=== PATIENT | male | born 1940 | race Caucasian/White ===

== ENCOUNTER 2016-09-08 11:40 | Inpatient (IN) ==
[2016-09-08] MEDS ORDERED: *HR* HYDROmorphone (PF) 1 MG/ML SYRINGE IVP ONE (12:04)
[2016-09-08] MEDS ORDERED: Ondansetron 4 MG/2 ML VIAL IVP ONE (12:04)
--- NOTE | 2016-09-08 12:09 | Emergency Department Note ---
Disposition Clinical Impression: Atrial thrombus Abdominal pain Qualifiers: Abdominal location: unspecified location Qualified Code(s): R10.9 - Unspecified abdominal pain Disposition: Home, Self-Care Condition: Good Abdominal Pain HPI - General Chief Complaint: ED Abdominal Pain Stated Complaint: Abd pain, constipation Time Seen by Provider: 09/08/16 12:00 Source: patient, family Limitations: no limitations Nursing Notes Reviewed: Yes Vital Signs Reviewed: Yes - History of Present Illness HPI Narrative: Patient here for evaluation abdominal pain. Abdominal pain started approximately 1 week ago has been getting worse in nature. Patient seen on Tuesday at [facility] emergency department with no abnormalities found during workup and sent home. At that time the patient had been having black stools which was found to be negative for blood in the department. Symptoms progressively worse now associated with "potato soup" diarrhea 4 last night. Patient's had nausea but no vomiting. Past medical history includes significant peripheral artery disease with current ischemia the right big toe being treated by vascular and podiatry. Patient has a history of atrial fibrillation on warfarin Pain Scale: 10 - Related Data Home Medications Medication Instructions Recorded Confirmed Calcium Carbonate [Calcium] 600 mg PO BID 02/20/16 09/08/16 Folic Acid 3 mg PO DAILY 02/20/16 09/08/16 Leflunomide [Arava] 20 mg PO DAILY 02/20/16 09/08/16 Methotrexate [Otrexup] 10 mg PO MO 02/20/16 09/08/16 Metoprolol [Lopressor] 50 mg PO BID 02/20/16 09/08/16 Polyethylene Glycol 3350 [MiraLAX] 17 gm PO DAILY PRN 02/20/16 09/08/16 Pravastatin Sodium [Pravachol] 80 mg PO HS 02/20/16 09/08/16 PredniSONE 5 mg PO DAILY 02/20/16 09/08/16 Primidone [Mysoline] 200 mg PO TID 02/20/16 09/08/16 Warfarin [Coumadin] 4 mg PO SUMOWEFR 02/20/16 09/08/16 Vit A/C/E AC/Znox/Cupric Oxide 1 each PO DAILY 08/18/16 09/08/16 [Eye Vitamin-Minerals Tablet] Warfarin Sodium [Coumadin] 6 mg PO TUTHSA 08/18/16 09/08/16 Benazepril HCl [Lotensin] 20 mg PO BID 09/08/16 09/08/16 HYDROmorphone [Dilaudid] 4 mg PO Q4-6H PRN 09/08/16 09/08/16 Metformin [Glucophage] 500 mg PO BIDWM 09/08/16 09/08/16 [place]-3/Dha/Epa/Fish Oil [[place]-3 2,000 mg PO DAILY 09/08/16 09/08/16 Fish Oil 1,000 mg Sfgl] Previous Rx's Medication Instructions Recorded Clopidogrel [Plavix] 75 mg PO DAILY #30 tablet 08/18/16 Allergies Allergy/AdvReac Type Severity Reaction Status Date / Time No Known Allergies Allergy Verified 09/08/16 11:42 Constitutional: Denies: fever, chills Cardiovascular: Denies: chest pain, palpitations Respiratory: Denies: cough Gastrointestinal: Reports: abdominal pain, nausea. Denies: vomiting, diarrhea Genitourinary: Denies: urgency, dysuria Abdominal Pain PMH - Past Medical History Medical history: Reports: atrial fibrillation, CHF, hyperlipidemia, hypertension , peripheral artery disease, other Male Surgical History: Reports: other Psychiatric history: Reports: no psych history - Social History Smoking status: Former smoker Alcohol use: Reports: none Drug use: Reports: none Physical Exam - General Limitations: no limitations General appearance: alert, in no apparent distress - Head Head exam: atraumatic, normocephalic - Eye Eye exam: Present: normal appearance - ENT ENT exam: normal exam - Neck Neck exam: Present: normal inspection, full ROM - Chest Chest inspection: Present: normal inspection, symmetric chest wall rise. Absent : tenderness - Respiratory Respiratory exam: Present: normal lung sounds bilaterally. Absent: respiratory distress - Cardiovascular Cardiovascular exam: Present: tachycardia, irregular rhythm - Abdominal Exam Abdominal exam: Present: tenderness, rebound Abdominal tenderness: Present: LUQ, moderate - Extremities Exam Extremities exam: Present: other (Right great big toe with ischemia that has not been worsening followed by specialist) - Neurological Exam Neurological exam: Present: alert, oriented X3, CN II-XII intact - Psychiatric Psychiatric exam: Present: normal affect, normal mood - Skin Skin exam: Present: warm, dry Course - Reevaluation(s) Reevaluation #1: Radiology: CT scan results showing concern for atrial thrombus. Patient not significantly anticoagulated at this time with INR 1.4. Patient continues to have abdominal pain without radiographic or laboratory significance. Will discuss with hospitalist regarding admission. - Consultations Consultation #1: Discussed with Dr. Thurston. Will anticoagulate with heparin. Accepted for admission. Vital Signs Temperature 0 F L 09/08/16 11:42 Pulse Rate 123 09/08/16 11:42 Respiratory Rate 18 09/08/16 11:42 Blood Pressure 154/103 09/08/16 11:42 O2 Sat by Pulse Oximetry 94 L 09/08/16 11:42 Temperature 98 F 09/08/16 17:03 Pulse Rate 100 09/08/16 16:38 Respiratory Rate 16 09/08/16 16:38 Blood Pressure 142/84 09/08/16 16:38 O2 Sat by Pulse Oximetry 97 09/08/16 16:38 Oxygen Delivery Oxygen Delivery Room Air Abdominal Pain - Lab Data Result diagrams: 09/08/16 12:24 09/08/16 12:24 Lab Results 09/08/16 09/08/16 09/08/16 Range/Units 12:24 12:24 12:24 WBC 8.7 (4.3-11.1) K/mcL RBC 3.99 L (4.19-5.50) M/mcL Hgb 13.2 (12.9-16.9) g/dL Hct 40.2 (37.5-50.1) % MCV 100.8 H (83.0-100.0) fL MCH 33.1 (28.0-33.3) pg MCHC 32.8 (31.6-35.5) g/dL RDW 17.1 H (11.5-14.5) % Plt Count 216 (140-400) K/mcL MPV 10.1 (9.4-12.4) fL Immature Gran % 1.0 (0-4) % Seg Neutrophils % 73.3 % Lymphocytes % 16.6 % Monocytes % 8.4 % Eosinophils % 0.2 % Basophils % 0.5 % Neutrophils # 6.4 (1.6-8.9) K/mcL Lymphocytes # 1.4 (0.6-4.6) K/mcL Monocytes # 0.7 (0.0-1.3) K/mcL Eosinophils # 0.0 (0.0-0.6) K/mcL Basophils # 0.0 (0.0-0.2) K/mcL PT 15.5 H (9.4-12.1) Seconds INR 1.4 APTT (26.0-36.0) Seconds Sodium 138 (136-145) mEq/L Potassium 4.5 (3.5-4.5) mEq/L Chloride 103 (98-109) mEq/L Carbon Dioxide 22 (19-29) mEq/L BUN 19 (8-26) mg/dL Creatinine 1.05 (0.72-1.25) mg/dL Est GFR ( Amer) > 60 (> 60) Est GFR (Non-Af Amer) > 60 (> 60) BUN/Creatinine Ratio 18 (6-26) Glucose 117 H (70-99) mg/dL Calculated Osmolality 289 (280-300) Lactic Acid (0.5-2.2) mmol/L Calcium 8.7 (8.6-10.8) mg/dL Total Bilirubin 0.8 (0.2-1.2) mg/dL Direct Bilirubin 0.4 (0.0-0.5) mg/dL Indirect Bilirubin 0.4 (0.0-1.2) mg/dL AST 19 (5-34) Units/L ALT 16 (0-55) Units/L Alkaline Phosphatase 64 (38-126) Units/L Serum Total Protein 7.3 (6.0-8.3) g/dL Albumin 3.1 L (3.5-5.0) g/dL Globulin 4.2 H (2.4-3.5) g/dL Albumin/Globulin Ratio 0.7 L (1.1-2.2) Lipase 16 (8-78) Units/L 09/08/16 09/08/16 Range/Units 12:24 12:31 WBC (4.3-11.1) K/mcL RBC (4.19-5.50) M/mcL Hgb (12.9-16.9) g/dL Hct (37.5-50.1) % MCV (83.0-100.0) fL MCH (28.0-33.3) pg MCHC (31.6-35.5) g/dL RDW (11.5-14.5) % Plt Count (140-400) K/mcL MPV (9.4-12.4) fL Immature Gran % (0-4) % Seg Neutrophils % % Lymphocytes % % Monocytes % % Eosinophils % % Basophils % % Neutrophils # (1.6-8.9) K/mcL Lymphocytes # (0.6-4.6) K/mcL Monocytes # (0.0-1.3) K/mcL Eosinophils # (0.0-0.6) K/mcL Basophils # (0.0-0.2) K/mcL PT (9.4-12.1) Seconds INR APTT 27.9 (26.0-36.0) Seconds Sodium (136-145) mEq/L Potassium (3.5-4.5) mEq/L Chloride (98-109) mEq/L Carbon Dioxide (19-29) mEq/L BUN (8-26) mg/dL Creatinine (0.72-1.25) mg/dL Est GFR ( Amer) (> 60) Est GFR (Non-Af Amer) (> 60) BUN/Creatinine Ratio (6-26) Glucose (70-99) mg/dL Calculated Osmolality (280-300) Lactic Acid 2.4 H (0.5-2.2) mmol/L Calcium (8.6-10.8) mg/dL Total Bilirubin (0.2-1.2) mg/dL Direct Bilirubin (0.0-0.5) mg/dL Indirect Bilirubin (0.0-1.2) mg/dL AST (5-34) Units/L ALT (0-55) Units/L Alkaline Phosphatase (38-126) Units/L Serum Total Protein (6.0-8.3) g/dL Albumin (3.5-5.0) g/dL Globulin (2.4-3.5) g/dL Albumin/Globulin Ratio (1.1-2.2) Lipase (8-78) Units/L Attestation Statement - Attestation Attestation: I examined this patient and my medical decision-making was reviewed with the Resident Physician. I agree with the documented findings, disposition and treatment plan as described except to the extent set forth below. Incidental finding of atrial thrombus seen on abdominal CT. INR subtherapeutic. Anticoaguleated in ED, admitted.
[2016-09-08 12:31] LABS: Basophils % 0.5 %; Eosinophils % 0.2 %; Hematocrit 40.2 % (37.5-50.1); Hemoglobin 13.2 g/dL (12.9-16.9); Lymphocytes # 1.4 K/mcL (0.6-4.6); Lymphocytes % 16.6 %; Mean Corpuscular HGB Conc 32.8 g/dL (31.6-35.5); Mean Corpuscular Hemoglobin 33.1 pg (28.0-33.3); Mean Corpuscular Volume 100.8 fL (83.0-100.0); Mean Platelet Volume 10.1 fL (9.4-12.4); Monocytes # 0.7 K/mcL (0.0-1.3); Monocytes % 8.4 %; Neutrophils # 6.4 K/mcL (1.6-8.9); Platelet Count 216 K/mcL (140-400); Red Blood Count 3.99 M/mcL (4.19-5.50); Red Cell Distribution Width 17.1 % (11.5-14.5); Segmented Neutrophils % 73.3 %
[2016-09-08 12:37] LABS: INR 1.4; Prothrombin Time 15.5 Seconds (9.4-12.1)
[2016-09-08 12:45] LABS: Alanine Aminotransferase 16 Units/L (0-55); Albumin 3.1 g/dL (3.5-5.0); Albumin/Globulin Ratio 0.7 (1.1-2.2); Alkaline Phosphatase 64 Units/L (38-126); Aspartate Amino Transferase 19 Units/L (5-34); BUN/Creatinine Ratio 18 (6-26); Bilirubin,Direct 0.4 mg/dL (0.0-0.5); Bilirubin,Indirect 0.4 mg/dL (0.0-1.2); Bilirubin,Total 0.8 mg/dL (0.2-1.2); Blood Urea Nitrogen 19 mg/dL (8-26); Calcium 8.7 mg/dL (8.6-10.8); Carbon Dioxide 22 mEq/L (19-29); Chloride 103 mEq/L (98-109); Globulin 4.2 g/dL (2.4-3.5); Glucose 117 mg/dL (70-99); Lipase 16 Units/L (8-78); Osmolality,Calculated 289 (280-300); Potassium 4.5 mEq/L (3.5-4.5); Sodium 138 mEq/L (136-145); Total Protein 7.3 g/dL (6.0-8.3); eGFR For African Americans > 60 (> 60); eGFR For Non-African Americans > 60 (> 60)
[2016-09-08] MEDS ORDERED: *HR* HYDROmorphone (PF) 1 MG/ML SYRINGE IV ONE (14:16)
[2016-09-08] MEDS ORDERED: *HR* Heparin 5,000 UNIT/ML VIAL IVP PRN ×2 (15:21)
[2016-09-08] MEDS ORDERED: *HR* Heparin 5,000 UNIT/ML VIAL IVP ONE (15:21)
[2016-09-08] MEDS: Heparin 25,000 UNIT/500 ML D5W 25,000 UNIT/500 ML MLS IVC SCH (15:54)
[2016-09-08] MEDS ORDERED: Naloxone 0.4 MG/ML INJ IVP PRN (17:22)
[2016-09-08] MEDS ORDERED: *HR* Morphine 2 MG/ML SYRINGE IVP PRN (17:22)
--- NOTE | 2016-09-08 17:47 | Internal Med History&Physical ---
Date of Encounter: 09/08/16 Time of Encounter: 17:34 Assessment and Plan (1) Atrial thrombus Status: Acute Atrial thrombus: This is an incidental finding on a CT scan of the abdomen. Noted that patient has a subtherapeutic INR. Patient was on Coumadin for underlying atrial fibrillation. Plan: -Intravenous heparin as per protocol. -We will monitor PTT and other lab parameters. -Keep the PTT in the therapeutic value. -If patient has no bleeding in next 48 hours then with the help of cardiology please consider restarting Coumadin -I have explained at length the risk of possible bleeding with heparin drip. This bleeding can be life-threatening. -Patient and family verbalized understanding. (2) Hypertension Status: Chronic Will restart home medication. Qualifiers: Hypertension type: essential hypertension Qualified Code(s): I10 - Essential (primary) hypertension (3) Rheumatoid arthritis Status: Chronic Upon reviewing the medication, it looks like patient has underlying rheumatoid arthritis but this was not mentioned in his problem list. Qualifiers: Rheumatoid arthritis location: unspecified site Rheumatoid factor presence : unspecified presence Qualified Code(s): M06.9 - Rheumatoid arthritis, unspecified (4) Hyperlipidemia Status: Chronic Patient is on statins and will continue the same Qualifiers: Hyperlipidemia type: mixed hyperlipidemia Qualified Code(s): E78.2 - Mixed hyperlipidemia (5) DVT prophylaxis Status: Acute Heparin drip: Medical decision making: Patient has a [id number] risk of worsening in spite of being on appropriate medication Internal Medicine - H&P: HPI Chief complaint: abdomnal pain Admitted From: Emergency Dept Plans for Post Hospital Care: Home History of present illness: PCP : Dr Brooks Vascular Surgeon : Dr De La Garza Cardiology : from [facility]. Brief PMH: HTN, Hyperlipidemia, Afib on Coumadin, PAD with recent procedure by Dr De La Garza, CHF by ECHO ( EF 45% in January 2016) History of present illness: Patient had recent vascular procedure done by . For this procedure Coumadin was on hold. Coumadin was restarted and INR was within the therapeutic goal. Last Tuesday patient had a melenic stool. Patient consulted his bowl attendant. Educational Therapist recommended stop Coumadin. Patient was told by cardiology that stool does not have blood and recommended to restart Coumadin. All This information was provided by the patient. Today patient came to the emergency room for persistent abdominal pain. Patient 's CT scan of the abdomen was done. The CT scan of the abdomen showed presence of a right atrial thrombus. This is a incidental finding. Noted that patient' s INR is subtherapeutic. Course in the emergency room: Patient was evaluated in the emergency room. The incidental finding of right atrial thrombus was noted. Cardiology was contacted. Cardiology recommended intravenous heparin. Risk versus benefit of possible underlying GI bleed was discussed with the patient as well as family. Reason for admission: Left atrial thrombus which is a incidental finding on the CT of the abdomen. Intravenous heparin for anticoagulation. Reason for intravenous heparin is as patient has a recent history of possible melenic stool , only heparin has short half-life and which can be reverted back in case of there is a new episode of bleeding. Cardiology agreed and recommended intravenous heparin. Family history: Noncontributory Past Med Surg Social Fam HX - Past Medical History Medical history: atrial fibrillation, CHF, hyperlipidemia, hypertension, peripheral artery disease, other Psychiatric history: no psych history - Past Surgical History Surgical History: herniorrhaphy, other - Social History Smoking Status: Former smoker Smokeless Tobacco Status: No Alcohol use: none Drug use: none Internal Medicine - H&P: Meds Calcium Carbonate [Calcium] 600 mg PO BID 02/20/16 [History] Folic Acid 3 mg PO DAILY 02/20/16 [History] Leflunomide [Arava] 20 mg PO DAILY 02/20/16 [History] Methotrexate [Otrexup] 10 mg PO MO 02/20/16 [History] Metoprolol [Lopressor] 50 mg PO BID 02/20/16 [History] Polyethylene Glycol 3350 [MiraLAX] 17 gm PO DAILY PRN 02/20/16 [History] Pravastatin Sodium [Pravachol] 80 mg PO HS 02/20/16 [History] PredniSONE 5 mg PO DAILY 02/20/16 [History] Primidone [Mysoline] 200 mg PO TID 02/20/16 [History] Warfarin [Coumadin] 4 mg PO SUMOWEFR 02/20/16 [History] Clopidogrel [Plavix] 75 mg PO DAILY #30 tablet 08/18/16 [Rx] Vit A/C/E AC/Znox/Cupric Oxide [Eye Vitamin-Minerals Tablet] 1 each PO DAILY 02/24 [History] Warfarin Sodium [Coumadin] 6 mg PO TUTHSA 08/18/16 [History] Benazepril HCl [Lotensin] 20 mg PO BID 09/08/16 [History] HYDROmorphone [Dilaudid] 4 mg PO Q4-6H PRN 09/08/16 [History] Metformin [Glucophage] 500 mg PO BIDWM 09/08/16 [History] [place]-3/Dha/Epa/Fish Oil [[place]-3 Fish Oil 1,000 mg Sfgl] 2,000 mg PO DAILY 07/27 [History] Docusate [Colace] 100 mg PO BID #30 capsule 09/13/16 [Rx] Allergies No Known Allergies Allergy (Verified 09/08/16 11:42) All Systems PM: A 10-system review of systems was performed and is negative for pertinent findings except as documented above in the HPI. - Constitutional Constitutional: no chills, no fever(s), no night sweats - EENT Eyes: no change in vision, no discharge, no pain, no photophobia Ears: no ear discharge, no ear pain, no tinnitus Nose, mouth and throat: no dysphagia, no nasal discharge, no neck pain, no sore throat - Cardiovascular Cardiovascular ROS IM: no chest pain, no diaphoresis, no dyspnea, no lightheadedness, no palpitations, no syncope - Respiratory Respiratory: no cough, no dyspnea, no wheezing, no excessive phlegm production - Gastrointestinal Gastrointestinal: no abdominal pain, no diarrhea, no hematemesis, no hematochezia, no melena, no nausea, no vomiting - Musculoskeletal Musculoskeletal ROS IM: no numbness, no tingling - Integumentary Integumentary IM: no rash, no unusual bruising - Neurological Neurological ROS: no confusion, no convulsions, no focal weakness, no numbness, no tingling, no tremor(s) - Hematologic/Lymphatic Hematologic/Lymphatic: no easy bruising - Constitutional Vitals: Temp Pulse Resp BP Pulse Ox 98 F 100 16 142/84 97 09/08/16 17:03 09/08/16 16:38 09/08/16 16:38 09/08/16 16:38 09/08/16 16:38 General appearance: Present: A&O X 3, pleasant, no acute distress, answers questions appropriately - Head Head exam: Present: atraumatic, normocephalic - Eye Eye exam: Present: PERRL, conjuntiva pink, sclera anicteric Pupils: Present: PERRL - Neck Neck exam general surgery: Present: supple, trachea midline. Absent: lymphadenopathy - Respiratory Respiratory exam: Present: CTAB. Absent: accessory muscle use, rales, rhonchi, wheezes - Cardiovascular Cardiovascular exam: Present: RRR, +S1, +S2. Absent: diastolic murmur, gallop, rubs, systolic murmur - GI/Abdominal GI/Abdominal exam: Present: normal bowel sounds, soft, no peritoneal signs. Absent: distended, tenderness - Extremities Exam Extremities exam: Present: warm, radial pulses palpable and symetrical. Absent : calf tenderness, cyanotic, pedal edema - Neurological Exam Neurological exam: Present: CN II-XII intact, oriented X3, no focal deficits. Absent: pronater drift, facial droop, speech deficit - Skin Skin exam: Present: dry, intact Internal Med - H&P Results - Labs CBC & Chem 7: 09/10/16 06:28 09/10/16 06:28 Labs: Case discussed with the bowl attendant and the ER physician.
[2016-09-08] MEDS: Primidone 50 MG TABLET PO SCH (20:13)
[2016-09-08] MEDS: *HR* HYDROmorphone 2 MG/ML SYRINGE IVP PRN (20:13)
[2016-09-08 22:27] LABS: Bilirubin,Urine Negative (Negative); Blood,Urine Negative (Negative); Clarity,Urine Clear (Clear); Color,Urine Yellow (Yellow); Glucose,Urine (UA) Normal (Normal); Ketones,Urine Trace mg/dL (Negative); Leukocyte Esterase,Urine Negative (Negative); Nitrite,Urine Negative (Negative); PH,Urine 5.5 pH Units (5.0-8.0); Protein,Urine Negative (Neg-Trace); Specific Gravity,Urine > 1.030 (1.010-1.025); Urobilinogen,Urine Normal (Normal)
[2016-09-09 05:29] LABS: Basophils # 0.1 K/mcL (0.0-0.2); Basophils % 0.7 %; Eosinophils # 0.2 K/mcL (0.0-0.6); Hematocrit 35.8 % (37.5-50.1); Hemoglobin 11.9 g/dL (12.9-16.9); Immature Granulocytes % 0.7 % (0-4); Lymphocytes # 1.9 K/mcL (0.6-4.6); Lymphocytes % 23.7 %; Mean Corpuscular HGB Conc 33.2 g/dL (31.6-35.5); Mean Corpuscular Hemoglobin 34.1 pg (28.0-33.3); Mean Corpuscular Volume 102.6 fL (83.0-100.0); Mean Platelet Volume 10.4 fL (9.4-12.4); Monocytes # 0.9 K/mcL (0.0-1.3); Platelet Count 194 K/mcL (140-400); Red Blood Count 3.49 M/mcL (4.19-5.50); Red Cell Distribution Width 17.1 % (11.5-14.5); Segmented Neutrophils % 61.9 %
[2016-09-09] MEDS: *HR* HYDROmorphone 2 MG/ML SYRINGE IVP PRN ×4 (05:46→22:27)
[2016-09-09 05:49] LABS: Alanine Aminotransferase 17 Units/L (0-55); Albumin 2.8 g/dL (3.5-5.0); Albumin/Globulin Ratio 0.8 (1.1-2.2); Alkaline Phosphatase 60 Units/L (38-126); Aspartate Amino Transferase 17 Units/L (5-34); BUN/Creatinine Ratio 18 (6-26); Bilirubin,Total 0.6 mg/dL (0.2-1.2); Blood Urea Nitrogen 17 mg/dL (8-26); Calcium 8.5 mg/dL (8.6-10.8); Carbon Dioxide 24 mEq/L (19-29); Chloride 103 mEq/L (98-109); Chol/HDL Ratio 3.7 (0-4.9); Cholesterol 161 mg/dL (< 200); Globulin 3.7 g/dL (2.4-3.5); Glucose 103 mg/dL (70-99); HDL Cholesterol 43 mg/dL (40-59); LDL Cholesterol,Calculated 97 mg/dL (0-99); Magnesium 1.9 mg/dL (1.6-2.6); Osmolality,Calculated 288 (280-300); Phosphorous 2.8 mg/dL (2.3-4.7); Potassium 4.2 mEq/L (3.5-4.5); Sodium 138 mEq/L (136-145); Total Protein 6.5 g/dL (6.0-8.3); Triglycerides 105 mg/dL (< 150); eGFR For African Americans > 60 (> 60); eGFR For Non-African Americans > 60 (> 60)
[2016-09-09] MEDS: Multivit/Ca/Min/Fe/FA 1 TAB TABLET PO SCH (08:56)
[2016-09-09] MEDS: Primidone 50 MG TABLET PO SCH ×3 (08:56→21:39)
[2016-09-09] MEDS: Lisinopril 20 MG TABLET PO SCH (08:57)
[2016-09-09] MEDS: Folic Acid 1 MG TABLET PO SCH (08:57)
[2016-09-09] MEDS: predniSONE 5 MG TABLET PO SCH (08:57)
[2016-09-09] MEDS: FISH OIL PO SCH (09:03)
[2016-09-09] MEDS: OMEGA PO SCH (09:03)
[2016-09-09] MEDS: EPA PO SCH (09:03)
[2016-09-09] MEDS: DHA PO SCH (09:03)
[2016-09-09] MEDS: (Leflunomide [Arava] 20 MG) PO SCH (09:03)
--- NOTE | 2016-09-09 09:09 | Vascular/Endovasc Consult Note ---
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 He underwent angioplasty and his TCPO2 is now consistent with healing. He may follow up with podiatry and in vascular clinic. He may require a right great toe amputation. Qualifiers: Peripheral atherosclerosis artery type: pauma artery Qualified Code(s): I70.261 - Atherosclerosis of pauma arteries of extremities with gangrene, right leg (2) Hyperlipidemia Status: Chronic He was counseled regarding atherosclerotic risk factor reduction. Qualifiers: Hyperlipidemia type: mixed hyperlipidemia Qualified Code(s): E78.2 - Mixed hyperlipidemia (3) Hypertension Status: Chronic Qualifiers: Hypertension type: essential hypertension Qualified Code(s): I10 - Essential (primary) hypertension (4) Abdominal pain Status: Acute The patient reports midepigastric postprandial abdominal pain. He has some mild midepigastric tenderness without any rebound or guarding. He currently denies food aversion or intestinal angina. His symptoms have been present for one week. He denies significant weight loss. He does have gallstones, a poor appetite and constipation. He reports that his symptoms have decreased since admission. Qualifiers: Abdominal location: epigastric Qualified Code(s): R10.13 - Epigastric pain - History of Present Illness Consult date: 09/16/16 Requesting physician: Magaly Bobo Consult reason: Abdominal Pain, PVD Chief complaint: Abdominal pain History of present illness: Mr. Eid is a 75 year old male with multiplie medial comorbidities including hypertension, hyperlipidemia and peripheral vascular disease. He has a history of atrial fibrillation and is chronically anticoagulated with coumadin. He was recently noted to have an atrial thrombus. The patient also has a gangrenous right great toe. He has previously undergone angioplasty and will likely undergo toe amputation in the future. He was admitted with abdominal pain. HE reports that the pain is midepigastric and occurs after eating meals. He denies significant weight loss, intestinal angina symptoms or food aversion. He reports associated nausea. He reports that his symptoms are intermittent, but have been severe at times. At the time of exam, he states that he is comfortable. He denies chest pain or shortness of breath. Past Med Surg Social Fam HX - Past Medical History Medical history: atrial fibrillation, CHF, hyperlipidemia, hypertension, peripheral artery disease, other Psychiatric history: no psych history - Past Surgical History Surgical History: herniorrhaphy, other - Social History Smoking Status: Former smoker Smokeless Tobacco Status: No Alcohol use: none Drug use: none Medications and Allergies Calcium Carbonate [Calcium] 600 mg PO BID 02/20/16 [History] Folic Acid 3 mg PO DAILY 02/20/16 [History] Leflunomide [Arava] 20 mg PO DAILY 02/20/16 [History] Methotrexate [Otrexup] 10 mg PO MO 02/20/16 [History] Metoprolol [Lopressor] 50 mg PO BID 02/20/16 [History] Polyethylene Glycol 3350 [MiraLAX] 17 gm PO DAILY PRN 02/20/16 [History] Pravastatin Sodium [Pravachol] 80 mg PO HS 02/20/16 [History] PredniSONE 5 mg PO DAILY 02/20/16 [History] Primidone [Mysoline] 200 mg PO TID 02/20/16 [History] Warfarin [Coumadin] 4 mg PO SUMOWEFR 02/20/16 [History] Clopidogrel [Plavix] 75 mg PO DAILY #30 tablet 08/18/16 [Rx] Vit A/C/E AC/Znox/Cupric Oxide [Eye Vitamin-Minerals Tablet] 1 each PO DAILY 02/24 [History] Warfarin Sodium [Coumadin] 6 mg PO TUTHSA 08/18/16 [History] Benazepril HCl [Lotensin] 20 mg PO BID 09/08/16 [History] HYDROmorphone [Dilaudid] 4 mg PO Q4-6H PRN 09/08/16 [History] Metformin [Glucophage] 500 mg PO BIDWM 09/08/16 [History] [place]-3/Dha/Epa/Fish Oil [[place]-3 Fish Oil 1,000 mg Sfgl] 2,000 mg PO DAILY 07/27 [History] Docusate [Colace] 100 mg PO BID #30 capsule 09/13/16 [Rx] Allergies No Known Allergies Allergy (Verified 09/08/16 11:42) All Systems Review: A 10-system review of systems was performed and is negative for pertinent findings except as documented above in the HPI. - Constitutional Constitutional: no anorexia, no chills, no fatigue, no fever(s), no headache(s) - Cardiovascular Cardiovascular: no chest pain at rest, no chest pain with exertion, no dyspnea at rest, no dyspnea on exertion - Gastrointestinal Gastrointestinal: abdominal pain, constipation, nausea, no diarrhea, no hematemesis, no hematochezia, no melena Exam Vital Signs, Last 4 Hours Temp Pulse Resp BP Pulse Ox 09/09/16 08:29 98.4 F 87 16 147/85 99 09/09/16 05:29 96.6 F L 84 16 132/92 94 L General: Present: Conversant, No Apparent Distress HEENT: Present: Atraumatic, Trachea midline, Pupils equal Neck: Absent: JVD, Lymphadenopathy, Left Carotid bruit, Right Carotid bruit, Tracheal deviation Cardiac: Present: Normal S1 and S2, Irregular Rhythm Lungs: Present: Normal Breath Sounds, No Wheeze, Rales, Rhonchi Neuro: Present: Alert and responsive, No focal deficits noted, Cranial nerves grossly intact, Motor nerves grossly intact, Sensory nerves grossly intact Abdomen: Present: Soft, Other (mild midepigastric abdominal pain, no rebound, no guarding). Absent: Hepatosplenomegaly, [place] Vascular: Present: Normal capillary refill, Other (gangrene at right great toe, pedal signals present). Absent: Cyanosis, Edema Skin: Absent: No rashes noted on visualized skin Consult Discharge Plan - Plan Additional Instructions: F/up with Podiatry clinic in 1-2 weeks- or Referrals: Tessa Brooks CNP [Primary Care Provider] - (this appoinment has been requested) Boo Umana CNP [Advanced Practice Nurse] - 10/01/16 8:30 am Prescriptions: Docusate [Colace] 100 mg PO BID #30 capsule
--- NOTE | 2016-09-09 09:11 | Internal Med Progress Note ---
Date of Encounter: 09/09/16 Time of Encounter: 09:10 - Assessment and plan (1) Abdominal pain Current Visit: Yes Status: Acute Assessment and plan: Could be due to constipation or mesenteric ischemia, however patient's reports that his pain only started after he started taking Dilaudid with associated constipation. Start scheduled laxatives and stool softeners and consider enema to relieve constipation. Continue IV hydration, pain control and supportive care. Will discuss with vascular surgery regarding the possibility of mesenteric ischemia. Qualifiers: Abdominal location: epigastric Qualified Code(s): R10.13 - Epigastric pain (2) Atrial thrombus Current Visit: Yes Status: Acute Assessment and plan: Patient has been started on IV heparin drip. Cardiology consult appreciated, agree with anticoagulation. Start Coumadin and monitor PT/INR. Check 2-D echocardiogram. (3) Atrial fibrillation Current Visit: Yes Status: Chronic Assessment and plan: Currently rate controlled. Continue beta annelise and long-term anti-coag ablation with Coumadin. Qualifiers: Atrial fibrillation type: unspecified Qualified Code(s): I48.91 - Unspecified atrial fibrillation (4) Peripheral arterial disease Current Visit: Yes Status: Chronic Assessment and plan: Patient recently underwent right lower extremity angioplasty and is noted to have right great toe gangrene, for which he follows as an outpatient with podiatry. Vascular surgery consulted, will follow recommendations. Pain control with when necessary IV Dilaudid. (5) Congestive heart failure Current Visit: Yes Status: Chronic Qualifiers: Congestive heart failure type: combined Congestive heart failure chronicity : chronic Qualified Code(s): I50.42 - Chronic combined systolic (congestive) and diastolic (congestive) heart failure (6) Hyperlipidemia Current Visit: Yes Status: Chronic Qualifiers: Hyperlipidemia type: mixed hyperlipidemia Qualified Code(s): E78.2 - Mixed hyperlipidemia (7) Hypertension Current Visit: Yes Status: Chronic Qualifiers: Hypertension type: essential hypertension Qualified Code(s): I10 - Essential (primary) hypertension (8) Rheumatoid arthritis Current Visit: Yes Status: Chronic Qualifiers: Rheumatoid arthritis location: unspecified site Rheumatoid factor presence : unspecified presence Qualified Code(s): M06.9 - Rheumatoid arthritis, unspecified - Subjective Interval history: Reports improved pain in right leg and foot, on IV Dilaudid. No chest pain, dyspnea, dizziness or palpitations. Still has central abdominal pain, worse after eating, no nausea/vomiting/diarrhea, has been having problems with constipation recently due to narcotic pain meds at home. - Constitutional Vitals: Temp Pulse Resp BP Pulse Ox 98.4 F 87 16 147/85 99 09/09/16 08:29 09/09/16 08:29 09/09/16 08:29 09/09/16 08:29 09/09/16 08:29 General appearance: Present: A&O X 3, answers questions appropriately - Head Head exam: Present: atraumatic, normocephalic - Neck Neck exam general surgery: Present: supple, trachea midline. Absent: lymphadenopathy - Respiratory Respiratory exam: Present: CTAB. Absent: accessory muscle use, rales, rhonchi, wheezes - Cardiovascular Cardiovascular exam: Present: irregular rhythm, +S1, +S2. Absent: diastolic murmur, gallop, rubs, systolic murmur - GI/Abdominal GI/Abdominal exam: Present: normal bowel sounds, soft (mildly tender in central and RLQ of abdomen), no peritoneal signs. Absent: distended, tenderness - Extremities Exam Extremities exam: Present: pedal edema, warm, radial pulses palpable and symetrical. Absent: calf tenderness, cyanotic Additional comments: right foot- cyanotic and gangrenous great toe, mostly dry with non-healing plantar ulcer; severe tenderness over right foot and lower leg - Neurological Exam Neurological exam: Present: CN II-XII intact, oriented X3, no focal deficits. Absent: pronater drift, facial droop, speech deficit - Skin Skin exam: Present: dry, intact Internal Medicine: Result - Labs CBC & Chem 7: 09/10/16 06:28 09/10/16 06:28 Labs: Short CBC 09/09/16 Range/Units 05:07 WBC 8.1 (4.3-11.1) K/mcL Hgb 11.9 L (12.9-16.9) g/dL Hct 35.8 L (37.5-50.1) % Plt Count 194 (140-400) K/mcL Neutrophils # 5.0 (1.6-8.9) K/mcL BMP 09/09/16 05:07 Sodium 138 Potassium 4.2 Chloride 103 Carbon Dioxide 24 BUN 17 Creatinine 0.94 Glucose 103 H Calcium 8.5 L Cardiac Enzymes 09/08/16 09/08/1609/09/17 Range/Units 17:59 23:35 05:07 Troponin I 0.04 H* 0.05 H* 0.04 H* (0-0.03) ng/mL Liver Function 09/09/16 Range/Units 05:07 Total Bilirubin 0.6 (0.2-1.2) mg/dL AST 17 (5-34) Units/L ALT 17 (0-55) Units/L Alkaline Phosphatase 60 (38-126) Units/L Albumin 2.8 L (3.5-5.0) g/dL Urine 09/08/16 Range/Units 22:10 Urine Color Yellow (Yellow) Urine Clarity Clear (Clear) Urine pH 5.5 (5.0-8.0) pH Units Ur Specific [place] > 1.030 H (1.010-1.025) Urine Protein Negative (Neg-Trace) mg/dL Urine Glucose (UA) Normal (Normal) mg/dL - ABG Interpretation ABG results: PT/INR, D-dimer PT 15.5 Seconds (9.4-12.1) H 09/08/16 12:24 Consult Discharge Plan - Plan Referrals: Tessa Brooks, FILM INSPECTOR [Primary Care Provider] -
[2016-09-09] MEDS: Sennosides/Docusate Sodium TABLET PO SCH ×2 (10:18→21:39)
[2016-09-09] MEDS: Heparin 25,000 UNIT/500 ML D5W 25,000 UNIT/500 ML MLS IVC SCH (10:18)
--- NOTE | 2016-09-09 11:26 | Cardiology Consult Note ---
Date of Encounter: 09/09/16 Time of Encounter: 10:00 Assessment and Plan (1) Abdominal pain Current Visit: Yes Status: Acute Per cardiology: -Patient with abdominal pain and constipation. -Management per primary service. (VICTOR MANUEL) Qualifiers: Abdominal location: unspecified location Qualified Code(s): R10.9 - Unspecified abdominal pain (2) Atrial thrombus Current Visit: Yes Status: Acute Per cardiology: -Patient with incidental right atrial thrombus noted on CT on 09/08/16. Thrombus measures 1.2 x 1.3 cm. -Patient with known history of atrial fibrillation. Patient on coumadin. Pateint with subtherapeutic INR on admission at 1.4. Patient states INR and coumadin dosing is managed by his primary document review attorney at [facility]. Reviewed INRs that have been done here at [facility] over the past year and it appears INR is labile. INRs noted to be between 1.1-5.3. indicates held within the past few weeks due to vascular procedure with Dr. De La Garza and held recently due to concerns with black stools -Patient currently on heparin drip. H&H stable and denies any active bleeding or blood loss. -Recommend restarting coumadin per pharmacy. -Recommend bridging with IV heparin, until INR therapeutic-- 2.0 - 3.0. Continue to monitor for any bleeding. -Cardiology will manage INR until seen by [facility] in [place] (once PA approved). Will refer to coumadin clinic in [place]. -Patient and family agreeable to to follow with [facility] coumadin clinic. (VICTOR MANUEL) (3) Atrial fibrillation Current Visit: Yes Status: Chronic Per cardiology: -Patient with known history of atrial fibrillation. Suspected chronic. -Patient previously on coumadin at home. Currently on heparin drip. -INR noted to be subtherapeutic on admission. - Noted to have A. fib with RVR 100s to 120s upon arrival, better controlled on the 90s. SBP as well in the 140s to 150s. Previous echo from January 2016 showed EF 45%. Current echo pending. Will convert from Lopressor to Toprol-XL with increase to 150 mg by mouth daily. Continue to monitor telemetry and blood pressures. -Suspect contributing factor to atrial thrombus. (VICTOR MANUEL) Qualifiers: Atrial fibrillation type: unspecified Qualified Code(s): I48.91 - Unspecified atrial fibrillation (4) Elevated troponin I measurement Current Visit: Yes Status: Acute Per Cardiology: Troponins slightly elevated, flat, adynamic. Suspect demand ischemia in relation to A. fib with RVR and hypertension upon arrival. Denies any chest pain. Previous records reviewed from vascular surgery with mention of no obstructive CAD on catheterization in 2008. Again, echo pending. Consider adding asa-- will hold for now since on IV heparin drip, Plavix, and Coumadin. (5) LBBB (left bundle branch block) Current Visit: Yes Status: Chronic Per Cardiology: History of left bundle branch block. Discussion w patient/family: The assessment and plan as outlined above was discussed with the patient and/or family members who expressed understanding and agreement. All questions were answered. Thank you for involving us in the care of your patient. Please call with any questions. Patient was seen and examined with MARCELO Garcia Discussed and reviewed with . History of Present Illness Consult date: 09/08/16 Requesting physician: Mio Thurston Consult reason: atrial thrombus Chief complaint: abdominal pain History of present illness: Mr. Eid is a 75 year old male with hx of afib-- failed DCCV in past, on Coumadin, HTN, HLD, PAD, LUCRECIA with CPAP, CHF, no known CAD who for the past week has been having diffculties at home with constipation. Patient states he frequently gets constipated due to his use of pain medications. Patient states he usually treats this at home with OTC laxatives. Patient states he had been using laxatives for the past week, without relief of constipation. Patient states he presented to the ER at [facility] in [place] on Tuesday due to unrelieved constipation and abdominal pain. Patient states he underwent a CT scan of the abdomen there and according to patient it was benign. Patient states he went home from ER and then was finally able to have a bowel movement. Patient states stool was soft and black in color. Patient states on Tuesday, the symptoms of constipation had returned and his pain was a 10/10, so he presented to [facility] ER. CT at [facility] showed incidental finding of right atrial thrombus, cardiology was consulted for thrombus. Pateint has a long history of atrial fibrillation and has been on coumadin. Patient states his INR and coumadin dosing have been followed by his Gifted Teacher at [facility]. Recent start on Plavix by Dr. De La Garza. Past Med Surg Social Fam HX - Past Medical History Attestation: Yes The following information was validated with the patient. Source: patient, obtained from family Medical history: atrial fibrillation, CHF, hyperlipidemia, hypertension, peripheral artery disease, other Psychiatric history: no psych history - Past Surgical History Surgical History: herniorrhaphy, other - Social History Smoking Status: Former smoker Smokeless Tobacco Status: No Alcohol use: none Drug use: none Medications and Allergies Calcium Carbonate [Calcium] 600 mg PO BID 02/20/16 [History] Folic Acid 3 mg PO DAILY 02/20/16 [History] Leflunomide [Arava] 20 mg PO DAILY 02/20/16 [History] Methotrexate [Otrexup] 10 mg PO MO 02/20/16 [History] Metoprolol [Lopressor] 50 mg PO BID 02/20/16 [History] Polyethylene Glycol 3350 [MiraLAX] 17 gm PO DAILY PRN 02/20/16 [History] Pravastatin Sodium [Pravachol] 80 mg PO HS 02/20/16 [History] PredniSONE 5 mg PO DAILY 02/20/16 [History] Primidone [Mysoline] 200 mg PO TID 02/20/16 [History] Warfarin [Coumadin] 4 mg PO SUMOWEFR 02/20/16 [History] Clopidogrel [Plavix] 75 mg PO DAILY #30 tablet 08/18/16 [Rx] Vit A/C/E AC/Znox/Cupric Oxide [Eye Vitamin-Minerals Tablet] 1 each PO DAILY 02/24 [History] Warfarin Sodium [Coumadin] 6 mg PO TUTHSA 08/18/16 [History] Benazepril HCl [Lotensin] 20 mg PO BID 09/08/16 [History] HYDROmorphone [Dilaudid] 4 mg PO Q4-6H PRN 09/08/16 [History] Metformin [Glucophage] 500 mg PO BIDWM 09/08/16 [History] [place]-3/Dha/Epa/Fish Oil [[place]-3 Fish Oil 1,000 mg Sfgl] 2,000 mg PO DAILY 07/27 [History] Allergies No Known Allergies Allergy (Verified 09/08/16 11:42) All Systems Review: A 10-system review of systems was performed and is negative for pertinent findings except as documented above in the HPI. - Cardiovascular Cardiovascular: as per HPI - Gastrointestinal Gastrointestinal: abdominal pain, constipation Physical Examination Vital Signs, Last 4 Hours Temp Pulse Resp BP Pulse Ox 09/09/16 08:29 98.4 F 87 16 147/85 99 Selected Entries 09/08/16 11:42 09/08/16 13:05 09/08/16 14:33 Pulse Rate 123 98 Blood Pressure 154/103 141/98 149/129 09/08/16 16:38 09/09/16 08:29 Pulse Rate 100 87 Blood Pressure 147/85 General: Conversant, No Apparent Distress HEENT: Atraumatic, Normocephaly, Mucus Membranes Moist Neck: No JVD, Normal carotid pulses Cardiac: Normal S1 and S2, No Murmur, Other (Irregularly, irregular) Lungs: Normal Breath Sounds, No Wheeze, Rales, Rhonchi Neuro: Alert and responsive, No focal deficits noted Abdomen: Other (Distended, tender) Skin: No rashes noted on visualized skin Musculoskeletal: No Chest Wall Tenderness Extremities: No Clubbing, No Cyanosis, Other (Bilateral 1+pitting edema. RIght great toe with ulcer, being managed by vascular. Bilateral pedal pulses 1+. ) Results 09/09/16 05:07 09/09/16 05:07 Lab Results Laboratory Tests 12/16/14 02/19/16 02/26/16 10:26 16:15 13:26 INR 1.2 1.1 2.0 D AST ALT Troponin I 08/13/16 08/18/16 08/26/16 10:59 09:30 10:59 INR 5.3 H* 1.3 D 3.2 AST ALT Troponin I 09/08/16 09/08/16 09/08/16 12:24 17:59 23:35 INR 1.4 AST ALT Troponin I 0.04 H* 0.05 H* 09/09/16 09/09/16 05:07 05:07 INR AST 17 ALT 17 Troponin I 0.04 H* ITS Impressions Abdomen/Pelvis CT 09/08/16 12:05 IMPRESSION: 1. No acute process in the abdomen or pelvis. 2. Cholelithiasis without evidence of cholecystitis. 3. Small outpouching along the posterior-inferior aspect of the right atrium contains a 1.2 x 1.3 cm low-attenuation lesion, which may reflect atrial thrombus. 4. Correlation with echocardiogram should be considered. Findings were discussed with Clinton Arshad at 1:48 pm on 09/08/2016. D/ / 09/08/2016 13:52:58 Connie Gil MD / libby Interpreting Provider: Connie Gil MD Active Medications Calcium Carbonate (Tums) 500 mg PO BID [facility] Stop: 03/10/17 21:01 Last Admin: 09/09/16 08:57 Dose: 500 mg Clopidogrel Bisulfate (Plavix) 75 mg PO DAILY [facility] Stop: 03/11/17 09:01 Last Admin: 09/09/16 08:57 Dose: 75 mg Folic Acid (Folic Acid) 3 mg PO DAILY W[facility]FREDO Stop: 03/11/17 09:01 Last Admin: 09/09/16 08:57 Dose: 3 mg Heparin Sodium (Porcine) (Heparin) 5,700 unit 70 unit/kg (5700 unit) IVP Q6HR PRN PRN Reason: SEE COMMENTS Stop: 03/10/17 15:22 Heparin Sodium (Porcine) (Heparin) 2,800 unit 35 unit/kg (2800 unit) IVP Q6H PRN PRN Reason: SEE COMMENTS Stop: 03/10/17 15:22 Last Admin: 09/08/16 22:18 Dose: 2,800 unit Hydromorphone HCl (Dilaudid) 2 mg IVP Q4HR PRN PRN Reason: Pain Stop: 03/10/17 19:53 Last Admin: 09/09/16 10:19 Dose: 2 mg Heparin Sodium/Dextrose (Heparin 25,000 Unit/500 Ml D5w) 25,000 unit in 500 mls @ 22.607 mls/hr IVC .Q22H8M WILFREDO; 14 UNIT/KG/HR PRN Reason: Protocol Stop: 03/10/17 15:31 Last Admin: 09/09/16 10:18 Dose: 15.85 unit/kg/hr, 25.594 mls/hr Lisinopril (Zestril) 40 mg PO DAILY [facility]FR[facility]O Stop: 03/11/17 09:01 Last Admin: 09/09/16 08:57 Dose: 40 mg Methotrexate (Otrexup) 10 mg PO MO [facility] Stop: 03/15/17 17:29 Metoprolol Tartrate (Lopressor) 50 mg PO BID [facility] Stop: 03/10/17 21:01 Last Admin: 09/09/16 08:57 Dose: 50 mg Multivitamins/Calcium (Thera M Plus) 1 tab PO DAILY [facility]FR[facility]O Stop: 03/11/17 09:01 Last Admin: 09/09/16 08:56 Dose: 1 tab Naloxone HCl (Narcan) 0.4 mg IVP Q2MIN PRN PRN Reason: Opioid Reversal Stop: 03/10/17 17:23 Omeprazole (Prilosec) 20 mg PO DAILY@0630 [facility] PRN Reason: Protocol Stop: 03/11/17 06:31 Last Admin: 09/09/16 05:46 Dose: 20 mg Pharmacy Profile Note (Patient Taking Own Medication) 0 each PO DAILY [facility] Stop: 03/11/17 09:01 Last Admin: 09/09/16 09:03 Dose: Not Given Pharmacy Profile Note (Patient Taking Own Medication) 0 each PO DAILY [facility]FR[facility]O Stop: 03/11/17 09:01 Last Admin: 09/09/16 09:03 Dose: Not Given Polyethylene Glycol (Miralax) 17 gm PO DAILY [facility] Stop: 03/11/17 09:16 Last Admin: 09/09/16 10:19 Dose: 17 gm Prednisone (Prednisone) 5 mg PO DAILY [facility] Stop: 03/11/17 09:01 Last Admin: 09/09/16 08:57 Dose: 5 mg Primidone (Mysoline) 200 mg PO TID [facility] Stop: 03/10/17 21:01 Last Admin: 09/09/16 08:56 Dose: 200 mg Senna/Docusate Sodium (Senna Plus) 2 each PO BID [facility] PRN Reason: Protocol Stop: 03/11/17 09:16 Last Admin: 09/09/16 10:18 Dose: 2 each Simvastatin (Zocor) 40 mg PO HS [facility] Stop: 03/10/17 21:01 Last Admin: 09/08/16 20:13 Dose: 40 mg - Imaging and Cardiology Echo: pending Other Results: CT report reviewed. - EKG Interpretation EKG results cardiology: personally reviewed (ECG with atrial fibrilaltion with HR 102, left bundle branch block.), other (24 hour telemetry reviewed with average heart rate 99, PVCs ntoed with occasional couplets.) Consult Discharge Plan - Plan Referrals: Tessa Brooks, WELL CONTROL INSTRUCTOR [Primary Care Provider] -
[2016-09-09] MEDS: Metoprolol XL (24 HR) Succ 50 MG TAB.ER.24H PO SCH (14:52)
[2016-09-09] MEDS: *HR* HYDROmorphone 2 MG TABLET PO PRN (14:52)
[2016-09-09] MEDS ORDERED: Warfarin perPT PO PRN (18:00)
[2016-09-09] MEDS ORDERED: *HR* Warfarin 3 MG TABLET PO ONE (18:00)
[2016-09-10] MEDS: Heparin 25,000 UNIT/500 ML D5W 25,000 UNIT/500 ML MLS IVC SCH (05:56)
[2016-09-10 06:55] LABS: Basophils # 0.1 K/mcL (0.0-0.2); Basophils % 1.1 %; Eosinophils # 0.2 K/mcL (0.0-0.6); Eosinophils % 2.3 %; Hematocrit 37.1 % (37.5-50.1); Hemoglobin 12.1 g/dL (12.9-16.9); Immature Granulocytes % 1.2 % (0-4); Lymphocytes # 2.1 K/mcL (0.6-4.6); Lymphocytes % 22.7 %; Mean Corpuscular HGB Conc 32.6 g/dL (31.6-35.5); Mean Corpuscular Hemoglobin 33.6 pg (28.0-33.3); Mean Corpuscular Volume 103.1 fL (83.0-100.0); Mean Platelet Volume 10.3 fL (9.4-12.4); Monocytes # 1.1 K/mcL (0.0-1.3); Monocytes % 11.5 %; Neutrophils # 5.7 K/mcL (1.6-8.9); Platelet Count 202 K/mcL (140-400); Red Cell Distribution Width 17.2 % (11.5-14.5); Segmented Neutrophils % 61.2 %
[2016-09-10 07:09] LABS: BUN/Creatinine Ratio 20 (6-26); Blood Urea Nitrogen 22 mg/dL (8-26); Calcium 8.3 mg/dL (8.6-10.8); Carbon Dioxide 21 mEq/L (19-29); Chloride 103 mEq/L (98-109); Glucose 79 mg/dL (70-99); Osmolality,Calculated 286 (280-300); Potassium 4.3 mEq/L (3.5-4.5); Sodium 137 mEq/L (136-145); eGFR For African Americans > 60 (> 60); eGFR For Non-African Americans > 60 (> 60)
--- NOTE | 2016-09-10 08:48 | Internal Med Progress Note ---
Date of Encounter: 09/10/16 Time of Encounter: 08:42 - Assessment and plan (1) Abdominal pain Current Visit: Yes Status: Acute Assessment and plan: Discussed with vascular surgery, this is flexed likely mesenteric ischemia. Lactic acid is noted to be slightly high which is likely the result of his toe gangrene. Case discussed with GI and plan to reconsult for possible EGD if needed over the weekend. Continue supportive care, IV hydration and PPI. Patient received Fleet enema with minimal stool output. Check repeat CT abdomen /pelvis. Qualifiers: Abdominal location: epigastric Qualified Code(s): R10.13 - Epigastric pain (2) Atrial thrombus Current Visit: Yes Status: Acute Assessment and plan: Continue anti-coagulation with IV heparin drip and oral Coumadin. Follow-up echocardiogram. (3) Atrial fibrillation Current Visit: Yes Status: Chronic Assessment and plan: Currently rate controlled. Continue beta annelise and long-term anti- coagulation with Coumadin. Qualifiers: Atrial fibrillation type: unspecified Qualified Code(s): I48.91 - Unspecified atrial fibrillation (4) Peripheral arterial disease Current Visit: Yes Status: Chronic Assessment and plan: Patient recently underwent right lower extremity angioplasty and is noted to have right great toe gangrene, for which he follows as an outpatient with podiatry. Vascular surgery consulted, no acute intervention. Pain control with when necessary IV Dilaudid. (5) Congestive heart failure Current Visit: Yes Status: Chronic Assessment and plan: Not in acute exacerbation. Continue home medications. Qualifiers: Congestive heart failure type: combined Congestive heart failure chronicity : chronic Qualified Code(s): I50.42 - Chronic combined systolic (congestive) and diastolic (congestive) heart failure (6) Hyperlipidemia Current Visit: Yes Status: Chronic Qualifiers: Hyperlipidemia type: mixed hyperlipidemia Qualified Code(s): E78.2 - Mixed hyperlipidemia (7) Hypertension Current Visit: Yes Status: Chronic Qualifiers: Hypertension type: essential hypertension Qualified Code(s): I10 - Essential (primary) hypertension (8) Rheumatoid arthritis Current Visit: Yes Status: Chronic Qualifiers: Rheumatoid arthritis location: unspecified site Rheumatoid factor presence : unspecified presence Qualified Code(s): M06.9 - Rheumatoid arthritis, unspecified - Subjective Interval history: Continues to have severe central abdominal pain, nonradiating, worse a few minutes after eating, not associated with nausea, vomiting or diarrhea; has not had bowel movement since 3 days; right leg pain is stable; - Constitutional Vitals: Temp Pulse Resp BP Pulse Ox 98.3 F 91 18 98/74 97 09/10/16 05:59 09/10/16 05:59 09/10/16 05:59 09/10/16 05:59 09/10/16 05:59 General appearance: Present: mild distress, A&O X 3, answers questions appropriately - Respiratory Respiratory exam: Present: CTAB. Absent: accessory muscle use, rales, rhonchi, wheezes - Cardiovascular Cardiovascular exam: Present: irregular rhythm, +S1, +S2. Absent: diastolic murmur, gallop, rubs, systolic murmur - GI/Abdominal GI/Abdominal exam: Present: normal bowel sounds, soft (mild tenderness in central abdomen, no guarding/rigidity), no peritoneal signs. Absent: distended , tenderness - Extremities Exam Extremities exam: Present: normal inspection (stable right great toe ulcer and gangrene), warm, radial pulses palpable and symetrical. Absent: calf tenderness , cyanotic, pedal edema - Neurological Exam Neurological exam: Present: CN II-XII intact, oriented X3, no focal deficits. Absent: pronater drift, facial droop, speech deficit Internal Medicine: Result - Labs CBC & Chem 7: 09/10/16 06:28 09/10/16 06:28 Labs: Short CBC 09/10/16 Range/Units 06:28 WBC 9.3 (4.3-11.1) K/mcL Hgb 12.1 L (12.9-16.9) g/dL Hct 37.1 L (37.5-50.1) % Plt Count 202 (140-400) K/mcL Neutrophils # 5.7 (1.6-8.9) K/mcL BMP 09/10/16 06:28 Sodium 137 Potassium 4.3 Chloride 103 Carbon Dioxide 21 BUN 22 Creatinine 1.11 Glucose 79 Calcium 8.3 L - ABG Interpretation ABG results: PT/INR, D-dimer PT 15.5 Seconds (9.4-12.1) H 09/08/16 12:24 Consult Discharge Plan - Plan Referrals: Tessa Brooks, MEDICAL VIDEOGRAPHER [Primary Care Provider] -
[2016-09-10 08:57] LABS: INR 1.9
[2016-09-10] MEDS: *HR* HYDROmorphone 2 MG/ML SYRINGE IVP PRN ×2 (09:28→20:43)
[2016-09-10] MEDS: 0.9 % Sodium Chloride 1,000 ML IVC SCH (09:29)
[2016-09-10] MEDS: Folic Acid 1 MG TABLET PO SCH (09:30)
[2016-09-10] MEDS: Multivit/Ca/Min/Fe/FA 1 TAB TABLET PO SCH (09:31)
[2016-09-10] MEDS: predniSONE 5 MG TABLET PO SCH (09:31)
[2016-09-10] MEDS: Sennosides/Docusate Sodium TABLET PO SCH ×2 (09:31→20:43)
[2016-09-10] MEDS: EPA PO SCH (09:39)
[2016-09-10] MEDS: Metoprolol XL (24 HR) Succ 50 MG TAB.ER.24H PO SCH (09:39)
[2016-09-10] MEDS: (Leflunomide [Arava] 20 MG) PO SCH (09:39)
[2016-09-10] MEDS: OMEGA PO SCH (09:39)
[2016-09-10] MEDS: DHA PO SCH (09:39)
[2016-09-10] MEDS: Lisinopril 20 MG TABLET PO SCH (09:39)
[2016-09-10] MEDS: FISH OIL PO SCH (09:39)
[2016-09-10] MEDS: Primidone 50 MG TABLET PO SCH ×3 (09:44→20:43)
--- NOTE | 2016-09-10 10:43 | ECHO - Doppler Report ---
Echocardiogram Name: Tommy Eid Date of Study: 09/09/2016 Date: 1940 Ht: 67.0 in Medical Record#: [id number] Age: 75 Wt: 182.0 lb Gender: Male BSA: 1.94 Order #: [id number] Location: [facility] Room #: [id number] Reading Physician: Jose Keller DO, ABRAHAM, CARLOS BERKOWITZ Nca Certified Concierge: Angélica Munoz RDCS Ordering Physician: Nathaly Bobo MD Primary Physician: Tessa Brooks CNP Indications: Right atrial thrombus, Hx AFIB Impressions: Technically sub-optimal due to poor echocardiographic windows. Atrial fibrillation with a bundle branch block. LVEF 50%. Not all LV segments were well visualized, but overall LV function appears normal. Indeterminate diastolic function. Normal right ventricular structure and function. Mild to moderately dilated left atrium. Mildly dilated right atrium. No obvious right atrial mass. No evidence of pulmonary hypertension. No obvious significant valvular dysfunction. Findings: Study Quality * Technically sub-optimal due to poor echocardiographic windows. ECG Findings * Atrial fibrillation with a bundle branch block. Left Ventricle * LVEF 50%. Not all LV segments were well visualize, but overall LV function appears normal. * Indeterminate diastolic function. Right Ventricle * Normal right ventricular structure and function. Left Atrium * Mild to moderately dilated left atrium. Right Atrium * Mildly dilated right atrium. No obvious right atrial mass. Interatrial Septum * No evidence of PFO by color Doppler. Aortic Valve * Aortic valve not well visualized. * No aortic regurgitation. * No aortic stenosis. Mitral Valve * Mildly thickened mitral valve leaflets. * Mild mitral annular calcification * No mitral regurgitation. * No mitral stenosis. Tricuspid Valve * Normal tricuspid valve structure and function. * Trace tricuspid regurgitation. * No evidence of pulmonary hypertension. Pulmonic Valve * Pulmonic valve not well visualized. * No pulmonic regurgitation. Aorta * Normally sized aortic root. Pericardium * The pericardium appears normal. IVC * Normal IVC dimensions and inspiratory collapse. Pulmonary Artery * Pulmonary artery not well visualized. History Hypertension Hypercholesteremia Congestive Heart Failure 01/09/2016 a Previous Echo was performed. Measurements: BP: 93/ 75 2D Normal Values RVIDd: 2.72 cm <2.7 cm IVSd: 1.31 cm 0.6 - 1.0 cm LVIDd: 5.25 cm 3.7 - 5.6 cm LVPWd: 1.19 cm 0.6 - 1.1 cm LVIDs: 3.14 cm 1.5 - 3.6 cm AO: 4.50 cm < 4.0 cm LA: 3.50 cm 2.0 - 4.0cm %FS: 40.20 cm >25 % LA volume: 58 Mitral Valve Peak E:.93 m/sec Peak A:.37 m/sec E/A Ratio:2.5 Peak E' Lat Cheng:6.71 cm/s Peak E' Med Cheng:6.59 cm/s E/E' Lat Ratio:13.9 E/E' Med Ratio:14.4 Tricuspid Valve TV Regurg Peak Grad: 18.00mmHg TV Regurg Peak Cheng: 2.11m/sec Updated by Jose Keller DO, ABRAHAM, CARLOS BERKOWITZ on 09/10/2016 10:35:40 AM electronically signed on 09/10/2016 10:36:53 AM with status of Final Wall Motion Cline: 1=Normal, 2=Hypokinesis, 3=Akinesis, 4=Dyskinesis, 5=Aneurysmal, 6=Hyperkinetic, X=Not Visualized (Blank)=Missing
--- NOTE | 2016-09-10 11:13 | Vascular/Endovas Progress Note ---
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 He underwent angioplasty and his TCPO2 is now consistent with healing. He may follow up with pathology and in vascular clinic. Qualifiers: Peripheral atherosclerosis artery type: samish artery Qualified Code(s): I70.261 - Atherosclerosis of samish arteries of extremities with gangrene, right leg (2) Abdominal pain Status: Acute The patient reports midepigastric postprandial abdominal pain. He has some mild midepigastric tenderness without rebound or guarding. He denies food aversion or intestinal angina. His symptoms have been present for one week. He denies significant weight loss. He does have gallstones, a poor appetite and constipation. Recommend GI consultation for further evaluation of his abdominal pain. The patient was discussed with Dr. Bobo. Qualifiers: Abdominal location: epigastric Qualified Code(s): R10.13 - Epigastric pain (3) Hyperlipidemia Status: Chronic Qualifiers: Hyperlipidemia type: mixed hyperlipidemia Qualified Code(s): E78.2 - Mixed hyperlipidemia (4) Hypertension Status: Chronic Qualifiers: Hypertension type: essential hypertension Qualified Code(s): I10 - Essential (primary) hypertension (5) Atrial fibrillation Status: Chronic Qualifiers: Atrial fibrillation type: unspecified Qualified Code(s): I48.91 - Unspecified atrial fibrillation - Subjective Interval history: The patient is resting comfortably. He complains of postprandial midepigastric abdominal pain. He denies any chest pain or shortness of breath. - Physical Examination General: Present: Conversant, No Apparent Distress HEENT: Present: Pupils equal Neck: Absent: Tracheal deviation Cardiac: Present: Irregular Rhythm Lungs: Present: Normal Breath Sounds Neuro: Present: Alert and responsive, No focal deficits noted Vascular: Present: Normal capillary refill (except right great toe), Other ( gangrenous changes at the right great toe.). Absent: Cyanosis, Edema Abdomen: Present: Soft, Other (midepigastric tenderness without reboud or guarding) Skin: Present: No rashes noted on visualized skin Results 09/10/16 06:28 09/10/16 06:28 Lab Results, Last 24 hours 09/09/16 09/10/16 09/10/16 12:32 06:28 06:28 WBC 9.3 Hgb 12.1 L Hct 37.1 L Plt Count 202 INR APTT 61.3 H Sodium 137 Potassium 4.3 Chloride 103 Carbon Dioxide 21 BUN 22 Creatinine 1.11 Glucose 79 Calcium 8.3 L 09/10/16 08:45 WBC Hgb Hct Plt Count INR 1.9 APTT Sodium Potassium Chloride Carbon Dioxide BUN Creatinine Glucose Calcium Consult Discharge Plan - Plan Additional Instructions: F/up with Podiatry clinic in 1-2 weeks- or Referrals: Tessa Brooks CNP [Primary Care Provider] - (this appoinment has been requested) Boo Umana CNP [Advanced Practice Nurse] - 10/01/16 8:30 am Prescriptions: Docusate [Colace] 100 mg PO BID #30 capsule
--- NOTE | 2016-09-10 11:35 | Cardiology Progress Note ---
Date of Encounter: 09/10/16 Time of Encounter: 11:00 Assessment and Plan (1) Abdominal pain Current Visit: Yes Status: Chronic Per cardiology: -Patient presents for abdominal pain. -Admits constipation at home with failed laxative use. -Patient states adbominal pain better today. -Management per primary service. (VICTOR MANUEL) Qualifiers: Abdominal location: epigastric Qualified Code(s): R10.13 - Epigastric pain (2) Atrial thrombus Current Visit: Yes Status: Acute Per cardiology: -Patient with incidental right atrial thrombus noted on CT on 09/08/16. Thrombus measures 1.2 x 1.3 cm. -Patient with known history of atrial fibrillation. Patient on coumadin. Pateint with subtherapeutic INR on admission at 1.4. Patient states INR and coumadin dosing is managed by his primary housekeeper supervisor at [facility]. Reviewed INRs that have been done here at [facility] over the past year and it appears INR is labile. INRs noted to be between 1.1-5.3. indicates held within the past few weeks due to vascular procedure with Dr. De La Garza and held recently due to concerns with black stools -Patient currently on heparin drip. H&H stable and denies any active bleeding or blood loss. -Coumadin 6mg given 09/09/16 as doses per pharmacy. INR 09/10/16 1.9. -Echocardiogram 09/09/16 with LVEF 50%. Indeterminate diastolic dysfunction, mild to moderately dilated left atrium, mildly dilated right atrium, no obvious right atrial mass, no evidence of pulmonary hypertension, no obvious significant valvular dysfunction. -Previous echo 01/09/16 with LVEF 45%. -Continue coumadin dosing per pharmacy. -Recommend bridging with IV heparin, until INR therapeutic-- 2.0 - 3.0. Continue to monitor for any bleeding. -Will consider adding ASA 81mg daily as outpatient. -Cardiology will manage INR until seen by [facility] in [place] (once PA approved). Will refer to coumadin clinic in [place]. Office aware to watch for INR. -Patient and family agreeable to to follow with [facility] coumadin clinic. -Patient and family wishes to follow with [facility] cardiology. Follow up set up in [place]. -Cardiology will sign off and will follow as outpatient. Reconsult if needed. ( VICTOR MANUEL) (3) Atrial fibrillation Current Visit: Yes Status: Chronic Per cardiology: -Patient with known history of atrial fibrillation. Suspected chronic. -Patient previously on coumadin at home. Currently on heparin drip. -INR noted to be subtherapeutic on admission. - Noted to have A. fib with RVR 100s to 120s upon arrival, better controlled on the 90s. SBP as well in the 140s to 150s. Previous echo from January 2016 showed EF 45%. Current echo with EF 50%. Now on Toprol-XL with increase to 150 mg by mouth daily. HR and BP stable. -Coumadin restarted, see above. -Suspect contributing factor to atrial thrombus. (VICTOR MANUEL) Qualifiers: Atrial fibrillation type: unspecified Qualified Code(s): I48.91 - Unspecified atrial fibrillation (4) Elevated troponin I measurement Current Visit: Yes Status: Acute Per Cardiology: Troponins slightly elevated, flat, adynamic. Suspect demand ischemia in relation to A. fib with RVR and hypertension upon arrival. Denies any chest pain. Previous records reviewed from vascular surgery with mention of no obstructive CAD on catheterization in 2008. Echo with LVEF 50%, previously 45%. No further ischemic evaluation warranted at this time. (5) LBBB (left bundle branch block) Current Visit: Yes Status: Chronic Per Cardiology: History of left bundle branch block. Discussion w patient/family: The assessment and plan as outlined above was discussed with the patient and/or family members who expressed understanding and agreement. All questions were answered. Thank you for involving us in the care of your patient. Please call with any questions. Patient was seen and examined with MARCELO Garcia Discussed and reviewed with . Subjective Principal diagnosis: abdominal pain Interval history: is a 75 year old male who initially presented to [facility] in [place] due to abdominal pain and constipation. Family state they did a CT said and states it was "normal." Patient was then sent home from ER and presented to [facility] for worsening abdominal pain. Patient attempted to gain relief by using laxatives at home, but was unsuccessful. Patient had a repeat CT at [facility] with an incidental finding of right atrial thrombus. Patient has a long history of atrial fibrillation. Patient's states he has failed cardioversions in the past. Patient states beta annelise for rate control. Patient also on coumadin. Patient states INR and coumadin dosing managed by primary housekeeper supervisor at [facility]. Of note, patient was recently off coumadin due to peripheral angiogram. INR noted to be subtherapeutic on admission at 1.4. INRs at [facility] over the last year ranging 1.3-5.3. Patient states abdominal pain is much better today. Objective Vital Signs Temp Pulse Resp BP Pulse Ox 09/10/16 05:59 98.3 F 91 18 98/74 97 09/10/16 01:59 94/63 09/10/16 01:42 98.1 F 60 16 84/62 98 09/09/16 22:00 98.2 F 83 18 103/72 98 09/09/16 17:03 98.4 F 105 16 93/75 93 L 09/09/16 12:42 97.9 F 87 16 105/85 99 Intake and Output 09/09/16 09/10/16 09/10/16 23:59 07:59 15:59 Intake Total 0 / 0 600 / 600 120 / 120 Output Total 550 / 550 300 / 300 Balance -550 / -550 300 / 300 120 / 120 Intake: IV Fluids 500 / 500 Heparin 25,000 UNIT/500 500 / 500 ML D5W 25,000 unit In 500 ml @ 14 UNIT/KG/HR 22. 607 mls/hr IVC .Q22H8M [facility] Rx#:[id number] Oral 0 / 0 100 / 100 120 / 120 Output: Urine 550 / 550 300 / 300 Other: Meal Breakfast Percent of Meal Consumed 70% # Voids 0 0 Weight 83.8 kg Blood Glucose* 156 82 Patient Weight 09/10/16 23:59 Weight 83.8 kg General: Conversant, No Apparent Distress HEENT: Atraumatic, Normocephaly, Mucus Membranes Moist Neck: No JVD, Normal carotid pulses Cardiac: Normal S1 and S2, No Murmur, Other (Irregularly, irregular) Lungs: Normal Breath Sounds, No Wheeze, Rales, Rhonchi Neuro: Alert and responsive, No focal deficits noted Abdomen: Other (Slighty distended. Tender.) Skin: No rashes noted on visualized skin, Other (right foot great toe with ulcer. ) Musculoskeletal: No Chest Wall Tenderness Extremities: No Clubbing, No Cyanosis, Other (1+ pitting edema bilaterally. 1+ pedal pulses. ) Results 09/10/16 06:28 09/10/16 06:28 Lab Results Laboratory Tests 09/09/16 05:07 Magnesium 1.9 Active Medications Calcium Carbonate (Tums) 500 mg PO BID [facility] Stop: 03/10/17 21:01 Last Admin: 09/10/16 09:30 Dose: 500 mg Clopidogrel Bisulfate (Plavix) 75 mg PO DAILY [facility] Stop: 03/11/17 09:01 Last Admin: 09/10/16 09:31 Dose: 75 mg Folic Acid (Folic Acid) 3 mg PO DAILY [facility] Stop: 03/11/17 09:01 Last Admin: 09/10/16 09:30 Dose: 3 mg Heparin Sodium (Porcine) (Heparin) 5,700 unit 70 unit/kg (5700 unit) IVP Q6HR PRN PRN Reason: SEE COMMENTS Stop: 03/10/17 15:22 Heparin Sodium (Porcine) (Heparin) 2,800 unit 35 unit/kg (2800 unit) IVP Q6H PRN PRN Reason: SEE COMMENTS Stop: 03/10/17 15:22 Last Admin: 09/08/16 22:18 Dose: 2,800 unit Hydromorphone HCl (Dilaudid) 2 mg PO Q6HR PRN PRN Reason: Pain Stop: 03/11/17 13:09 Last Admin: 09/09/16 14:52 Dose: 2 mg Hydromorphone HCl (Dilaudid) 2 mg IVP Q6HR PRN PRN Reason: Pain unrelieved by PO Stop: 03/10/17 19:53 Last Admin: 09/10/16 09:28 Dose: 2 mg Heparin Sodium/Dextrose (Heparin 25,000 Unit/500 Ml D5w) 25,000 unit in 500 mls @ 22.607 mls/hr IVC .Q22H8M [facility]; 14 UNIT/KG/HR PRN Reason: Protocol Stop: 03/10/17 15:31 Last Admin: 09/10/16 05:56 Dose: 15.85 unit/kg/hr, 25.6 mls/hr Sodium Chloride (0.9 % Sodium Chloride) 1,000 mls @ 60 mls/hr IVC .[id number] [facility] Stop: 03/12/17 08:31 Last Admin: 09/10/16 09:29 Dose: 60 mls/hr Lisinopril (Zestril) 40 mg PO DAILY [facility] Stop: 03/11/17 09:01 Last Admin: 09/10/16 09:39 Dose: Not Given Methotrexate (Otrexup) 10 mg PO MO [facility] Stop: 03/15/17 17:29 Metoprolol Succinate (Toprol Xl) 150 mg PO DAILY [facility] Stop: 03/11/17 14:01 Last Admin: 09/10/16 09:39 Dose: Not Given Multivitamins/Calcium (Thera M Plus) 1 tab PO DAILY [facility] Stop: 03/11/17 09:01 Last Admin: 09/10/16 09:31 Dose: 1 tab Naloxone HCl (Narcan) 0.4 mg IVP Q2MIN PRN PRN Reason: Opioid Reversal Stop: 03/10/17 17:23 Omeprazole (Prilosec) 20 mg PO DAILY@0630 [facility] PRN Reason: Protocol Stop: 03/11/17 06:31 Last Admin: 09/10/16 09:48 Dose: Not Given Pharmacy Profile Note (Patient Taking Own Medication) 0 each PO DAILY [facility] Stop: 03/11/17 09:01 Last Admin: 09/10/16 09:39 Dose: Not Given Pharmacy Profile Note (Patient Taking Own Medication) 0 each PO DAILY [facility] Stop: 03/11/17 09:01 Last Admin: 09/10/16 09:39 Dose: Not Given Polyethylene Glycol (Miralax) 17 gm PO DAILY [facility] Stop: 03/11/17 09:16 Last Admin: 09/10/16 09:31 Dose: 17 gm Prednisone (Prednisone) 5 mg PO DAILY [facility] Stop: 03/11/17 09:01 Last Admin: 09/10/16 09:31 Dose: 5 mg Primidone (Mysoline) 200 mg PO TID [facility] Stop: 03/10/17 21:01 Last Admin: 09/10/16 09:44 Dose: 200 mg Senna/Docusate Sodium (Senna Plus) 2 each PO BID [facility] PRN Reason: Protocol Stop: 03/11/17 09:16 Last Admin: 09/10/16 09:31 Dose: 2 each Simvastatin (Zocor) 40 mg PO HS [facility] Stop: 03/10/17 21:01 Last Admin: 09/09/16 21:39 Dose: 40 mg Warfarin Sodium (Coumadin Perpt) 1 each PO DAILY@1800 PRN PRN Reason: SEE COMMENTS Stop: 03/11/17 18:01 - Imaging and Cardiology Chest Xray: report reviewed Echo: report reviewed Other Results: CT report reviewed - EKG Interpretation EKG results cardiology: personally reviewed (No 12 lead ECG available for review ), other (24 hour telemtry reviewed with average HR 91, atrial fibrillation. Longest pause 2.2 seconds, PVCs noted. One episode of 8 beat run of supected aberrancy noted.) Consult Discharge Plan - Plan Referrals: Tessa Brooks, FIELD MARKETING DIRECTOR [Primary Care Provider] -
--- NOTE | 2016-09-10 15:23 | Electrocardiograph Report ---
[place] [id number] Test Date: 2016-09-08 Pat Name: Tommy Eid Department: 103 Room: [facility] Gender: M Burr Bench Operator: : 1940 Requested By: Nathaly Bobo Order Number: [id number] Reading MD: Gayla Guzman Measurements Intervals [place] Rate: 102 P: [place]: 0 QRS: -43 QRSD: 153 T: 146 QT: 393 QTc: 451 Interpretive Statements ATRIAL FIBRILLATION WITH RAPID VENTRICULAR RESPONSE MARKED LEFT AXIS DEVIATION LEFT BUNDLE BRANCH BLOCK Electronically Signed On 09-10-2016 15:22:06 EST by Gayla Guzman
[2016-09-10] MEDS: *HR* HYDROmorphone 2 MG TABLET PO PRN (16:54)
[2016-09-10] MEDS ORDERED: *HR* Warfarin 3 MG TABLET PO ONE (18:00)
[2016-09-11] MEDS: Heparin 25,000 UNIT/500 ML D5W 25,000 UNIT/500 ML MLS IVC SCH (02:46)
[2016-09-11] MEDS: *HR* HYDROmorphone 2 MG/ML SYRINGE IVP PRN ×2 (05:47→13:35)
[2016-09-11 06:04] LABS: Prothrombin Time 33.8 Seconds (9.4-12.1)
[2016-09-11] MEDS: Metoprolol XL (24 HR) Succ 50 MG TAB.ER.24H PO SCH (06:49)
--- NOTE | 2016-09-11 09:16 | Vascular/Endovas Progress Note ---
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 He has right forefoot pain. His TCPO2 is now consistent with healing. He may follow up in vascular clinic after discharge. He will likely require a toe amputation. He will follow-up with pathology. Qualifiers: Peripheral atherosclerosis artery type: council artery Qualified Code(s): I70.261 - Atherosclerosis of council arteries of extremities with gangrene, right leg (2) Abdominal pain Status: Acute The patient continues to experience postprandial abdominal pain. He has no significant tenderness and reports that his pain has decreased. He reports that he has not eaten alot today. He will need to follow up with GI. Likely consultation on Tuesday. Qualifiers: Abdominal location: epigastric Qualified Code(s): R10.13 - Epigastric pain (3) Hyperlipidemia Status: Chronic Qualifiers: Hyperlipidemia type: mixed hyperlipidemia Qualified Code(s): E78.2 - Mixed hyperlipidemia (4) Hypertension Status: Chronic Qualifiers: Hypertension type: essential hypertension Qualified Code(s): I10 - Essential (primary) hypertension (5) Atrial fibrillation Status: Chronic Qualifiers: Atrial fibrillation type: unspecified Qualified Code(s): I48.91 - Unspecified atrial fibrillation - Subjective Interval history: The patient reports that he has less abdominal pain this morning. He states that it has not yet resolved. He complains of continued left forefoot pain. He denies any chest pain or shortness of breath. Vital Signs, Last 4 Hours Temp Pulse Resp BP Pulse Ox 09/11/16 07:41 98.5 F 97 92 112/63 09/11/16 05:41 99.1 F 87 16 117/84 93 L - Physical Examination General: Present: Conversant HEENT: Present: Pupils equal Cardiac: Present: Normal S1 and S2, Irregular Rhythm Lungs: Present: Normal Breath Sounds, No Wheeze, Rales, Rhonchi Neuro: Present: Alert and responsive, No focal deficits noted, Motor nerves grossly intact, Sensory nerves grossly intact Vascular: Present: Normal capillary refill, Other (right great toe gangrene without erythema or drainage). Absent: Cyanosis, Edema Abdomen: Present: Soft, Non-tender. Absent: Masses Skin: Present: No rashes noted on visualized skin Results 09/10/16 06:28 09/10/16 06:28 Lab Results, Last 24 hours 09/10/16 09/11/16 14:31 05:41 INR 3.0 D APTT 72.9 H Consult Discharge Plan - Plan Additional Instructions: F/up with Podiatry clinic in 1-2 weeks- or Referrals: Tessa Brooks CNP [Primary Care Provider] - (this appoinment has been requested) Boo Umana CNP [Advanced Practice Nurse] - 10/01/16 8:30 am Prescriptions: Docusate [Colace] 100 mg PO BID #30 capsule
[2016-09-11] MEDS: Primidone 50 MG TABLET PO SCH ×3 (09:23→22:49)
[2016-09-11] MEDS: Folic Acid 1 MG TABLET PO SCH (09:24)
[2016-09-11] MEDS: predniSONE 5 MG TABLET PO SCH (09:24)
[2016-09-11] MEDS: Sennosides/Docusate Sodium TABLET PO SCH ×2 (09:24→21:50)
[2016-09-11] MEDS: Lisinopril 20 MG TABLET PO SCH (09:25)
[2016-09-11] MEDS: Multivit/Ca/Min/Fe/FA 1 TAB TABLET PO SCH (09:25)
[2016-09-11] MEDS: (Leflunomide [Arava] 20 MG) PO SCH (09:26)
[2016-09-11] MEDS: OMEGA PO SCH (09:26)
[2016-09-11] MEDS: EPA PO SCH (09:26)
[2016-09-11] MEDS: FISH OIL PO SCH (09:26)
[2016-09-11] MEDS: DHA PO SCH (09:26)
[2016-09-11] MEDS: *HR* HYDROmorphone 2 MG TABLET PO PRN (11:48)
[2016-09-11] MEDS: 0.9 % Sodium Chloride 1,000 ML IVC SCH (11:50)
--- NOTE | 2016-09-11 14:08 | Internal Med Progress Note ---
Date of Encounter: 09/11/16 Time of Encounter: 14:07 - Assessment and plan (1) Abdominal pain Current Visit: Yes Status: Resolved Assessment and plan: Improved today. Tolerates diet. Constipation is relieved today with bowel movements. Repeat CT abdomen/pelvis from yesterday showed no acute abnormality. Vascular surgery follow-up appreciated, recommend GI evaluation for persistent postprandial abdominal pain. Continue to monitor. Qualifiers: Abdominal location: epigastric Qualified Code(s): R10.13 - Epigastric pain (2) Atrial thrombus Current Visit: Yes Status: Acute Assessment and plan: Cardiology follow-up appreciated. Continue IV heparin drip along with oral Coumadin. INR noted to be 3 today, which is a big difference from yesterday. Continue to monitor INRs (3) Atrial fibrillation Current Visit: Yes Status: Chronic Assessment and plan: Currently rate controlled. Continue beta annelise. Long-term anticoagulation with Coumadin. Qualifiers: Atrial fibrillation type: unspecified Qualified Code(s): I48.91 - Unspecified atrial fibrillation (4) Peripheral arterial disease Current Visit: Yes Status: Chronic Assessment and plan: Right lower extremity arterial insufficiency with right great toe gangrene. He underwent right leg angioplasty recently. Outpatient follow-up with podiatry and vascular surgery for toe gangrene. Pain control with when necessary IV Dilaudid. (5) Congestive heart failure Current Visit: Yes Status: Chronic Assessment and plan: Not in acute exacerbation. Continue home medications. Echocardiogram shows ejection fraction around 50%, indeterminate diastolic function, biatrial enlargement. Qualifiers: Congestive heart failure type: combined Congestive heart failure chronicity : chronic Qualified Code(s): I50.42 - Chronic combined systolic (congestive) and diastolic (congestive) heart failure (6) Hyperlipidemia Current Visit: Yes Status: Chronic Qualifiers: Hyperlipidemia type: mixed hyperlipidemia Qualified Code(s): E78.2 - Mixed hyperlipidemia (7) Hypertension Current Visit: Yes Status: Chronic Qualifiers: Hypertension type: essential hypertension Qualified Code(s): I10 - Essential (primary) hypertension (8) Rheumatoid arthritis Current Visit: Yes Status: Chronic Qualifiers: Rheumatoid arthritis location: unspecified site Rheumatoid factor presence : unspecified presence Qualified Code(s): M06.9 - Rheumatoid arthritis, unspecified - Subjective Interval history: Feels better today. Improved abdominal pain. Reported to have bowel movement this morning. Currently has pain in his right great toe and foot. - Constitutional Vitals: Temp Pulse Resp BP Pulse Ox 98.3 F 91 16 106/76 94 L 09/11/16 11:03 09/11/16 11:03 09/11/16 11:03 09/11/16 11:03 09/11/16 11:03 General appearance: Present: A&O X 3, answers questions appropriately - Respiratory Respiratory exam: Present: CTAB. Absent: accessory muscle use, rales, rhonchi, wheezes - Cardiovascular Cardiovascular exam: Present: irregular rhythm, +S1, +S2. Absent: diastolic murmur, gallop, rubs, systolic murmur - GI/Abdominal GI/Abdominal exam: Present: normal bowel sounds, soft, no peritoneal signs. Absent: distended, tenderness Internal Medicine: Result - Labs CBC & Chem 7: 09/10/16 06:28 09/10/16 06:28 - ABG Interpretation ABG results: PT/INR, D-dimer PT 33.8 Seconds (9.4-12.1) H D 09/11/16 05:41 - Impressions Impressions Abdomen/Pelvis CT 09/10/16 18:40 IMPRESSION: 1. Stable low density focus in the right atrium for which a thrombus cannot be excluded. 2. Cholelithiasis. Mild gallbladder wall thickening is thought to be secondary to partial gallbladder contraction. Dedicated ultrasound exam may be obtained for further evaluation as clinically indicated. 3. 0.1 cm calcification in the expected region of the right ureterovesicular junction. No appreciable right hydroureter. Diagnostic considerations include a right renal stone, pelvic phlebolith or small calcifications and a small bladder stone and a diverticulum. D/ / 09/10/2016 19:38:54 Carlos Wong MD / riky Interpreting Provider: Carlos Wong MD Consult Discharge Plan - Plan Referrals: Tessa Brooks, NAVIGATING OFFICER [Primary Care Provider] -
[2016-09-12] MEDS: *HR* HYDROmorphone 2 MG TABLET PO PRN ×2 (03:25→22:17)
[2016-09-12 04:40] LABS: INR 3.1; Prothrombin Time 34.1 Seconds (9.4-12.1)
[2016-09-12] MEDS: *HR* HYDROmorphone 2 MG/ML SYRINGE IVP PRN ×2 (07:56→17:50)
[2016-09-12] MEDS: Metoprolol XL (24 HR) Succ 50 MG TAB.ER.24H PO SCH (08:00)
[2016-09-12] MEDS: Lisinopril 20 MG TABLET PO SCH (08:01)
[2016-09-12] MEDS: Multivit/Ca/Min/Fe/FA 1 TAB TABLET PO SCH (08:01)
[2016-09-12] MEDS: predniSONE 5 MG TABLET PO SCH (08:01)
[2016-09-12] MEDS: Folic Acid 1 MG TABLET PO SCH (08:01)
[2016-09-12] MEDS: Primidone 50 MG TABLET PO SCH ×3 (08:01→22:17)
[2016-09-12] MEDS: EPA PO SCH (08:02)
[2016-09-12] MEDS: DHA PO SCH (08:02)
[2016-09-12] MEDS: OMEGA PO SCH (08:02)
[2016-09-12] MEDS: Sennosides/Docusate Sodium TABLET PO SCH (08:02)
[2016-09-12] MEDS: FISH OIL PO SCH (08:02)
[2016-09-12] MEDS: (Leflunomide [Arava] 20 MG) PO SCH (08:02)
--- NOTE | 2016-09-12 12:54 | Internal Med Progress Note ---
Date of Encounter: 09/12/16 Time of Encounter: 12:51 - Assessment and plan (1) Abdominal pain Current Visit: Yes Status: Resolved Qualifiers: Abdominal location: epigastric Qualified Code(s): R10.13 - Epigastric pain (2) Atrial thrombus Current Visit: Yes Status: Acute Assessment and plan: Cardiology follow-up appreciated. Recommend long-term anticoagulation. Continue Coumadin, off IV heparin drip. Continue to monitor INR. (3) Atrial fibrillation Current Visit: Yes Status: Chronic Assessment and plan: Currently rate controlled. Continue beta annelise. Long-term anticoagulation with Coumadin. Qualifiers: Atrial fibrillation type: unspecified Qualified Code(s): I48.91 - Unspecified atrial fibrillation (4) Peripheral arterial disease Current Visit: Yes Status: Chronic Assessment and plan: Right lower extremity arterial insufficiency with right great toe gangrene. He underwent right leg angioplasty recently. Vascular surgery on board. We will consult podiatry for further plan of care. Pain control with when necessary IV Dilaudid. Physical therapy evaluation. (5) Congestive heart failure Current Visit: Yes Status: Chronic Assessment and plan: Not in acute exacerbation. Continue home medications. Echocardiogram shows ejection fraction around 50%, indeterminate diastolic function, biatrial enlargement. Qualifiers: Congestive heart failure type: combined Congestive heart failure chronicity : chronic Qualified Code(s): I50.42 - Chronic combined systolic (congestive) and diastolic (congestive) heart failure (6) Hyperlipidemia Current Visit: Yes Status: Chronic Qualifiers: Hyperlipidemia type: mixed hyperlipidemia Qualified Code(s): E78.2 - Mixed hyperlipidemia (7) Hypertension Current Visit: Yes Status: Chronic Qualifiers: Hypertension type: essential hypertension Qualified Code(s): I10 - Essential (primary) hypertension (8) Rheumatoid arthritis Current Visit: Yes Status: Chronic Qualifiers: Rheumatoid arthritis location: unspecified site Rheumatoid factor presence : unspecified presence Qualified Code(s): M06.9 - Rheumatoid arthritis, unspecified - Subjective Interval history: Improved abdominal pain. Patient and upset about having a rough night as he did not receive pain medications in time. Has been having diarrhea since yesterday. Continues to have severe pain in right foot and great toe, requiring IV Dilaudid. Patient and requesting to speak with podiatry. - Constitutional Vitals: Temp Pulse Resp BP Pulse Ox 98.7 F 88 17 104/76 94 L 09/12/16 12:02 09/12/16 12:02 09/12/16 12:02 09/12/16 12:02 09/12/16 12:02 General appearance: Present: A&O X 3, answers questions appropriately - Respiratory Respiratory exam: Present: CTAB. Absent: accessory muscle use, rales, rhonchi, wheezes - Cardiovascular Cardiovascular exam: Present: irregular rhythm, +S1, +S2. Absent: diastolic murmur, gallop, rubs, systolic murmur - GI/Abdominal GI/Abdominal exam: Present: normal bowel sounds, soft, no peritoneal signs. Absent: distended, tenderness - Extremities Exam Extremities exam: Present: warm, radial pulses palpable and symetrical. Absent : calf tenderness, cyanotic, pedal edema Additional comments: Gangrenous right great toe with some dried blood. Stable erythema, swelling and severe tenderness over the right foot. - Neurological Exam Neurological exam: Present: CN II-XII intact, oriented X3, no focal deficits. Absent: pronater drift, facial droop, speech deficit Internal Medicine: Result - Labs CBC & Chem 7: 09/10/16 06:28 09/10/16 06:28 - ABG Interpretation ABG results: PT/INR, D-dimer PT 34.1 Seconds (9.4-12.1) H 09/12/16 04:14 Consult Discharge Plan - Plan Referrals: Tessa Brooks, DEVELOPMENT ASSISTANT [Primary Care Provider] -
[2016-09-13] MEDS: *HR* HYDROmorphone 2 MG TABLET PO PRN (05:56)
[2016-09-13 05:58] VITALS: BP 121/78
[2016-09-13] MEDS: *HR* HYDROmorphone 2 MG/ML SYRINGE IVP PRN (07:30)
[2016-09-13 08:13] LABS: Prothrombin Time 21.8 Seconds (9.4-12.1)
[2016-09-13] MEDS: Primidone 50 MG TABLET PO SCH (08:33)
[2016-09-13] MEDS: Lisinopril 20 MG TABLET PO SCH (08:34)
[2016-09-13] MEDS: Folic Acid 1 MG TABLET PO SCH (08:34)
[2016-09-13] MEDS: predniSONE 5 MG TABLET PO SCH (08:34)
[2016-09-13] MEDS: Multivit/Ca/Min/Fe/FA 1 TAB TABLET PO SCH (08:34)
[2016-09-13] MEDS: Metoprolol XL (24 HR) Succ 50 MG TAB.ER.24H PO SCH (08:35)
[2016-09-13] MEDS: EPA PO SCH (08:36)
[2016-09-13] MEDS: (Leflunomide [Arava] 20 MG) PO SCH (08:36)
[2016-09-13] MEDS: DHA PO SCH (08:36)
[2016-09-13] MEDS: OMEGA PO SCH (08:36)
[2016-09-13] MEDS: FISH OIL PO SCH (08:36)
--- NOTE | 2016-09-13 09:30 | Podiatry Consult Note ---
Date of Encounter: 09/13/16 Time of Encounter: 09:28 Assessment and Plan (1) Ischemic toe Current visit: Yes Status: Acute The patient was instructed that at this time the toe is not infected and so there is not an urgency to do the surgery. The patient was instructed that it would be better to wait until the toe demarcates to determine which tissue will be viable and which tissue will not. The patient was instructed that we could perform the surgery now but it would be difficult to determine the appropriate level of amputation due to the fact that it has not demarcated. The patient was instructed that the TCP O2 levels demonstrated a possibility that a toe amputation could heel. Patient was instructed that there is a possibility of nonhealing and future ischemia even if the site does heal. The patient was instructed that once the toe demarcates we could try a toe amputation and if it does not heal then he would benefit most from a [id number] amputation. Patient related understanding and would like to have his toe amputated as soon as the skin demarcates. Patient will follow-up with either myself or Dr. Haynes within 1 week of discharge for surgical planning. Until that time the patient will use Betadine on the right great toe to keep it clean while it is demarcating. The patient will limit his weightbearing to the right foot. History of Present Illness Chief complaint: ischemic great toe right foot HPI: Mr. Eid is a 75 year old male who relates significant pain due to his ischemic right great toe. Patient relates that he is considering a below-the- knee amputation rather than amputation of his great toe. Patient is concerned that the amputation of his great toe might not heal and that he will need a [id number] amputation anyway. Patient relates that he also would like the pain to stop. She denies any other pedal complaints. Past Med Surg Social Fam HX - Past Medical History Medical history: atrial fibrillation, CHF, hyperlipidemia, hypertension, peripheral artery disease, other Psychiatric history: no psych history - Past Surgical History Surgical History: herniorrhaphy, other - Social History Smoking Status: Former smoker Smokeless Tobacco Status: No Alcohol use: none Drug use: none Medications and Allergies Calcium Carbonate [Calcium] 600 mg PO BID 02/20/16 [History] Folic Acid 3 mg PO DAILY 02/20/16 [History] Leflunomide [Arava] 20 mg PO DAILY 02/20/16 [History] Methotrexate [Otrexup] 10 mg PO MO 02/20/16 [History] Metoprolol [Lopressor] 50 mg PO BID 02/20/16 [History] Polyethylene Glycol 3350 [MiraLAX] 17 gm PO DAILY PRN 02/20/16 [History] Pravastatin Sodium [Pravachol] 80 mg PO HS 02/20/16 [History] PredniSONE 5 mg PO DAILY 02/20/16 [History] Primidone [Mysoline] 200 mg PO TID 02/20/16 [History] Warfarin [Coumadin] 4 mg PO SUMOWEFR 02/20/16 [History] Clopidogrel [Plavix] 75 mg PO DAILY #30 tablet 08/18/16 [Rx] Vit A/C/E AC/Znox/Cupric Oxide [Eye Vitamin-Minerals Tablet] 1 each PO DAILY 02/24 [History] Warfarin Sodium [Coumadin] 6 mg PO TUTHSA 08/18/16 [History] Benazepril HCl [Lotensin] 20 mg PO BID 09/08/16 [History] HYDROmorphone [Dilaudid] 4 mg PO Q4-6H PRN 09/08/16 [History] Metformin [Glucophage] 500 mg PO BIDWM 09/08/16 [History] [place]-3/Dha/Epa/Fish Oil [[place]-3 Fish Oil 1,000 mg Sfgl] 2,000 mg PO DAILY 07/27 [History] Allergies No Known Allergies Allergy (Verified 09/08/16 11:42) All Systems Reviewed: A 10-system review of systems was performed and is negative for pertinent findings except as documented above in the HPI. Physical Exam - Constitutional Vitals: Temp Pulse Resp BP Pulse Ox 98.2 F 112 19 121/78 96 09/13/16 05:57 09/13/16 05:57 09/13/16 05:57 09/13/16 05:57 09/13/16 05:57 Exam: The patient is awake, alert, and oriented 3. Pedal pulses difficult to palpate. Capillary fill time intact to digits 2 through 5 of the right foot, ischemia noted to the great toe of the right foot. At this time the right great toe is dusky and has not demarcated. No sign of infection currently. White blood cell count is stable. Open lesion noted to the plantar medial aspect of the right great toe. Sensation intact to the digits via light touch. Results - Labs Result Diagrams: 09/10/16 06:28 09/10/16 06:28 Labs: Abnormal lab results RBC 3.60 M/mcL (4.19-5.50) L 09/10/16 06:28 Hgb 12.1 g/dL (12.9-16.9) L 09/10/16 06:28 Hct 37.1 % (37.5-50.1) L 09/10/16 06:28 MCV 103.1 fL (83.0-100.0) H 09/10/16 06:28 MCH 33.6 pg (28.0-33.3) H 09/10/16 06:28 RDW 17.2 % (11.5-14.5) H 09/10/16 06:28 PT 21.8 Seconds (9.4-12.1) H 09/13/16 06:10 APTT 72.9 Seconds (26.0-36.0) H 09/10/16 14:31 POC Glucose 124 (58-89) H 09/12/16 23:13 Lactic Acid 2.8 mmol/L (0.5-2.2) H 09/10/16 15:36 Calcium 8.3 mg/dL (8.6-10.8) L 09/10/16 06:28 Troponin I 0.04 ng/mL (0-0.03) H* 09/09/16 05:07 Albumin 2.8 g/dL (3.5-5.0) L 09/09/16 05:07 Globulin 3.7 g/dL (2.4-3.5) H 09/09/16 05:07 Albumin/Globulin Ratio 0.8 (1.1-2.2) L 09/09/16 05:07 Ur Specific [place] > 1.030 (1.010-1.025) H 09/08/16 22:10 Urine Ketones Trace mg/dL (Negative) H 09/08/16 22:10 All other labs normal. Consult Discharge Plan - Plan Referrals: Tessa Brooks, PROFESSOR OF PHYSICS [Primary Care Provider] -
[2016-09-13] MEDS ORDERED: Sennosides/Docusate Sodium TABLET PO PRN (12:10)
--- NOTE | 2016-09-13 14:02 | Discharge Summary ---
Date of Encounter: 09/13/16 Time of Encounter: 14:00 - Discharge Diagnosis (1) Abdominal pain Priority: Primary Status: Acute Qualifiers: Abdominal location: epigastric Qualified Code(s): R10.13 - Epigastric pain (2) Atrial thrombus Priority: Primary Status: Acute (3) Atrial fibrillation Priority: Secondary Status: Chronic Qualifiers: Atrial fibrillation type: unspecified Qualified Code(s): I48.91 - Unspecified atrial fibrillation (4) Peripheral arterial disease Priority: Secondary Status: Chronic (5) Congestive heart failure Priority: Secondary Status: Chronic Qualifiers: Congestive heart failure type: combined Congestive heart failure chronicity : chronic Qualified Code(s): I50.42 - Chronic combined systolic (congestive) and diastolic (congestive) heart failure (6) Hyperlipidemia Priority: Secondary Status: Chronic Qualifiers: Hyperlipidemia type: mixed hyperlipidemia Qualified Code(s): E78.2 - Mixed hyperlipidemia (7) Hypertension Priority: Secondary Status: Chronic Qualifiers: Hypertension type: essential hypertension Qualified Code(s): I10 - Essential (primary) hypertension (8) Rheumatoid arthritis Priority: Secondary Status: Chronic Qualifiers: Rheumatoid arthritis location: unspecified site Rheumatoid factor presence : unspecified presence Qualified Code(s): M06.9 - Rheumatoid arthritis, unspecified - Discharge Medications Prescriptions: Docusate [Colace] 100 mg PO BID #30 capsule Home Medications: Calcium Carbonate [Calcium] 600 mg PO BID 02/20/16 [History] Folic Acid 3 mg PO DAILY 02/20/16 [History] Leflunomide [Arava] 20 mg PO DAILY 02/20/16 [History] Methotrexate [Otrexup] 10 mg PO MO 02/20/16 [History] Metoprolol [Lopressor] 50 mg PO BID 02/20/16 [History] Polyethylene Glycol 3350 [MiraLAX] 17 gm PO DAILY PRN 02/20/16 [History] Pravastatin Sodium [Pravachol] 80 mg PO HS 02/20/16 [History] PredniSONE 5 mg PO DAILY 02/20/16 [History] Primidone [Mysoline] 200 mg PO TID 02/20/16 [History] Warfarin [Coumadin] 4 mg PO SUMOWEFR 02/20/16 [History] Clopidogrel [Plavix] 75 mg PO DAILY #30 tablet 08/18/16 [Rx] Vit A/C/E AC/Znox/Cupric Oxide [Eye Vitamin-Minerals Tablet] 1 each PO DAILY 02/24 [History] Warfarin Sodium [Coumadin] 6 mg PO TUTHSA 08/18/16 [History] Benazepril HCl [Lotensin] 20 mg PO BID 09/08/16 [History] HYDROmorphone [Dilaudid] 4 mg PO Q4-6H PRN 09/08/16 [History] Metformin [Glucophage] 500 mg PO BIDWM 09/08/16 [History] [place]-3/Dha/Epa/Fish Oil [[place]-3 Fish Oil 1,000 mg Sfgl] 2,000 mg PO DAILY 07/27 [History] Docusate [Colace] 100 mg PO BID #30 capsule 09/13/16 [Rx] Allergies/Adverse Reactions: Allergies No Known Allergies Allergy (Verified 09/08/16 11:42) Procedures/tests Complete & Pending: Procedures Performed prior 72 hours Category Date Time Status CT abd pelvis w iv and oral [CT] Routine Cat Scan 09/10/16 18:40 Completed Date of admission: 09/08/16 17:22 Primary care physician: Tessa Brooks CNP Consults: 09/08/16 17:26 Consult to Cardiology [CONS] Routine Comment: Consulting Provider: [facility] [place] Reason for Consult: Atral thrombus ( ase dscussed with Dr Castro) Call Completed: Yes 09/12/16 12:50 Consult to Podiatry [CONS] Routine Consulting Provider: Podiatry [facility] Reason for Consult: Right great toe gangrene Call Completed: Yes 09/12/16 12:51 Consult to Physical Therapy [CONS] Routine Comment: Evaluate, develop and implement POC Discharging clinician: Magaly Bobo Anticipated date of discharge: 09/13/16 - Patient Status Disposition: Home, Self-Care Condition: Fair Overall status at discharge: patient is progressing back to baseline - Discharge Instructions Follow Up With: Tessa Brooks CNP [Primary Care Provider] - (this appoinment has been requested) Boo Umana CNP [Advanced Practice Nurse] - 10/01/16 8:30 am Additional Instructions: F/up with Podiatry clinic in 1-2 weeks- or - Diet and Activity Activity: resume usual activities as tolerated Diet: diabetic diet, low fat, low cholesterol, low salt diet Hospital course: Mr. Eid is a 75 year old male with the above medical problems, admitted with abdominal pain. Initial labs and CT abdomen showed no abdominal pathology, however shoed incidental finding of atrial thrombus. He was on Coumadin for anticoagulation and recently taken off of it for vascular surgery on right leg and then for questionable melena. He has been started on IV Heparin and Coumadin. Cardiology was consulted and agreed with this management. Echocardiogram was done which showed 50% EF, mild-moderate LAD, mild RAD, indeterminate diastolic function. Abdominal pain persisted and vascular surgery was consulted for possible mesenteric ischemia, which is less likely. Lactic acid was slightly elevated initially which could be due to right great toe gangrene. He was noted to be constipated and given laxatives and enema with BMs and improvement in abdominal pain. 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 He recently underwent right leg angioplasty. He is on Dilaudid for pain control. Podiatry has been consulted for severe pain and patient is recommended to f/up in clinic for discussion regarding amputations, which is not indicated at this time. PT evaluation was done and recommended no home needs. He is medically stable for discharge. - Time Spent with Patient Total time spent providing and/or coordinating discharge services: Greater than 30 minutes (50 min) - Constitutional Vitals: Temp Pulse Resp BP Pulse Ox 98.2 F 112 19 121/78 96 09/13/16 05:57 09/13/16 05:57 09/13/16 05:57 09/13/16 05:57 09/13/16 08:00 General appearance: Present: A&O X 3, answers questions appropriately - Respiratory Respiratory exam: Present: CTAB. Absent: accessory muscle use, rales, rhonchi, wheezes - Cardiovascular Cardiovascular exam: Present: irregular rhythm, +S1, +S2. Absent: diastolic murmur, gallop, rubs, systolic murmur - GI/Abdominal GI/Abdominal exam: Present: hyperactive bowel sounds, soft, no peritoneal signs. Absent: distended, tenderness
[2016-09-13] MEDS ORDERED: *HR* Methotrexate 2.5 MG TABLET PO SCH (17:28)
[2016-09-13] MEDS ORDERED: *HR* Warfarin 3 MG TABLET PO ONE (18:00)
== END 2016-09-13 17:53 | disposition home or self-care (01) | DRG 303 ==
LOC: 2NENU 11:40 → EMEROO 11:40 → 2NENU 16:25
PROVIDERS: ADMIT Internal Medicine; ATTEND Internal Medicine

== ENCOUNTER 2016-09-13 23:19 | Inpatient (IN) ==
[2016-09-14 01:53] LABS: Basophils # 0.1 K/mcL (0.0-0.2); Basophils % 0.7 %; Eosinophils % 0.3 %; Hematocrit 38.7 % (37.5-50.1); Hemoglobin 12.6 g/dL (12.9-16.9); Immature Granulocytes % 0.9 % (0-4); Lymphocytes # 1.4 K/mcL (0.6-4.6); Lymphocytes % 13.5 %; Mean Corpuscular HGB Conc 32.6 g/dL (31.6-35.5); Mean Corpuscular Volume 101.3 fL (83.0-100.0); Monocytes # 1.6 K/mcL (0.0-1.3); Monocytes % 15.1 %; Neutrophils # 7.3 K/mcL (1.6-8.9); Platelet Count 204 K/mcL (140-400); Red Blood Count 3.82 M/mcL (4.19-5.50); Red Cell Distribution Width 17.2 % (11.5-14.5); Segmented Neutrophils % 69.5 %
[2016-09-14 02:14] LABS: Alanine Aminotransferase 20 Units/L (0-55); Albumin 2.7 g/dL (3.5-5.0); Albumin/Globulin Ratio 0.7 (1.1-2.2); Alkaline Phosphatase 62 Units/L (38-126); Amylase 20 Units/L (25-125); Aspartate Amino Transferase 17 Units/L (5-34); BUN/Creatinine Ratio 20 (6-26); Bilirubin,Direct 0.3 mg/dL (0.0-0.5); Bilirubin,Indirect 0.3 mg/dL (0.0-1.2); Bilirubin,Total 0.6 mg/dL (0.2-1.2); Blood Urea Nitrogen 16 mg/dL (8-26); Calcium 9.2 mg/dL (8.6-10.8); Carbon Dioxide 19 mEq/L (19-29); Chloride 107 mEq/L (98-109); Globulin 4.1 g/dL (2.4-3.5); Glucose 120 mg/dL (70-99); Lipase 7 Units/L (8-78); Osmolality,Calculated 286 (280-300); Sodium 137 mEq/L (136-145); Total Protein 6.8 g/dL (6.0-8.3); eGFR For African Americans > 60 (> 60); eGFR For Non-African Americans > 60 (> 60)
[2016-09-14] MEDS ORDERED: *HR* HYDROmorphone (PF) 1 MG/ML SYRINGE IVP ONE (05:29)
[2016-09-14] MEDS ORDERED: 0.9 % Sodium Chloride 1,000 ML IV ONE (05:29)
[2016-09-14] MEDS ORDERED: Metoclopramide 10 MG/2 ML VIAL IVP ONE (05:29)
--- NOTE | 2016-09-14 05:39 | Emergency Department Note ---
Disposition Clinical Impression: Atrial fibrillation with RVR, Gangrene of toe, Atrial thrombus, LBBB (left bundle branch block) Constipation Qualifiers: Constipation type: drug induced constipation Qualified Code(s): K59.03 - Drug induced constipation Disposition: Still a Patient Condition: Fair Time of Disposition: 07:06 Abdominal Pain HPI - General Chief Complaint: ED Abdominal Pain Stated Complaint: "belly pains" Time Seen by Provider: 09/14/16 03:09 Source: patient Mode of arrival: ambulatory Limitations: no limitations Nursing Notes Reviewed: Yes Vital Signs Reviewed: Yes - History of Present Illness HPI Narrative: 75-year-old male history of atrial thrombus, atrial fibrillation, on Coumadin, recently admitted for abdominal pain found Avenue atrial thrombus, also history of PEs, and a right gangrenous toe, peripheral vascular disease, patient presents with complaint of pain in his right foot. Chronically takes narcotic pain medicine Dilaudid. That has been constipated him, he also has severe abdominal pain. He states that he does not think he is unable to go to the restroom and that this is the main reason for his pain. Patient states he has 10 out of 10 pain in his abdomen and his right toe. Crampy aching pain in his abdomen. He is not obstipated or constipated and he has gone the bathroom in the last day. He states that he feels like his abdomen is distended. He has had 2 loose CAT scans in the last week. Was just discharged from the hospital earlier yesterday. Dr. De La Garza and Dr. Haynes have been following the patient on his care for his ischemic right foot and his peripheral vascular disease Pt Subjective Complaint: abdominal pain Onset (ago): day(s) Consistency: intermittent Location: diffuse Pain Severity: severe Pain Scale: 10 Quality: cramping, aching Radiation: none Improves with: bowel movement Worsens with: vomiting, movement Associated symptoms: Reports: nausea, vomiting, constipation - Related Data Home Medications Medication Instructions Recorded Confirmed Calcium Carbonate [Calcium] 600 mg PO BID 02/20/16 09/14/16 Folic Acid 3 mg PO DAILY 02/20/16 09/14/16 Leflunomide [Arava] 20 mg PO DAILY 02/20/16 09/14/16 Methotrexate [Otrexup] 10 mg PO MO 02/20/16 09/14/16 Metoprolol [Lopressor] 50 mg PO BID 02/20/16 09/14/16 Polyethylene Glycol 3350 [MiraLAX] 17 gm PO DAILY PRN 02/20/16 09/14/16 Pravastatin Sodium [Pravachol] 80 mg PO HS 02/20/16 09/14/16 PredniSONE 5 mg PO DAILY 02/20/16 09/14/16 Primidone [Mysoline] 200 mg PO TID 02/20/16 09/14/16 Warfarin [Coumadin] 4 mg PO SUMOWEFR 02/20/16 09/14/16 Vit A/C/E AC/Znox/Cupric Oxide 1 each PO DAILY 08/18/16 09/14/16 [Eye Vitamin-Minerals Tablet] Warfarin Sodium [Coumadin] 6 mg PO TUTHSA 08/18/16 09/14/16 Benazepril HCl [Lotensin] 20 mg PO BID 09/08/16 09/14/16 HYDROmorphone [Dilaudid] 4 mg PO Q4-6H PRN 09/08/16 09/14/16 Metformin [Glucophage] 500 mg PO BIDWM 09/08/16 09/14/16 [place]-3/Dha/Epa/Fish Oil [[place]-3 2,000 mg PO DAILY 09/08/16 09/14/16 Fish Oil 1,000 mg Sfgl] Previous Rx's Medication Instructions Recorded Clopidogrel [Plavix] 75 mg PO DAILY #30 tablet 08/18/16 Docusate [Colace] 100 mg PO BID #30 capsule 09/13/16 Allergies Allergy/AdvReac Type Severity Reaction Status Date / Time No Known Allergies Allergy Verified 09/08/16 11:42 Review of Systems: All systems were reviewed with historian and negative except as per below, or as documented in the HPI. Constitutional: Denies: fever, chills, weight changes CV: Denies: chest pain, palpitations Resp: Denies: cough, dyspnea, wheezes, hemoptysis GI: Positive for abdominal pain. Positive for nausea vomiting constipation. Denies: abdominal pain MSK: Positive for right toe pain. Denies: back pain, neck pain, extremity pain Skin: Denies: new rashes, new lesions Neuro: Denies: ROSA, weakness, sensory changes, gait difficulty Psych: Denies: anxiety, depression All systems ED: reviewed and negative except as stated. Abdominal Pain PMH - Past Medical History Medical history: Reports: arthritis, atrial fibrillation, CHF, hyperlipidemia, hypertension, kidney stones, peripheral artery disease, other Male Surgical History: Reports: herniorrhaphy, other Psychiatric history: Reports: no psych history - Social History Smoking status: Former smoker Alcohol use: Reports: none Drug use: Reports: none Physical Exam Constitutional: Patient appears in acute distress, tachycardic, irregular rhythm, Neck: normal inspection, neck is supple, trachea midline Resp: normal chest inspection, CTA bilaterally, no resp distress CV: Irregularly irregular rhythm. GI: Abdomen is softly distended, diffusely tender to palpation. Back: normal inspection, no tenderness to palpation Neuro: A&O3, no gross motor or sensory deficits bilaterally MSK: Right gangrenous great toe, with no surrounding erythema or cellulitis. Psych: normal mood, normal affect Skin: No rashes, skin warm, dry, intact - General Limitations: no limitations General appearance: alert, in no apparent distress Course Course Narrative: 75-year-old male with history of atrial fibrillation, constipation complaining of abdominal pain, and pain with his right toe. We will do blood work acute abdominal series, and thyroid patient for complaints, an EKG shows atrial fibrillation with rapid ventricular response. We will give home a beta annelise and see if this relieves symptoms likely patient will be admitted. Vital Signs Temperature 97.8 F 09/13/16 23:36 Pulse Rate 103 09/13/16 23:36 Respiratory Rate 20 09/13/16 23:36 Blood Pressure 183/80 09/13/16 23:36 O2 Sat by Pulse Oximetry 95 09/13/16 23:36 Temperature 98.7 F 09/14/16 13:41 Pulse Rate 99 09/14/16 13:41 Respiratory Rate 16 09/14/16 13:41 Blood Pressure 146/97 09/14/16 13:41 O2 Sat by Pulse Oximetry 94 L 09/14/16 13:41 Oxygen Delivery Oxygen Delivery Room Air Abdominal Pain - Differential Diagnosis Differential Diagnosis: Likely: abdominal pain non-specific, diverticulitis, diverticulosis - Medical Records Medical records reviewed: Yes I reviewed the patient's medical records. - Lab Data Lab results reviewed: Yes I reviewed the patient's lab results. Result diagrams: 09/14/16 01:39 09/14/16 01:39 Lab Results 09/14/16 09/14/16 09/14/16 Range/Units 01:39 01:39 07:42 WBC 10.5 (4.3-11.1) K/mcL RBC 3.82 L (4.19-5.50) M/mcL Hgb 12.6 L (12.9-16.9) g/dL Hct 38.7 (37.5-50.1) % MCV 101.3 H (83.0-100.0) fL MCH 33.0 (28.0-33.3) pg MCHC 32.6 (31.6-35.5) g/dL RDW 17.2 H (11.5-14.5) % Plt Count 204 (140-400) K/mcL MPV 10.0 (9.4-12.4) fL Immature Gran % 0.9 (0-4) % Seg Neutrophils % 69.5 % Lymphocytes % 13.5 % Monocytes % 15.1 % Eosinophils % 0.3 % Basophils % 0.7 % Neutrophils # 7.3 (1.6-8.9) K/mcL Lymphocytes # 1.4 (0.6-4.6) K/mcL Monocytes # 1.6 H (0.0-1.3) K/mcL Eosinophils # 0.0 (0.0-0.6) K/mcL Basophils # 0.1 (0.0-0.2) K/mcL PT (9.4-12.1) Seconds INR APTT (26.0-36.0) Seconds Sodium 137 (136-145) mEq/L Potassium 5.0 H (3.5-4.5) mEq/L Chloride 107 (98-109) mEq/L Carbon Dioxide 19 (19-29) mEq/L BUN 16 (8-26) mg/dL Creatinine 0.81 (0.72-1.25) mg/dL Est GFR ( Amer) > 60 (> 60) Est GFR (Non-Af Amer) > 60 (> 60) BUN/Creatinine Ratio 20 (6-26) Glucose 120 H (70-99) mg/dL Calculated Osmolality 286 (280-300) Lactic Acid (0.5-2.2) mmol/L Calcium 9.2 (8.6-10.8) mg/dL Total Bilirubin 0.6 (0.2-1.2) mg/dL Direct Bilirubin 0.3 (0.0-0.5) mg/dL Indirect Bilirubin 0.3 (0.0-1.2) mg/dL AST 17 (5-34) Units/L ALT 20 (0-55) Units/L Alkaline Phosphatase 62 (38-126) Units/L Serum Total Protein 6.8 (6.0-8.3) g/dL Albumin 2.7 L (3.5-5.0) g/dL Globulin 4.1 H (2.4-3.5) g/dL Albumin/Globulin Ratio 0.7 L (1.1-2.2) Amylase 20 L (25-125) Units/L Lipase 7 L (8-78) Units/L Urine Color Yellow (Yellow) Urine Clarity Clear (Clear) Urine pH 5.5 (5.0-8.0) pH Units Ur Specific [place] 1.022 (1.010-1.025) Urine Protein Trace (Neg-Trace) mg/dL Urine Glucose (UA) Normal (Normal) mg/dL Urine Ketones Negative (Negative) mg/dL Urine Blood Negative (Negative) Urine Nitrite Negative (Negative) Urine Bilirubin Negative (Negative) Urine Urobilinogen Normal (Normal) mg/dL Ur Leukocyte Esterase Negative (Negative) Urine Microscopic RBC 5-15 H (0-3) per hpf Urine Microscopic WBC 0-3 (0-3) per hpf Ur Squamous Epith Cells Moderate H (None-Few) per lpf Urine Bacteria None Seen (None-Few) per hpf Hyaline Casts None Seen (None-Few) per lpf 09/14/16 09/14/16 Range/Units 07:57 08:39 WBC (4.3-11.1) K/mcL RBC (4.19-5.50) M/mcL Hgb (12.9-16.9) g/dL Hct (37.5-50.1) % MCV (83.0-100.0) fL MCH (28.0-33.3) pg MCHC (31.6-35.5) g/dL RDW (11.5-14.5) % Plt Count (140-400) K/mcL MPV (9.4-12.4) fL Immature Gran % (0-4) % Seg Neutrophils % % Lymphocytes % % Monocytes % % Eosinophils % % Basophils % % Neutrophils # (1.6-8.9) K/mcL Lymphocytes # (0.6-4.6) K/mcL Monocytes # (0.0-1.3) K/mcL Eosinophils # (0.0-0.6) K/mcL Basophils # (0.0-0.2) K/mcL PT 11.1 (9.4-12.1) Seconds INR 1.0 APTT 26.9 D (26.0-36.0) Seconds Sodium (136-145) mEq/L Potassium (3.5-4.5) mEq/L Chloride (98-109) mEq/L Carbon Dioxide (19-29) mEq/L BUN (8-26) mg/dL Creatinine (0.72-1.25) mg/dL Est GFR ( Amer) (> 60) Est GFR (Non-Af Amer) (> 60) BUN/Creatinine Ratio (6-26) Glucose (70-99) mg/dL Calculated Osmolality (280-300) Lactic Acid 3.2 H (0.5-2.2) mmol/L Calcium (8.6-10.8) mg/dL Total Bilirubin (0.2-1.2) mg/dL Direct Bilirubin (0.0-0.5) mg/dL Indirect Bilirubin (0.0-1.2) mg/dL AST (5-34) Units/L ALT (0-55) Units/L Alkaline Phosphatase (38-126) Units/L Serum Total Protein (6.0-8.3) g/dL Albumin (3.5-5.0) g/dL Globulin (2.4-3.5) g/dL Albumin/Globulin Ratio (1.1-2.2) Amylase (25-125) Units/L Lipase (8-78) Units/L Urine Color (Yellow) Urine Clarity (Clear) Urine pH (5.0-8.0) pH Units Ur Specific [place] (1.010-1.025) Urine Protein (Neg-Trace) mg/dL Urine Glucose (UA) (Normal) mg/dL Urine Ketones (Negative) mg/dL Urine Blood (Negative) Urine Nitrite (Negative) Urine Bilirubin (Negative) Urine Urobilinogen (Normal) mg/dL Ur Leukocyte Esterase (Negative) Urine Microscopic RBC (0-3) per hpf Urine Microscopic WBC (0-3) per hpf Ur Squamous Epith Cells (None-Few) per lpf Urine Bacteria (None-Few) per hpf Hyaline Casts (None-Few) per lpf - EKG Data EKG attestation: Yes I reviewed and interpreted this EKG. Rate: tachycardia Rhythm: A.Fib (Fibrillation ventricular rate 114 QRS 152 QTc 442 stable left bundle-branch block previous EKG October 2013) [place]/QRS: LBBB Interpretation: unchanged when compared to prior tracing (date), nonspecific ST- T wave changes - Core Measures AMI Core Measures Followed: No S.B.A.R. - [email or web address] Situation: Demographics, MOA Background: Presenting Complaint, Relevant PMH, Meds, & Allergies Assessment: Vital Signs, Course and respsone to treatment, Exam Concerns, Patient/Family Expectation, Pertinant Lab Results, Outstanding Labs Recommendation: Barrier(s) to disposition, Recommendation based on pending studies, treatments, or consults SBaldev Report Given to: [facility] Time: 07:11 Attestation Statement - Attestation Attestation: I personally interviewed and examined this patient and my medical decision- making was reviewed and discussed with the ED Resident Physician, Dr. Espinoza. I agree with the documented findings, disposition and treatment plan as described in the documentation. Obtaining repeat labs and pain control. Pt with 2 CT abd/pelvis in past 72 hours. Plan to admit for further eval of ongoing abd pain. Signed out to Dr. Abraham for final disposition and lab results. Pt hemodynamically stable.
[2016-09-14] MEDS ORDERED: *HR* Metoprolol 5 MG/5 ML VIAL IVP ONE (06:27)
[2016-09-14 07:53] LABS: Bilirubin,Urine Negative (Negative); Blood,Urine Negative (Negative); Clarity,Urine Clear (Clear); Color,Urine Yellow (Yellow); Glucose,Urine (UA) Normal (Normal); Ketones,Urine Negative (Negative); Leukocyte Esterase,Urine Negative (Negative); Nitrite,Urine Negative (Negative); PH,Urine 5.5 pH Units (5.0-8.0); Protein,Urine Trace mg/dL (Neg-Trace); Specific Gravity,Urine 1.022 (1.010-1.025); Urobilinogen,Urine Normal (Normal)
[2016-09-14 07:56] LABS: Bacteria,Urine None Seen per hpf (None-Few); Hyaline Casts,Urine None Seen per lpf (None-Few); Squamous Epithelial Cell,Urine Moderate per lpf (None-Few); WBC,Urine 0-3 per hpf (0-3)
[2016-09-14 09:03] LABS: Prothrombin Time 11.1 Seconds (9.4-12.1)
[2016-09-14 09:17] LABS: Activated Partial Thrombo Time 26.9 Seconds (26.0-36.0)
--- NOTE | 2016-09-14 09:18 | Emergency Department Note ---
Disposition Clinical Impression: Atrial fibrillation with RVR, Gangrene of toe, Atrial thrombus, LBBB (left bundle branch block) Constipation Qualifiers: Constipation type: unspecified constipation type Qualified Code(s): K59.00 - Constipation, unspecified Disposition: Still a Patient Condition: Fair Referrals: NO,PCP [Non-Partnered Physician] - Forms: ED Satisfaction Letter, Work/School Release General Adult HPI - General Chief complaint: ED Abdominal Pain Stated complaint: "belly pains" Time Seen by Provider: 09/14/16 03:09 Source: patient Mode of arrival: ambulatory Limitations: no limitations - History of Present Illness Pain Scale: 0 - Related Data Home Medications Medication Instructions Recorded Confirmed Calcium Carbonate [Calcium] 600 mg PO BID 02/20/16 09/08/16 Folic Acid 3 mg PO DAILY 02/20/16 09/08/16 Leflunomide [Arava] 20 mg PO DAILY 02/20/16 09/08/16 Methotrexate [Otrexup] 10 mg PO MO 02/20/16 09/08/16 Metoprolol [Lopressor] 50 mg PO BID 02/20/16 09/08/16 Polyethylene Glycol 3350 [MiraLAX] 17 gm PO DAILY PRN 02/20/16 09/08/16 Pravastatin Sodium [Pravachol] 80 mg PO HS 02/20/16 09/08/16 PredniSONE 5 mg PO DAILY 02/20/16 09/08/16 Primidone [Mysoline] 200 mg PO TID 02/20/16 09/08/16 Warfarin [Coumadin] 4 mg PO SUMOWEFR 02/20/16 09/08/16 Vit A/C/E AC/Znox/Cupric Oxide 1 each PO DAILY 08/18/16 09/08/16 [Eye Vitamin-Minerals Tablet] Warfarin Sodium [Coumadin] 6 mg PO TUTHSA 08/18/16 09/08/16 Benazepril HCl [Lotensin] 20 mg PO BID 09/08/16 09/08/16 HYDROmorphone [Dilaudid] 4 mg PO Q4-6H PRN 09/08/16 09/08/16 Metformin [Glucophage] 500 mg PO BIDWM 09/08/16 09/08/16 [place]-3/Dha/Epa/Fish Oil [[place]-3 2,000 mg PO DAILY 09/08/16 09/08/16 Fish Oil 1,000 mg Sfgl] Previous Rx's Medication Instructions Recorded Clopidogrel [Plavix] 75 mg PO DAILY #30 tablet 08/18/16 Docusate [Colace] 100 mg PO BID #30 capsule 09/13/16 Allergies Allergy/AdvReac Type Severity Reaction Status Date / Time No Known Allergies Allergy Verified 09/08/16 11:42 Past Medical History - Past Medical History Medical history: Reports: arthritis, atrial fibrillation, CHF, hyperlipidemia, hypertension, kidney stones, peripheral artery disease, other Surgical history: Reports: herniorrhaphy, other Psychiatric history: Reports: no psych history - Social History Smoking Status: Former smoker Smokeless Tobacco Status: No Alcohol use: Reports: none Drug use: Reports: none Physical Exam - General Limitations: no limitations General appearance: alert, in no apparent distress Course - Reevaluation(s) Reevaluation #1: 75-year-old with a history of atrial fibrillation who comes in complaining of increasing abdominal pain. Patient then evaluated and patient was discharged yesterday. She has increasing pain. Patient has A. fib. Patient was initially seen by textile conservator and orders were given placed. A lactate was not ordered and was ordered on my arrival. Lactate is elevated at 2.7. A CT of the abdomen/ pelvis was ordered. Time: 09:16 - Consultations Consultation #1: Discussed the case with , who wants a CT of the abdomen and pelvis. Time: 08:35 Vital Signs Temperature 97.8 F 09/13/16 23:36 Pulse Rate 103 09/13/16 23:36 Respiratory Rate 20 09/13/16 23:36 Blood Pressure 183/80 09/13/16 23:36 O2 Sat by Pulse Oximetry 95 09/13/16 23:36 Temperature 97.8 F 09/13/16 23:36 Pulse Rate 89 09/14/16 08:42 Respiratory Rate 18 09/14/16 08:42 Blood Pressure 145/94 09/14/16 08:42 O2 Sat by Pulse Oximetry 96 09/14/16 08:42 Oxygen Delivery Oxygen Delivery Room Air Medical Decision Making - Lab Data Result diagrams: 09/14/16 01:39 09/14/16 01:39 Lab Results 09/14/16 09/14/16 09/14/16 Range/Units 01:39 01:39 07:42 WBC 10.5 (4.3-11.1) K/mcL RBC 3.82 L (4.19-5.50) M/mcL Hgb 12.6 L (12.9-16.9) g/dL Hct 38.7 (37.5-50.1) % MCV 101.3 H (83.0-100.0) fL MCH 33.0 (28.0-33.3) pg MCHC 32.6 (31.6-35.5) g/dL RDW 17.2 H (11.5-14.5) % Plt Count 204 (140-400) K/mcL MPV 10.0 (9.4-12.4) fL Immature Gran % 0.9 (0-4) % Seg Neutrophils % 69.5 % Lymphocytes % 13.5 % Monocytes % 15.1 % Eosinophils % 0.3 % Basophils % 0.7 % Neutrophils # 7.3 (1.6-8.9) K/mcL Lymphocytes # 1.4 (0.6-4.6) K/mcL Monocytes # 1.6 H (0.0-1.3) K/mcL Eosinophils # 0.0 (0.0-0.6) K/mcL Basophils # 0.1 (0.0-0.2) K/mcL Sodium 137 (136-145) mEq/L Potassium 5.0 H (3.5-4.5) mEq/L Chloride 107 (98-109) mEq/L Carbon Dioxide 19 (19-29) mEq/L BUN 16 (8-26) mg/dL Creatinine 0.81 (0.72-1.25) mg/dL Est GFR ( Amer) > 60 (> 60) Est GFR (Non-Af Amer) > 60 (> 60) BUN/Creatinine Ratio 20 (6-26) Glucose 120 H (70-99) mg/dL Calculated Osmolality 286 (280-300) Lactic Acid (0.5-2.2) mmol/L Calcium 9.2 (8.6-10.8) mg/dL Total Bilirubin 0.6 (0.2-1.2) mg/dL Direct Bilirubin 0.3 (0.0-0.5) mg/dL Indirect Bilirubin 0.3 (0.0-1.2) mg/dL AST 17 (5-34) Units/L ALT 20 (0-55) Units/L Alkaline Phosphatase 62 (38-126) Units/L Serum Total Protein 6.8 (6.0-8.3) g/dL Albumin 2.7 L (3.5-5.0) g/dL Globulin 4.1 H (2.4-3.5) g/dL Albumin/Globulin Ratio 0.7 L (1.1-2.2) Amylase 20 L (25-125) Units/L Lipase 7 L (8-78) Units/L Urine Color Yellow (Yellow) Urine Clarity Clear (Clear) Urine pH 5.5 (5.0-8.0) pH Units Ur Specific [place] 1.022 (1.010-1.025) Urine Protein Trace (Neg-Trace) mg/dL Urine Glucose (UA) Normal (Normal) mg/dL Urine Ketones Negative (Negative) mg/dL Urine Blood Negative (Negative) Urine Nitrite Negative (Negative) Urine Bilirubin Negative (Negative) Urine Urobilinogen Normal (Normal) mg/dL Ur Leukocyte Esterase Negative (Negative) Urine Microscopic RBC 5-15 H (0-3) per hpf Urine Microscopic WBC 0-3 (0-3) per hpf Ur Squamous Epith Cells Moderate H (None-Few) per lpf Urine Bacteria None Seen (None-Few) per hpf Hyaline Casts None Seen (None-Few) per lpf 09/14/16 Range/Units 07:57 WBC (4.3-11.1) K/mcL RBC (4.19-5.50) M/mcL Hgb (12.9-16.9) g/dL Hct (37.5-50.1) % MCV (83.0-100.0) fL MCH (28.0-33.3) pg MCHC (31.6-35.5) g/dL RDW (11.5-14.5) % Plt Count (140-400) K/mcL MPV (9.4-12.4) fL Immature Gran % (0-4) % Seg Neutrophils % % Lymphocytes % % Monocytes % % Eosinophils % % Basophils % % Neutrophils # (1.6-8.9) K/mcL Lymphocytes # (0.6-4.6) K/mcL Monocytes # (0.0-1.3) K/mcL Eosinophils # (0.0-0.6) K/mcL Basophils # (0.0-0.2) K/mcL Sodium (136-145) mEq/L Potassium (3.5-4.5) mEq/L Chloride (98-109) mEq/L Carbon Dioxide (19-29) mEq/L BUN (8-26) mg/dL Creatinine (0.72-1.25) mg/dL Est GFR ( Amer) (> 60) Est GFR (Non-Af Amer) (> 60) BUN/Creatinine Ratio (6-26) Glucose (70-99) mg/dL Calculated Osmolality (280-300) Lactic Acid 3.2 H (0.5-2.2) mmol/L Calcium (8.6-10.8) mg/dL Total Bilirubin (0.2-1.2) mg/dL Direct Bilirubin (0.0-0.5) mg/dL Indirect Bilirubin (0.0-1.2) mg/dL AST (5-34) Units/L ALT (0-55) Units/L Alkaline Phosphatase (38-126) Units/L Serum Total Protein (6.0-8.3) g/dL Albumin (3.5-5.0) g/dL Globulin (2.4-3.5) g/dL Albumin/Globulin Ratio (1.1-2.2) Amylase (25-125) Units/L Lipase (8-78) Units/L Urine Color (Yellow) Urine Clarity (Clear) Urine pH (5.0-8.0) pH Units Ur Specific [place] (1.010-1.025) Urine Protein (Neg-Trace) mg/dL Urine Glucose (UA) (Normal) mg/dL Urine Ketones (Negative) mg/dL Urine Blood (Negative) Urine Nitrite (Negative) Urine Bilirubin (Negative) Urine Urobilinogen (Normal) mg/dL Ur Leukocyte Esterase (Negative) Urine Microscopic RBC (0-3) per hpf Urine Microscopic WBC (0-3) per hpf Ur Squamous Epith Cells (None-Few) per lpf Urine Bacteria (None-Few) per hpf Hyaline Casts (None-Few) per lpf
[2016-09-14] MEDS ORDERED: Naloxone 0.4 MG/ML INJ IVP PRN (11:39)
[2016-09-14] MEDS ORDERED: Ondansetron 4 MG/2 ML VIAL IVP PRN (11:39)
--- NOTE | 2016-09-14 11:46 | Internal Med History&Physical ---
Date of Encounter: 09/14/16 Time of Encounter: 10:00 Assessment and Plan (1) Peptic ulcer disease Current visit: Yes Status: Acute I have obtained a CT of the abdomen and pelvis to rule out ischemic bowel in any intra-abdominal pathology. This reveals findings concerning for duodenitis or duodenal ulcer. I have reviewed the patient's medical record and I do not see any evidence of a recent upper endoscopy. A colonoscopy was done last year and was normal. I will start patient on Protonix IV and consult GI for upper endoscopy to evaluate for the presence of a peptic ulcer. (2) Atrial fibrillation with RVR Current visit: Yes Status: Acute Continue rate control with metoprolol. Reassess the patient's heart rate once the pain is better controlled. INR is 1.0. I have reviewed the patient's discharge summary and notes from his previous admission and referred to continuing his anticoagulation with warfarin. I will start full dose Lovenox 1 mg/kg and will give 7.5 mg of warfarin tonight and continue dosing of warfarin per pharmacy starting tomorrow. He is at high risk for embolization due to the presence of an atrial clot. However, his INR was 2.0 yesterday and I was 3.0 a few days back. (3) Atrial thrombus Current visit: Yes Status: Acute Continue with warfarin. Bridge with Lovenox. (4) Constipation Current visit: Yes Status: Acute Start senna and Colace. MiraLAX and rectal Dulcolax as needed. Qualifiers: Constipation type: drug induced constipation Qualified Code(s): K59.03 - Drug induced constipation (5) Gangrene of toe Current visit: Yes Status: Acute Patient has a follow-up with podiatry in 1 week. He does not require inpatient consult at this time. He was recently evaluated by podiatry and vascular surgery during this hospitalization over the last 7 days. (6) LBBB (left bundle branch block) Current visit: Yes Status: Chronic This appears to be chronic. No evidence of ischemia. (7) Abdominal pain Current visit: No Status: Acute Could be an indicator of bowel ischemia. I will check lactic acid. I have checked a CT abdomen and pelvis. Could be secondary to peptic ulcer disease. I discussed the case with Dr. Collins. Patient will undergo EGD tomorrow. I will hold the Coumadin tonight and hold the Lovenox in the morning. She has a high risk for morbidity mortality and complications due to intravenous opiates for pain. 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 Qualifiers: Peripheral atherosclerosis artery type: [place] artery Qualified Code(s): I70.261 - Atherosclerosis of [place] arteries of extremities with gangrene, right leg Internal Medicine - H&P: HPI Chief complaint: Abdominal pain Admitted From: Emergency Dept History of present illness: Mr. Eid is a 75 year old male with multiple medical comorbidities who was discharged from the hospital yesterday after being treated for chronic constipation and evaluated for gangrenous right toe and was brought back to the hospital last night for abdominal pain. She reported severe generalized abdominal pain that was dull and aching. Denies associated nausea and vomiting. He had a small bowel movement yesterday but had no relief from his pain. He had a pain shot in the emergency department which improved his pain. review of systems: Pertinent positives as above, positive for constipation, positive for pain in the right foot secondary to dry gangrene; the remainder of a 10 system Review of systems was negative. Family history was reviewed and found to be noncontributory to this presentation. Past Med Surg Social Fam HX - Past Medical History Medical history: arthritis, atrial fibrillation, CHF, hyperlipidemia, hypertension, kidney stones, peripheral artery disease, other Psychiatric history: no psych history - Past Surgical History Surgical History: herniorrhaphy, other - Social History Smoking Status: Former smoker Smokeless Tobacco Status: No Alcohol use: none Drug use: none Internal Medicine - H&P: Meds Calcium Carbonate [Calcium] 600 mg PO BID 02/20/16 [History] Folic Acid 3 mg PO DAILY 02/20/16 [History] Leflunomide [Arava] 20 mg PO DAILY 02/20/16 [History] Methotrexate [Otrexup] 10 mg PO MO 02/20/16 [History] Metoprolol [Lopressor] 50 mg PO BID 02/20/16 [History] Polyethylene Glycol 3350 [MiraLAX] 17 gm PO DAILY PRN 02/20/16 [History] Pravastatin Sodium [Pravachol] 80 mg PO HS 02/20/16 [History] PredniSONE 5 mg PO DAILY 02/20/16 [History] Primidone [Mysoline] 200 mg PO TID 02/20/16 [History] Warfarin [Coumadin] 4 mg PO SUMOWEFR 02/20/16 [History] Clopidogrel [Plavix] 75 mg PO DAILY #30 tablet 08/18/16 [Rx] Vit A/C/E AC/Znox/Cupric Oxide [Eye Vitamin-Minerals Tablet] 1 each PO DAILY 02/24 [History] Warfarin Sodium [Coumadin] 6 mg PO TUTHSA 08/18/16 [History] Benazepril HCl [Lotensin] 20 mg PO BID 09/08/16 [History] HYDROmorphone [Dilaudid] 4 mg PO Q4-6H PRN 09/08/16 [History] Metformin [Glucophage] 500 mg PO BIDWM 09/08/16 [History] [place]-3/Dha/Epa/Fish Oil [[place]-3 Fish Oil 1,000 mg Sfgl] 2,000 mg PO DAILY 07/27 [History] Docusate [Colace] 100 mg PO BID #30 capsule 09/13/16 [Rx] Allergies No Known Allergies Allergy (Verified 09/08/16 11:42) All Systems PM: A 10-system review of systems was performed and is negative for pertinent findings except as documented above in the HPI. - Constitutional Vitals: Temp Pulse Resp BP Pulse Ox 97.8 F 105 16 164/97 96 09/13/16 23:36 09/14/16 10:02 09/14/16 10:02 09/14/16 10:02 09/14/16 10:02 - Eye Eye exam: Present: PERRL, conjuntiva pink, sclera anicteric Pupils: Present: PERRL - Respiratory Respiratory exam: Present: CTAB. Absent: accessory muscle use, rales, rhonchi, wheezes - Cardiovascular Cardiovascular exam: Present: irregular rhythm, +S1, +S2. Absent: diastolic murmur, gallop, rubs, systolic murmur - GI/Abdominal GI/Abdominal exam: Present: normal bowel sounds, soft, no peritoneal signs. Absent: distended, tenderness - Extremities Exam Extremities exam: Present: pedal edema, warm, radial pulses palpable and symetrical. Absent: calf tenderness, cyanotic Additional comments: Diminished right dorsalis pedis pulse. - Neurological Exam Neurological exam: Present: CN II-XII intact, oriented X3, no focal deficits. Absent: pronater drift, facial droop, speech deficit - Skin Additional comments: Right great toe necrotic skin with no discharge or bleeding. Mildly erythematosus surrounding skin. Internal Med - H&P Results - Labs CBC & Chem 7: 09/14/16 01:39 09/14/16 01:39 - EKG Data -: EKG Interpreted by Myself (Atrial fibrillation RVR rate 114. Rare PVCs. Left bundle branch block.) - EKG Data Prior EKG available for review: yes (Left bundle branch block and atrial fibrillation with RVR was present on 09/08/2016)
[2016-09-14] MEDS: *HR* HYDROmorphone (PF) 1 MG/ML SYRINGE IVP PRN ×2 (12:36→18:06)
[2016-09-14] MEDS ORDERED: *HR* Enoxaparin 80 MG/0.8 ML SYRINGE SQ SCH (14:50)
[2016-09-14] MEDS ORDERED: Bisacodyl 10 MG RECTAL SUPPOSITORY RC PRN (14:51)
[2016-09-14] MEDS ORDERED: Milk and Molasses Enema 200 ML RC PRN (14:52)
[2016-09-14] MEDS ORDERED: Enoxaparin Weight Dosing SQ SCH (15:24)
[2016-09-14] MEDS ORDERED: *HR* Heparin 5,000 UNIT/ML VIAL IVP ONE (15:25)
[2016-09-14] MEDS ORDERED: *HR* Heparin 5,000 UNIT/ML VIAL IVP PRN ×2 (15:25)
[2016-09-14] MEDS ORDERED: Heparin 25,000 UNIT/500 ML D5W 25,000 UNIT/500 ML MLS IVC SCH (15:30)
[2016-09-14] MEDS: Lisinopril 20 MG TABLET PO SCH (15:46)
[2016-09-14] MEDS: Primidone 50 MG TABLET PO SCH ×2 (17:02→20:22)
[2016-09-14] MEDS: Pantoprazole 40 MG VIAL IVP SCH (17:04)
[2016-09-14 17:41] LABS: Hematocrit 39.5 % (37.5-50.1); Hemoglobin 13.1 g/dL (12.9-16.9); Mean Corpuscular HGB Conc 33.2 g/dL (31.6-35.5); Mean Corpuscular Hemoglobin 33.9 pg (28.0-33.3); Mean Corpuscular Volume 102.3 fL (83.0-100.0); Mean Platelet Volume 10.1 fL (9.4-12.4); Platelet Count 234 K/mcL (140-400); Red Blood Count 3.86 M/mcL (4.19-5.50); Red Cell Distribution Width 17.3 % (11.5-14.5)
[2016-09-14] MEDS ORDERED: Warfarin perPT PO PRN (18:00)
[2016-09-14 18:01] LABS: Activated Partial Thrombo Time 28.4 Seconds (26.0-36.0)
[2016-09-14 18:05] LABS: INR 1.6; Prothrombin Time 17.6 Seconds (9.4-12.1)
[2016-09-14] MEDS: *HR* OxyCODONE Immed Rel 5 MG TABLET PO PRN (18:07)
[2016-09-14] MEDS: Sennosides/Docusate Sodium TABLET PO SCH (20:21)
--- NOTE | 2016-09-15 04:00 | Electrocardiograph Report ---
[facility] Test Date: 2016-09-14 Pat Name: Tommy Eid Department: 105 Room: 3A47 Gender: M [employer]: : 1940 Requested By: David Espinoza Order Number: [id number] Reading MD: Joseph Manuel MD Measurements Intervals [place] Rate: 114 P: [place]: 0 QRS: -46 QRSD: 152 T: 141 QT: 374 QTc: 442 Interpretive Statements ATRIAL FIBRILLATION WITH RAPID VENTRICULAR RESPONSE WITH ABERRANT CONDUCTION OR VENTRICULAR PREMATURE COMPLEXES Electronically Signed On 09-15-2016 3:58:20 EST by Joseph Manuel MD
[2016-09-15] MEDS: *HR* HYDROmorphone (PF) 1 MG/ML SYRINGE IVP PRN ×3 (05:08→17:14)
[2016-09-15] MEDS: Pantoprazole 40 MG VIAL IVP SCH (05:08)
[2016-09-15] MEDS: *HR* OxyCODONE Immed Rel 5 MG TABLET PO PRN ×2 (05:08→15:46)
[2016-09-15 05:19] LABS: Basophils # 0.1 K/mcL (0.0-0.2); Basophils % 1.1 %; Eosinophils # 0.2 K/mcL (0.0-0.6); Eosinophils % 1.9 %; Hematocrit 35.6 % (37.5-50.1); Hemoglobin 11.9 g/dL (12.9-16.9); Immature Granulocytes % 0.8 % (0-4); Lymphocytes # 1.6 K/mcL (0.6-4.6); Mean Corpuscular HGB Conc 33.4 g/dL (31.6-35.5); Mean Corpuscular Hemoglobin 33.9 pg (28.0-33.3); Mean Corpuscular Volume 101.4 fL (83.0-100.0); Mean Platelet Volume 10.6 fL (9.4-12.4); Monocytes # 1.1 K/mcL (0.0-1.3); Platelet Count 240 K/mcL (140-400); Red Blood Count 3.51 M/mcL (4.19-5.50); Red Cell Distribution Width 17.1 % (11.5-14.5); Segmented Neutrophils % 66.2 %
[2016-09-15 05:39] LABS: INR 2.1; Prothrombin Time 22.8 Seconds (9.4-12.1)
[2016-09-15 05:59] LABS: BUN/Creatinine Ratio 17 (6-26); Blood Urea Nitrogen 14 mg/dL (8-26); Calcium 8.1 mg/dL (8.6-10.8); Carbon Dioxide 20 mEq/L (19-29); Chloride 105 mEq/L (98-109); Glucose 101 mg/dL (70-99); Magnesium 1.4 mg/dL (1.6-2.6); Osmolality,Calculated 285 (280-300); Potassium 4.2 mEq/L (3.5-4.5); Sodium 137 mEq/L (136-145); eGFR For African Americans > 60 (> 60); eGFR For Non-African Americans > 60 (> 60)
[2016-09-15] MEDS: (Leflunomide [Arava] 20 MG) PO SCH (08:59)
[2016-09-15] MEDS: Primidone 50 MG TABLET PO SCH ×3 (08:59→20:43)
[2016-09-15] MEDS: Lisinopril 20 MG TABLET PO SCH (08:59)
[2016-09-15] MEDS: predniSONE 5 MG TABLET PO SCH (08:59)
[2016-09-15] MEDS: Sennosides/Docusate Sodium TABLET PO SCH ×2 (09:00→20:44)
--- NOTE | 2016-09-15 10:46 | Internal Med Progress Note ---
Date of Encounter: 09/15/16 Time of Encounter: 09:00 - Assessment and plan (1) Peptic ulcer disease Current Visit: Yes Status: Acute Assessment and plan: IV Protonix. Nothing by mouth currently. Plan for EGD later today. I discussed the case with gastroenterology. (2) Atrial fibrillation with RVR Current Visit: Yes Status: Acute Assessment and plan: Has improved with pain control. Continue with beta annelise. (3) Atrial thrombus Current Visit: Yes Status: Acute Assessment and plan: Patient was started on IV heparin drip. Coumadin was held last night. I will hold heparin in anticipation of EGD and restart heparin and Coumadin this evening after EGD. He is at high risk for morbidity mortality and complications due to IV heparin which requires intensive blood activity level monitoring for toxicity and therapeutic effect. (4) Constipation Current Visit: Yes Status: Acute Assessment and plan: Bowel regimen ordered. Qualifiers: Constipation type: drug induced constipation Qualified Code(s): K59.03 - Drug induced constipation (5) Gangrene of toe Current Visit: Yes Status: Acute Assessment and plan: I will consult podiatry. (6) LBBB (left bundle branch block) Current Visit: Yes Status: Chronic (7) Abdominal pain Current Visit: No Status: Acute Assessment and plan: Likely secondary to peptic or ulcer. Will follow-up EGD results tonight. I have stopped heparin infusion at 8:30 this morning in anticipation of EGD. We held Coumadin last night. 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 Additional history obtained from the patient's at the bedside, she states that the patient has been having severe epigastric abdominal pain for the past few months which occurs when the patient does not eat for a few hours and is usually relieved with food ingestion. For past medical history family history social history and review of systems please refer to my H&P dictated yesterday at this institution. There are no changes or updates other than what was stated above. - Constitutional Vitals: Temp Pulse Resp BP Pulse Ox 98.4 F 106 16 109/77 95 09/15/16 10:24 09/15/16 10:24 09/15/16 10:24 09/15/16 10:24 09/15/16 10:24 - Respiratory Respiratory exam: Present: CTAB. Absent: accessory muscle use, rales, rhonchi, wheezes - Cardiovascular Cardiovascular exam: Present: RRR, +S1, +S2. Absent: diastolic murmur, gallop, rubs, systolic murmur - GI/Abdominal GI/Abdominal exam: Present: normal bowel sounds, soft, no peritoneal signs. Absent: distended, tenderness - Extremities Exam Additional comments: Dry gangrene of the right great toe. - Skin Skin exam: Present: dry, intact Internal Medicine: Result - Labs CBC & Chem 7: 09/15/16 04:50 09/15/16 04:50 Labs: Short CBC 09/14/16 09/15/16 Range/Units 17:00 04:50 WBC 8.0 9.0 (4.3-11.1) K/mcL Hgb 13.1 11.9 L (12.9-16.9) g/dL Hct 39.5 35.6 L (37.5-50.1) % Plt Count 234 240 (140-400) K/mcL Neutrophils # 6.0 (1.6-8.9) K/mcL BMP 09/15/16 04:50 Sodium 137 Potassium 4.2 Chloride 105 Carbon Dioxide 20 BUN 14 Creatinine 0.82 Glucose 101 H Calcium 8.1 L - ABG Interpretation ABG results: PT/INR, D-dimer PT 22.8 Seconds (9.4-12.1) H 09/15/16 04:50 - Impressions Impressions Gallbladder Ultrasound 09/14/16 17:00 IMPRESSION: Thickened gallbladder wall with poorly distended gallbladder, questionable pericholecystic fluid, and mildly dilated common bile duct. This can be seen in cholecystitis. If further evaluation is needed, recommend HIDA scan. D/ / 09/14/2016 19:50:06 Steve Hansen MD / aleida Interpreting Provider: Steve Hansen MD Consult Discharge Plan - Plan Referrals: Tessa Brooks CNP [Primary Care Provider] -
--- NOTE | 2016-09-15 12:10 | Gastroenterology Consult Note ---
<Julio Molina Agustin - Last Filed: 09/15/16 12:04> Date of Encounter: 09/15/16 Time of Encounter: 10:50 - Assessment and plan (1) Abdominal pain Current Visit: No Status: Acute Assessment and plan: Patient presenting with abdominal pain which has since resolved. CT A/P shows focal wall thickening and second portion of the duodenum with surrounding inflammation and fluid concerning for duodenitis or peptic ulcer disease. Plan for EGD today to r/o esophagitis, gastritis, duodenitis, PUD, MW tear, or AVM. CT also showed stones in the CBD no obstruction noted. Bile duct normal, LFTs normal. Patient will require ERCP in future to remove stones. Monitor LFTs. Qualifiers: Abdominal location: epigastric Qualified Code(s): R10.13 - Epigastric pain (2) Constipation Current Visit: Yes Status: Acute Assessment and plan: Recommend daily fiber supplement and MiraLAX up to twice a day. Qualifiers: Constipation type: drug induced constipation Qualified Code(s): K59.03 - Drug induced constipation (3) Gangrene of toe Current Visit: Yes Status: Acute - Time Spent With Patient Total time spent is greater than 50% in coordination of care (as documented) at patient's floor/unit and/or counseling patient: GI History of Present Illness - Data of Consult Patient: new to practice Consult date: 09/15/16 Requesting Physician: Benny Lu MD - Consult Narrative Reason for consult: ?PUD History of present illness: Mr. Eid is a 75 year old male with PMHx of arthritis, Afib, CHF, HLD, HTN, who was recently admitted for constipation and gangrenous right toe and was discharged 09/13 and returned 09/14 with complaints of abdominal pain. He denied nausea or vomiting. He had a small BM, but continued to have the abdominal pain. CT A/P shows cholelithiasis with mild gallbladder wall thickening which may be related to under distention. There are a few stones in the common bile duct without CBD dilation. Focal wall thickening and second portion of the duodenum with surrounding inflammation and fluid concerning for duodenitis or peptic ulcer disease. Procedures: Colonoscopy 02/20/2016 normal. NSAIDs: None Anticoagulation: Coumadin, Plavix Past Med Surg Social Fam HX - Past Medical History Medical history: arthritis, atrial fibrillation, CHF, hyperlipidemia, hypertension, kidney stones, peripheral artery disease, other Psychiatric history: no psych history - Past Surgical History Surgical History: herniorrhaphy, other - Social History Smoking Status: Former smoker Smokeless Tobacco Status: No Alcohol use: none Drug use: none - Gastrointestinal Gastrointestinal: Present: as per HPI - Constitutional Constitutional: as per HPI - EENT Eyes: as per HPI Ears: Present: as per HPI Nose, mouth and throat: Present: as per HPI - Cardiovascular Cardiovascular ROS: Present: as per HPI - Respiratory Respiratory IM: Present: as per HPI - Genitourinary Genitourinary: Absent: change in color, Urinary frequency - Neurological ROS Neurological GI: Present: as per HPI - Hematologic/Lymphatic Hematologic/Lymphatic pediatric: Present: as per HPI - Musculoskeletal Musculoskeletal ROS GI: Present: as per HPI - Integumentary Integumentary GI: Present: as per HPI - Psychiatric ROS Psychiatric GI: Present: as per HPI - Endocrine Endocrine IM: Present: as per HPI - Constitutional Vitals: Temp Pulse Resp BP Pulse Ox 98.4 F 106 16 109/77 95 09/15/16 10:24 09/15/16 10:24 09/15/16 10:24 09/15/16 10:24 09/15/16 10:24 General appearance: Present: cooperative, A&O X 3, no acute distress, answers questions appropriately - Head Head exam: Present: atraumatic, normocephalic - Eye Eye exam: Present: normal appearance, sclera anicteric - ENT ENT exam: Present: mucous membranes dry - Neck Neck exam general surgery: Present: normal inspection, trachea midline - Respiratory Respiratory exam: Present: CTAB. Absent: rales, rhonchi - Cardiovascular Cardiovascular exam: Present: RRR, +S1, +S2 - GI/Abdominal GI/Abdominal exam: Present: soft, no peritoneal signs. Absent: distended, firm , guarding, tenderness - Rectal Rectal exam: Present: deferred - Extremities Exam Additional comments: Gangrene of right great toe - Neurological Exam Neurological exam: Present: no focal deficits - Psychiatric Psychiatric exam: Present: normal affect, normal mood - Skin Skin exam: Present: dry, intact, normal color, warm Results - Labs CBC & Chem 7: 09/15/16 04:50 09/15/16 04:50 Labs: Last Result Calcium 8.1 mg/dL (8.6-10.8) L 09/15/16 04:50 Entire Visit Hgb 11.9 g/dL (12.9-16.9) L 09/15/16 04:50 Hct 35.6 % (37.5-50.1) L 09/15/16 04:50 PT 22.8 Seconds (9.4-12.1) H 09/15/16 04:50 Total Bilirubin 0.6 mg/dL (0.2-1.2) 09/14/16 01:39 AST 17 Units/L (5-34) 09/14/16 01:39 ALT 20 Units/L (0-55) 09/14/16 01:39 Amylase 20 Units/L (25-125) L 09/14/16 01:39 Lipase 7 Units/L (8-78) L 09/14/16 01:39 - ABG ABG results: PT/INR, D-dimer PT 22.8 Seconds (9.4-12.1) H 09/15/16 04:50 Consult Discharge Plan - Plan Referrals: Tessa Brooks, [employer] [Primary Care Provider] - <Chester Collins - Last Filed: 09/15/16 15:59> Time of Encounter: 13:00 - Time Spent With Patient Total time spent is greater than 50% in coordination of care (as documented) at patient's floor/unit and/or counseling patient: GI History of Present Illness - Data of Consult Requesting Physician: Benny Lu MD - Consult Narrative History of present illness: Mr. Eid is a 75 year old male - Constitutional Vitals: Temp Pulse Resp BP Pulse Ox 97.6 F 99 18 165/121 96 09/15/16 13:35 09/15/16 13:35 09/15/16 13:35 09/15/16 13:35 09/15/16 13:35 Results - Labs CBC & Chem 7: 09/15/16 04:50 09/15/16 04:50 Labs: Last Result Calcium 8.1 mg/dL (8.6-10.8) L 09/15/16 04:50 Entire Visit Hgb 11.9 g/dL (12.9-16.9) L 09/15/16 04:50 Hct 35.6 % (37.5-50.1) L 09/15/16 04:50 PT 22.8 Seconds (9.4-12.1) H 09/15/16 04:50 Total Bilirubin 0.6 mg/dL (0.2-1.2) 09/14/16 01:39 AST 17 Units/L (5-34) 09/14/16 01:39 ALT 20 Units/L (0-55) 09/14/16 01:39 Amylase 20 Units/L (25-125) L 09/14/16 01:39 Lipase 7 Units/L (8-78) L 09/14/16 01:39 - ABG ABG results: PT/INR, D-dimer PT 22.8 Seconds (9.4-12.1) H 09/15/16 04:50 - Attending Attestation I examined this patient and my medical decision-making was reviewed with the SKIDDER LOADER/PA/Advanced Practice Nurse/Resident Physician. I agree with the documented findings, disposition and treatment plan as described except to the extent set forth below.
[2016-09-15] MEDS ORDERED: Lidocaine -MPF 2% 5 ML VIAL INFILT ONE (12:14)
[2016-09-15] MEDS ORDERED: *HR* Propofol 200 MG/20 ML VIAL IVP ONE (12:14)
[2016-09-15] MEDS ORDERED: Tetracaine/Benzocaine/Butamben 200MG/SPRAY (100SPY/BOT) MM ONE (13:38)
[2016-09-15] MEDS ORDERED: Simethicone 40 MG/0.6 ML MLS IR ONE (13:38)
--- NOTE | 2016-09-15 13:44 | Anesthesia Evaluation PreOp ---
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: Other (Tremors) Other Medical History: Renal (Stones) Anesthesia History: No Prior Anesthetic Complications, Past Anesthesia (Hernia repair) Alcohol Use: none Drug use: none Medications and Allergies Calcium Carbonate [Calcium] 600 mg PO BID 02/20/16 [History] Folic Acid 3 mg PO DAILY 02/20/16 [History] Leflunomide [Arava] 20 mg PO DAILY 02/20/16 [History] Methotrexate [Otrexup] 10 mg PO MO 02/20/16 [History] Metoprolol [Lopressor] 50 mg PO BID 02/20/16 [History] Polyethylene Glycol 3350 [MiraLAX] 17 gm PO DAILY PRN 02/20/16 [History] Pravastatin Sodium [Pravachol] 80 mg PO HS 02/20/16 [History] PredniSONE 5 mg PO DAILY 02/20/16 [History] Primidone [Mysoline] 200 mg PO TID 02/20/16 [History] Warfarin [Coumadin] 4 mg PO SUMOWEFR 02/20/16 [History] Clopidogrel [Plavix] 75 mg PO DAILY #30 tablet 08/18/16 [Rx] Vit A/C/E AC/Znox/Cupric Oxide [Eye Vitamin-Minerals Tablet] 1 each PO DAILY 02/24 [History] Warfarin Sodium [Coumadin] 6 mg PO TUTHSA 08/18/16 [History] Benazepril HCl [Lotensin] 20 mg PO BID 09/08/16 [History] HYDROmorphone [Dilaudid] 4 mg PO Q4-6H PRN 09/08/16 [History] Metformin [Glucophage] 500 mg PO BIDWM 09/08/16 [History] [place]-3/Dha/Epa/Fish Oil [[place]-3 Fish Oil 1,000 mg Sfgl] 2,000 mg PO DAILY 07/27 [History] Docusate [Colace] 100 mg PO BID #30 capsule 09/13/16 [Rx] Allergies No Known Allergies Allergy (Verified 09/08/16 11:42) - Meds/Allergy Pre-op Review Medications Reviewed: Yes Allergies Reviewed: Yes Beta Blockers on Current Med List: Yes If Beta Blockers taken, Date/Time (Last Dose taken): 08:59 09/15/2016 Anesthesia Results - Labs 09/15/16 04:50 09/15/16 04:50 Echo 09/09/2016 EF - 50% intermediate diastolic dysfunction No Phtn No valvular dx - Imaging EKG: image reviewed (LBBB) Anesthesia Exam O2 Sat O2 Sat by Pulse Oximetry 96 O2 Sat by Pulse Oximetry 95 O2 Sat by Pulse Oximetry 95 O2 Sat by Pulse Oximetry 97 O2 Sat by Pulse Oximetry 96 Vital Signs Temp Pulse Resp BP Pulse Ox 97.8 F 103 20 183/80 95 09/13/16 23:36 09/13/16 23:36 09/13/16 23:36 09/13/16 23:36 09/13/16 23:36 Vital Signs/O2 Sat, Most Current Temp Pulse Resp BP Pulse Ox 97.6 F 99 18 165/121 96 09/15/16 13:35 09/15/16 13:35 09/15/16 13:35 09/15/16 13:35 09/15/16 13:35 Height: 5'7'' Weight: 178# NPO (# of Hours): > 8 hrs Pain Scale: 0 Pain Scale Used: Numeric (1 - 10) - HEENT Pupil (Motor): Pupils equal, EOMI Mallampati: II Teeth: Edentulous Oral Opening: Greater than 3 - PAINT LINE OPERATOR PAINT LINE OPERATOR Motor: Normal RUE, Normal LUE, Normal RLE, Normal LLE, Normal Face PAINT LINE OPERATOR Sensory: Normal: RUE, LUE, RLE, LLE, Face - Cardiac Rhythm: Irregular Murmur: None JVD: No Carotid Bruit: No - Pulmonary Breath Sounds: bilateral Clear Respiratory Effort: Symmetrical Anesthesia Assess/Plan ASA Score: 3 Modified [place] Scale for Level of Consciousness: Cooperative, oriented, and tranquil Anesthetic Plan: MAC Autologous Blood: Yes Monitoring Plan: Standard Monitors Recovery Plan: PACU
[2016-09-15] MEDS ORDERED: 0.9 % Sodium Chloride 500 ML IVC SCH (13:45)
--- NOTE | 2016-09-15 14:54 | Podiatry Consult Note ---
Date of Encounter: 09/15/16 Time of Encounter: 13:00 Assessment and Plan (1) Gangrene of toe Current visit: Yes Status: Acute Assessment: #1 dry gangrene right great toe #2 advanced peripheral vascular disease non-reconstructable patient has reached his maximum point of medical improvement from a vascular standpoint after reviewing the records to date #3 multiple comorbidities including abdominal pain of an undetermined origin Plan: #1 we will continue local wound care to prevent dry gangrene from converting to wet gangrene #2 we will discuss options with vascular surgery/Dr. De La Garza. Patient is adamant about having below-knee amputation. Patient refusing to any further surgical intervention unless it is a below-knee amputation. History of Present Illness Chief complaint: Gangrene right great toe HPI: Mr. Eid is a 75 year old male with long history of arterial insufficiency now with progressive gangrene of the right great toe persistent right lower extremity pain/rest pain. Long discussion ensued about options concerning his painful right foot. Patient has pain not only of the right great toe over the medial foot and ankle and right plantar foot. Patient has long history of pain uncontrolled by narcotics at home. Presently being evaluated for persistent abdominal pain of unknown etiology at present. Patient and both state that they would prefer to perform one definitive procedure given his history of vascular insufficiency. I could not guarantee that either a digital or transmetatarsal amputation would be successful in eradicating his pain therefore he also for below-knee amputation as soon as feasibly possible. Past Med Surg Social Fam HX - Past Medical History Medical history: arthritis, atrial fibrillation, CHF, hyperlipidemia, hypertension, kidney stones, peripheral artery disease, other Psychiatric history: no psych history - Past Surgical History Surgical History: herniorrhaphy, other - Social History Smoking Status: Former smoker Smokeless Tobacco Status: No Alcohol use: none Drug use: none Medications and Allergies Calcium Carbonate [Calcium] 600 mg PO BID 02/20/16 [History] Folic Acid 3 mg PO DAILY 02/20/16 [History] Leflunomide [Arava] 20 mg PO DAILY 02/20/16 [History] Methotrexate [Otrexup] 10 mg PO MO 02/20/16 [History] Metoprolol [Lopressor] 50 mg PO BID 02/20/16 [History] Polyethylene Glycol 3350 [MiraLAX] 17 gm PO DAILY PRN 02/20/16 [History] Pravastatin Sodium [Pravachol] 80 mg PO HS 02/20/16 [History] PredniSONE 5 mg PO DAILY 02/20/16 [History] Primidone [Mysoline] 200 mg PO TID 02/20/16 [History] Warfarin [Coumadin] 4 mg PO SUMOWEFR 02/20/16 [History] Clopidogrel [Plavix] 75 mg PO DAILY #30 tablet 08/18/16 [Rx] Vit A/C/E AC/Znox/Cupric Oxide [Eye Vitamin-Minerals Tablet] 1 each PO DAILY 02/24 [History] Warfarin Sodium [Coumadin] 6 mg PO TUTHSA 08/18/16 [History] Benazepril HCl [Lotensin] 20 mg PO BID 09/08/16 [History] HYDROmorphone [Dilaudid] 4 mg PO Q4-6H PRN 09/08/16 [History] Metformin [Glucophage] 500 mg PO BIDWM 09/08/16 [History] Revelo-3/Dha/Epa/Fish Oil [Revelo-3 Fish Oil 1,000 mg Sfgl] 2,000 mg PO DAILY 07/27 [History] Docusate [Colace] 100 mg PO BID #30 capsule 09/13/16 [Rx] Allergies No Known Allergies Allergy (Verified 09/08/16 11:42) All Systems Reviewed: A 10-system review of systems was performed and is negative for pertinent findings except as documented above in the HPI. Physical Exam - Constitutional Vitals: Temp Pulse Resp BP Pulse Ox 97.6 F 99 18 165/121 96 09/15/16 13:35 09/15/16 13:35 09/15/16 13:35 09/15/16 13:35 09/15/16 13:35 General appearance: cooperative, A&O X 3, no acute distress, answers questions appropriately Results - Labs Result Diagrams: 09/15/16 04:50 09/15/16 04:50 Labs: Abnormal lab results RBC 3.51 M/mcL (4.19-5.50) L 09/15/16 04:50 Hgb 11.9 g/dL (12.9-16.9) L 09/15/16 04:50 Hct 35.6 % (37.5-50.1) L 09/15/16 04:50 MCV 101.4 fL (83.0-100.0) H 09/15/16 04:50 MCH 33.9 pg (28.0-33.3) H 09/15/16 04:50 RDW 17.1 % (11.5-14.5) H 09/15/16 04:50 PT 22.8 Seconds (9.4-12.1) H 09/15/16 04:50 APTT 63.2 Seconds (26.0-36.0) H 09/15/16 04:50 Glucose 101 mg/dL (70-99) H 09/15/16 04:50 POC Glucose 99 (58-89) H 09/15/16 11:15 Lactic Acid 3.2 mmol/L (0.5-2.2) H 09/14/16 07:57 Calcium 8.1 mg/dL (8.6-10.8) L 09/15/16 04:50 Magnesium 1.4 mg/dL (1.6-2.6) L 09/15/16 04:50 Albumin 2.7 g/dL (3.5-5.0) L 09/14/16 01:39 Globulin 4.1 g/dL (2.4-3.5) H 09/14/16 01:39 Albumin/Globulin Ratio 0.7 (1.1-2.2) L 09/14/16 01:39 Amylase 20 Units/L (25-125) L 09/14/16 01:39 Lipase 7 Units/L (8-78) L 09/14/16 01:39 Urine Microscopic RBC 5-15 per hpf (0-3) H 09/14/16 07:42 Ur Squamous Epith Cells Moderate per lpf (None-Few) H 09/14/16 07:42 All other labs normal. Consult Discharge Plan - Plan Referrals: Tessa Brooks, COMPUTER CUSTOMER SUPPORT SPECIALIST [Primary Care Provider] -
--- NOTE | 2016-09-15 15:03 | Anesthesia Evaluation Post Op ---
Date of Encounter: 09/15/16 Time of Encounter: 15:01 - Vital Signs Vital Signs: Vital Signs/O2 Sat/Glucose, Most Recent Temp Pulse Resp BP Pulse Ox 97.6 F 99 18 165/121 96 09/15/16 13:35 09/15/16 13:35 09/15/16 13:35 09/15/16 13:35 09/15/16 13:35 Blood Glucose* 99 - Lungs Lungs: Clear Ascult./Percussion - Airway Airway: Non-obstructed - Cardiovascular Baseline Rhythm - Mental Status Mental Status: Alert & Oriented, Answers Appropriately - Pain Pain Scale: 0 Pain Scale used: Numeric (1 - 10) - Nausea Vomiting Nausea Vomiting: Not Present - Hydration Hydration: NPO, Has not voided Notes: 09/15/16 15:02 AAOx3,VSS. - Discharge PostOp Status: Transfer Patient to floor
[2016-09-15 16:01] LABS: Hematocrit 36.6 % (37.5-50.1); Hemoglobin 11.8 g/dL (12.9-16.9)
[2016-09-15] MEDS ORDERED: Pantoprazole 40 MG VIAL IVP ONE (16:19)
[2016-09-15] MEDS: Pantoprazole 40 MG in 0.9 % Sodium Chloride Mini Bag 100 ML IVC SCH ×2 (17:01→20:44)
[2016-09-15] MEDS ORDERED: *HR* Warfarin 7.5 MG TABLET PO ONE (18:00)
[2016-09-16] MEDS: Pantoprazole 40 MG in 0.9 % Sodium Chloride Mini Bag 100 ML IVC SCH ×4 (02:07→19:33)
[2016-09-16] MEDS: *HR* HYDROmorphone (PF) 1 MG/ML SYRINGE IVP PRN ×2 (04:45→10:22)
[2016-09-16 04:56] LABS: INR 2.2; Prothrombin Time 24.7 Seconds (9.4-12.1)
[2016-09-16] MEDS: Primidone 50 MG TABLET PO SCH ×3 (09:00→21:11)
[2016-09-16] MEDS: Sennosides/Docusate Sodium TABLET PO SCH ×2 (09:01→21:12)
[2016-09-16] MEDS: Lisinopril 20 MG TABLET PO SCH (09:01)
[2016-09-16] MEDS: predniSONE 5 MG TABLET PO SCH (09:01)
[2016-09-16] MEDS: (Leflunomide [Arava] 20 MG) PO SCH (09:04)
[2016-09-16 10:20] LABS: Basophils # 0.1 K/mcL (0.0-0.2); Basophils % 0.9 %; Eosinophils # 0.2 K/mcL (0.0-0.6); Eosinophils % 2.2 %; Hemoglobin 10.9 g/dL (12.9-16.9); Immature Granulocytes % 0.7 % (0-4); Lymphocytes # 1.2 K/mcL (0.6-4.6); Lymphocytes % 17.1 %; Mean Corpuscular Hemoglobin 32.8 pg (28.0-33.3); Mean Corpuscular Volume 99.4 fL (83.0-100.0); Mean Platelet Volume 10.5 fL (9.4-12.4); Monocytes # 0.9 K/mcL (0.0-1.3); Monocytes % 12.9 %; Neutrophils # 4.5 K/mcL (1.6-8.9); Platelet Count 203 K/mcL (140-400); Red Blood Count 3.32 M/mcL (4.19-5.50); Red Cell Distribution Width 17.1 % (11.5-14.5); Segmented Neutrophils % 66.2 %
[2016-09-16 10:33] LABS: BUN/Creatinine Ratio 15 (6-26); Blood Urea Nitrogen 13 mg/dL (8-26); Calcium 8.1 mg/dL (8.6-10.8); Carbon Dioxide 24 mEq/L (19-29); Chloride 107 mEq/L (98-109); Glucose 106 mg/dL (70-99); Osmolality,Calculated 287 (280-300); Sodium 138 mEq/L (136-145); eGFR For African Americans > 60 (> 60); eGFR For Non-African Americans > 60 (> 60)
[2016-09-16] MEDS ORDERED: Magnesium Sulfate 2 GM in D5% in Water 100 ML IVPB ONE (11:15)
--- NOTE | 2016-09-16 11:21 | Internal Med Progress Note ---
Date of Encounter: 09/16/16 Time of Encounter: 10:00 - Assessment and plan (1) Atrial fibrillation with RVR Current Visit: Yes Status: Acute Assessment and plan: Patient still has brief episodes of RVR when his pain is not controlled. Continue with taking control with IV Dilaudid. Continue with metoprolol. (2) Atrial thrombus Current Visit: Yes Status: Acute Assessment and plan: INR is currently therapeutic at 2.2. The patient has a duodenal ulcer that has recently bled. I will hold off on heparin drip and check INR tomorrow. We will restart heparin drip once the INR is below 2.0. (3) Constipation Current Visit: Yes Status: Acute Assessment and plan: Bowel regimen ordered. Qualifiers: Constipation type: drug induced constipation Qualified Code(s): K59.03 - Drug induced constipation (4) Gangrene of toe Current Visit: Yes Status: Acute Assessment and plan: I appreciate podiatry recommendations. I discussed the case with vascular surgery. Their recommendation is against a [id number] amputation And in favor of a transmetatarsal amputation which will be done by podiatry if the family agrees. The patient will follow up with vascular surgery in the office. For now we will continue with wound care per podiatry. Tentative plan for transmetatarsal amputation of the right foot at the family agrees tomorrow. (5) LBBB (left bundle branch block) Current Visit: Yes Status: Chronic Assessment and plan: This has been chronic. 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 I will hold Plavix due to recent GI bleed. Continue with oxycodone and hydromorphone for pain. The patient is at high risk for morbidity mortality and complications due to active GI bleed and treatment for pain requiring IV controlled substances. Qualifiers: Peripheral atherosclerosis artery type: [place] artery Qualified Code(s): I70.261 - Atherosclerosis of [place] arteries of extremities with gangrene, right leg (8) Duodenal ulcer with hemorrhage Current Visit: Yes Status: Acute Assessment and plan: This is a new problem. He had endoscopy yesterday which found a duodenal ulcer with stigmata of recent bleed, no active bleeding. I have discussed the case with gastroenterology. We will continue with Protonix drip. I will hold off on anticoagulation. Monitor hemoglobin and hematocrit. Start Carafate. Hold Plavix to facilitate healing and prevent any further bleed. (9) Hypomagnesemia Current Visit: Yes Status: Acute Assessment and plan: Replete with IV magnesium. (10) Acute blood loss anemia Current Visit: Yes Status: Acute Assessment and plan: This is secondary to recently bleeding duodenal ulcer. We will monitor H&H closely. Monitor hemodynamically. Transfuse more than 2. hemoglobin drop and 24 hours or hemoglobin below 8.5. We will hold off on antiplatelets and antithrombotic for now. - Subjective Interval history: 09/16/16: Patient reports moderate to severe aching right foot pain that is worse from yesterday, happens at rest and it has been originating in the base of the right great toe and radiating up to the right ankle and lower leg. Pain has improved with IV morphine. Denies fevers chills. Denies nausea vomiting diarrhea. His abdominal pain has resolved. No shortness of breath and chest pain. 09/15: Patient presented with severe abdominal pain yesterday which now has resolved, currently reports 0/10 abdominal pain without any associated nausea or vomiting. Additional history obtained from the patient's at the bedside , she states that the patient has been having severe epigastric abdominal pain for the past few months which occurs when the patient does not eat for a few hours and is usually relieved with food ingestion. For past medical history family history social history and review of systems please refer to my H&P dictated yesterday at this institution. There are no changes or updates other than what was stated above. - Constitutional Vitals: Temp Pulse Resp BP Pulse Ox 99.0 F 103 18 119/75 92 L 09/16/16 11:14 09/16/16 11:14 09/16/16 11:14 09/16/16 11:14 09/16/16 11:14 General appearance: Present: A&O X 3 - Eye Eye exam: Present: PERRL, conjuntiva pink, sclera anicteric Pupils: Present: PERRL - Respiratory Respiratory exam: Present: CTAB. Absent: accessory muscle use, rales, rhonchi, wheezes - Cardiovascular Cardiovascular exam: Present: irregular rhythm, +S1, +S2. Absent: diastolic murmur, gallop, rubs, systolic murmur - GI/Abdominal GI/Abdominal exam: Present: normal bowel sounds, soft, no peritoneal signs. Absent: distended, tenderness - Extremities Exam Extremities exam: Present: warm, radial pulses palpable and symetrical. Absent : calf tenderness, cyanotic, pedal edema Additional comments: Right great toe gangrene. No significant pitting edema. - Neurological Exam Neurological exam: Present: CN II-XII intact, oriented X3, no focal deficits. Absent: pronater drift, facial droop, speech deficit - Skin Additional comments: Right great toe dry gangrene and right forefoot mild skin erythema. Internal Medicine: Result - Labs CBC & Chem 7: 09/16/16 09:45 09/16/16 09:45 Labs: Short CBC 09/15/16 09/16/16 Range/Units 15:49 09:45 WBC 6.8 (4.3-11.1) K/mcL Hgb 11.8 L 10.9 L (12.9-16.9) g/dL Hct 36.6 L 33.0 L (37.5-50.1) % Plt Count 203 (140-400) K/mcL Neutrophils # 4.5 (1.6-8.9) K/mcL BMP 09/16/16 09:45 Sodium 138 Potassium 4.0 Chloride 107 Carbon Dioxide 24 BUN 13 Creatinine 0.86 Glucose 106 H Calcium 8.1 L - ABG Interpretation ABG results: PT/INR, D-dimer PT 24.7 Seconds (9.4-12.1) H 09/16/16 04:38 Consult Discharge Plan - Plan Referrals: Tessa Brooks, OFFICIAL COURT REPORTER [Primary Care Provider] -
[2016-09-16] MEDS: *HR* HYDROmorphone 4 MG TABLET PO PRN ×3 (11:48→19:34)
[2016-09-16] MEDS: Sucralfate 1 GM TABLET PO SCH ×3 (13:03→21:11)
--- NOTE | 2016-09-16 23:11 | Vascular/[facility] Progress Note ---
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 I advised him that a below knee amputation would be an extreme response to his urrent symptoms. He has TCPO2 that are consistent with healing in the foot. He reports that he has pain throughout his forefoot. A transmetarsal amputation was discussed and that patient reports that he is willing to consider it. Dr. Haynes was informed and he will followup with the patient. The patient was also discussed with Dr. Lu. Qualifiers: Peripheral atherosclerosis artery type: [place] artery Qualified Code(s): I70.261 - Atherosclerosis of [place] arteries of extremities with gangrene, right leg - Subjective Interval history: The patient was recently hospitalized due to abdominal pain. He reports that he went home for a few hours and the pain returned. He was admitted and underwent an EGD. He was found to have an ulcer which was cauterized. He reports that he is feeling better. He was advised by Dr. Haynes to get a right great toe amputation. The patient declined and stated that he wants to have one surgery and wants a below knee amputation. He denies any chest pain or shortness of breath. Vital Signs, Last 4 Hours Temp Pulse Resp BP Pulse Ox 09/16/16 19:15 97.7 F 103 16 123/84 95 - Physical Examination General: Present: Conversant, No Apparent Distress HEENT: Present: Atraumatic Neck: Absent: Tracheal deviation Cardiac: Present: Normal S1 and S2 Lungs: Present: Normal Breath Sounds, No Wheeze, Rales, Rhonchi Neuro: Present: Alert and responsive, No focal deficits noted, Motor nerves grossly intact, Sensory nerves grossly intact Vascular: Present: Normal capillary refill. Absent: Cyanosis, Edema Abdomen: Present: Soft, Non-tender. Absent: Masses Skin: Present: Wound/ulcer(s) (right great toe gangrene without signs or symptoms of infection). Absent: No rashes noted on visualized skin Results 09/16/16 09:45 09/16/16 09:45 Lab Results, Last 24 hours 09/16/16 09/16/16 09/16/16 04:38 09:45 09:45 WBC 6.8 Hgb 10.9 L Hct 33.0 L Plt Count 203 INR 2.2 Sodium 138 Potassium 4.0 Chloride 107 Carbon Dioxide 24 BUN 13 Creatinine 0.86 Glucose 106 H Calcium 8.1 L Consult Discharge Plan - Plan Referrals: Tessa Brooks, AIRCRAFT POWERTRAIN REPAIRER [Primary Care Provider] -
[2016-09-17] MEDS: Pantoprazole 40 MG in 0.9 % Sodium Chloride Mini Bag 100 ML IVC SCH ×3 (00:07→09:14)
[2016-09-17] MEDS: *HR* HYDROmorphone 4 MG TABLET PO PRN ×4 (01:30→19:26)
[2016-09-17] MEDS: *HR* HYDROmorphone (PF) 1 MG/ML SYRINGE IVP PRN ×3 (04:27→16:11)
[2016-09-17 04:47] LABS: Basophils # 0.1 K/mcL (0.0-0.2); Basophils % 0.8 %; Eosinophils # 0.2 K/mcL (0.0-0.6); Hematocrit 33.4 % (37.5-50.1); Hemoglobin 10.6 g/dL (12.9-16.9); Immature Granulocytes % 1.2 % (0-4); Lymphocytes # 1.1 K/mcL (0.6-4.6); Lymphocytes % 15.1 %; Mean Corpuscular HGB Conc 31.7 g/dL (31.6-35.5); Mean Corpuscular Hemoglobin 32.2 pg (28.0-33.3); Mean Corpuscular Volume 101.5 fL (83.0-100.0); Mean Platelet Volume 10.1 fL (9.4-12.4); Monocytes # 1.1 K/mcL (0.0-1.3); Monocytes % 14.6 %; Platelet Count 197 K/mcL (140-400); Red Blood Count 3.29 M/mcL (4.19-5.50); Segmented Neutrophils % 66.3 %
[2016-09-17 05:19] LABS: Alanine Aminotransferase 15 Units/L (0-55); Albumin 2.2 g/dL (3.5-5.0); Albumin/Globulin Ratio 0.6 (1.1-2.2); Alkaline Phosphatase 56 Units/L (38-126); Aspartate Amino Transferase 13 Units/L (5-34); BUN/Creatinine Ratio 15 (6-26); Bilirubin,Total 0.6 mg/dL (0.2-1.2); Blood Urea Nitrogen 12 mg/dL (8-26); Calcium 7.4 mg/dL (8.6-10.8); Carbon Dioxide 22 mEq/L (19-29); Chloride 106 mEq/L (98-109); Globulin 3.4 g/dL (2.4-3.5); Glucose 94 mg/dL (70-99); Osmolality,Calculated 286 (280-300); Sodium 138 mEq/L (136-145); Total Protein 5.6 g/dL (6.0-8.3); eGFR For African Americans > 60 (> 60); eGFR For Non-African Americans > 60 (> 60)
[2016-09-17] MEDS: Primidone 50 MG TABLET PO SCH ×3 (09:10→21:24)
[2016-09-17] MEDS: predniSONE 5 MG TABLET PO SCH (09:10)
[2016-09-17] MEDS: Lisinopril 20 MG TABLET PO SCH (09:10)
[2016-09-17] MEDS: Sennosides/Docusate Sodium TABLET PO SCH ×2 (09:10→21:23)
[2016-09-17] MEDS: Sucralfate 1 GM TABLET PO SCH ×4 (09:30→21:23)
[2016-09-17] MEDS: (Leflunomide [Arava] 20 MG) PO SCH (09:40)
--- NOTE | 2016-09-17 13:49 | Internal Med Progress Note ---
Date of Encounter: 09/17/16 Time of Encounter: 13:47 - Assessment and plan (1) Atrial fibrillation with RVR Current Visit: Yes Status: Acute Assessment and plan: Continue with metoprolol. AC on hold, possible surgery tomm. (2) Atrial thrombus Current Visit: Yes Status: Acute Assessment and plan: INR is currently therapeutic at 2.0 The patient has a duodenal ulcer that has recently bled. AC has been held currently for possible transmetatarsal amputation tomorrow with Dr. castillo. will restart AC after surgery and watch for any recurrent bleed. (3) Duodenal ulcer with hemorrhage Current Visit: Yes Status: Acute Assessment and plan: EGD showed duodenal ulcer with stigmata of recent bleed, no active bleeding. will continnue PPI, will change it to BID and stop the drip, continue carafate. denies any pain , n/v. (4) Gangrene of toe Current Visit: Yes Status: Acute Assessment and plan: Scheduled for transmetatarsal amputation tomorrow with Dr. castillo. Case discussed with vascular surgery and podiatry, patient is agreeable for the procedure. keep NPO tonight, INR 2.0 today, will keep AC at hold. (5) Atrial fibrillation Current Visit: No Status: Chronic Assessment and plan: stable. Qualifiers: Atrial fibrillation type: unspecified Qualified Code(s): I48.91 - Unspecified atrial fibrillation - Time Spent With Patient 25 - 35 minutes - Subjective Interval history: Patient seen at the bedside, denies any complaints. No abdominal pain, nausea or vomiting. Being on the right foot is well controlled with pain medications. Patient has agreed to undergo transmetatarsal amputation, Dr. shell to undergo the procedure tomorrow. - Constitutional Vitals: Temp Pulse Resp BP Pulse Ox 99.0 F 90 16 121/79 93 L 09/17/16 11:08 09/17/16 11:08 09/17/16 11:08 09/17/16 11:08 09/17/16 11:08 General appearance: Present: A&O X 3 Exam: - Eye Eye exam: Present: PERRL, conjuntiva pink, sclera anicteric Pupils: Present: PERRL - Respiratory Respiratory exam: Present: CTAB. Absent: accessory muscle use, rales, rhonchi, wheezes - Cardiovascular Cardiovascular exam: Present: irregular rhythm, +S1, +S2. Absent: diastolic murmur, gallop, rubs, systolic murmur - GI/Abdominal GI/Abdominal exam: Present: normal bowel sounds, soft, no peritoneal signs. Absent: distended, tenderness - Extremities Exam Extremities exam: Present: warm, radial pulses palpable and symetrical. Absent : calf tenderness, cyanotic, pedal edema Additional comments: Right great toe gangrene. No significant pitting edema. - Neurological Exam Neurological exam: Present: CN II-XII intact, oriented X3, no focal deficits. Absent: pronater drift, facial droop, speech deficit - Skin Additional comments: Right great toe dry gangrene and right forefoot mild skin erythema. Internal Medicine: Result - Labs CBC & Chem 7: 09/17/16 04:11 09/17/16 04:11 Labs: Short CBC 09/17/16 Range/Units 04:11 WBC 7.5 (4.3-11.1) K/mcL Hgb 10.6 L (12.9-16.9) g/dL Hct 33.4 L (37.5-50.1) % Plt Count 197 (140-400) K/mcL Neutrophils # 5.0 (1.6-8.9) K/mcL BMP 09/17/16 04:11 Sodium 138 Potassium 4.0 Chloride 106 Carbon Dioxide 22 BUN 12 Creatinine 0.82 Glucose 94 Calcium 7.4 L Liver Function 09/17/16 Range/Units 04:11 Total Bilirubin 0.6 (0.2-1.2) mg/dL AST 13 (5-34) Units/L ALT 15 (0-55) Units/L Alkaline Phosphatase 56 (38-126) Units/L Albumin 2.2 L (3.5-5.0) g/dL - ABG Interpretation ABG results: PT/INR, D-dimer PT 22.0 Seconds (9.4-12.1) H 09/17/16 04:11 Consult Discharge Plan - Plan Referrals: Tessa Brooks, LADLE LINER HELPER [Primary Care Provider] -
[2016-09-17] MEDS: Pantoprazole 40 MG VIAL IVP SCH (18:19)
[2016-09-17] MEDS: *HR* OxyCODONE Immed Rel 5 MG TABLET PO PRN (21:22)
[2016-09-18] MEDS: Pantoprazole 40 MG VIAL IVP SCH ×2 (05:08→17:55)
[2016-09-18] MEDS: Primidone 50 MG TABLET PO SCH ×3 (07:33→20:57)
[2016-09-18] MEDS: Sucralfate 1 GM TABLET PO SCH ×4 (07:33→20:57)
[2016-09-18] MEDS: Lisinopril 20 MG TABLET PO SCH (07:34)
[2016-09-18] MEDS: Sennosides/Docusate Sodium TABLET PO SCH ×2 (07:34→20:57)
[2016-09-18] MEDS: *HR* HYDROmorphone 4 MG TABLET PO PRN (07:34)
[2016-09-18] MEDS: predniSONE 5 MG TABLET PO SCH (07:34)
[2016-09-18] MEDS: (Leflunomide [Arava] 20 MG) PO SCH (07:36)
[2016-09-18] MEDS: *HR* HYDROmorphone (PF) 1 MG/ML SYRINGE IVP PRN (09:54)
--- NOTE | 2016-09-18 14:16 | Anesthesia Evaluation PreOp ---
Date of Encounter: 09/18/16 Time of Encounter: 14:14 - Past History Planned Operation: r foot TM amp Cardiac History: CHF, HTN, Hyperlipidemia, Arrhythmia (admit af with rvr), Other (echo 09/24: ef 50, AF with BBB, nl rv. atrial thrombus) Pulmonary History: Snore BAND SAW OPERATOR History: Other (essential tremor) Other Medical History: Renal (stones), Bleeding (h/o GI bleed from ulcer (none now)) Anesthesia History: No Prior Anesthetic Complications, Past Anesthesia (hernia, egd) Alcohol Use: none Drug use: none Medications and Allergies Calcium Carbonate [Calcium] 600 mg PO BID 02/20/16 [History] Folic Acid 3 mg PO DAILY 02/20/16 [History] Leflunomide [Arava] 20 mg PO DAILY 02/20/16 [History] Methotrexate [Otrexup] 10 mg PO MO 02/20/16 [History] Metoprolol [Lopressor] 50 mg PO BID 02/20/16 [History] Polyethylene Glycol 3350 [MiraLAX] 17 gm PO DAILY PRN 02/20/16 [History] Pravastatin Sodium [Pravachol] 80 mg PO HS 02/20/16 [History] PredniSONE 5 mg PO DAILY 02/20/16 [History] Primidone [Mysoline] 200 mg PO TID 02/20/16 [History] Warfarin [Coumadin] 4 mg PO SUMOWEFR 02/20/16 [History] Clopidogrel [Plavix] 75 mg PO DAILY #30 tablet 08/18/16 [Rx] Vit A/C/E AC/Znox/Cupric Oxide [Eye Vitamin-Minerals Tablet] 1 each PO DAILY 02/24 [History] Warfarin Sodium [Coumadin] 6 mg PO TUTHSA 08/18/16 [History] Benazepril HCl [Lotensin] 20 mg PO BID 09/08/16 [History] HYDROmorphone [Dilaudid] 4 mg PO Q4-6H PRN 09/08/16 [History] Metformin [Glucophage] 500 mg PO BIDWM 09/08/16 [History] [place]ouke-3/Dha/Epa/Fish Oil [[place]-3 Fish Oil 1,000 mg Sfgl] 2,000 mg PO DAILY 07/27 [History] Docusate [Colace] 100 mg PO BID #30 capsule 09/13/16 [Rx] Allergies No Known Allergies Allergy (Verified 09/08/16 11:42) - Meds/Allergy Pre-op Review Medications Reviewed: Yes (chronic steroid) Allergies Reviewed: Yes Beta Blockers on Current Med List: Yes If Beta Blockers taken, Date/Time (Last Dose taken): metoprolol at 7:34 Anesthesia Results - Labs 09/17/16 04:11 09/17/16 04:11 - Imaging EKG: report reviewed (af) Anesthesia Exam Vital Signs/O2 Sat/Glucose, Most Current Temp Pulse Resp BP Pulse Ox 09/18/16 10:55 97.7 F 100 16 122/78 92 L - HEENT Pupil (Motor): Pupils equal, EOMI Mallampati: II Teeth: Edentulous Oral Opening: Greater than 3 - BAND SAW OPERATOR LOC: Oriented BAND SAW OPERATOR Motor: Normal RUE, Normal LUE, Normal RLE, Normal LLE, Normal Face BAND SAW OPERATOR Sensory: Normal: RUE, LUE, RLE, LLE, Face - Cardiac Rhythm: Irregular Murmur: None - Pulmonary Breath Sounds: bilateral Clear Respiratory Effort: Symmetrical Anesthesia Assess/Plan ASA Score: 3 Modified Patrice Scale for Level of Consciousness: Cooperative, oriented, and tranquil Anesthetic Plan: Regional, MAC Monitoring Plan: Standard Monitors Recovery Plan: PACU
[2016-09-18] MEDS ORDERED: Bupivacaine/Clonidine Syringe 1 EACH SYRINGE ONE (14:33)
[2016-09-18] MEDS ORDERED: Propofol 500 MG/50 ML INFUS..BTL ONE (14:38)
[2016-09-18] MEDS ORDERED: Ringers Solution, Lactated 1,000 ML IVC SCH (15:00)
--- NOTE | 2016-09-18 15:03 | Podiatry Progress Note ---
Date of Encounter: 09/18/16 Time of Encounter: 15:00 - Assessment and Plan (1) Gangrene of toe Current Visit: Yes Status: Acute At this time we will proceed with transmetatarsal amputation. I feel as though a great toe amputation will likely have higher possibility of complications healing. Transmetatarsal amputation will give the patient a better chance of healing. The patient understands the surgical procedure. The patient understands that if this fails which it may we will proceed to a [id number] amputation by vascular surgery.Patient was informed of the risks and complications of surgery. These may include but are not limited to the following ; nerve damage, numbness, tingling, RSD/CRPS, loss of motor function, loss of toe, loss of limb, loss of life, ischemia, wound healing issues, infection, scarring, keloid formation, continued pain, arthritis, non-union, mal-union, prominent hardware, displaced hardware, reaction to hardware, the need to remove hardware, bruising, continued limp, the need for future surgery, over correction, under correction, chronic swelling, the need for physical therapy, stiffness of joints, ulceration, slow healing, wound dehiscence, reaction to implant, reaction to sutures. The patient was informed of the possible conservative treatments available which may include but are not limited to the following: Orthotics, bracing, non -weight bearing, physical therapy, padding, taping, steroid injections, NSAIDS, casting. The patient was given the option to seek a second opinion. It was explained that surgery is an art and not an exact science therefore results cannot be guaranteed. All the patients questions and concerns were addressed. Patient agrees to have the surgery despite the possible risks and complications. Absolutely no guarantees were given or implied. Subjective Principal diagnosis: ischemic right foot Interval history: Patient returns to the hospital and relates that after discussing with Dr. Haynes and Dr. De La Garza he would like to pursue a transmetatarsal amputation. Patient relates that he would like to avoid below the knee amputation at this time. Patient relates that if he has any issues with the transmetatarsal amputation he will consider a [id number] amputation. Patient realizes that the transmetatarsal amputation may fail and that he may be in need of a below- the-knee amputation at a later time. Objective - Vital Signs Vital Signs: Vital Signs Temp Pulse Resp BP Pulse Ox 03/11/17 10:55 97.7 F 100 16 122/78 92 L 09/18/16 07:30 104 139/82 09/18/16 06:29 100.0 F H 86 16 95/58 98 09/17/16 21:22 97.9 F 105 16 104/75 93 L 09/17/16 16:14 98.2 F 91 17 122/69 94 L Intake and Output 09/17/16 09/18/16 09/18/16 23:59 07:59 15:59 Intake Total 240 / 240 0 / 0 Output Total 300 / 300 450 / 450 475 / 475 Balance -60 / -60 -450 / -450 -475 / -475 Intake: Oral 240 / 240 0 / 0 Output: Urine 300 / 300 450 / 450 475 / 475 Other: Meal Dinner NPO Percent of Meal Consumed 100% # Bowel Movements 0 0 Weight 78.642 kg Blood Glucose* 96 Patient Weight 09/18/16 23:59 Weight 78.642 kg - Exam Exam: Ischemic right foot especially the great toe. Pulses are palpable but faintly. The digits 2 through 5 have blood flow but have sluggish capillary refill time. Sensation intact. No new open lesions. - Lab Result Diagrams: 09/17/16 04:11 09/17/16 04:11 Labs: Abnormal lab results RBC 3.29 M/mcL (4.19-5.50) L 09/17/16 04:11 Hgb 10.6 g/dL (12.9-16.9) L 09/17/16 04:11 Hct 33.4 % (37.5-50.1) L 09/17/16 04:11 MCV 101.5 fL (83.0-100.0) H 09/17/16 04:11 RDW 17.0 % (11.5-14.5) H 09/17/16 04:11 PT 22.0 Seconds (9.4-12.1) H 09/17/16 04:11 APTT 63.2 Seconds (26.0-36.0) H 09/15/16 04:50 POC Glucose 99 (58-89) H 09/15/16 11:15 Lactic Acid 3.2 mmol/L (0.5-2.2) H 09/14/16 07:57 Calcium 7.4 mg/dL (8.6-10.8) L 09/17/16 04:11 Serum Total Protein 5.6 g/dL (6.0-8.3) L 09/17/16 04:11 Albumin 2.2 g/dL (3.5-5.0) L 09/17/16 04:11 Albumin/Globulin Ratio 0.6 (1.1-2.2) L 09/17/16 04:11 Amylase 20 Units/L (25-125) L 09/14/16 01:39 Lipase 7 Units/L (8-78) L 09/14/16 01:39 Urine Microscopic RBC 5-15 per hpf (0-3) H 09/14/16 07:42 Ur Squamous Epith Cells Moderate per lpf (None-Few) H 09/14/16 07:42 Consult Discharge Plan - Plan Referrals: Tessa Brooks, DIALYSIS NURSE [Primary Care Provider] -
[2016-09-18] MEDS ORDERED: *HR* Metoprolol 5 MG/5 ML VIAL IVP ONE (15:25)
[2016-09-18] MEDS ORDERED: *HR* Propofol 200 MG/20 ML VIAL IVP ONE (16:00)
--- NOTE | 2016-09-18 17:17 | Anesthesia Evaluation Post Op ---
Date of Encounter: 09/18/16 Time of Encounter: 17:16 - Vital Signs Vital Signs: Vital Signs/O2 Sat/Glucose, Most Current Temp Pulse Resp BP Pulse Ox 09/18/16 16:58 99 16 132/89 99 09/18/16 16:48 95 16 88/66 95 09/18/16 16:38 98.3 F 91 10 83/62 90 L - Lungs Lungs: Clear Ascult./Percussion - Airway Airway: Non-obstructed - Cardiovascular Regular Rate - Mental Status Mental Status: Alert & Oriented, Answers Appropriately - Pain Pain Scale: 0 - Nausea Vomiting Nausea Vomiting: Not Present - Hydration Hydration: NPO, Has not voided - Discharge PostOp Status: Transfer Patient to floor
--- NOTE | 2016-09-18 17:47 | Internal Med Progress Note ---
Date of Encounter: 09/18/16 Time of Encounter: 17:45 - Assessment and plan (1) Atrial fibrillation with RVR Current Visit: Yes Status: Acute Assessment and plan: Continue with metoprolol. AC on hold, for surgery today (2) Atrial thrombus Current Visit: Yes Status: Acute Assessment and plan: INR is currently therapeutic at 2.0 The patient has a duodenal ulcer that has recently bled. AC has been held currently for possible transmetatarsal amputation tomorrow with Dr. castillo. will restart AC after surgery and watch for any recurrent bleed. (3) Duodenal ulcer with hemorrhage Current Visit: Yes Status: Acute Assessment and plan: EGD showed duodenal ulcer with stigmata of recent bleed, no active bleeding. will continnue PPI, will change it to BID and stop the drip, continue carafate. denies any pain , n/v. (4) Gangrene of toe Current Visit: Yes Status: Acute Assessment and plan: Scheduled for transmetatarsal amputation tomorrow with Dr. castillo. Case discussed with vascular surgery and podiatry, patient is agreeable for the procedure. . (5) Atrial fibrillation Current Visit: No Status: Chronic Assessment and plan: stable. Qualifiers: Atrial fibrillation type: unspecified Qualified Code(s): I48.91 - Unspecified atrial fibrillation - Time Spent With Patient 25 - 35 minutes - Subjective Interval history: Patient seen at the bedside, denies any complaints. No abdominal pain, nausea or vomiting. pain on the right foot is well controlled with pain medications. plan for transmetatarsal amputation, Dr. shell to undergo the procedure today. - Constitutional Vitals: Temp Pulse Resp BP Pulse Ox 97.2 F L 98 16 134/92 93 L 09/18/16 17:13 09/18/16 17:13 09/18/16 17:13 09/18/16 17:13 09/18/16 17:13 General appearance: Present: A&O X 3 Exam: - Eye Eye exam: Present: PERRL, conjuntiva pink, sclera anicteric Pupils: Present: PERRL - Respiratory Respiratory exam: Present: CTAB. Absent: accessory muscle use, rales, rhonchi, wheezes - Cardiovascular Cardiovascular exam: Present: irregular rhythm, +S1, +S2. Absent: diastolic murmur, gallop, rubs, systolic murmur - GI/Abdominal GI/Abdominal exam: Present: normal bowel sounds, soft, no peritoneal signs. Absent: distended, tenderness - Extremities Exam Extremities exam: Present: warm, radial pulses palpable and symetrical. Absent : calf tenderness, cyanotic, pedal edema Additional comments: Right great toe gangrene. No significant pitting edema. - Neurological Exam Neurological exam: Present: CN II-XII intact, oriented X3, no focal deficits. Absent: pronater drift, facial droop, speech deficit - Skin Additional comments: Right great toe dry gangrene and right forefoot mild skin erythema. Internal Medicine: Result - Labs CBC & Chem 7: 09/17/16 04:11 09/17/16 04:11 - ABG Interpretation ABG results: PT/INR, D-dimer PT 22.0 Seconds (9.4-12.1) H 09/17/16 04:11 Consult Discharge Plan - Plan Referrals: Tessa Brooks, RN FAMILY PRACTICE [Primary Care Provider] -
--- NOTE | 2016-09-18 20:13 | Operative Note ---
Date of procedure: 09/18/16 Pre-op diagnosis: Ischemia right foot Post-op diagnosis: same Procedure: Transmetatarsal amputation, right foot Anesthesia: JUAN M Surgeon: Todd Vera Estimated blood loss (cc): 25 Condition: stable Disposition: floor Procedure in Detail: The patient was transported to the operative room and placed on the operating table in the supine position. Following light sedation, local anesthesia was achieved. The foot was scrubbed, prepped, and draped in the usual aseptic fashion. A timeout was performed. An initial incision was made and bleeding was noted. The incision was made circumferentially around the digits near the metatarsal phalangeal joints. Adequate bleeding edges were noted. The decision was made to inflate a tourniquet due to the mild bleeding. The foot was raised to 60 degrees for hemostasis and exsanguinated utilizing an Esmarch bandage. The pneumatic tourniquet was inflated to 250 mmHg. After the circumferential incision was made near the metatarsal phalangeal joints. The digits were disarticulated at the metatarsophalangeal joints and removed from the field. The transmetatarsal amputation was then performed by utilizing a sagittal saw to perform osteotomies in each of the metatarsals to shorten them. Appropriate metatarsal osteotomies were performed. After adequate resection of metatarsals was performed, the site was irrigated with pulse irrigation. After adequate pulse irrigation the site was closed and a TLS drain was inserted to prevent hematoma. The pneumatic tourniquet was deflated and a hyperemic response was noted to the foot. Dry sterile dressings were applied. The patient tolerated the procedure and anesthesia well and was transported to the recovery room with vital signs stable and vascular status intact to both feet. The patient will be readmitted to the floor per anesthesia. The patient will remain nonweightbearing. The patient will keep the dressings intact until I follow-up with him tomorrow. The patient will receive additional antibiotics in the morning. The TLS drain tube will be emptied/changed as needed or at least every 6 hours.
[2016-09-18] MEDS: *HR* OxyCODONE Immed Rel 5 MG TABLET PO PRN (23:32)
[2016-09-18] MEDS: ceFAZolin 1,000 MG in D5% in Water (Mini-Bag+) 100 ML IVPB SCH (23:34)
[2016-09-19] MEDS: *HR* HYDROmorphone (PF) 1 MG/ML SYRINGE IVP PRN ×5 (03:01→23:44)
[2016-09-19] MEDS ORDERED: *HR* HYDROmorphone (PF) 1 MG/ML SYRINGE IVP ONE (05:11)
[2016-09-19] MEDS: Sucralfate 1 GM TABLET PO SCH ×4 (06:30→20:56)
[2016-09-19] MEDS: *HR* OxyCODONE Immed Rel 5 MG TABLET PO PRN (06:30)
[2016-09-19] MEDS: Pantoprazole 40 MG VIAL IVP SCH ×2 (06:30→18:32)
[2016-09-19] MEDS: Lisinopril 20 MG TABLET PO SCH (07:19)
[2016-09-19] MEDS: Primidone 50 MG TABLET PO SCH ×3 (07:19→21:03)
[2016-09-19] MEDS: ceFAZolin 1,000 MG in D5% in Water (Mini-Bag+) 100 ML IVPB SCH ×3 (07:20→23:33)
[2016-09-19] MEDS: predniSONE 5 MG TABLET PO SCH (07:20)
[2016-09-19] MEDS: Sennosides/Docusate Sodium TABLET PO SCH ×2 (07:20→20:56)
[2016-09-19] MEDS: (Leflunomide [Arava] 20 MG) PO SCH (07:22)
[2016-09-19] MEDS: *HR* HYDROmorphone 4 MG TABLET PO PRN (08:25)
[2016-09-19 08:31] LABS: Basophils # 0.1 K/mcL (0.0-0.2); Basophils % 0.9 %; Eosinophils # 0.1 K/mcL (0.0-0.6); Eosinophils % 1.9 %; Hematocrit 34.2 % (37.5-50.1); Immature Granulocytes % 0.7 % (0-4); Lymphocytes # 1.2 K/mcL (0.6-4.6); Lymphocytes % 17.6 %; Mean Corpuscular HGB Conc 32.2 g/dL (31.6-35.5); Mean Corpuscular Hemoglobin 33.4 pg (28.0-33.3); Mean Platelet Volume 10.2 fL (9.4-12.4); Monocytes # 0.8 K/mcL (0.0-1.3); Neutrophils # 4.6 K/mcL (1.6-8.9); Platelet Count 207 K/mcL (140-400); Red Blood Count 3.29 M/mcL (4.19-5.50); Segmented Neutrophils % 66.9 %
[2016-09-19 08:44] LABS: BUN/Creatinine Ratio 13 (6-26); Blood Urea Nitrogen 11 mg/dL (8-26); Calcium 7.8 mg/dL (8.6-10.8); Carbon Dioxide 24 mEq/L (19-29); Chloride 105 mEq/L (98-109); Glucose 92 mg/dL (70-99); Osmolality,Calculated 285 (280-300); Potassium 4.2 mEq/L (3.5-4.5); Sodium 138 mEq/L (136-145); eGFR For African Americans > 60 (> 60); eGFR For Non-African Americans > 60 (> 60)
[2016-09-19] MEDS: *HR* OxyCODONE Immed Rel 15 MG TABLET PO PRN ×3 (10:45→18:41)
[2016-09-20] MEDS: *HR* HYDROmorphone (PF) 1 MG/ML SYRINGE IVP PRN ×5 (04:56→21:25)
[2016-09-20] MEDS: Pantoprazole 40 MG VIAL IVP SCH ×2 (06:10→18:44)
[2016-09-20] MEDS: *HR* OxyCODONE Immed Rel 15 MG TABLET PO PRN ×3 (07:48→16:25)
[2016-09-20] MEDS: Sucralfate 1 GM TABLET PO SCH ×4 (07:49→21:22)
[2016-09-20] MEDS: ceFAZolin 1,000 MG in D5% in Water (Mini-Bag+) 100 ML IVPB SCH (07:49)
[2016-09-20] MEDS: (Leflunomide [Arava] 20 MG) PO SCH (09:05)
[2016-09-20] MEDS: Primidone 50 MG TABLET PO SCH ×3 (09:05→21:23)
[2016-09-20] MEDS: Sennosides/Docusate Sodium TABLET PO SCH ×2 (09:06→21:22)
[2016-09-20] MEDS: Lisinopril 20 MG TABLET PO SCH (09:06)
[2016-09-20] MEDS: predniSONE 5 MG TABLET PO SCH (09:06)
[2016-09-20] MEDS ORDERED: *HR* Metoprolol 5 MG/5 ML VIAL IVP PRN (11:34)
[2016-09-20] MEDS ORDERED: *HR* Methotrexate 2.5 MG TABLET PO SCH (14:47)
--- NOTE | 2016-09-20 15:38 | Podiatry Progress Note ---
Date of Encounter: 09/20/16 Time of Encounter: 11:40 - Assessment and Plan (1) Gangrene of toe Current Visit: Yes Status: Acute (2) Ischemic toe Current Visit: No Status: Acute S/p right TMA by Dr. Vera on 09/18/16. Dressing changed at bedside, incision line cleansed with saline, pat dry, adaptic applied with 4x4 dry sterile gauze and kerlix. Small area of dusky discoloration to the dorsal aspect of the incision line, will continue to monitor this area each day. Remain non weight bearing. WBC: 6.8. Temp: 98 Will continue to follow patient closely. Subjective Principal diagnosis: ischemic right foot Interval history: Patient is s/p right TMA by Dr. Vera on 09/18/16. Patient is resting in bed with spouse at bedside. Dressing is dry and intact with TLS drain. Patient states he gets intermittent shooting pains in his right foot. Patient currently rates pain at a 2 out of 10. He states the pain is better and is keeping up with scheduled pain medication. No c/o fever, chills, cp, sob or calf pain. Objective - Vital Signs Vital Signs: Vital Signs Temp Pulse Resp BP Pulse Ox 09/20/16 14:37 98.0 F 99 16 118/83 93 L 09/20/16 11:08 97.8 F 91 16 96/68 94 L 09/20/16 07:01 98.1 F 104 14 118/76 94 L 09/20/16 04:46 99.1 F 97 16 119/76 95 09/20/16 00:58 99.4 F 57 16 117/74 97 09/19/16 20:58 98.1 F 98 16 116/67 93 L 09/19/16 17:12 97.3 F L 84 16 124/80 98 Intake and Output 09/19/16 09/20/16 09/20/16 23:59 07:59 15:59 Intake Total 100 / 100 940 / 940 Output Total 350 / 350 478 / 478 404 / 404 Balance -350 / -350 -378 / -378 536 / 536 Intake: IV Fluids 100 / 100 100 / 100 Ancef 1,000 MG In 100 / 100 100 / 100 Dextrose 5% (Minibag+) 100 ML 100 ML @ 200 mls/ hr IVPB Q8HR WILFREDO Rx#: [id number] Oral 840 / 840 Output: Urine 350 / 350 475 / 475 400 / 400 Wound Drainage 0 / 0 3 / 3 4 / 4 Right Foot 0 / 0 3 / 3 4 / 4 Other: Meal Lunch Percent of Meal Consumed 0% Weight 79.3 kg Patient Weight 09/20/16 23:59 Weight 79.3 kg - Exam Exam: General appearance: alert awake oriented X 3. Calm and pleasant, no acute distress.. Vascular: Edema graded at 1+/4, Skin Temperature warm, No calf pain with manual compression. capillary refill time is immediate. Postop Exam: S/P Sutures intact to incision line, no signs of dehiscence. No open area, no drainage, no odor, no erythema, no streaking. Minimal edema. Small area of dusky discoloration to the dorsal aspect of the incision line. Tenderness upon palpation to incision line. - Lab Result Diagrams: 09/19/16 08:14 09/19/16 08:14 Labs: Abnormal lab results RBC 3.29 M/mcL (4.19-5.50) L 09/19/16 08:14 Hgb 11.0 g/dL (12.9-16.9) L 09/19/16 08:14 Hct 34.2 % (37.5-50.1) L 09/19/16 08:14 MCV 104.0 fL (83.0-100.0) H 09/19/16 08:14 MCH 33.4 pg (28.0-33.3) H 09/19/16 08:14 RDW 17.0 % (11.5-14.5) H 09/19/16 08:14 PT 22.0 Seconds (9.4-12.1) H 09/17/16 04:11 APTT 63.2 Seconds (26.0-36.0) H 09/15/16 04:50 POC Glucose 90 (58-89) H 09/19/16 04:40 Lactic Acid 3.2 mmol/L (0.5-2.2) H 09/14/16 07:57 Calcium 7.8 mg/dL (8.6-10.8) L 09/19/16 08:14 Serum Total Protein 5.6 g/dL (6.0-8.3) L 09/17/16 04:11 Albumin 2.2 g/dL (3.5-5.0) L 09/17/16 04:11 Albumin/Globulin Ratio 0.6 (1.1-2.2) L 09/17/16 04:11 Amylase 20 Units/L (25-125) L 09/14/16 01:39 Lipase 7 Units/L (8-78) L 09/14/16 01:39 Urine Microscopic RBC 5-15 per hpf (0-3) H 09/14/16 07:42 Ur Squamous Epith Cells Moderate per lpf (None-Few) H 09/14/16 07:42 Consult Discharge Plan - Plan Referrals: Tessa Brooks, MACHINE RUG CLEANER [Primary Care Provider] -
--- NOTE | 2016-09-20 15:58 | Internal Med Progress Note ---
Date of Encounter: 09/19/16 Time of Encounter: 15:55 - Assessment and plan (1) Atrial fibrillation with RVR Current Visit: Yes Status: Acute Assessment and plan: Continue with metoprolol. will restart AC. (2) Atrial thrombus Current Visit: Yes Status: Acute Assessment and plan: INR is currently therapeutic at 2.0 The patient has a duodenal ulcer that has recently bled. AC has been held currently for possible transmetatarsal amputation tomorrow with Dr. castillo. will restart AC today. (3) Duodenal ulcer with hemorrhage Current Visit: Yes Status: Acute Assessment and plan: EGD showed duodenal ulcer with stigmata of recent bleed, no active bleeding. will continnue PPI BID and , continue carafate. denies any pain , n/v. (4) Gangrene of toe Current Visit: Yes Status: Acute Assessment and plan: s/p transmetatarsal amputation with Dr. castillo. will follow up with podiatry recommendations (5) Atrial fibrillation Current Visit: No Status: Chronic Assessment and plan: stable. Qualifiers: Atrial fibrillation type: unspecified Qualified Code(s): I48.91 - Unspecified atrial fibrillation - Time Spent With Patient 25 - 35 minutes - Subjective Interval history: Patient seen at the bedside, s/p TMT amputation with Dr. castillo yesterday, 1st POD today. No abdominal pain, nausea or vomiting. pain on the right foot is still uncontrolled requesting for pain meds adjustment. - Constitutional Vitals: Temp Pulse Resp BP Pulse Ox 98.0 F 99 16 118/83 93 L 09/20/16 14:37 09/20/16 14:37 09/20/16 14:37 09/20/16 14:37 09/20/16 14:37 General appearance: Present: A&O X 3 Exam: - Eye Eye exam: Present: PERRL, conjuntiva pink, sclera anicteric Pupils: Present: PERRL - Respiratory Respiratory exam: Present: CTAB. Absent: accessory muscle use, rales, rhonchi, wheezes - Cardiovascular Cardiovascular exam: Present: irregular rhythm, +S1, +S2. Absent: diastolic murmur, gallop, rubs, systolic murmur - GI/Abdominal GI/Abdominal exam: Present: normal bowel sounds, soft, no peritoneal signs. Absent: distended, tenderness - Extremities Exam Extremities exam: Present: warm, radial pulses palpable and symetrical. Absent : calf tenderness, cyanotic, pedal edema TMT amputation rt. foot, wound looks dry. - Neurological Exam Neurological exam: Present: CN II-XII intact, oriented X3, no focal deficits. Absent: pronater drift, facial droop, speech deficit Internal Medicine: Result - Labs CBC & Chem 7: 09/19/16 08:14 09/19/16 08:14 - ABG Interpretation ABG results: PT/INR, D-dimer PT 22.0 Seconds (9.4-12.1) H 09/17/16 04:11 Consult Discharge Plan - Plan Referrals: Tessa Brooks, FAMILY PROTECTION SPECIALIST [Primary Care Provider] -
--- NOTE | 2016-09-20 16:03 | Internal Med Progress Note ---
Date of Encounter: 09/20/16 Time of Encounter: 16:01 - Assessment and plan (1) Atrial fibrillation with RVR Current Visit: Yes Status: Acute Assessment and plan: Continue with metoprolol. will restart AC. (2) Atrial thrombus Current Visit: Yes Status: Acute Assessment and plan: INR is currently therapeutic at 2.0 The patient has a duodenal ulcer that has recently bled. AC has been held currently for possible transmetatarsal amputation tomorrow with Dr. castillo. will restart AC . (3) Duodenal ulcer with hemorrhage Current Visit: Yes Status: Acute Assessment and plan: EGD showed duodenal ulcer with stigmata of recent bleed, no active bleeding. will continnue PPI BID and , continue carafate. denies any pain , n/v. (4) Gangrene of toe Current Visit: Yes Status: Acute Assessment and plan: s/p transmetatarsal amputation with Dr. castillo. will follow up with podiatry recommendations. will increase the pain meds and will change the dilaudid to q2 hr and keep the oxycodone q 4h. - Time Spent With Patient 25 - 35 minutes - Subjective Interval history: Patient seen at the bedside, s/p TMT amputation with Dr. castillo yesterday, 2nd POD today. No abdominal pain, nausea or vomiting. pain on the right foot is pretty much still uncontrolled requesting for pain meds adjustment. - Constitutional Vitals: Temp Pulse Resp BP Pulse Ox 98.0 F 99 16 118/83 93 L 09/20/16 14:37 09/20/16 14:37 09/20/16 14:37 09/20/16 14:37 09/20/16 14:37 General appearance: Present: A&O X 3 Exam: - Eye Eye exam: Present: PERRL, conjuntiva pink, sclera anicteric Pupils: Present: PERRL - Respiratory Respiratory exam: Present: CTAB. Absent: accessory muscle use, rales, rhonchi, wheezes - Cardiovascular Cardiovascular exam: Present: irregular rhythm, +S1, +S2. Absent: diastolic murmur, gallop, rubs, systolic murmur - GI/Abdominal GI/Abdominal exam: Present: normal bowel sounds, soft, no peritoneal signs. Absent: distended, tenderness - Extremities Exam Extremities exam: Present: warm, radial pulses palpable and symetrical. Absent : calf tenderness, cyanotic, pedal edema amputation TMT , wound site looks dry and clean - Neurological Exam Neurological exam: Present: CN II-XII intact, oriented X3, no focal deficits. Absent: pronater drift, facial droop, speech deficit Internal Medicine: Result - Labs CBC & Chem 7: 09/19/16 08:14 09/19/16 08:14 - ABG Interpretation ABG results: PT/INR, D-dimer PT 22.0 Seconds (9.4-12.1) H 09/17/16 04:11 Consult Discharge Plan - Plan Referrals: Tessa Brooks, MANAGER CODE [Primary Care Provider] -
[2016-09-21] MEDS: *HR* HYDROmorphone (PF) 1 MG/ML SYRINGE IVP PRN ×5 (03:19→20:00)
[2016-09-21] MEDS: Pantoprazole 40 MG VIAL IVP SCH ×2 (05:41→17:13)
[2016-09-21] MEDS: *HR* OxyCODONE Immed Rel 15 MG TABLET PO PRN ×4 (06:29→21:48)
[2016-09-21] MEDS: Sucralfate 1 GM TABLET PO SCH ×4 (06:30→21:48)
[2016-09-21] MEDS: Lisinopril 20 MG TABLET PO SCH (09:24)
[2016-09-21] MEDS: Primidone 50 MG TABLET PO SCH ×3 (09:24→20:01)
[2016-09-21] MEDS: Sennosides/Docusate Sodium TABLET PO SCH ×2 (09:24→20:01)
[2016-09-21] MEDS: (Leflunomide [Arava] 20 MG) PO SCH (09:25)
[2016-09-21] MEDS: predniSONE 5 MG TABLET PO SCH (09:25)
[2016-09-21] MEDS ORDERED: Bisacodyl 10 MG RECTAL SUPPOSITORY RC PRN (09:30)
--- NOTE | 2016-09-21 14:52 | Internal Med Progress Note ---
Date of Encounter: 09/21/16 Time of Encounter: 14:51 - Assessment and plan (1) Atrial fibrillation with RVR Current Visit: Yes Status: Acute Assessment and plan: Continue with metoprolol. will restart AC, start lovenox for now, if he has no bleeding will start Coumadin.. (2) Atrial thrombus Current Visit: Yes Status: Acute Assessment and plan: INR is currently therapeutic at 2.0 The patient has a duodenal ulcer that has recently bled. AC has been held currently for possible transmetatarsal amputation tomorrow with Dr. castillo. will restart AC . (3) Duodenal ulcer with hemorrhage Current Visit: Yes Status: Acute Assessment and plan: EGD showed duodenal ulcer with stigmata of recent bleed, no active bleeding. will continnue PPI BID and , continue carafate. denies any pain , n/v. (4) Gangrene of toe Current Visit: Yes Status: Acute Assessment and plan: s/p transmetatarsal amputation with Dr. castillo. will follow up with podiatry recommendations. dilaudid to q2 hr and oxycodone q 4h, continue PT/OT, no weight bearing at this time. - Time Spent With Patient 25 - 35 minutes - Subjective Interval history: Patient seen at the bedside, s/p TMT amputation with Dr. castillo yesterday, 3rd POD today. No abdominal pain, nausea or vomiting. pain on the right foot still comes on spikes, non weight bearing as per podiatry recommendations. c/o right sided chest pain on taking deep breaths, no fever, has mild cough. CXR does not show any pneumonia, has Left lower lobe atelectasis. - Constitutional Vitals: Temp Pulse Resp BP Pulse Ox 97.7 F 104 17 109/61 95 09/21/16 11:18 09/21/16 11:18 09/21/16 11:18 09/21/16 11:18 09/21/16 11:18 General appearance: Present: A&O X 3 Internal Medicine: Result - Labs CBC & Chem 7: 09/21/16 15:15 09/21/16 15:15 - ABG Interpretation ABG results: PT/INR, D-dimer PT 22.0 Seconds (9.4-12.1) H 09/17/16 04:11 - Impressions Impressions Chest X-Ray 09/21/16 11:26 IMPRESSION: 1. The cardiac silhouette appears mildly enlarged, but unchanged in the prior exam. 2. Mild obscuration of left hemidiaphragm may be due to atelectasis versus early airspace disease. 3. No acute abnormality identified in the right lung. D/ / Bernard Mehta MD / Bernard Mehta MD Interpreting Provider: Bernard Mehta MD Consult Discharge Plan - Plan Referrals: Tessa Brooks, MARCELO [Primary Care Provider] -
[2016-09-21 15:26] LABS: Basophils % 0.4 %; Eosinophils # 0.1 K/mcL (0.0-0.6); Eosinophils % 0.9 %; Hematocrit 32.9 % (37.5-50.1); Hemoglobin 10.7 g/dL (12.9-16.9); Immature Granulocytes % 0.7 % (0-4); Lymphocytes # 0.9 K/mcL (0.6-4.6); Lymphocytes % 9.9 %; Mean Corpuscular HGB Conc 32.5 g/dL (31.6-35.5); Mean Corpuscular Hemoglobin 32.7 pg (28.0-33.3); Mean Corpuscular Volume 100.6 fL (83.0-100.0); Mean Platelet Volume 10.1 fL (9.4-12.4); Monocytes # 0.8 K/mcL (0.0-1.3); Monocytes % 8.7 %; Neutrophils # 7.3 K/mcL (1.6-8.9); Platelet Count 210 K/mcL (140-400); Red Blood Count 3.27 M/mcL (4.19-5.50); Red Cell Distribution Width 16.4 % (11.5-14.5); Segmented Neutrophils % 79.4 %
[2016-09-21 15:39] LABS: BUN/Creatinine Ratio 18 (6-26); Blood Urea Nitrogen 15 mg/dL (8-26); Calcium 7.8 mg/dL (8.6-10.8); Carbon Dioxide 25 mEq/L (19-29); Chloride 102 mEq/L (98-109); Glucose 143 mg/dL (70-99); Osmolality,Calculated 283 (280-300); Potassium 4.2 mEq/L (3.5-4.5); Sodium 135 mEq/L (136-145); eGFR For African Americans > 60 (> 60); eGFR For Non-African Americans > 60 (> 60)
--- NOTE | 2016-09-21 15:45 | Podiatry Progress Note ---
Date of Encounter: 09/21/16 Time of Encounter: 11:30 - Assessment and Plan (1) Ischemic toe Current Visit: No Status: Acute assessment completely at bedside dressing change complete WBC 9.1- will continue to monitor We will continue to monitor irritation to dorsal aspect of foot if worsening is noted tomorrow we will start on PO antibiotics drainage continued to TLS drain- will leave in place at this time patient to remain nonweightbearing may participate in physical therapy with pivot to right foot Will continue daily dressing changes to assess incision line Keep foot elevated above level of heart while in bed and if up to chair do not allow to dangle Short CBC 09/21/16 Range/Units 15:15 WBC 9.1 (4.3-11.1) K/mcL Hgb 10.7 L (12.9-16.9) g/dL Hct 32.9 L (37.5-50.1) % Plt Count 210 (140-400) K/mcL Neutrophils # 7.3 (1.6-8.9) K/mcL BMP 09/21/16 Range/Units 15:15 Sodium 135 L (136-145) mEq/L Potassium 4.2 (3.5-4.5) mEq/L Chloride 102 (98-109) mEq/L Carbon Dioxide 25 (19-29) mEq/L BUN 15 (8-26) mg/dL Creatinine 0.84 (0.72-1.25) mg/dL Glucose 143 H (70-99) mg/dL Calcium 7.8 L (8.6-10.8) mg/dL (2) Peripheral arterial disease Current Visit: No Status: Chronic Subjective Principal diagnosis: ischemic right foot Interval history: S/p right TMA by Dr. Vera on 09/18/16. Dressing changed at bedside, incision line cleansed with saline, pat dry, adaptic applied with 4x4 dry sterile gauze and kerlix. Small area of dusky discoloration to the dorsal aspect of the incision line unchanged since 09/20 assessment, will continue to monitor this area each day. Slight irritation noted to dorsal aspect of foot, will continue to monitor. No warmth, odor, drainage or streaking noted at this time Remain non weight bearing. PT to have patient pivot on right foot Will continue to follow patient closely. Objective - Vital Signs Vital Signs: Vital Signs Temp Pulse Resp BP Pulse Ox 09/21/16 11:18 97.7 F 104 17 109/61 95 09/21/16 07:00 97.7 F 103 17 105/69 94 L 09/21/16 03:25 97.5 F L 96 16 105/69 94 L 09/20/16 21:11 98.0 F 100 16 102/67 94 L Intake and Output 09/20/16 09/21/16 09/21/16 23:59 07:59 15:59 Intake Total 360 / 360 0 / 0 550 / 550 Output Total 277 / 277 400 / 400 0 / 0 Balance 83 / 83 -400 / -400 550 / 550 Intake: Oral 360 / 360 0 / 0 550 / 550 Output: Urine 275 / 275 400 / 400 0 / 0 Wound Drainage 2 / 2 Right Foot 2 / 2 Other: Meal Dinner Breakfast Percent of Meal Consumed 100% 100% Weight 77.649 kg Patient Weight 09/21/16 23:59 Weight 77.649 kg - Exam Exam: General Examination: CONSTITUTIONAL: Alert, oriented, in no acute distress, non-toxic. EXTREMITIES: CFT 3 seconds all toes. Edema +1 and pedal pulses per doppler SKIN: Skin with decreased turgor, decreased subcutaneous tissue, skin thin and shiny with trophic changes associated with comorbidities as described in history.. NEUROLOGIC: Sensation intact to light touch of foot Postop Exam: Sutures intact to incision line, no signs of dehiscence. Slight dusky appearance to dorsal aspect of incision line. Unchanged from previous assessment. No open area, no drainage, no odor, no streaking. Minimal edema. Dorsal aspect of foot surrounding TLS drain slightly irritated in appearance. No warmth or streaking noted at this time. states patient has been dangling foot. Instructed to avoid this, elevated above level of heart. Will reassess tomorrow, if worsening is noted and no response to elevation, will start PO antibiotics. - Lab Result Diagrams: 09/21/16 15:15 09/21/16 15:15 Labs: Abnormal lab results RBC 3.27 M/mcL (4.19-5.50) L 09/21/16 15:15 Hgb 10.7 g/dL (12.9-16.9) L 09/21/16 15:15 Hct 32.9 % (37.5-50.1) L 09/21/16 15:15 MCV 100.6 fL (83.0-100.0) H 09/21/16 15:15 RDW 16.4 % (11.5-14.5) H 09/21/16 15:15 PT 22.0 Seconds (9.4-12.1) H 09/17/16 04:11 APTT 63.2 Seconds (26.0-36.0) H 09/15/16 04:50 Sodium 135 mEq/L (136-145) L 09/21/16 15:15 Glucose 143 mg/dL (70-99) H 09/21/16 15:15 POC Glucose 90 (58-89) H 09/19/16 04:40 Lactic Acid 3.2 mmol/L (0.5-2.2) H 09/14/16 07:57 Calcium 7.8 mg/dL (8.6-10.8) L 09/21/16 15:15 Serum Total Protein 5.6 g/dL (6.0-8.3) L 09/17/16 04:11 Albumin 2.2 g/dL (3.5-5.0) L 09/17/16 04:11 Albumin/Globulin Ratio 0.6 (1.1-2.2) L 09/17/16 04:11 Amylase 20 Units/L (25-125) L 09/14/16 01:39 Lipase 7 Units/L (8-78) L 09/14/16 01:39 Urine Microscopic RBC 5-15 per hpf (0-3) H 09/14/16 07:42 Ur Squamous Epith Cells Moderate per lpf (None-Few) H 09/14/16 07:42 Consult Discharge Plan - Plan Referrals: Tessa Brooks, OCEAN FREIGHT AGENT [Primary Care Provider] -
[2016-09-21] MEDS: *HR* Enoxaparin 80 MG/0.8 ML SYRINGE SQ SCH (18:17)
[2016-09-22] MEDS: Acetaminophen 325 MG TABLET PO PRN ×2 (03:49→21:31)
[2016-09-22] MEDS: *HR* Enoxaparin 80 MG/0.8 ML SYRINGE SQ SCH ×2 (06:31→18:24)
[2016-09-22] MEDS: Pantoprazole 40 MG VIAL IVP SCH (06:31)
[2016-09-22] MEDS: Sucralfate 1 GM TABLET PO SCH ×4 (06:33→21:31)
[2016-09-22] MEDS: *HR* OxyCODONE Immed Rel 15 MG TABLET PO PRN ×2 (07:32→12:36)
[2016-09-22 09:18] LABS: Basophils # 0.1 K/mcL (0.0-0.2); Basophils % 0.8 %; Eosinophils # 0.1 K/mcL (0.0-0.6); Eosinophils % 0.7 %; Hematocrit 33.8 % (37.5-50.1); Hemoglobin 10.8 g/dL (12.9-16.9); Immature Granulocytes % 0.7 % (0-4); Mean Corpuscular Hemoglobin 32.5 pg (28.0-33.3); Mean Corpuscular Volume 101.8 fL (83.0-100.0); Mean Platelet Volume 10.7 fL (9.4-12.4); Monocytes # 0.3 K/mcL (0.0-1.3); Monocytes % 3.7 %; Neutrophils # 6.2 K/mcL (1.6-8.9); Platelet Count 206 K/mcL (140-400); Red Blood Count 3.32 M/mcL (4.19-5.50); Red Cell Distribution Width 16.5 % (11.5-14.5); Segmented Neutrophils % 81.1 %
[2016-09-22 09:31] LABS: BUN/Creatinine Ratio 19 (6-26); Blood Urea Nitrogen 18 mg/dL (8-26); Carbon Dioxide 26 mEq/L (19-29); Chloride 101 mEq/L (98-109); Glucose 120 mg/dL (70-99); Osmolality,Calculated 285 (280-300); Sodium 136 mEq/L (136-145); eGFR For African Americans > 60 (> 60); eGFR For Non-African Americans > 60 (> 60)
[2016-09-22] MEDS: Lisinopril 20 MG TABLET PO SCH (09:58)
[2016-09-22] MEDS: Sennosides/Docusate Sodium TABLET PO SCH ×2 (09:58→19:59)
[2016-09-22] MEDS: predniSONE 5 MG TABLET PO SCH (09:59)
[2016-09-22] MEDS: Primidone 50 MG TABLET PO SCH ×3 (09:59→19:58)
[2016-09-22] MEDS: (Leflunomide [Arava] 20 MG) PO SCH (10:01)
[2016-09-22] MEDS ORDERED: *HR* HYDROmorphone (PF) 1 MG/ML SYRINGE IVP PRN (13:54)
[2016-09-22] MEDS ORDERED: *HR* OxyCODONE Immed Rel 15 MG TABLET PO PRN (13:55)
[2016-09-22] MEDS ORDERED: *HR* Morphine Sulfate SR (12 HR) 15 MG TABLET.ER PO ONE (14:00)
--- NOTE | 2016-09-22 15:50 | Internal Med Progress Note ---
Date of Encounter: 09/22/16 Time of Encounter: 15:47 - Assessment and plan (1) Atrial fibrillation with RVR Current Visit: Yes Status: Acute Assessment and plan: Continue with metoprolol. will restart AC, start lovenox for now, if he has no bleeding will start Coumadin.. (2) Atrial thrombus Current Visit: Yes Status: Acute Assessment and plan: The patient has a duodenal ulcer that has recently bled. AC was held for transmetatarsal amputation .. lovenox has been restarted , will transition to coumadin if no more bleeding. (3) Duodenal ulcer with hemorrhage Current Visit: Yes Status: Acute Assessment and plan: EGD showed duodenal ulcer with stigmata of recent bleed, no active bleeding. will continnue PPI BID and , continue carafate. denies any pain , n/v. (4) Gangrene of toe Current Visit: Yes Status: Acute Assessment and plan: s/p transmetatarsal amputation with Dr. castillo. will follow up with podiatry recommendations. have made some adjustments iwth pain mes. will do MS contin 15 bid, with oxycodone 15 q4hr and IV dilaudid 1 mg q4 hr PRn - Time Spent With Patient 25 - 35 minutes - Subjective Interval history: Patient seen at the bedside, s/p TMT amputation with Dr. castillo , 4th POD today. reports that he had an episode of abdominal pain yesterday and says he has not moved hi s bowels for a few days. nausea or vomiting. pain on the right foot still comes on spikes, non weight bearing as per podiatry recommendations. c/o right sided chest pain on taking deep breaths, no fever, has mild cough. CXR does not show any pneumonia, has Left lower lobe atelectasis. - Constitutional Vitals: Temp Pulse Resp BP Pulse Ox 97.4 F L 95 18 98/64 93 L 09/22/16 10:52 09/22/16 10:52 09/22/16 10:52 09/22/16 10:52 09/22/16 10:52 General appearance: Present: A&O X 3 Exam: Eye Eye exam: Present: PERRL, conjuntiva pink, sclera anicteric Pupils: Present: PERRL - Respiratory Respiratory exam: Present: CTAB. Absent: accessory muscle use, rales, rhonchi, wheezes - Cardiovascular Cardiovascular exam: Present: irregular rhythm, +S1, +S2. Absent: diastolic murmur, gallop, rubs, systolic murmur - GI/Abdominal GI/Abdominal exam: Present: normal bowel sounds, soft, no peritoneal signs. Absent: distended, tenderness - Extremities Exam Extremities exam: Present: warm, radial pulses palpable and symetrical. Absent : calf tenderness, cyanotic, pedal edema amputation TMT , wound site looks dry and clean - Neurological Exam Neurological exam: Present: CN II-XII intact, oriented X3, no focal deficits. Absent: pronater drift, facial droop, speech deficit Internal Medicine: Result - Labs CBC & Chem 7: 09/22/16 08:42 09/22/16 08:42 Labs: Short CBC 09/22/16 Range/Units 08:42 WBC 7.7 (4.3-11.1) K/mcL Hgb 10.8 L (12.9-16.9) g/dL Hct 33.8 L (37.5-50.1) % Plt Count 206 (140-400) K/mcL Neutrophils # 6.2 (1.6-8.9) K/mcL BMP 09/22/16 08:42 Sodium 136 Potassium 4.0 Chloride 101 Carbon Dioxide 26 BUN 18 Creatinine 0.94 Glucose 120 H Calcium 8.0 L - ABG Interpretation ABG results: PT/INR, D-dimer PT 22.0 Seconds (9.4-12.1) H 09/17/16 04:11 Consult Discharge Plan - Plan Referrals: Tessa Brooks, DATA MANAGEMENT [Primary Care Provider] -
--- NOTE | 2016-09-22 16:23 | Podiatry Progress Note ---
Date of Encounter: 09/22/16 Time of Encounter: 12:00 - Assessment and Plan (1) Gangrene of toe Current Visit: Yes Status: Acute (2) Ischemic toe Current Visit: No Status: Acute S/p right TMA by Dr. Vera on 09/18/16. Dressing changed at bedside, incision line cleansed with saline, pat dry, adaptic applied with 4x4 dry sterile gauze and kerlix. Small area of dusky discoloration that has increased since POD #1 to the dorsal aspect of the incision line. Will continue to monitor incision site. Remain non weight bearing to right foot. Patient will need a post op shoe on the right foot upon discharge. WBC:7.7 Patient will need a f/u in Podiatry clinic with in one week of discharge from the hospital. Post op dressing to be changed daily while in hospital. Dressing will remain in place when discharged home and will instruct patient to keep dry and intact until f/u appointment in Podiatry. If patient is discharged to [facility], will order daily dressing changes. Subjective Principal diagnosis: ischemic right foot Interval history: Patient is s/p right TMA by Dr. Vera on 09/18/16. Patient is resting in bed with spouse and daughter at bedside. Dressing is dry and intact with TLS drain. Patient states he gets intermittent shooting pains in his right foot. Patient currently rates pain at a 0 out of 10. He states the pain is better and is keeping up with scheduled pain medication. No c/o fever, chills, cp, sob or calf pain. Objective - Vital Signs Vital Signs: Vital Signs Temp Pulse Resp BP Pulse Ox 09/22/16 15:52 98.3 F 99 18 98/66 96 09/22/16 10:52 97.4 F L 95 18 98/64 93 L 09/22/16 07:46 97.9 F 103 18 118/79 93 L 09/22/16 03:45 99.4 F 96 14 94/67 98 09/22/16 00:03 98.6 F 103 14 100/67 98 09/21/16 19:39 98.1 F 87 16 109/74 95 09/21/16 17:00 97.4 F L 88 17 101/70 96 Intake and Output 09/22/16 09/22/16 09/22/16 07:59 15:59 23:59 Intake Total 0 / 0 200 / 200 Output Total 326 / 326 400 / 400 Balance -326 / -326 -200 / -200 Intake: Oral 0 / 0 200 / 200 Output: Urine 325 / 325 400 / 400 Wound Drainage 1 / 0 / 0 Right Foot 1 / 0 / 0 Other: Weight 77.281 kg Patient Weight 09/22/16 23:59 Weight 77.281 kg - Exam Exam: General appearance: alert awake oriented X 3. Calm and pleasant, no acute distress.. Vascular: Edema graded at 1+/4, Skin Temperature warm, No calf pain with manual compression. capillary refill time is immediate. Postop Exam: S/P Sutures intact to incision line, no signs of dehiscence. No open area, no drainage, no odor, no erythema, no streaking. Minimal edema. Small area of dusky discoloration to the dorsal aspect of the incision line and lateral aspect at 5th metatarsal with light erythema to the dorsum of the right foot. Tenderness upon palpation to incision line. TLS drain intact with serous drainage observed in tube. - Lab Result Diagrams: 09/22/16 08:42 09/22/16 08:42 Labs: Abnormal lab results RBC 3.32 M/mcL (4.19-5.50) L 09/22/16 08:42 Hgb 10.8 g/dL (12.9-16.9) L 09/22/16 08:42 Hct 33.8 % (37.5-50.1) L 09/22/16 08:42 MCV 101.8 fL (83.0-100.0) H 09/22/16 08:42 RDW 16.5 % (11.5-14.5) H 09/22/16 08:42 PT 22.0 Seconds (9.4-12.1) H 09/17/16 04:11 APTT 63.2 Seconds (26.0-36.0) H 09/15/16 04:50 Glucose 120 mg/dL (70-99) H 09/22/16 08:42 POC Glucose 90 (58-89) H 09/19/16 04:40 Lactic Acid 3.2 mmol/L (0.5-2.2) H 09/14/16 07:57 Calcium 8.0 mg/dL (8.6-10.8) L 09/22/16 08:42 Serum Total Protein 5.6 g/dL (6.0-8.3) L 09/17/16 04:11 Albumin 2.2 g/dL (3.5-5.0) L 09/17/16 04:11 Albumin/Globulin Ratio 0.6 (1.1-2.2) L 09/17/16 04:11 Amylase 20 Units/L (25-125) L 09/14/16 01:39 Lipase 7 Units/L (8-78) L 09/14/16 01:39 Urine Microscopic RBC 5-15 per hpf (0-3) H 09/14/16 07:42 Ur Squamous Epith Cells Moderate per lpf (None-Few) H 09/14/16 07:42 Consult Discharge Plan - Plan Referrals: Tessa Brooks, SOIL CONSERVATION TEACHER [Primary Care Provider] -
[2016-09-22] MEDS: *HR* Morphine Sulfate SR (12 HR) 15 MG TABLET.ER PO SCH (19:59)
[2016-09-23] MEDS: Sucralfate 1 GM TABLET PO SCH ×4 (07:15→20:54)
[2016-09-23] MEDS: predniSONE 5 MG TABLET PO SCH (07:15)
[2016-09-23] MEDS: Primidone 50 MG TABLET PO SCH ×3 (07:15→20:53)
[2016-09-23] MEDS: Sennosides/Docusate Sodium TABLET PO SCH ×2 (07:15→20:53)
[2016-09-23] MEDS: Lisinopril 20 MG TABLET PO SCH ×2 (07:15→08:57)
[2016-09-23] MEDS: (Leflunomide [Arava] 20 MG) PO SCH (07:16)
[2016-09-23] MEDS: *HR* Enoxaparin 80 MG/0.8 ML SYRINGE SQ SCH ×2 (07:30→18:49)
[2016-09-23] MEDS: *HR* Morphine Sulfate SR (12 HR) 15 MG TABLET.ER PO SCH ×2 (08:56→20:54)
[2016-09-23 11:25] LABS: Basophils % 0.6 %; Eosinophils # 0.1 K/mcL (0.0-0.6); Eosinophils % 1.4 %; Hematocrit 31.8 % (37.5-50.1); Hemoglobin 10.5 g/dL (12.9-16.9); Immature Granulocytes % 0.6 % (0-4); Lymphocytes # 0.8 K/mcL (0.6-4.6); Lymphocytes % 10.5 %; Mean Corpuscular Hemoglobin 33.9 pg (28.0-33.3); Mean Corpuscular Volume 102.6 fL (83.0-100.0); Mean Platelet Volume 10.9 fL (9.4-12.4); Monocytes # 0.4 K/mcL (0.0-1.3); Monocytes % 5.6 %; Neutrophils # 5.8 K/mcL (1.6-8.9); Platelet Count 212 K/mcL (140-400); Red Cell Distribution Width 16.4 % (11.5-14.5); Segmented Neutrophils % 81.3 %
[2016-09-23 11:36] LABS: BUN/Creatinine Ratio 21 (6-26); Blood Urea Nitrogen 18 mg/dL (8-26); Carbon Dioxide 25 mEq/L (19-29); Chloride 104 mEq/L (98-109); Glucose 156 mg/dL (70-99); Osmolality,Calculated 287 (280-300); Potassium 4.2 mEq/L (3.5-4.5); Sodium 136 mEq/L (136-145); eGFR For African Americans > 60 (> 60); eGFR For Non-African Americans > 60 (> 60)
[2016-09-23 13:33] LABS: Bilirubin,Urine Negative (Negative); Blood,Urine Negative (Negative); Clarity,Urine Cloudy (Clear); Color,Urine Dark Yellow (Yellow); Glucose,Urine (UA) Normal (Normal); Ketones,Urine Negative (Negative); Leukocyte Esterase,Urine Negative (Negative); Nitrite,Urine Negative (Negative); Protein,Urine Trace mg/dL (Neg-Trace); Specific Gravity,Urine 1.021 (1.010-1.025); Urobilinogen,Urine Normal (Normal)
[2016-09-23 13:36] LABS: Bacteria,Urine None Seen per hpf (None-Few); Squamous Epithelial Cell,Urine Moderate per lpf (None-Few); WBC,Urine 0-3 per hpf (0-3)
[2016-09-23 13:50] LABS: Amorphous Sediment,Urine Few (Few); Granular Casts,Urine Few per lpf (None Seen); Hyaline Casts,Urine Few per lpf (None-Few); Mucus,Urine Moderate (Few); RBC,Urine 0-3 per hpf (0-3)
--- NOTE | 2016-09-23 14:17 | Internal Med Progress Note ---
Date of Encounter: 09/23/16 Time of Encounter: 14:14 - Assessment and plan (1) Atrial fibrillation with RVR Current Visit: Yes Status: Acute Assessment and plan: Continue with metoprolol. will bridge coumadin with lovenox today, h/h has remained stable on lovenox. (2) Atrial thrombus Current Visit: Yes Status: Acute Assessment and plan: The patient has a duodenal ulcer that has recently bled. AC was held for transmetatarsal amputation .. lovenox has been restarted , transition to coumadin today (3) Duodenal ulcer with hemorrhage Current Visit: Yes Status: Acute Assessment and plan: EGD showed duodenal ulcer with stigmata of recent bleed, no active bleeding. will continnue PPI BID and , continue carafate. denies any pain , n/v. (4) Gangrene of toe Current Visit: Yes Status: Acute Assessment and plan: s/p transmetatarsal amputation with Dr. castillo. pain much controlled today will do MS contin 15 bid, with oxycodone 15 q4hr , dc IV dilaudid. Small area of dusky discoloration to the dorsal aspect of the incision line, bieng followed by podiatry but will be followed up as OP> needs PT/OT , will dc to inpt. rehab, non weight bearing still. (5) Fever Current Visit: Yes Status: Acute Assessment and plan: low grade fever noted yesterday which was 100.8 cxr, UA is clean, no source of infection at this time. will send blood cx, watch tonight, no indicaion of antibiotics at this time if no fever, may be dc tomm Qualifiers: Fever type: unspecified Qualified Code(s): R50.9 - Fever, unspecified - Time Spent With Patient 25 - 35 minutes - Subjective Interval history: Patient seen at the bedside, s/p TMT amputation with Dr. castillo , 5th POD today. tmp 100.8last night, no more fever after that. pain is much controlled today with addition of shelter opioids. non weight bearing as per podiatry recommendations. denies any cough, chest pain or burning micturition. - Constitutional Vitals: Temp Pulse Resp BP Pulse Ox 97.9 F 90 16 93/63 97 09/23/16 12:20 09/23/16 12:20 09/23/16 12:20 09/23/16 12:20 09/23/16 12:20 General appearance: Present: A&O X 3 Exam: Eye Eye exam: Present: PERRL, conjuntiva pink, sclera anicteric Pupils: Present: PERRL - Respiratory Respiratory exam: Present: CTAB. Absent: accessory muscle use, rales, rhonchi, wheezes - Cardiovascular Cardiovascular exam: Present: irregular rhythm, +S1, +S2. Absent: diastolic murmur, gallop, rubs, systolic murmur - GI/Abdominal GI/Abdominal exam: Present: normal bowel sounds, soft, no peritoneal signs. Absent: distended, tenderness - Extremities Exam Extremities exam: Present: warm, radial pulses palpable and symetrical. Absent : calf tenderness, cyanotic, pedal edema amputation TMT , wound site looks dry and clean - Neurological Exam Neurological exam: Present: CN II-XII intact, oriented X3, no focal deficits. Absent: pronater drift, facial droop, speech deficit Internal Medicine: Result - Labs CBC & Chem 7: 09/23/16 11:02 09/23/16 11:02 Labs: Short CBC 09/23/16 Range/Units 11:02 WBC 7.2 (4.3-11.1) K/mcL Hgb 10.5 L (12.9-16.9) g/dL Hct 31.8 L (37.5-50.1) % Plt Count 212 (140-400) K/mcL Neutrophils # 5.8 (1.6-8.9) K/mcL BMP 09/23/16 11:02 Sodium 136 Potassium 4.2 Chloride 104 Carbon Dioxide 25 BUN 18 Creatinine 0.87 Glucose 156 H Calcium 8.0 L Urine 09/23/16 Range/Units 13:21 Urine Color Dark Yellow (Yellow) Urine Clarity Cloudy A (Clear) Urine pH 6.0 (5.0-8.0) pH Units Ur Specific [place] 1.021 (1.010-1.025) Urine Protein Trace (Neg-Trace) mg/dL Urine Glucose (UA) Normal (Normal) mg/dL - ABG Interpretation ABG results: PT/INR, D-dimer PT 22.0 Seconds (9.4-12.1) H 09/17/16 04:11 Consult Discharge Plan - Plan Referrals: Tessa Brooks, LABORER ADJUSTABLE STEEL JOIST [Primary Care Provider] -
[2016-09-23 14:46] LABS: INR 1.9; Prothrombin Time 20.9 Seconds (9.4-12.1)
--- NOTE | 2016-09-23 15:38 | Podiatry Progress Note ---
Date of Encounter: 09/23/16 Time of Encounter: 12:00 - Assessment and Plan (1) Gangrene of toe Current Visit: Yes Status: Acute (2) Ischemic toe Current Visit: No Status: Acute S/p right TMA by Dr. Vera on 09/18/16. Dressing changed at bedside, incision line cleansed with saline, pat dry, adaptic applied with 4x4 dry sterile gauze and kerlix. TLS drain removed with difficulty. Small area of dusky discoloration that has increased since POD #1 to the dorsal aspect of the incision line. Will continue to monitor incision site. Remain non weight bearing to right foot. Patient will need a post op shoe on the right foot upon discharge. WBC:7.2 Patient will need a f/u in Podiatry clinic with in one week of discharge from the hospital. Post op dressing to be changed daily while in hospital. Patient will be going to [facility] and will need daily dressing changes to include cleansing the site daily with mild soap and water, pat dry, apply adaptic, dry sterile 4x4 gauze and kerlix with tape. Subjective Principal diagnosis: ischemic right foot Interval history: Patient is s/p right TMA by Dr. Vera on 09/18/16. Patient is resting in bed with spouse and sisters at bedside. Dressing is dry and intact with TLS drain. Patient states he gets intermittent shooting pains in his right foot. He states the pain is better and is keeping up with scheduled pain medication. Per spouse patient is approved to go to an ECF. No c/o fever, chills, cp, sob or calf pain. Objective - Vital Signs Vital Signs: Vital Signs Temp Pulse Resp BP Pulse Ox 09/23/16 14:48 98/65 09/23/16 12:20 97.9 F 90 16 93/63 97 09/23/16 07:51 97.4 F L 95 12 102/69 97 09/23/16 07:23 106/73 09/23/16 03:50 97.4 F L 86 14 96/65 100 09/22/16 23:00 98.1 F 94 16 98/64 95 09/22/16 21:25 100.8 F H 09/22/16 19:58 98.1 F 85 16 106/56 96 09/22/16 15:52 98.3 F 99 18 98/66 96 Intake and Output 09/22/16 09/23/16 09/23/16 23:59 07:59 15:59 Intake Total 460 / 460 0 / 0 480 / 480 Output Total 300 / 300 0 / 0 Balance 160 / 160 0 / 0 480 / 480 Intake: Oral 460 / 460 0 / 0 480 / 480 Output: Urine 300 / 300 0 / 0 Wound Drainage 0 / 0 0 / 0 Right Foot 0 / 0 0 / 0 Other: Meal Dinner Breakfast Percent of Meal Consumed 15% 50% Weight 76.459 kg Patient Weight 09/23/16 23:59 Weight 76.459 kg - Exam Exam: General appearance: alert awake oriented X 3. Calm and pleasant, no acute distress.. Vascular: Edema graded at 1+/4, Skin Temperature warm, No calf pain with manual compression. capillary refill time is immediate. Postop Exam: S/P Sutures intact to incision line, no signs of dehiscence. No open area, no drainage, no odor, no erythema, no streaking. Minimal edema. Small area of dusky discoloration to the dorsal aspect of the incision line and lateral aspect at 5th metatarsal with light erythema to the dorsum of the right foot. Tenderness upon palpation to incision line. TLS drain intact with scant serous drainage observed in tube. Drain removed with out difficulty at bedside. - Lab Result Diagrams: 09/23/16 11:02 09/23/16 11:02 Labs: Abnormal lab results RBC 3.10 M/mcL (4.19-5.50) L 09/23/16 11:02 Hgb 10.5 g/dL (12.9-16.9) L 09/23/16 11:02 Hct 31.8 % (37.5-50.1) L 09/23/16 11:02 MCV 102.6 fL (83.0-100.0) H 09/23/16 11:02 MCH 33.9 pg (28.0-33.3) H 09/23/16 11:02 RDW 16.4 % (11.5-14.5) H 09/23/16 11:02 PT 20.9 Seconds (9.4-12.1) H 09/23/16 14:24 APTT 63.2 Seconds (26.0-36.0) H 09/15/16 04:50 Glucose 156 mg/dL (70-99) H 09/23/16 11:02 POC Glucose 90 (58-89) H 09/19/16 04:40 Lactic Acid 3.2 mmol/L (0.5-2.2) H 09/14/16 07:57 Calcium 8.0 mg/dL (8.6-10.8) L 09/23/16 11:02 Serum Total Protein 5.6 g/dL (6.0-8.3) L 09/17/16 04:11 Albumin 2.2 g/dL (3.5-5.0) L 09/17/16 04:11 Albumin/Globulin Ratio 0.6 (1.1-2.2) L 09/17/16 04:11 Amylase 20 Units/L (25-125) L 09/14/16 01:39 Lipase 7 Units/L (8-78) L 09/14/16 01:39 Urine Clarity Cloudy (Clear) A 09/23/16 13:21 Ur Squamous Epith Cells Moderate per lpf (None-Few) H 09/23/16 13:21 Granular Casts Few per lpf (None Seen) H 09/23/16 13:21 Urine Mucus Moderate (Few) H 09/23/16 13:21 Consult Discharge Plan - Plan Referrals: Tessa Brooks, TELEVISION ANCHOR [Primary Care Provider] -
[2016-09-23] MEDS ORDERED: *HR* Warfarin 3 MG TABLET PO ONE (18:00)
[2016-09-23] MEDS ORDERED: Warfarin perPT PO PRN (18:00)
[2016-09-23] MEDS: *HR* OxyCODONE Immed Rel 15 MG TABLET PO PRN (18:49)
[2016-09-24 05:46] LABS: Prothrombin Time 22.5 Seconds (9.4-12.1)
[2016-09-24] MEDS: *HR* Enoxaparin 80 MG/0.8 ML SYRINGE SQ SCH ×2 (05:53→18:56)
[2016-09-24] MEDS: Acetaminophen 325 MG TABLET PO PRN (06:01)
[2016-09-24] MEDS: (Leflunomide [Arava] 20 MG) PO SCH (08:36)
[2016-09-24] MEDS: Primidone 50 MG TABLET PO SCH ×3 (08:41→21:48)
[2016-09-24] MEDS: Sennosides/Docusate Sodium TABLET PO SCH ×2 (08:41→21:33)
[2016-09-24] MEDS: predniSONE 5 MG TABLET PO SCH (08:41)
[2016-09-24 08:42] LABS: Basophils # 0.1 K/mcL (0.0-0.2); Eosinophils # 0.1 K/mcL (0.0-0.6); Eosinophils % 2.2 %; Hematocrit 33.1 % (37.5-50.1); Hemoglobin 10.6 g/dL (12.9-16.9); Immature Granulocytes % 0.7 % (0-4); Lymphocytes % 16.2 %; Mean Corpuscular Hemoglobin 32.7 pg (28.0-33.3); Mean Corpuscular Volume 102.2 fL (83.0-100.0); Mean Platelet Volume 10.6 fL (9.4-12.4); Monocytes # 0.6 K/mcL (0.0-1.3); Monocytes % 9.7 %; Neutrophils # 4.2 K/mcL (1.6-8.9); Platelet Count 230 K/mcL (140-400); Red Blood Count 3.24 M/mcL (4.19-5.50); Red Cell Distribution Width 16.1 % (11.5-14.5); Segmented Neutrophils % 70.2 %
[2016-09-24] MEDS: Sucralfate 1 GM TABLET PO SCH ×4 (08:42→21:33)
[2016-09-24] MEDS: *HR* Morphine Sulfate SR (12 HR) 15 MG TABLET.ER PO SCH ×2 (08:42→19:57)
[2016-09-24 08:56] LABS: BUN/Creatinine Ratio 22 (6-26); Blood Urea Nitrogen 18 mg/dL (8-26); Carbon Dioxide 25 mEq/L (19-29); Chloride 105 mEq/L (98-109); Glucose 102 mg/dL (70-99); Magnesium 1.4 mg/dL (1.6-2.6); Osmolality,Calculated 290 (280-300); Phosphorous 2.3 mg/dL (2.3-4.7); Potassium 4.3 mEq/L (3.5-4.5); Sodium 139 mEq/L (136-145); eGFR For African Americans > 60 (> 60); eGFR For Non-African Americans > 60 (> 60)
--- NOTE | 2016-09-24 10:23 | Internal Med Progress Note ---
Date of Encounter: 09/24/16 Time of Encounter: 09:30 - Assessment and plan (1) Fever Current Visit: Yes Status: Acute Assessment and plan: low grade temp at 100.8 09/22, and 100.3 09/24. UA is clean, no diarrhea. Pt complains of productive cough. check cXR. start mucinex. blood cultures pending. if no fever and cxr unremarkable, dc to rehab in AM. Qualifiers: Fever type: unspecified Qualified Code(s): R50.9 - Fever, unspecified (2) Duodenal ulcer with hemorrhage Current Visit: Yes Status: Acute Assessment and plan: pt presents with abdominal pain. CT abd/pelvis showed duodenitis or duodenal ulcer. EGD showed duodenal ulcer with stigmata of recent bleed, no active bleeding. continue PPI BID and carafate. pt has no bleeding or abdominal pain. (3) Acute blood loss anemia Current Visit: Yes Status: Acute Assessment and plan: This is secondary to recently bleeding duodenal ulcer. holding plavix. Lovenox/Coumadin resumed due to atrial thrombus. Hgb at 10.6. hemodynamically stable. (4) Gangrene of toe Current Visit: Yes Status: Acute Assessment and plan: s/p transmetatarsal amputation 09/18/16. pain better controlled today. continue adjusting pain meds: MS contin, and oxycodone. dc to rehab tomorrow. 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 continue zocor. Qualifiers: Peripheral atherosclerosis artery type: [place] artery Qualified Code(s): I70.261 - Atherosclerosis of [place] arteries of extremities with gangrene, right leg (6) Atrial fibrillation with RVR Current Visit: Yes Status: Acute Assessment and plan: resolved. rate is adequate. continue metoprolol, lovenox/coumadin. (7) Atrial thrombus Current Visit: Yes Status: Acute Assessment and plan: Patient with history of atrial fibrillation for years and taking coumadin. He had an incidental right atrial thrombus noted on CT on 09/08/16. Thrombus measures 1.2 x 1.3 cm. At that time, INR was 1.4. Coumadin held for transmetatarsal amputation on 09/18/16. continue lovenox/coumadin. INR today is 2. pharmacy to monitor INR. (8) Hypomagnesemia Current Visit: Yes Status: Acute (9) Peripheral arterial disease Current Visit: No Status: Chronic Assessment and plan: plan as above. - Subjective Interval history: pt reports cough of productive yellowish sputum, new for the past 2 days. no chest pain. no diarrhea. no urinary symptoms. no rash. - Constitutional Vitals: Temp Pulse Resp BP Pulse Ox 97.6 F 101 18 114/69 94 L 09/24/16 07:06 09/24/16 07:06 09/24/16 07:06 09/24/16 07:06 09/24/16 07:06 General appearance: Present: cooperative, A&O X 3, pleasant, no acute distress, answers questions appropriately - Eye Eye exam: Present: PERRL, sclera anicteric - Neck Neck exam general surgery: Present: supple, trachea midline. Absent: lymphadenopathy - Respiratory Respiratory exam: Present: rales (at bases) - Cardiovascular Cardiovascular exam: Present: RRR - GI/Abdominal GI/Abdominal exam: Present: soft. Absent: distended, tenderness - Extremities Exam Additional comments: dressing covering right first metatarsal amputation. - Back Exam Back exam: Absent: CVA tenderness (L), CVA tenderness (R) - Neurological Exam Neurological exam: Present: alert, oriented X3. Absent: facial droop, speech deficit - Skin Skin exam: Absent: rash Internal Medicine: Result - Labs CBC & Chem 7: 09/24/16 08:15 09/24/16 08:15 Labs: Short CBC 09/23/16 09/24/16 Range/Units 11:02 08:15 WBC 7.2 6.0 (4.3-11.1) K/mcL Hgb 10.5 L 10.6 L (12.9-16.9) g/dL Hct 31.8 L 33.1 L (37.5-50.1) % Plt Count 212 230 (140-400) K/mcL Neutrophils # 5.8 4.2 (1.6-8.9) K/mcL BMP 09/23/16 09/24/16 11:02 08:15 Sodium 136 139 Potassium 4.2 4.3 Chloride 104 105 Carbon Dioxide 25 25 BUN 18 18 Creatinine 0.87 0.82 Glucose 156 H 102 H Calcium 8.0 L 8.0 L Urine 09/23/16 Range/Units 13:21 Urine Color Dark Yellow (Yellow) Urine Clarity Cloudy A (Clear) Urine pH 6.0 (5.0-8.0) pH Units Ur Specific [place] 1.021 (1.010-1.025) Urine Protein Trace (Neg-Trace) mg/dL Urine Glucose (UA) Normal (Normal) mg/dL - ABG Interpretation ABG results: PT/INR, D-dimer PT 22.5 Seconds (9.4-12.1) H 09/24/16 05:23 Consult Discharge Plan - Plan Referrals: Tessa Brooks, ENGINEERING DOCUMENT CONTROL CLERK [Primary Care Provider] -
[2016-09-24] MEDS: *HR* OxyCODONE Immed Rel 15 MG TABLET PO PRN (10:32)
[2016-09-24] MEDS: Lisinopril 20 MG TABLET PO SCH (10:40)
--- NOTE | 2016-09-24 13:03 | Podiatry Progress Note ---
Date of Encounter: 09/24/16 Time of Encounter: 12:00 - Assessment and Plan (1) Ischemic toe Current Visit: No Status: Acute assessment completely at bedside Patient may be discharged to ECF pending medical clearance concerned about amount of pain with any type of therapy, pain appears arterial in nature- consulted with - if pain remains in 1-2 weeks will meet with patient at follow up visit and discuss BKA dressing change complete Cleansed with saline, adaptic, 4x4 kerlex and loose CONCHITA applied patient to remain nonweightbearing may participate in physical therapy with pivot to right foot Will continue daily dressing changes to assess incision line Keep foot elevated above level of heart while in bed and if up to chair do not allow to dangle call with any issues or concerns (2) Peripheral arterial disease Current Visit: No Status: Chronic Subjective Principal diagnosis: ischemic right foot Interval history: S/p right TMA by Dr. Vera on 09/18/16. Dressing changed at bedside, incision line cleansed with saline, pat dry, adaptic applied with 4x4 dry sterile gauze and kerlix. Small area of dusky discoloration to the dorsal aspect of the incision line unchanged since 09/20 assessment, will continue to monitor this area each day. Remain non weight bearing. PT to have patient pivot on right foot states patient had fevers and chills over night so they are going to run a chest xray today Patient states he had PT this morning and could not tolerate the pain after he dangled his foot out of the bed. Patient states pain was 10/10 and it took more than an hour for it to stop. Patient states he does not have pain if he is in bed with his foot elevated Will continue to follow patient closely. Objective - Vital Signs Vital Signs: Vital Signs Temp Pulse Resp BP Pulse Ox 09/24/16 11:10 97.7 F 98 18 135/83 95 09/24/16 07:06 97.6 F 101 18 114/69 94 L 09/24/16 04:09 100.3 F H 96 16 124/84 94 L 09/24/16 01:08 99.4 F 82 16 102/69 95 09/23/16 20:23 98.2 F 111 16 101/66 95 09/23/16 15:50 97.4 F L 87 18 102/70 94 L 09/23/16 14:48 98/65 Intake and Output 09/23/16 09/24/16 09/24/16 23:59 07:59 15:59 Intake Total 0 / 0 0 / 0 880 / 880 Output Total 300 / 300 0 / 0 750 / 750 Balance -300 / -300 0 / 0 130 / 130 Intake: Oral 0 / 0 0 / 0 880 / 880 Output: Urine 300 / 300 0 / 0 750 / 750 Other: Meal Breakfast Percent of Meal Consumed 80% Stool Size Moderate Large Stool Consistency soft loose Stool Color Brown Brown # Bowel Movements 1 1 Weight 76.5 kg Patient Weight 09/24/16 23:59 Weight 76.5 kg - Exam Exam: Podiatry General Exam: General appearance: alert awake oriented X 3. Calm and pleasant, no acute distress.. Vascular: Pedal pulses non palpable. Known PAD , No evidence of cyanosis, pallor or rubor, Edema graded at 1+/4, Skin Temperature warm, No calf pain with manual compression. capillary refill time is immediate to digits. Neurologic: Sensation intact with moderate touch to foot. . Postop Exam: S/P Sutures intact to incision line, no signs of dehiscence. No open area, no drainage, no odor, expected mild erythema, no streaking. Minimal edema. Area of dusky skin noted to dorsal flap of incision line, unchanged since previous assessment. Remains intact. - Lab Result Diagrams: 09/24/16 08:15 09/24/16 08:15 Labs: Abnormal lab results RBC 3.24 M/mcL (4.19-5.50) L 09/24/16 08:15 Hgb 10.6 g/dL (12.9-16.9) L 09/24/16 08:15 Hct 33.1 % (37.5-50.1) L 09/24/16 08:15 MCV 102.2 fL (83.0-100.0) H 09/24/16 08:15 RDW 16.1 % (11.5-14.5) H 09/24/16 08:15 PT 22.5 Seconds (9.4-12.1) H 09/24/16 05:23 APTT 63.2 Seconds (26.0-36.0) H 09/15/16 04:50 Glucose 102 mg/dL (70-99) H 09/24/16 08:15 POC Glucose 90 (58-89) H 09/19/16 04:40 Lactic Acid 3.2 mmol/L (0.5-2.2) H 09/14/16 07:57 Calcium 8.0 mg/dL (8.6-10.8) L 09/24/16 08:15 Magnesium 1.4 mg/dL (1.6-2.6) L 09/24/16 08:15 Serum Total Protein 5.6 g/dL (6.0-8.3) L 09/17/16 04:11 Albumin 2.2 g/dL (3.5-5.0) L 09/17/16 04:11 Albumin/Globulin Ratio 0.6 (1.1-2.2) L 09/17/16 04:11 Amylase 20 Units/L (25-125) L 09/14/16 01:39 Lipase 7 Units/L (8-78) L 09/14/16 01:39 Urine Clarity Cloudy (Clear) A 09/23/16 13:21 Ur Squamous Epith Cells Moderate per lpf (None-Few) H 09/23/16 13:21 Granular Casts Few per lpf (None Seen) H 09/23/16 13:21 Urine Mucus Moderate (Few) H 09/23/16 13:21 Consult Discharge Plan - Plan Referrals: Tessa Brooks, [facility] [Primary Care Provider] -
[2016-09-24] MEDS ORDERED: Magnesium Sulfate 1 GM in D5% in Water 100 ML IVPB ONE (14:05)
[2016-09-24] MEDS ORDERED: *HR* OxyCODONE Immed Rel 15 MG TABLET PO PRN (14:06)
[2016-09-24] MEDS ORDERED: *HR* Warfarin 4 MG TABLET PO ONE (18:00)
[2016-09-25] MEDS: *HR* Enoxaparin 80 MG/0.8 ML SYRINGE SQ SCH (05:19)
[2016-09-25 05:50] LABS: INR 2.7; Prothrombin Time 29.7 Seconds (9.4-12.1)
[2016-09-25 05:51] LABS: Hematocrit 33.9 % (37.5-50.1)
[2016-09-25 06:04] LABS: BUN/Creatinine Ratio 21 (6-26); Blood Urea Nitrogen 17 mg/dL (8-26); Carbon Dioxide 26 mEq/L (19-29); Chloride 104 mEq/L (98-109); Glucose 91 mg/dL (70-99); Magnesium 1.5 mg/dL (1.6-2.6); Osmolality,Calculated 287 (280-300); Potassium 4.5 mEq/L (3.5-4.5); Sodium 138 mEq/L (136-145); eGFR For African Americans > 60 (> 60); eGFR For Non-African Americans > 60 (> 60)
[2016-09-25] MEDS: Primidone 50 MG TABLET PO SCH (08:05)
[2016-09-25] MEDS: predniSONE 5 MG TABLET PO SCH (08:05)
[2016-09-25] MEDS: Sennosides/Docusate Sodium TABLET PO SCH (08:05)
[2016-09-25] MEDS: Sucralfate 1 GM TABLET PO SCH (08:05)
[2016-09-25] MEDS: *HR* Morphine Sulfate SR (12 HR) 15 MG TABLET.ER PO SCH (08:06)
[2016-09-25] MEDS: (Leflunomide [Arava] 20 MG) PO SCH (08:06)
--- NOTE | 2016-09-25 09:10 | Discharge Summary ---
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 Priority: Secondary Status: Chronic Qualifiers: Peripheral atherosclerosis artery type: [place] artery Qualified Code(s): I70.261 - Atherosclerosis of [place] arteries of extremities with gangrene, right leg (6) Atrial fibrillation with RVR Priority: Primary Status: Resolved (7) Atrial thrombus Priority: Secondary Status: Chronic (8) Hypomagnesemia Priority: Primary Status: Acute (9) Peripheral arterial disease Priority: Secondary Status: Chronic - Discharge Medications Prescriptions: OxyCODONE Immed Rel [Roxicodone 15 MG] 15 mg PO Q8HR PRN #20 tablet PRN Reason: Pain Magnesium Oxide [Mag-Ox] 400 mg PO DAILY 30 Days Morphine Sulfate SR (12 HR) [MS Contin] 15 mg PO Q12H #60 tablet.er Pantoprazole Sodium [Protonix] 40 mg PO BID #30 tablet.dr Home Medications: Calcium Carbonate [Calcium] 600 mg PO BID 02/20/16 [History] Folic Acid 3 mg PO DAILY 02/20/16 [History] Leflunomide [Arava] 20 mg PO DAILY 02/20/16 [History] Methotrexate [Otrexup] 10 mg PO MO 02/20/16 [History] Metoprolol [Lopressor] 50 mg PO BID 02/20/16 [History] Polyethylene Glycol 3350 [MiraLAX] 17 gm PO DAILY PRN 02/20/16 [History] Pravastatin Sodium [Pravachol] 80 mg PO HS 02/20/16 [History] PredniSONE 5 mg PO DAILY 02/20/16 [History] Primidone [Mysoline] 200 mg PO TID 02/20/16 [History] Warfarin [Coumadin] 4 mg PO SUMOWEFR 02/20/16 [History] Vit A/C/E AC/Znox/Cupric Oxide [Eye Vitamin-Minerals Tablet] 1 each PO DAILY 02/24 [History] Warfarin Sodium [Coumadin] 6 mg PO TUTHSA 08/18/16 [History] [place]-3/Dha/Epa/Fish Oil [[place]-3 Fish Oil 1,000 mg Sfgl] 2,000 mg PO DAILY 07/27 [History] Docusate [Colace] 100 mg PO BID #30 capsule 09/13/16 [Rx] Bisacodyl [Dulcolax] 10 mg RC DAILY PRN #0 supp.rect 09/25/16 [Rx] GuaiFENesin ER [Mucinex] 600 mg PO BID 7 Days 09/25/16 [Rx] Magnesium Oxide [Mag-Ox] 400 mg PO DAILY 30 Days 09/25/16 [Rx] Morphine Sulfate SR (12 HR) [MS Contin] 15 mg PO Q12H #60 tablet.er 09/25/16 [Rx ] OxyCODONE Immed Rel [Roxicodone 15 MG] 15 mg PO Q8HR PRN #20 tablet 09/25/16 [Rx ] Pantoprazole Sodium [Protonix] 40 mg PO BID #30 tablet. 09/25/16 [Rx] Sennosides/Docusate Sodium [Senna Plus] 1 each PO BID tablet 09/25/16 [Rx] Sucralfate [Carafate] 1 gm PO QIDAC tablet 09/25/16 [Rx] Allergies/Adverse Reactions: Allergies No Known Allergies Allergy (Verified 09/08/16 11:42) Date of admission: 09/15/16 11:08 Primary care physician: Tessa Brooks CNP Consults: 09/20/16 11:32 Consult to Occupational Therapy [CONS] Routine Comment: Evaluate, develop and implement POC Consult to Physical Therapy [CONS] Routine Comment: Evaluate, develop and implement POC - Patient Status Disposition: Transfer Inpatient Rehab Fac Condition: Fair Functional capacity at discharge: uses cane/walker Overall status at discharge: patient is progressing back to baseline - Discharge Instructions Follow Up With: Tessa Brooks CNP [Primary Care Provider] - (f/u in the cardiology clinic in 2 weeks. f/u with dr haynes in 1-2 weeks. f/u with dr cortes in 3-4 weeks) - Diet and Activity Activity: as per physical therapy Diet: low fat, low cholesterol, low salt diet Interval History: Patient feels good. No chest pain. Productive cough is decreasing. He is using the incentive spirometry as instructed. Hospital course: Mr. Eid is a 75 year old male with past medical history of atrial fibrillation , atrial thrombus on Coumadin, hypertension, and peripheral vascular diseasepresents with abdominal pain. CT abd/pelvis showed duodenitis or duodenal ulcer. He was started on IV PPI infusion, IV fluids and coumadin was held. On 09/15, he had EGD showing one nonbleeding duodenal ulcer ~3 cm status post bipolar cautery. He continued IV PPI infusion and then switched to IV PPI twice a day and had good clinical improvement. His hemoglobin remained in the 10s and he was hemodynamically stable during this hospitalization. Also, patient was diagnosed of right foot ischemia and underwent transmetatarsal amputation. Coumadin and Lovenox bridging was started after surgery. The day of discharge INR was 2.7 and Lovenox was stopped. is hospital course was complicatedby a low-grade temp at 100.8. Patient denied any diarrhea or urinary symptoms. Urinalysis was negative. blood cultures negative so far. CXR showed bibasilar atelectasis. He received Mucinex asn was instructed to use his incentive spirometer. PLAN: PPI bid. close monitor of INR (goal 2-3). incentive spirometry. CBC on . f/u with dr cortes in 3-4 weeks. f/u with Dr Haynes in 1-2 weeks. F/u in the cardiology clinic in 2 weeks. - Time Spent with Patient Total time spent providing and/or coordinating discharge services: - Constitutional Vitals: Temp Pulse Resp BP Pulse Ox 98.5 F 92 16 110/77 94 L 09/25/16 06:44 09/25/16 06:44 09/25/16 06:44 09/25/16 06:44 09/25/16 06:44 General appearance: Present: cooperative, A&O X 3, pleasant, no acute distress, answers questions appropriately - Eye Eye exam: Present: PERRL, sclera anicteric - Neck Neck exam general surgery: Present: supple, trachea midline. Absent: lymphadenopathy - Respiratory Respiratory exam: Present: CTAB - Cardiovascular Cardiovascular exam: Present: RRR - GI/Abdominal GI/Abdominal exam: Present: normal bowel sounds, soft. Absent: distended, tenderness - Extremities Exam Additional comments: dressing covering right first metatarsal amputation. - Neurological Exam Neurological exam: Present: alert, oriented X3, strengths equal and symetr throughout. Absent: facial droop, speech deficit - Skin Skin exam: Absent: rash
--- NOTE | 2016-09-25 09:48 | Physician Discharge Referral ---
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 Status: Chronic (6) Atrial fibrillation with RVR Status: Resolved (7) Atrial thrombus Status: Chronic (8) Hypomagnesemia Status: Acute (9) Peripheral arterial disease Status: Chronic - Transfer Medications Prescriptions: OxyCODONE Immed Rel [Roxicodone 15 MG] 15 mg PO Q8HR PRN #20 tablet PRN Reason: Pain Magnesium Oxide [Mag-Ox] 400 mg PO DAILY 30 Days Morphine Sulfate SR (12 HR) [MS Contin] 15 mg PO Q12H #60 tablet.er Pantoprazole Sodium [Protonix] 40 mg PO BID #30 tablet.dr Home Medications: Calcium Carbonate [Calcium] 600 mg PO BID 02/20/16 [History] Folic Acid 3 mg PO DAILY 02/20/16 [History] Leflunomide [Arava] 20 mg PO DAILY 02/20/16 [History] Methotrexate [Otrexup] 10 mg PO MO 02/20/16 [History] Metoprolol [Lopressor] 50 mg PO BID 02/20/16 [History] Polyethylene Glycol 3350 [MiraLAX] 17 gm PO DAILY PRN 02/20/16 [History] Pravastatin Sodium [Pravachol] 80 mg PO HS 02/20/16 [History] PredniSONE 5 mg PO DAILY 02/20/16 [History] Primidone [Mysoline] 200 mg PO TID 02/20/16 [History] Warfarin [Coumadin] 4 mg PO SUMOWEFR 02/20/16 [History] Vit A/C/E AC/Znox/Cupric Oxide [Eye Vitamin-Minerals Tablet] 1 each PO DAILY 02/24 [History] Warfarin Sodium [Coumadin] 6 mg PO TUTHSA 08/18/16 [History] [place]-3/Dha/Epa/Fish Oil [[place]-3 Fish Oil 1,000 mg Sfgl] 2,000 mg PO DAILY 07/27 [History] Docusate [Colace] 100 mg PO BID #30 capsule 09/13/16 [Rx] Bisacodyl [Dulcolax] 10 mg RC DAILY PRN #0 supp.rect 09/25/16 [Rx] GuaiFENesin ER [Mucinex] 600 mg PO BID 7 Days 09/25/16 [Rx] Magnesium Oxide [Mag-Ox] 400 mg PO DAILY 30 Days 09/25/16 [Rx] Morphine Sulfate SR (12 HR) [MS Contin] 15 mg PO Q12H #60 tablet.er 09/25/16 [Rx ] OxyCODONE Immed Rel [Roxicodone 15 MG] 15 mg PO Q8HR PRN #20 tablet 09/25/16 [Rx ] Pantoprazole Sodium [Protonix] 40 mg PO BID #30 tablet. 09/25/16 [Rx] Sennosides/Docusate Sodium [Senna Plus] 1 each PO BID tablet 09/25/16 [Rx] Sucralfate [Carafate] 1 gm PO QIDAC tablet 09/25/16 [Rx] Allergies/Adverse Reactions: Allergies No Known Allergies Allergy (Verified 09/08/16 11:42) - Respiratory Orders Smoking Cessation: Smoking cessation has been advised. For more information, call the [place] Tobacco Quit Line at 4-078-SQVE-NOW. - Lab Orders Lab Orders: CBC (09/02/16), Other (include drug levels w/frequency) (INR daily) - Advance Directives Code Status: Full Code - Mobility Orders Ambulate - Rehabiliation Orders Rehab Potential: Fair Rehab Orders: Evaluation for Physical Therapy, Evaluation for Occupational Therapy - Treatments List/Other: incentive spirometry 10 times every hour. f/u wth dr cortes in 3-4 weeks. f/u with Dr Haynes in 1-2 weeks. F/u in the cardiology clinic in 2 weeks. - Diet Orders No Added Salt (NIRAV), Cardiac CERTIFICATION: I certify that the transfer of the above named patient to an Extended Care Facility is necessary for the continuing treatment of the diagnosis listed. The above information is true and accurate reflection of patient's current condition. Confidential - Redisclosure prohibited without a patient's written consent.
[2016-09-25 10:42] VITALS: BP 110/73
[2016-09-25] MEDS ORDERED: *HR* Warfarin 4 MG TABLET PO ONE (18:00)
== END 2016-09-25 12:28 | DRG 239 ==
LOC: EMEROO 23:19 → 3ANU 23:19 → SUATTDRO 09-14 11:10 → 3ANU 09-14 11:19 → SUATTDRO 09-15 11:08
PROVIDERS: ADMIT Internal Medicine; ATTEND Internal Medicine

== ENCOUNTER 2016-10-04 13:44 | Inpatient (IN) ==
[2016-10-04] MEDS ORDERED: CeFAZolin Pre 2,000 MG/100 ML 2,000 MG/100 ML BAG IVPB ONE (14:00)
[2016-10-04] MEDS ORDERED: Vancomycin 1,250 MG in D5% in Water 250 ML IVPB ONE (14:00)
[2016-10-04] MEDS ORDERED: Ringers Solution, Lactated 1,000 ML IVC SCH (14:00)
[2016-10-04] MEDS ORDERED: Lidocaine -MPF 1% 2 ML VIAL ID ONE (14:00)
--- NOTE | 2016-10-04 14:35 | Anesthesia Evaluation PreOp ---
Date of Encounter: 10/04/16 Time of Encounter: 14:33 - Past History Planned Operation: R BKA Cardiac History: CHF, HTN, Hyperlipidemia, Arrhythmia (A fib), Other (09-09-2016 TTE: A fib with BBB LVEF 50% normal RV structure/function mild to mod dilated LA no pulm htn) Pulmonary History: Former smoker (quit over 5 years ago), LUCRECIA Dx UNSTACKER History: Other (tremors) Other Medical History: Other (RA) Anesthesia History: No Prior Anesthetic Complications Alcohol Use: none Drug use: none Medications and Allergies Calcium Carbonate [Calcium] 600 mg PO BID 02/20/16 [History] Folic Acid 3 mg PO DAILY 02/20/16 [History] Leflunomide [Arava] 20 mg PO DAILY 02/20/16 [History] Metoprolol [Lopressor] 50 mg PO BID 02/20/16 [History] Polyethylene Glycol 3350 [MiraLAX] 17 gm PO DAILY PRN 02/20/16 [History] Pravastatin Sodium [Pravachol] 80 mg PO HS 02/20/16 [History] PredniSONE 5 mg PO DAILY 02/20/16 [History] Primidone [Mysoline] 200 mg PO TID 02/20/16 [History] Warfarin [Coumadin] 4 mg PO SUMOWEFR 02/20/16 [History] Vit A/C/E AC/Znox/Cupric Oxide [Eye Vitamin-Minerals Tablet] 1 tab PO DAILY 02/24 [History] Warfarin Sodium [Coumadin] 6 mg PO TUTHSA 08/18/16 [History] [place]-3/Dha/Epa/Fish Oil [[place]-3 Fish Oil 1,000 mg Sfgl] 2,000 mg PO DAILY 07/27 [History] Docusate [Colace] 100 mg PO BID #30 capsule 09/13/16 [Rx] Bisacodyl [Dulcolax] 10 mg RC DAILY PRN #0 supp.rect 09/25/16 [Rx] GuaiFENesin ER [Mucinex] 600 mg PO BID 7 Days 09/25/16 [Rx] Magnesium Oxide [Mag-Ox] 400 mg PO DAILY 30 Days 09/25/16 [Rx] Morphine Sulfate SR (12 HR) [MS Contin] 15 mg PO Q12H #60 tablet.er 09/25/16 [Rx ] OxyCODONE Immed Rel [Roxicodone 15 MG] 15 mg PO Q8HR PRN #20 tablet 09/25/16 [Rx ] Sucralfate [Carafate] 1 gm PO QIDAC tablet 09/25/16 [Rx] Omeprazole [PriLOSEC] 20 mg PO BID 10/04/16 [History] Sennosides/Docusate Sodium [Senna Plus] 1 tab PO BID 10/04/16 [History] Allergies No Known Allergies Allergy (Verified 09/08/16 11:42) - Meds/Allergy Pre-op Review Medications Reviewed: Yes Allergies Reviewed: Yes Beta Blockers on Current Med List: Yes Anesthesia Results - Labs Laboratory Tests 08/18/16 09/24/16 09/25/16 13:28 08:15 05:07 WBC 6.0 Hgb Hct Plt Count 230 PT 29.7 H INR 2.7 Sodium Potassium Chloride Carbon Dioxide BUN Creatinine Est GFR ( Amer) Est GFR (Non-Af Amer) BUN/Creatinine Ratio Glucose Est Mean Plasma Glucose 117 Hemoglobin A1c 5.7 H Calculated Osmolality Calcium 09/25/16 09/25/16 05:07 05:07 WBC Hgb 11.0 L Hct 33.9 L Plt Count PT INR Sodium 138 Potassium 4.5 Chloride 104 Carbon Dioxide 26 BUN 17 Creatinine 0.82 Est GFR ( Amer) > 60 Est GFR (Non-Af Amer) > 60 BUN/Creatinine Ratio 21 Glucose 91 Est Mean Plasma Glucose Hemoglobin A1c Calculated Osmolality 287 Calcium 8.0 L Patient last took warfarin Tuesday - Imaging EKG: report reviewed, image reviewed (A fib with RVR; marked LAD, LBBB) Anesthesia Exam Last Vital Signs Temp 98.7 F 10/04/16 14:12 Pulse 124 10/04/16 14:12 Resp 18 10/04/16 14:12 BP 136/93 10/04/16 14:12 Pulse Ox 96 10/04/16 14:12 Weight: 81 kg NPO (# of Hours): >>8 hrs - HEENT Pupil (Motor): Pupils equal, EOMI Mallampati: III (limited neck ROM) Oral Opening: Greater than 3 - UNSTACKER LOC: Oriented - Cardiac Rhythm: Irregular - Pulmonary Breath Sounds: bilateral Clear Respiratory Effort: Symmetrical Anesthesia Assess/Plan ASA Score: 4 Modified Metz Scale for Level of Consciousness: Cooperative, oriented, and tranquil Anesthetic Plan: General, Regional Monitoring Plan: Standard Monitors Recovery Plan: PACU
[2016-10-04] MEDS ORDERED: Dexamethasone 4 MG/ML VIAL ONE (14:49)
[2016-10-04] MEDS ORDERED: ROPIVACAINE HCL/PF 0.5% 30 ML VIAL ONE (14:49)
[2016-10-04] MEDS ORDERED: *HR* FentaNYL (PF) 100 MCG/2 ML VIAL ONE (14:49)
[2016-10-04] MEDS ORDERED: Ondansetron 4 MG/2 ML VIAL ONE (14:49)
[2016-10-04] MEDS ORDERED: *HR* Propofol 200 MG/20 ML VIAL IVP ONE ×2 (14:49→16:42)
[2016-10-04] MEDS ORDERED: *HR* Midazolam HCl 2 MG/2 ML VIAL ONE (14:49)
--- NOTE | 2016-10-04 14:50 | History & Physical Report ---
Date of Encounter: 10/04/16 Time of Encounter: 14:40 24 Hour HP Update - Instructions Instructions: If the History and Physical is less than 30 days old and was completed prior to A.M. admission and or procedure and has NOT been updated on calendar day of procedure please complete this update prior to performing procedure. - Update Patient reports changes in Medical Condition: No Changes in assessment/condition: No Changes in Medication: No Preop tests/diagnostics Reviewed: Yes Surgery Remains Indicated: Yes Consent for Planned Operative Procedure(s) Verified: Yes - Pre-Operative Checklist Preoperative Checklist Indicated: Yes Prophylactic Antibiotic Ordered: Yes (Vancomycin due to risk of MRSA) Home Medications Include Beta Everette: Yes Beta Everette Taken Today (Day of Surgery): Yes Beta Everette Taken Yesterday (Day Prior to Surgery): Yes Is VTE Prophylaxis Indicated?: Yes
[2016-10-04] MEDS ORDERED: Vancomycin 1,000 MG VIAL ONE (14:51)
[2016-10-04] MEDS ORDERED: Lidocaine -MPF 2% 2 ML VIAL ONE (14:52)
[2016-10-04] MEDS ORDERED: Esmolol 100 MG/10 ML VIAL IVP ONE (15:39)
[2016-10-04] MEDS ORDERED: *HR* Amiodarone 150 MG/3 ML VIAL IVPB ONE (15:41)
--- NOTE | 2016-10-04 16:13 | Anesthesia Procedures ---
Date of Encounter: 10/04/16 Time of Encounter: 15:18 Procedures: Anesthesia - Nerve Block Procedure Date: 10/04/16 Time: 15:18 Allergies/Adv Reactions: Allergies Allergy/AdvReac Type Severity Reaction Status Date / Time No Known Allergies Allergy Verified 09/08/16 11:42 Surgical Procedure: Right BKA Checklist: Correct Patient Identifier, Correct procedure, History checked Correct side: Right Blood Thinner: No Monitor Applied: EKG, BP, Pulse Oximetry Supplemental Oxygen via Nasal Cannula (L/min): 4 Sedation: Fentanyl (mcg): 100 Indication: Post Op Analgesia Pre-op Neuro Deficits: Yes Block Type: Femoral, Sciatic Catheter placed: No Sterile Technique: Yes Ultrasound used: Yes Anatomy identified: Yes Visual spread of Local: Yes Neuro Stimulation: Yes (For Sciatic) Nerve Stimulator Range: 0.2 - 0.4 mA Blood on Needle Aspiration: No Smooth Injection of Local: Yes Pain with Injection of Local: No Prep: Chlorhexadine Needle: 22 x 50 mm Stimuplex (Femoral), 21 x 100 mm Stimuplex (Sciatic) Local: Ropivacaine (0.5% (25mL Femoral, 25mL Sciatic)) Volume (cc): 50 Number of Attempts: 1 Complications: None/effective block Vitals: Post Vitals: 134/98, 116, 14, 98% 4LNC Comments: Patient tolerated procedure well. Reported decreased pain after each block. Able to tolerate increased movement of extremity after block.
[2016-10-04] MEDS ORDERED: *HR* Morphine 2 MG/ML SYRINGE IVP PRN (16:21)
[2016-10-04] MEDS ORDERED: Ondansetron 4 MG/2 ML VIAL IVP PRN ×2 (16:21→18:19)
[2016-10-04] MEDS ORDERED: Naloxone 0.4 MG/ML INJ IVP PRN ×2 (16:21→18:19)
--- NOTE | 2016-10-04 17:03 | Operative Note ---
Date of procedure: 10/04/16 Pre-op diagnosis: Peripheral vascular disease with gangrene Post-op diagnosis: same Procedure: Right below knee amputation Anesthesia: MAC, regional, local Surgeon: Franky De La Garza Estimated blood loss (cc): 100 Specimen: Right lower extremity Condition: stable Disposition: PACU Procedure in Detail: Indications: The patient is a 76 year old male with a history of peripheral vascular disease with gangrene. He underwent a transmetatarsal amputation, but the wound did not heal. He developed intractable pain and a nonhealing wound with gangrenous changes. A right below knee amputation was recommended. Procedure: The patient was identified in the holding area. The risks, benefits and alternatives were discussed and all questions were answered. The pateint underwent a femoral and sciatic nerve block. The patient was taken to the operating room and placed in the supine position on the operating room table. After the induction ofmonitored anesthesia care, the patient was cleaned and draped in the normal sterile fashion. The right lower extremity skin skin was demarcated with a below knee posterior flap. The skin was incised with a #10 blade. Using a process of blunt, sharp and electrocautery dissection, the muscle fascia was traversed. The periosteum was elevated off of the tibia. Using a powered saw, a notch was made in the anterior surface of the tibia and the tibia was then transected. The periosteum was elevated off the fibula and the fibula was divided with a bone cutter. The soft tissues were divided along the incision with an amputation knife. The artery and vein were clamped and then suture ligated with 0 silk suture. The nerve was grasped and transected as high as possible. The fibula was resected to above the tibia with a rongeur. A rasp was used to smooth the tibia. The wound was irrigated. Meticulous hemostasis was obtained through out the wound with electrocautery. The fascial layers were reapproximated with Vicryl suture. Skin was reapproximated with chloé. A sterile dressing was applied. The patient was then taken to the recovery room in stable condition.
--- NOTE | 2016-10-04 17:45 | Anesthesia Evaluation Post Op ---
Date of Encounter: 10/04/16 Time of Encounter: 17:44 - Vital Signs Vital Signs: Last Vital Signs Temp 97.8 F 10/04/16 17:33 Pulse 100 10/04/16 17:33 Resp 16 10/04/16 17:33 BP 130/82 10/04/16 17:33 Pulse Ox 98 10/04/16 17:33 - Lungs Lungs: Clear Ascult./Percussion - Airway Airway: Non-obstructed - Cardiovascular Irregular Rate, Baseline Rhythm - Mental Status Mental Status: Alert & Oriented, Answers Appropriately - Pain Pain Scale: 2 - Nausea Vomiting Nausea Vomiting: Not Present - Hydration Hydration: Ice chips - Discharge PostOp Status: Transfer Patient to floor
[2016-10-04] MEDS ORDERED: *HR* Heparin 5,000 UNIT/ML VIAL SQ SCH (18:00)
[2016-10-04] MEDS ORDERED: 0.9 % Sodium Chloride 1,000 ML IVC SCH (18:19)
[2016-10-04] MEDS ORDERED: *HR* Warfarin 4 MG TABLET PO SCH (18:19)
[2016-10-04] MEDS ORDERED: *HR* Labetalol 20 MG/4 ML SYRINGE IVP PRN (18:19)
[2016-10-04] MEDS ORDERED: *HR* Metoprolol 5 MG/5 ML VIAL IVP SCH (18:19)
[2016-10-04] MEDS ORDERED: Bisacodyl 10 MG RECTAL SUPPOSITORY RC PRN (18:19)
[2016-10-04] MEDS ORDERED: 0.9 % Sodium Chloride 1,000 ML ONE (18:23)
[2016-10-04] MEDS: Primidone 50 MG TABLET PO SCH (20:52)
[2016-10-04] MEDS: Sucralfate 1 GM TABLET PO SCH (20:53)
[2016-10-04] MEDS: Sennosides/Docusate Sodium TABLET PO SCH (20:54)
[2016-10-04] MEDS: ceFAZolin 2,000 MG in D5% in Water 100 ML IVPB SCH (22:38)
[2016-10-05] MEDS: *HR* Metoprolol 5 MG/5 ML VIAL IVP SCH ×5 (00:25→23:34)
[2016-10-05] MEDS ORDERED: Vancomycin 1,250 MG in D5% in Water 250 ML IVPB ONE (02:00)
[2016-10-05 06:11] LABS: Basophils # 0.1 K/mcL (0.0-0.2); Basophils % 0.6 %; Eosinophils # 0.2 K/mcL (0.0-0.6); Eosinophils % 1.6 %; Hematocrit 33.5 % (37.5-50.1); Immature Granulocytes % 0.9 % (0-4); Lymphocytes # 1.2 K/mcL (0.6-4.6); Lymphocytes % 12.3 %; Mean Corpuscular HGB Conc 32.8 g/dL (31.6-35.5); Mean Corpuscular Hemoglobin 32.8 pg (28.0-33.3); Mean Platelet Volume 10.2 fL (9.4-12.4); Monocytes # 1.2 K/mcL (0.0-1.3); Monocytes % 12.6 %; Neutrophils # 6.7 K/mcL (1.6-8.9); Platelet Count 280 K/mcL (140-400); Red Blood Count 3.35 M/mcL (4.19-5.50); Red Cell Distribution Width 15.7 % (11.5-14.5)
[2016-10-05] MEDS: *HR* Heparin 5,000 UNIT/ML VIAL SQ SCH ×2 (06:12→17:29)
[2016-10-05 06:30] LABS: BUN/Creatinine Ratio 13 (6-26); Blood Urea Nitrogen 9 mg/dL (8-26); Calcium 8.2 mg/dL (8.6-10.8); Carbon Dioxide 23 mEq/L (19-29); Chloride 104 mEq/L (98-109); Glucose 124 mg/dL (70-99); Osmolality,Calculated 280 (280-300); Sodium 135 mEq/L (136-145); eGFR For African Americans > 60 (> 60); eGFR For Non-African Americans > 60 (> 60)
[2016-10-05] MEDS: Magnesium Oxide 400 MG TABLET PO SCH (08:10)
[2016-10-05] MEDS: Multivit/Ca/Min/Fe/FA 1 TAB TABLET PO SCH (08:10)
[2016-10-05] MEDS: Sucralfate 1 GM TABLET PO SCH ×4 (08:11→21:24)
[2016-10-05] MEDS: predniSONE 5 MG TABLET PO SCH (08:11)
[2016-10-05] MEDS: Sennosides/Docusate Sodium TABLET PO SCH ×2 (08:11→21:26)
[2016-10-05] MEDS: Folic Acid 1 MG TABLET PO SCH (08:11)
[2016-10-05] MEDS: Primidone 50 MG TABLET PO SCH ×3 (08:11→21:25)
[2016-10-05] MEDS: ceFAZolin 2,000 MG in D5% in Water 100 ML IVPB SCH (08:12)
[2016-10-05] MEDS: (Leflunomide [Arava] 20 MG) PO SCH (08:29)
[2016-10-05] MEDS: FISH OIL PO SCH (08:29)
[2016-10-05] MEDS: DHA PO SCH (08:29)
[2016-10-05] MEDS: EPA PO SCH (08:29)
[2016-10-05] MEDS: OMEGA PO SCH (08:29)
[2016-10-05] MEDS: *HR* OxyCODONE/APAP 10/325 TABLET PO PRN ×3 (09:27→21:24)
--- NOTE | 2016-10-05 09:28 | Discharge Summary ---
<Tyree Tse - Last Filed: 10/06/16 12:50> Date of Encounter: 10/06/16 Time of Encounter: 12:50 - Discharge Diagnosis (1) Peripheral arterial disease Priority: Primary Status: Chronic Comments: Patient had severe ischemia and gangrene of the right lower extremity. He underwent a right [id number] amputation 2 days ago. He is stable this morning. The dressing was changed and the patient was judged appropriate for transfer back to the extended care facility today. Instructions were given to him and his in regards to medications wound care and therapy. - Discharge Medications Prescriptions: OxyCODONE/APAP 10/325 [Percocet 10/325 MG] 1 each PO Q4HR PRN #40 tablet PRN Reason: POSTOPERATIVE PAIN Home Medications: Calcium Carbonate [Calcium] 600 mg PO BID 02/20/16 [History] Folic Acid 3 mg PO DAILY 02/20/16 [History] Leflunomide [Arava] 20 mg PO DAILY 02/20/16 [History] Metoprolol [Lopressor] 50 mg PO BID 02/20/16 [History] Polyethylene Glycol 3350 [MiraLAX] 17 gm PO DAILY PRN 02/20/16 [History] Pravastatin Sodium [Pravachol] 80 mg PO HS 02/20/16 [History] PredniSONE 5 mg PO DAILY 02/20/16 [History] Primidone [Mysoline] 200 mg PO TID 02/20/16 [History] Warfarin [Coumadin] 4 mg PO SUMOWEFR 02/20/16 [History] Vit A/C/E AC/Znox/Cupric Oxide [Eye Vitamin-Minerals Tablet] 1 tab PO DAILY 02/24 [History] Warfarin Sodium [Coumadin] 6 mg PO TUTHSA 08/18/16 [History] [place]-3/Dha/Epa/Fish Oil [[place]-3 Fish Oil 1,000 mg Sfgl] 2,000 mg PO DAILY 07/27 [History] Docusate [Colace] 100 mg PO BID #30 capsule 09/13/16 [Rx] Bisacodyl [Dulcolax] 10 mg RC DAILY PRN #0 supp.rect 09/25/16 [Rx] GuaiFENesin ER [Mucinex] 600 mg PO BID 7 Days 09/25/16 [Rx] Magnesium Oxide [Mag-Ox] 400 mg PO DAILY 30 Days 09/25/16 [Rx] Morphine Sulfate SR (12 HR) [MS Contin] 15 mg PO Q12H #60 tablet.er 09/25/16 [Rx ] Sucralfate [Carafate] 1 gm PO QIDAC tablet 09/25/16 [Rx] Omeprazole [PriLOSEC] 20 mg PO BID 10/04/16 [History] Sennosides/Docusate Sodium [Senna Plus] 1 tab PO BID 10/04/16 [History] Diltiazem [Cardizem] 60 mg PO Q8HR tablet 10/05/16 [Rx] OxyCODONE/APAP 10/325 [Percocet 10/325 MG] 1 each PO Q4HR PRN #40 tablet [Rx] Allergies/Adverse Reactions: Allergies No Known Allergies Allergy (Verified 09/08/16 11:42) Date of admission: 10/04/16 17:48 Primary care physician: Grecia West DO Consults: 10/04/16 18:19 Consult to Physical Therapy [CONS] Routine Comment: Evaluate, develop and implement POC OT [Consult to Occupational Therapy] [CONS] Routine Comment: Evaluate, develop and implement POC 10/04/16 20:09 Consult to Respiratory Therapy [CONS] Stat Reason for Consult: cpap at Call Completed: Yes Procedure(s) Performed: right BKA Discharging clinician: Tyree Tse Anticipated date of discharge: 10/06/16 - Patient Status Disposition: Transfer SNF Condition: Good Functional capacity at discharge: wheelchair bound Overall status at discharge: patient is progressing back to baseline - Discharge Instructions Follow Up With: Franky De La Garza MD [Partnered Physician] - 11/02/16 1:20 pm Grecia West DO [Primary Care Provider] - (PT IS GOING TO REHAB, NO PCP APPOINTMENT NEEDED) Additional Instructions: Daily dressing changes to right BKA. This is a dry to dry Kerlix dressing with an Valeriy wrap. Beginning 5 days postoperatively the wound may be washed with soap and water. The patient may also use a shower. - Diet and Activity Activity: as per physical therapy Diet: low fat, low cholesterol - Hospital Course Hospital course: Mr. Eid is a 76 year old male With gangrene of the right foot and toes. The patient underwent a right below- the-knee amputation 2 days ago. The dressing was changed today. The staple line is intact. The flaps are viable. There is no signs of gross ischemia. - Time Spent with Patient Total time spent providing and/or coordinating discharge services: Exam Vital Signs, Last 4 Hours Temp Pulse Resp BP Pulse Ox 10/06/16 12:16 97.5 F L 105 16 119/85 95 10/06/16 11:14 86 General: Present: No Apparent Distress HEENT: Present: Atraumatic Cardiac: Present: Irregular Rhythm Neuro: Present: Alert and responsive, No focal deficits noted Vascular: Present: Amputation(s) (Right BKA is clean and dry. Patient has mild to moderate edema of the posterior flap. 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 He was seen by PT and OT. He will be discharged to rehab in stable condition without complication. Qualifiers: Peripheral atherosclerosis artery type: [place] artery Qualified Code(s): I70.261 - Atherosclerosis of [place] arteries of extremities with gangrene, right leg (2) Atrial fibrillation Priority: Secondary Status: Chronic Comments: The patient has chronic atrial fibrilllation. He had asymptomatic rapid ventricular response on the day of admission and was treated with a cardizem drip overnight. He was then converted to oral cardizem. He has been asymptomatic. Qualifiers: Atrial fibrillation type: chronic Qualified Code(s): I48.2 - Chronic atrial fibrillation (3) Chronic disease anemia Priority: Secondary Status: Chronic Comments: The patient has chronic disease anemia without evidence of ongoing blood loss. (4) Hyperlipidemia Priority: Secondary Status: Chronic Qualifiers: Hyperlipidemia type: mixed hyperlipidemia Qualified Code(s): E78.2 - Mixed hyperlipidemia (5) Hypertension Priority: Secondary Status: Chronic Qualifiers: Hypertension type: essential hypertension Qualified Code(s): I10 - Essential (primary) hypertension Date of admission: 10/04/16 17:48 Primary care physician: Grecia West DO Consults: 10/04/16 18:19 Consult to Physical Therapy [CONS] Routine Comment: Evaluate, develop and implement POC OT [Consult to Occupational Therapy] [CONS] Routine Comment: Evaluate, develop and implement POC 10/04/16 20:09 Consult to Respiratory Therapy [CONS] Stat Reason for Consult: cpap at hs Call Completed: Yes - Hospital Course Hospital course: Mr. Eid is a 76 year old male with a history of peripheral vascular disease. He had previously undergone a right transmetatarsal amputation which did not heal. He was admitted and underwent a right below knee amputation. He required a cardizem drip due to his atrial fibrillation on the day of admission He was converted to oral cardizem. He underwent PT/OT evaluation and was transferred to rehab on 10/06/16 without complication. - Time Spent with Patient Total time spent providing and/or coordinating discharge services: Exam Vital Signs, Last 4 Hours Temp Pulse Resp BP Pulse Ox 10/05/16 08:16 83 10/05/16 07:29 97.9 F 100 16 110/94 97 - VTE Documentation of Mechanical Device: Intermittent pneumatic compression device
--- NOTE | 2016-10-05 11:56 | Vascular/[facility] Progress Note ---
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 Pain controlled. PT/OT and social insurance adviser consulted. Qualifiers: Peripheral atherosclerosis artery type: [place] artery Qualified Code(s): I70.261 - Atherosclerosis of [place] arteries of extremities with gangrene, right leg (2) Atrial fibrillation Current Visit: Yes Status: Chronic AFIB with rapid ventricular response present on admission. Patient controlled with diltiazem drip overnight. Converted to oral diltiazem today. Qualifiers: Atrial fibrillation type: unspecified Qualified Code(s): I48.91 - Unspecified atrial fibrillation (3) Hypertension Current Visit: No Status: Chronic Qualifiers: Hypertension type: essential hypertension Qualified Code(s): I10 - Essential (primary) hypertension (4) Chronic disease anemia Current Visit: Yes Status: Chronic The patient is hemodynamically steble withotu evidence of ongoing blood loss. - Subjective Interval history: Patient reports significantly less pain after his amputation. He is comfortable and alert Vital Signs, Last 4 Hours Temp Pulse Resp BP Pulse Ox 10/05/16 11:02 98.0 F 108 16 149/79 97 10/05/16 08:16 83 - Physical Examination General: Present: Conversant, No Apparent Distress Cardiac: Present: Normal S1 and S2, Irregular Rhythm Lungs: Present: Normal Breath Sounds Neuro: Present: Alert and responsive, No focal deficits noted Vascular: Present: Surgical incisions (bandage dry) Abdomen: Present: Soft - VTE Documentation of Mechanical Device: Intermittent pneumatic compression device Results 10/05/16 05:57 10/05/16 05:57 Lab Results, Last 24 hours 10/05/16 10/05/16 05:57 05:57 WBC 9.3 Hgb 11.0 L Hct 33.5 L Plt Count 280 Sodium 135 L Potassium 4.0 Chloride 104 Carbon Dioxide 23 BUN 9 Creatinine 0.72 Glucose 124 H Calcium 8.2 L Consult Discharge Plan - Plan Referrals: Franky De La Garza MD [Partnered Physician] - 11/15/16 1:00 pm Grecia West DO [Primary Care Provider] - (PT IS GOING TO REHAB, NO PCP APPOINTMENT NEEDED) Prescriptions: OxyCODONE/APAP 10/325 [Percocet 10/325 MG] 1 each PO Q4HR PRN #40 tablet PRN Reason: POSTOPERATIVE PAIN
--- NOTE | 2016-10-05 12:02 | Physician Discharge Referral ---
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 Priority: Primary Status: Chronic (2) Atrial fibrillation Priority: Secondary Status: Chronic (3) Hypertension Priority: Secondary Status: Chronic (4) Chronic disease anemia Priority: Secondary Status: Chronic Prognosis: Good Aware of Diagnosis: Patient Aware of Prognosis: Patient - Transfer Medications Prescriptions: OxyCODONE/APAP 10/325 [Percocet 10/325 MG] 1 each PO Q4HR PRN #40 tablet PRN Reason: POSTOPERATIVE PAIN Home Medications: Calcium Carbonate [Calcium] 600 mg PO BID 02/20/16 [History] Folic Acid 3 mg PO DAILY 02/20/16 [History] Leflunomide [Arava] 20 mg PO DAILY 02/20/16 [History] Metoprolol [Lopressor] 50 mg PO BID 02/20/16 [History] Polyethylene Glycol 3350 [MiraLAX] 17 gm PO DAILY PRN 02/20/16 [History] Pravastatin Sodium [Pravachol] 80 mg PO HS 02/20/16 [History] PredniSONE 5 mg PO DAILY 02/20/16 [History] Primidone [Mysoline] 200 mg PO TID 02/20/16 [History] Warfarin [Coumadin] 4 mg PO SUMOWEFR 02/20/16 [History] Vit A/C/E AC/Znox/Cupric Oxide [Eye Vitamin-Minerals Tablet] 1 tab PO DAILY 02/24 [History] Warfarin Sodium [Coumadin] 6 mg PO TUTHSA 08/18/16 [History] [place]-3/Dha/Epa/Fish Oil [[place]-3 Fish Oil 1,000 mg Sfgl] 2,000 mg PO DAILY 07/27 [History] Docusate [Colace] 100 mg PO BID #30 capsule 09/13/16 [Rx] Bisacodyl [Dulcolax] 10 mg RC DAILY PRN #0 supp.rect 09/25/16 [Rx] GuaiFENesin ER [Mucinex] 600 mg PO BID 7 Days 09/25/16 [Rx] Magnesium Oxide [Mag-Ox] 400 mg PO DAILY 30 Days 09/25/16 [Rx] Morphine Sulfate SR (12 HR) [MS Contin] 15 mg PO Q12H #60 tablet.er 09/25/16 [Rx ] Sucralfate [Carafate] 1 gm PO QIDAC tablet 09/25/16 [Rx] Omeprazole [PriLOSEC] 20 mg PO BID 10/04/16 [History] Sennosides/Docusate Sodium [Senna Plus] 1 tab PO BID 10/04/16 [History] Diltiazem [Cardizem] 60 mg PO Q8HR tablet 10/05/16 [Rx] OxyCODONE/APAP 10/325 [Percocet 10/325 MG] 1 each PO Q4HR PRN #40 tablet [Rx] Allergies/Adverse Reactions: Allergies No Known Allergies Allergy (Verified 09/08/16 11:42) - Respiratory Orders Smoking Cessation: Smoking cessation has been advised. For more information, call the [place] Tobacco Quit Line at 4-663-LZKN-NOW. - Ancillary Orders May use pressure relief devices daily prn, May go on WILLIAM w/family/respon republican w /meds at nurse discretion PRN, May have alcoholic beverages, May consult with Dentist, Hose Coupling Joiner, Cardiology Clinical Consultant PRN - Advance Directives Living Will: No Power of Refrigeration Unit Repairer: No Code Status: Full Code - Mobility Orders Ambulate (WITH ASSISTANCE TOLERATED) - Rehabiliation Orders Rehab Potential: Good Rehab Orders: ROM Exercises, Evaluation for Physical Therapy, Evaluation for Occupational Therapy - Treatments Skin tear care topically daily PRN per policy, May check for fecal impaction rectally daily PRN, Fleet enema rectally every other day PRN cleansing purposes - Diet Orders Cardiac CERTIFICATION: I certify that the transfer of the above named patient to an Extended Care Facility is necessary for the continuing treatment of the diagnosis listed. The above information is true and accurate reflection of patient's current condition. Confidential - Redisclosure prohibited without a patient's written consent.
[2016-10-05 17:15] LABS: INR 3.5; Prothrombin Time 38.9 Seconds (9.4-12.1)
[2016-10-05] MEDS: *HR* Morphine 2 MG/ML SYRINGE IVP PRN ×2 (17:24→23:34)
[2016-10-05] MEDS: *HR* OxyCODONE Immed Rel 15 MG TABLET PO PRN (17:28)
[2016-10-06] MEDS: *HR* Heparin 5,000 UNIT/ML VIAL SQ SCH (06:10)
[2016-10-06] MEDS: *HR* Metoprolol 5 MG/5 ML VIAL IVP SCH ×2 (06:10→11:10)
[2016-10-06] MEDS: EPA PO SCH (07:23)
[2016-10-06] MEDS: FISH OIL PO SCH (07:23)
[2016-10-06] MEDS: DHA PO SCH (07:23)
[2016-10-06] MEDS: OMEGA PO SCH (07:23)
[2016-10-06] MEDS: (Leflunomide [Arava] 20 MG) PO SCH (07:23)
[2016-10-06] MEDS: Magnesium Oxide 400 MG TABLET PO SCH (07:41)
[2016-10-06] MEDS: predniSONE 5 MG TABLET PO SCH (07:41)
[2016-10-06] MEDS: Folic Acid 1 MG TABLET PO SCH (07:41)
[2016-10-06] MEDS: *HR* OxyCODONE/APAP 10/325 TABLET PO PRN (07:41)
[2016-10-06] MEDS: Sucralfate 1 GM TABLET PO SCH ×2 (07:41→11:11)
[2016-10-06] MEDS: Sennosides/Docusate Sodium TABLET PO SCH (07:41)
[2016-10-06] MEDS: Multivit/Ca/Min/Fe/FA 1 TAB TABLET PO SCH (07:41)
[2016-10-06] MEDS: *HR* Morphine 2 MG/ML SYRINGE IVP PRN (08:48)
[2016-10-06] MEDS: Primidone 50 MG TABLET PO SCH (08:49)
[2016-10-06] MEDS: *HR* OxyCODONE Immed Rel 15 MG TABLET PO PRN ×2 (09:33→15:37)
[2016-10-06 12:19] VITALS: BP 119/85
== END 2016-10-06 15:35 | DRG 241 ==
LOC: SAMDAY 13:44 → 2NNU 17:48
PROVIDERS: ADMIT Surgery; ATTEND Surgery

== ENCOUNTER 2017-02-24 16:02 | Observation (INO) ==
[2017-02-24 16:38] LABS: Basophils # 0.1 K/mcL (0.0-0.2); Basophils % 0.7 %; Eosinophils # 0.1 K/mcL (0.0-0.6); Eosinophils % 1.1 %; Hematocrit 42.3 % (37.5-50.1); Hemoglobin 13.5 g/dL (12.9-16.9); Immature Granulocytes % 0.6 % (0-4); Lymphocytes # 1.8 K/mcL (0.6-4.6); Lymphocytes % 20.7 %; Mean Corpuscular HGB Conc 31.9 g/dL (31.6-35.5); Mean Platelet Volume 10.3 fL (9.4-12.4); Monocytes # 0.8 K/mcL (0.0-1.3); Monocytes % 9.2 %; Neutrophils # 5.9 K/mcL (1.6-8.9); Platelet Count 168 K/mcL (140-400); Red Blood Count 4.36 M/mcL (4.19-5.50); Red Cell Distribution Width 21.1 % (11.5-14.5); Segmented Neutrophils % 67.7 %
[2017-02-24 16:46] LABS: INR 1.7; Prothrombin Time 18.6 Seconds (9.4-12.1)
--- NOTE | 2017-02-24 16:47 | Emergency Department Note ---
Disposition Clinical Impression: Transient ischemic attack Qualifiers: Transient cerebral ischemia type: unspecified Qualified Code(s): G45.9 - Transient cerebral ischemic attack, unspecified Disposition: Admitted As Inpatient Condition: Fair Time of Disposition: 18:11 Neuro HPI - General Chief Complaint: ED Neuro Symptoms/Deficit Stated Complaint: stroke like sx Time Seen by Provider: 02/24/17 16:21 Source: patient, family Mode of arrival: private vehicle Limitations: no limitations Nursing Notes Reviewed: Yes Vital Signs Reviewed: Yes - History of Present Illness HPI Narrative: 76-year-old male history of atrial fibrillation on Coumadin presents to the ED with for right leg weakness and stroke like symptoms. Earlier last night patient fell asleep on the recliner. He attempted to get up around 2:30 AM to use the bathroom and fell week on the right. He has a below knee amputation he was unable to move his stump. He attempted erases arms up and states the right arm felt heavier. denies any slurring of the speech or facial asymmetry. No history of stroke in the past. They attempted to have him evaluated but did not want to go to [facility]. Around 330 symptoms resolved. Patient now presents here for evaluation. He currently reports fatigue and improved weakness. He denies any other symptoms such as headache, changes in vision, chest pain, shortness of breath or abdominal pain. He takes Coumadin for is atrial fibrillation denies any recent fall injury. Stroke workup initiated. Stroke alert was not called. Onset of Symptoms Date: 02/24/17 Onset of Symptoms Time: 02:30 Symptom Onset Unknown: No Timing confirmed by: spouse Location: right arm, right leg History of same: No Severity: mild Quality: weakness Symptoms Improving: Yes Improves with: time Context: sudden onset On Anticoagulants: Yes (coumadin) Associated symptoms: Reports: denies other symptoms - Related Data Home Medications: Home Medications Medication Instructions Recorded Confirmed Folic Acid 3 mg PO DAILY 02/20/16 02/24/17 Leflunomide [Arava] 20 mg PO DAILY 02/20/16 02/24/17 Metoprolol [Lopressor] 100 mg PO BID 02/20/16 02/24/17 Polyethylene Glycol 3350 [MiraLAX] 17 gm PO DAILY PRN 02/20/16 02/24/17 Pravastatin Sodium [Pravachol] 80 mg PO HS 02/20/16 02/24/17 Primidone [Mysoline] 200 mg PO TID 02/20/16 02/24/17 Warfarin [Coumadin] 4 mg PO SUTUWETHFRSA 02/20/16 02/24/17 predniSONE [PredniSONE] 5 mg PO DAILY 02/20/16 02/24/17 Vit A/C/E AC/Znox/Cupric Oxide 1 tab PO DAILY 08/18/16 02/24/17 [Eye Vitamin-Minerals Tablet] Warfarin Sodium [Coumadin] 6 mg PO MO 08/18/16 02/24/17 [place]-3/Dha/Epa/Fish Oil [[place]-3 1,000 mg PO BID 09/08/16 02/24/17 Fish Oil 1,000 mg Sfgl] Calcium Carbonate/Vitamin D3 1 each PO BID 02/24/17 02/24/17 [Calcium 600-Vit D3 200 Tablet] Diltiazem HCl [Diltiazem ER] 240 mg PO DAILY 02/24/17 02/24/17 L. Acidophilus/Pectin, [place] 1 each PO DAILY 02/24/17 02/24/17 [Acidophilus Probiotic Capsule] Methotrexate [Otrexup] 10 mg PO MO 02/24/17 02/24/17 Pantoprazole Sodium [Protonix] 20 mg PO DAILY 02/24/17 02/24/17 Psyllium Husk [Daily Fiber] 0.52 gm PO DAILY 02/24/17 02/24/17 Previous Rx's Medication Instructions Recorded Sucralfate [Carafate] 1 gm PO QIDAC tablet 09/25/16 Allergies/Adverse Reactions: Allergies Allergy/AdvReac Type Severity Reaction Status Date / Time No Known Allergies Allergy Verified 09/08/16 11:42 All systems ED: reviewed and negative except as stated. Review of Systems: As Per HPI Constitutional: Reports: weakness. Denies: fever, chills Cardiovascular: Denies: chest pain, dyspnea on exertion Respiratory: Denies: cough, dyspnea Gastrointestinal: Denies: abdominal pain, nausea, vomiting Genitourinary: Denies: urgency, dysuria Musculoskeletal: Denies: back pain, neck pain Integumentary: Denies: rash, abrasion, lesions Neurological: Denies: headache Endocrine: Reports: fatigue Past Medical History - Past Medical History Attestation: Yes The following information was validated with the patient. Source: patient Medical history: Reports: arthritis, atrial fibrillation, CHF, hyperlipidemia, hypertension, kidney stones, peripheral artery disease, other Surgical history: Reports: herniorrhaphy, other Psychiatric history: Reports: no psych history - Social History Smoking Status: Former smoker Smokeless Tobacco Status: No Alcohol use: Reports: none Drug use: Reports: none Physical Exam - General Limitations: no limitations General appearance: alert, in no apparent distress - Head Head exam: atraumatic, normocephalic, normal inspection - Eye Eye exam: Present: normal appearance, PERRL, EOMI - ENT ENT exam: normal exam, normal oropharynx, mucous membranes moist - Neck Neck exam: Present: normal inspection, full ROM, trachea midline - Chest Chest inspection: Present: normal inspection, symmetric chest wall rise. Absent : tenderness, rash - Respiratory Respiratory exam: Present: normal lung sounds bilaterally. Absent: respiratory distress, wheezes - Cardiovascular Cardiovascular exam: Present: regular rate, normal rhythm, normal heart sounds - Abdominal Exam Abdominal exam: Present: soft, Non-Tender, normal bowel sounds. Absent: tenderness, distention, guarding, rebound, rigidity - Extremities Exam Extremities exam: Present: full ROM, normal capillary refill, other (Below knee amputation of the right extremity). Absent: tenderness, pedal edema - Neurological Exam Neurological exam: Present: alert, oriented X3, CN II-XII intact - Expanded Neurological Exam Patient oriented to: Present: person, place, time Speech: Present: fluid speech Cranial nerves: EOM function (II, III, IV, ): Normal, facial sensation (V): Normal, facial palsy (VII): Normal, gag reflex (IX): Normal, spinal accessory function (XI): Normal, tongue deviation (XII): Normal Motor strength - LUE: 5/5 Motor strength - RUE: 5/5 Motor strength - LLE: 5/5 Motor strength - RLE: 5/5 Upper motor neuron exam: cecelia neglect: Absent bilaterally, pronator drift: Absent bilaterally Sensory exam upper extremity: light touch: Normal Sensory exam lower extremity: light touch: Normal Course - Reevaluation(s) Reevaluation #1: Patient has complete resolution of his symptoms. Stroke alert was not initiated , not a TPA candidate. Stroke of workup initiated. CT does not show any hemorrhage. His troponin was elevated 0.05. His chronically elevated in the past. His INR is 1.7 for his atrial fibrillation. They give me further history regarding his amputation. Back in September he was diagnosed with a clot in his heart and at that time was taken off of Coumadin prior. He had a necrotic toe that resulted in leg ischemia and upload knee amputation. Because of this history they were concerned for clot in his brain causing the stroke like symptoms. Patient will be admitted. He has been given 324 mg aspirin. Impression is transient ischemic attack. - Consultations Consultation #1: Spoke with on-call hospitalist nevin Coker to admit for TIA and elevated troponin. No further orders at this time Time: 18:09 Vital Signs Temperature 97.6 F 02/24/17 16:05 Pulse Rate 105 02/24/17 16:05 Respiratory Rate 16 02/24/17 16:05 Blood Pressure 133/81 02/24/17 16:05 O2 Sat by Pulse Oximetry 96 02/24/17 16:05 Temperature 97.6 F 02/24/17 16:05 Pulse Rate 89 02/24/17 18:21 Respiratory Rate 16 02/24/17 18:30 Blood Pressure 142/72 02/24/17 18:30 O2 Sat by Pulse Oximetry 97 02/24/17 18:21 Oxygen Delivery Oxygen Delivery Room Air Neuro Symptoms/Deficit - Medical Records Medical records reviewed: Yes I reviewed the patient's medical records. - Lab Data Lab results reviewed: Yes I reviewed the patient's lab results. Result diagrams: 02/24/17 16:28 02/24/17 16:28 Lab Results 02/24/17 02/24/17 02/24/17 Range/Units 16:28 16:28 16:28 WBC 8.7 (4.3-11.1) K/mcL RBC 4.36 (4.19-5.50) M/mcL Hgb 13.5 (12.9-16.9) g/dL Hct 42.3 (37.5-50.1) % MCV 97.0 (83.0-100.0) fL MCH 31.0 (28.0-33.3) pg MCHC 31.9 (31.6-35.5) g/dL RDW 21.1 H (11.5-14.5) % Plt Count 168 (140-400) K/mcL MPV 10.3 (9.4-12.4) fL Immature Gran % 0.6 (0-4) % Seg Neutrophils % 67.7 % Lymphocytes % 20.7 % Monocytes % 9.2 % Eosinophils % 1.1 % Basophils % 0.7 % Neutrophils # 5.9 (1.6-8.9) K/mcL Lymphocytes # 1.8 (0.6-4.6) K/mcL Monocytes # 0.8 (0.0-1.3) K/mcL Eosinophils # 0.1 (0.0-0.6) K/mcL Basophils # 0.1 (0.0-0.2) K/mcL PT 18.6 H (9.4-12.1) Seconds INR 1.7 APTT 30.4 (26.0-36.0) Seconds Sodium 142 (136-145) mEq/L Potassium 4.0 (3.5-4.5) mEq/L Chloride 106 (98-109) mEq/L Carbon Dioxide 29 (19-29) mEq/L BUN 14 (8-26) mg/dL Creatinine 0.75 (0.72-1.25) mg/dL Est GFR ( Amer) > 60 (> 60) Est GFR (Non-Af Amer) > 60 (> 60) BUN/Creatinine Ratio 19 (6-26) Glucose 79 (70-99) mg/dL Calculated Osmolality 293 (280-300) Calcium 9.4 (8.6-10.8) mg/dL Troponin I (0-0.03) ng/mL 02/24/17 Range/Units 16:28 WBC (4.3-11.1) K/mcL RBC (4.19-5.50) M/mcL Hgb (12.9-16.9) g/dL Hct (37.5-50.1) % MCV (83.0-100.0) fL MCH (28.0-33.3) pg MCHC (31.6-35.5) g/dL RDW (11.5-14.5) % Plt Count (140-400) K/mcL MPV (9.4-12.4) fL Immature Gran % (0-4) % Seg Neutrophils % % Lymphocytes % % Monocytes % % Eosinophils % % Basophils % % Neutrophils # (1.6-8.9) K/mcL Lymphocytes # (0.6-4.6) K/mcL Monocytes # (0.0-1.3) K/mcL Eosinophils # (0.0-0.6) K/mcL Basophils # (0.0-0.2) K/mcL PT (9.4-12.1) Seconds INR APTT (26.0-36.0) Seconds Sodium (136-145) mEq/L Potassium (3.5-4.5) mEq/L Chloride (98-109) mEq/L Carbon Dioxide (19-29) mEq/L BUN (8-26) mg/dL Creatinine (0.72-1.25) mg/dL Est GFR ( Amer) (> 60) Est GFR (Non-Af Amer) (> 60) BUN/Creatinine Ratio (6-26) Glucose (70-99) mg/dL Calculated Osmolality (280-300) Calcium (8.6-10.8) mg/dL Troponin I 0.05 H* (0-0.03) ng/mL - Radiology Data Radiology results reviewed: Yes I reviewed the patient's radiology results. Chest X-Ray 02/24/17 16:22 IMPRESSION: No acute cardiopulmonary abnormality appreciated. Stable appearance of suspected mild left basilar atelectasis versus fibrosis. D/ / Tyree Roberts MD / Tyree Roberts MD Interpreting Provider: Tyree Roberts MD Head CT 02/24/17 16:57 IMPRESSION: No acute intracranial abnormality. D/ / Jose Samayoa MD / Jose Samayoa MD Interpreting Provider: Jose Samayoa MD - EKG Data EKG attestation: Yes I reviewed and interpreted this EKG. EKG results narrative: EKG performed 1613 atrial fibrillation with aberrancy QRS 148, occasional PVC. Review of his old EKG performed 01/12/2017 shows similar findings of atrial fibrillation with left bundle branch block. No acute ischemic changes. No Sgarbossa criteria. NIH Stroke Scale - Level of Consciousness LOC: Alert - LOC Questions LOC Questions: Answers both correctly - LOC Commands LOC Commands: Performs both correctly - Best Gaze Best Gaze: Normal - Visual Visual: No visual loss - Facial Palsy Facial Palsy: Normal - Motor Arms Motor Arm-Left: No drift for 10 seconds Motor Arm-Right: No drift for 10 seconds - Motor Legs Motor Leg-Left: No drift for 5 seconds Motor Leg-Right: No drift for 5 seconds - Limb Ataxia Limb Ataxia: Absent of affected limb too weak to perform exam - Sensory Sensory: Normal - Best Language Best Language: No aphasia - Dysarthria Dysarthria: Normal - Extinction and Inattention Extinction and Inattention: Normal - NIHSS Total Score NIHSS Total Score: 0 TPA Checklist - Source Information Source: Family - Eligibilty for IV tPA 1. LKW equal to or less than 4.5 hours be before treatment: No Attestation Statement - Attestation Attestation: I, Ashwin Seaman, examined this patient and my medical decision-making was reviewed with the CHARTER COORDINATOR/PA/Advanced Practice Nurse/Resident Physician. I agree with the documented findings, disposition and treatment plan as described except to the extent set forth below. 76-year-old male presents with concerns of possible CVA. Patient states he woke in the middle the night and was unable to move his right lower extremity or his right upper extremity. The symptoms gradually improved during the night and throughout the day however his symptoms still remained and so they wanted evaluation by the emergency department. Laboratory evaluation shows mildly elevated troponin at 0.05. Patient EKG shows atrial fibrillation with a rate of 77 and a left bundle branch block. Patient is on Coumadin for atrial fibrillation. CT of the head was negative for acute fracture or intracranial hemorrhage. Patient does not have neurologic deficit on exam in the emergency department. Patient given aspirin in the emergency department and will be admitted for further Evaluation of possible stroke.
[2017-02-24 16:49] LABS: Activated Partial Thrombo Time 30.4 Seconds (26.0-36.0)
[2017-02-24 16:51] LABS: BUN/Creatinine Ratio 19 (6-26); Blood Urea Nitrogen 14 mg/dL (8-26); Calcium 9.4 mg/dL (8.6-10.8); Carbon Dioxide 29 mEq/L (19-29); Chloride 106 mEq/L (98-109); Glucose 79 mg/dL (70-99); Osmolality,Calculated 293 (280-300); Sodium 142 mEq/L (136-145); eGFR For African Americans > 60 (> 60); eGFR For Non-African Americans > 60 (> 60)
[2017-02-24] MEDS ORDERED: Aspirin 81 MG TAB.CHEW PO STA (17:57)
--- NOTE | 2017-02-24 18:56 | Internal Med History&Physical ---
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, non contrasted head CT in the ER upon presentation was unremarkable, we will admit for further workup with 2D Echo for thrombus, valves and PFO, MRI brain w/o contrast for infarct, MRA head and neck to assess or high grade stenosis, will also get neurology to weigh in, lipitor and aspirin , will check A1c and lipid panel Qualifiers: Transient cerebral ischemia type: unspecified Qualified Code(s): G45.9 - Transient cerebral ischemic attack, unspecified (2) Subtherapeutic anticoagulation Current visit: Yes Status: Acute he is on coumadin for systemic anticoagulation for AFIB, his INR today is 1.7 which is subtherapeutic, we will continue his coumadin with daily INR (3) Hypertension Current visit: Yes Status: Chronic will hold home antihypertensive for permissive HTN in the first 24 hours, after which we will resume them with BP monitoring Qualifiers: Hypertension type: essential hypertension Qualified Code(s): I10 - Essential (primary) hypertension (4) Atrial fibrillation Current visit: Yes Status: Chronic chronic in nature and has been on Cardizem for rate control and warfarin for systemic anticoagulation, this condition was complicated by the 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, his current INR is subtherapeutic, we will continue warfarin with INR monitoring, Qualifiers: Atrial fibrillation type: chronic Qualified Code(s): I48.2 - Chronic atrial fibrillation (5) Rheumatoid arthritis Current visit: Yes Status: Chronic will continue his home regimen Qualifiers: Rheumatoid arthritis location: multiple sites Rheumatoid factor presence: unspecified presence Qualified Code(s): M06.9 - Rheumatoid arthritis, unspecified Internal Medicine - H&P: HPI Chief complaint: right sided weakness Admitted From: Emergency Dept Plans for Post Hospital Care: Home History of present illness: Mr. Eid is a 76 year old male with a hx of atrial fibrillation on systemic anticoagulation, no prior TIA or stroke was brought in today for right sided weakness. He reports being in his usual sate of health until last night when he went to bed. He and the both slept in the chair whilst watching TV. He awoke around 2:30 am to use the bathroom and realized he could not move the right lower extremity, the right upper extremity also felt heavier than usual. He called the Squad and they were informed that they had to go to [facility], they did not want to do that so they waited it out for a while. At around 3:30am his symptoms improved and he could move the right lower extremity much more than prior. They went back to sleep again at that point and awoke around 11am. It was then that they called his PCP who advised them to come to the ER for evaluation. All his symptoms had resolved by then. Past Med Surg Social Fam HX - Past Medical History Source: patient, old records reviewed Medical history: arthritis (rheumatoid), atrial fibrillation, CHF, hyperlipidemia, hypertension, kidney stones, peripheral artery disease, other ( essential tremor, Atrial thrombus in 09/2016) Psychiatric history: no psych history - Past Surgical History Surgical History: herniorrhaphy, other (right BKA) - Social History Smoking Status: Former smoker Smokeless Tobacco Status: No Alcohol use: none Drug use: none Current living situation: Home - Independent, With Family Activity Level: Independent ambulation Additional social history: he is a - Family History Mother Age at : 94 Cause of : Bone Cancer Hx Family Cardiac Disorders: No Hx Family Respiratory Disorders: No Hx Family Cancer: Yes - Additional Family History Additional family history: father of pancreatic cancer in his 50's, mother is in her 90's, she had breast cancer and HTN, maternal grandmother had a stroke, no family hx of Parkinson's disease Internal Medicine - H&P: Meds Folic Acid 3 mg PO DAILY 02/20/16 [History] Leflunomide [Arava] 20 mg PO DAILY 02/20/16 [History] Metoprolol [Lopressor] 100 mg PO BID 02/20/16 [History] Polyethylene Glycol 3350 [MiraLAX] 17 gm PO DAILY PRN 02/20/16 [History] Pravastatin Sodium [Pravachol] 80 mg PO HS 02/20/16 [History] Primidone [Mysoline] 200 mg PO TID 02/20/16 [History] Warfarin [Coumadin] 4 mg PO SUTUWETHFRSA 02/20/16 [History] predniSONE [PredniSONE] 5 mg PO DAILY 02/20/16 [History] Vit A/C/E AC/Znox/Cupric Oxide [Eye Vitamin-Minerals Tablet] 1 tab PO DAILY 02/24 [History] Warfarin Sodium [Coumadin] 6 mg PO MO 08/18/16 [History] [place]-3/Dha/Epa/Fish Oil [[place]-3 Fish Oil 1,000 mg Sfgl] 1,000 mg PO BID [History] Sucralfate [Carafate] 1 gm PO QIDAC tablet 09/25/16 [Rx] Calcium Carbonate/Vitamin D3 [Calcium 600-Vit D3 200 Tablet] 1 each PO BID 02/24 [History] Diltiazem HCl [Diltiazem ER] 240 mg PO DAILY 02/24/17 [History] L. Acidophilus/Pectin, [place] [Acidophilus Probiotic Capsule] 1 each PO DAILY [History] Methotrexate [Otrexup] 10 mg PO MO 02/24/17 [History] Pantoprazole Sodium [Protonix] 20 mg PO DAILY 02/24/17 [History] Psyllium Husk [Daily Fiber] 0.52 gm PO DAILY 02/24/17 [History] 3 Allergy/AdvReac Type Severity Reaction Status Date / Time No Known Allergies Allergy Verified 09/08/16 11:42 All Systems PM: A 10-system review of systems was performed and is negative for pertinent findings except as documented above in the HPI. - Constitutional Vitals: Temp Pulse Resp BP Pulse Ox 97.6 F 89 16 142/72 97 02/24/17 16:05 02/24/17 18:21 02/24/17 18:30 02/24/17 18:30 02/24/17 18:21 GENERAL: Adult male, Alert, not in acute distress, no facial weakness noted HEENT: NC/AT, EOMI, PERRLA, anicteric sclera, normal conjunctiva, supple, clear nares, moist mucous membranes, RESP: Lungs are clear to auscultation bilaterally, good AE bilaterally, No crackles or wheeze CARDIO: Irregularly irregular heart sounds with no murmurs, no JVD, no ankle edema GI: Soft, full, no tenderness, no organomegaly felt, normal bowel sounds heard MUSCULOSKELETAL: pill rolling tremor noted in bilateral upper extremities, + grossly normal movements bilaterally, right BKA NEUROLOGIC: CN 2-12 intact grossly. No gross motor/sensory deficit appreciated, PSYCHIATRY: AAO x 3. Mood is fair, SKIN: no skin rash or ulcers noted Internal Med - H&P Results - Labs CBC & Chem 7: 02/24/17 16:28 02/24/17 16:28 - Diagnostic Studies Chest x-ray Status: image reviewed by me CT scan - head Status: image reviewed by me
[2017-02-24] MEDS ORDERED: Naloxone 0.4 MG/ML INJ IVP PRN (18:58)
[2017-02-24] MEDS: *HR* Warfarin 4 MG TABLET PO SCH (21:41)
[2017-02-24] MEDS: Primidone 50 MG TABLET PO SCH (21:41)
[2017-02-25 05:22] LABS: INR 1.8; Prothrombin Time 19.3 Seconds (9.4-12.1)
[2017-02-25 05:33] LABS: Hemoglobin A1C 5.2 %
[2017-02-25 05:35] LABS: BUN/Creatinine Ratio 19 (6-26); Blood Urea Nitrogen 13 mg/dL (8-26); Calcium 8.6 mg/dL (8.6-10.8); Carbon Dioxide 22 mEq/L (19-29); Chloride 109 mEq/L (98-109); Chol/HDL Ratio 2.6 (0-4.9); Cholesterol 131 mg/dL (< 200); Glucose 61 mg/dL (70-99); HDL Cholesterol 50 mg/dL (40-59); LDL Cholesterol,Calculated 65 mg/dL (0-99); Magnesium 1.5 mg/dL (1.6-2.6); Osmolality,Calculated 286 (280-300); Phosphorous 2.6 mg/dL (2.3-4.7); Potassium 3.9 mEq/L (3.5-4.5); Sodium 139 mEq/L (136-145); Triglycerides 78 mg/dL (< 150); eGFR For African Americans > 60 (> 60); eGFR For Non-African Americans > 60 (> 60)
--- NOTE | 2017-02-25 07:58 | Internal Med Progress Note ---
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 (4) Elevated troponin I measurement Current Visit: No Status: Acute (5) Atrial fibrillation Current Visit: Yes Status: Chronic Qualifiers: Atrial fibrillation type: chronic Qualified Code(s): I48.2 - Chronic atrial fibrillation (6) Hypertension Current Visit: Yes Status: Chronic Qualifiers: Hypertension type: essential hypertension Qualified Code(s): I10 - Essential (primary) hypertension (7) Rheumatoid arthritis Current Visit: Yes Status: Chronic Qualifiers: Rheumatoid arthritis location: multiple sites Rheumatoid factor presence: unspecified presence Qualified Code(s): M06.9 - Rheumatoid arthritis, unspecified (8) Hyperlipidemia Current Visit: No Status: Chronic Qualifiers: Hyperlipidemia type: mixed hyperlipidemia Qualified Code(s): E78.2 - Mixed hyperlipidemia (9) DVT prophylaxis Current Visit: No Status: Acute - Subjective Interval history: pt with a hx of AFIb on coumadin with subtherapeutic INR is found to have transient neuro deficits, now resolved, he is outside the tPA window due to the time of presentation, his prior hx of atrial thrombus is concerning for an embolic stroke, non contrasted head CT in the ER upon presentation was unremarkable, we will admit for further workup with 2D Echo for thrombus, valves and PFO, MRI brain w/o contrast for infarct, MRA head and neck to assess or high grade stenosis, will also get neurology to weigh in, lipitor and aspirin , will check A1c and lipid panel - Constitutional Vitals: Temp Pulse Resp BP Pulse Ox 98.3 F 92 17 127/84 97 02/25/17 04:16 02/24/17 20:45 02/25/17 04:16 02/25/17 04:16 02/25/17 04:16 - Head Head exam: Present: atraumatic, normocephalic - Eye Eye exam: Present: PERRL, conjuntiva pink, sclera anicteric Pupils: Present: PERRL - Neck Neck exam general surgery: Present: supple, trachea midline. Absent: lymphadenopathy - Respiratory Respiratory exam: Present: CTAB. Absent: accessory muscle use, rales, rhonchi, wheezes - Cardiovascular Cardiovascular exam: Present: RRR, +S1, +S2. Absent: diastolic murmur, gallop, rubs, systolic murmur - GI/Abdominal GI/Abdominal exam: Present: normal bowel sounds, soft, no peritoneal signs. Absent: distended, tenderness - Extremities Exam Extremities exam: Present: warm, radial pulses palpable and symmetrical. Absent : calf tenderness, cyanotic, pedal edema - Neurological Exam Neurological exam: Present: CN II-XII intact, oriented X3, no focal deficits. Absent: pronater drift, facial droop, speech deficit - Skin Skin exam: Present: dry, intact Internal Medicine: Result - Labs CBC & Chem 7: 02/24/17 16:28 02/25/17 03:49 Labs: BMP 02/25/17 03:49 Sodium 139 Potassium 3.9 Chloride 109 Carbon Dioxide 22 BUN 13 Creatinine 0.70 L Glucose 61 L Calcium 8.6 - ABG Interpretation ABG results: PT/INR, D-dimer PT 19.3 Seconds (9.4-12.1) H 02/25/17 03:49 - Impressions Impressions Brain MRI 02/24/17 19:02 IMPRESSION: There is a tiny focus of recent ischemic change in the cortex at the left frontal parietal junction at the vertex. No focal flow significant narrowing or aneurysm in the head Limited MR angiogram of the neck due to a large amount of motion related artifact just distal to the carotid bifurcations. There is narrowing of both proximal internal carotid arteries ranging between 40 and 60%. Exact characterization is difficult due to the degree of artifact. No significant vertebral artery narrowing Mild small vessel ischemic changes otherwise noted. D/ / Franky Taveras / Franky Taveras Interpreting Provider: Franky Taveras Head MRA 02/24/17 19:02 IMPRESSION: There is a tiny focus of recent ischemic change in the cortex at the left frontal parietal junction at the vertex. No focal flow significant narrowing or aneurysm in the head Limited MR angiogram of the neck due to a large amount of motion related artifact just distal to the carotid bifurcations. There is narrowing of both proximal internal carotid arteries ranging between 40 and 60%. Exact characterization is difficult due to the degree of artifact. No significant vertebral artery narrowing Mild small vessel ischemic changes otherwise noted. D/ / Franky Taveras / Franyk Taveras Interpreting Provider: Franky Taveras Neck MRA 02/24/17 19:02 IMPRESSION: There is a tiny focus of recent ischemic change in the cortex at the left frontal parietal junction at the vertex. No focal flow significant narrowing or aneurysm in the head Limited MR angiogram of the neck due to a large amount of motion related artifact just distal to the carotid bifurcations. There is narrowing of both proximal internal carotid arteries ranging between 40 and 60%. Exact characterization is difficult due to the degree of artifact. No significant vertebral artery narrowing Mild small vessel ischemic changes otherwise noted. D/ / Franky Taveras / Franky Taveras Interpreting Provider: Franky Taveras Consult Discharge Plan - Plan Referrals: Tessa Brooks, [employer] [Primary Care Provider] -
[2017-02-25] MEDS: Cholecalciferol (D-3) 1,000 UNIT TABLET PO SCH (08:27)
[2017-02-25] MEDS: Folic Acid 1 MG TABLET PO SCH (08:28)
[2017-02-25] MEDS: predniSONE 5 MG TABLET PO SCH (08:28)
[2017-02-25] MEDS: Primidone 50 MG TABLET PO SCH ×3 (08:28→21:04)
[2017-02-25] MEDS: (Leflunomide [Arava] 20 MG) PO SCH (08:28)
--- NOTE | 2017-02-25 14:49 | Neurology - Consult Note ---
Date of Encounter: 02/25/17 Time of Encounter: 14:45 Assessment and Plan (1) CVA (cerebral vascular accident) Current Visit: Yes Status: Acute Small cortical cerebral infarct at the left posterior frontal/parietal cortex, in an elderly patient with atrial fibrillation CHF on coumadin with subtherapeutic INR. This appears to be embolic in etiology. Since INR was subtherapeutic, Treatment would be adjust coumadin dosage to bring INR therapeutic. Do not believe addig as Qualifiers: CVA mechanism: embolism Precerebral and cerebral artery: middle cerebral artery Laterality of affected vessel: left Qualified Code(s): I63.412 - Cerebral infarction due to embolism of left middle cerebral artery History of Present Illness Chief complaint: CVA and right sided weakness HPI: Mr. Eid is a 76 year old male with PMH significant for HTN, Atrial fibrillation, CHF, PVD, right BKA who developed acute onset of right sided weakness This occurred two days ago. Patient developed acute onset of right leg weakness he woke up with the symptoms. He has right BKA but after waking up he found to he could not move his right leg stump. No pain involved. His was checking his tongue and found to facial droop or tongue deviation. He has no speech difficulty and no mental status changes reported. He felt that his right arm was heavy. These weakness all subsequently improved. MRI of brain showed small acute infarct the the left posterior frontal parietal cortex. There is ADC map correlate. Patient has atrial fibrillation and initial INR 1.7. Not sure adding on Aspirin would provide additional benefits. he does have history of GI bleed from an ulcer, in 09/2016. Currently no signs of active bleeding. MRA of brain and neck showed no critical ICA stenosis, although images were not of good quality. The current event does not appear to be related to carotid artery pathology. Patient's neurological status improved significantly. Neurological prognosis of current CVA appears good. Patient to follow up with PCP and monitor INT and adjust coumadin doseage for optimal result. Past Med Surg Social Fam HX - Past Medical History Medical history: arthritis (rheumatoid), atrial fibrillation, CHF, hyperlipidemia, hypertension, kidney stones, peripheral artery disease, other ( essential tremor, Atrial thrombus in 09/2016) Psychiatric history: no psych history - Past Surgical History Surgical History: herniorrhaphy, other (right BKA) - Social History Smoking Status: Former smoker Smokeless Tobacco Status: No Alcohol use: none Drug use: none - Family History Mother Age at : 94 Cause of : Bone Cancer Hx Family Cardiac Disorders: No Hx Family Respiratory Disorders: No Hx Family Cancer: Yes Medications and Allergies Folic Acid 3 mg PO DAILY 02/20/16 [History] Leflunomide [Arava] 20 mg PO DAILY 02/20/16 [History] Metoprolol [Lopressor] 100 mg PO BID 02/20/16 [History] Polyethylene Glycol 3350 [MiraLAX] 17 gm PO DAILY PRN 02/20/16 [History] Pravastatin Sodium [Pravachol] 80 mg PO HS 02/20/16 [History] Primidone [Mysoline] 200 mg PO TID 02/20/16 [History] Warfarin [Coumadin] 4 mg PO SUTUWETHFRSA 02/20/16 [History] predniSONE [PredniSONE] 5 mg PO DAILY 02/20/16 [History] Vit A/C/E AC/Znox/Cupric Oxide [Eye Vitamin-Minerals Tablet] 1 tab PO DAILY 02/24 [History] Warfarin Sodium [Coumadin] 6 mg PO MO 08/18/16 [History] [place]-3/Dha/Epa/Fish Oil [[place]-3 Fish Oil 1,000 mg Sfgl] 1,000 mg PO BID [History] Sucralfate [Carafate] 1 gm PO QIDAC tablet 09/25/16 [Rx] Calcium Carbonate/Vitamin D3 [Calcium 600-Vit D3 200 Tablet] 1 each PO BID 02/24 [History] Diltiazem HCl [Diltiazem ER] 240 mg PO DAILY 02/24/17 [History] L. Acidophilus/Pectin, [place] [Acidophilus Probiotic Capsule] 1 each PO DAILY [History] Methotrexate [Otrexup] 10 mg PO MO 02/24/17 [History] Pantoprazole Sodium [Protonix] 20 mg PO DAILY 02/24/17 [History] Psyllium Husk [Daily Fiber] 0.52 gm PO DAILY 02/24/17 [History] 3 Allergy/AdvReac Type Severity Reaction Status Date / Time No Known Allergies Allergy Verified 09/08/16 11:42 All Systems: A 10-system review of systems was performed and is negative for pertinent findings except as documented above in the HPI. Physical Examination - Vital Signs Vital Signs: Initial Vital Signs Temp Pulse Resp BP Pulse Ox 97.6 F 105 16 133/81 96 02/24/17 16:05 02/24/17 16:05 02/24/17 16:05 02/24/17 16:05 02/24/17 16:05 - Constitutional General appearance: comfortable - Neurologic Sensorimotor examination: intact Detailed motor examination: grossly full strength in all extremities, other ( Patient has right BKA. ) Motor examination - right side: 5/5: deltoids, biceps, triceps, wrist flexion, wrist extension, reception interviewer, hip flexors, tibialis Anterior, quadriceps Motor examination - left side: 5/5: deltoids, biceps, triceps, wrist flexion, wrist extension, hip flexors, reception interviewer, quadriceps, tibialis Anterior, toe extension (EHL), plantarflexion Detailed sensory examination: intact Posture: other (None) Reflex and gait examination: intact Reflexes: Biceps: 2+, Triceps: 2+, Brachioradialis: 2+ Mental Status Examination: awake, alert, oriented to person, oriented to place, oriented to time, follows commands appropriately, answers questions appropriately, no agnosia, no aphasia, no aproxia Cranial nerve examination: PERRL, EOMI, visual tovar intact, corneal reflexes brisk symmetrically, sensory to face intact, mastication intact, no facial asymmetry is present, no dysarthria, hearing is intact symmetrically, soft palate elevates bilaterally upon phonation, gag reflex intact, flexes SCM and trapezius muscles symmetrically with full power, tongue protrudes midline, no atrophy or facial fasiculations present Results - Laboratory Findings CBC and BMP: 02/24/17 16:28 02/25/17 03:49 Abnormal lab findings: Abnormal lab results RDW 21.1 % (11.5-14.5) H 02/24/17 16:28 PT 19.3 Seconds (9.4-12.1) H 02/25/17 03:49 Creatinine 0.70 mg/dL (0.72-1.25) L 02/25/17 03:49 Glucose 61 mg/dL (70-99) L 02/25/17 03:49 Magnesium 1.5 mg/dL (1.6-2.6) L 02/25/17 03:49 Troponin I 0.05 ng/mL (0-0.03) H* 02/24/17 16:28 Consult Discharge Plan - Plan Referrals: Tessa Brooks CNP [Primary Care Provider] -
[2017-02-25] MEDS: *HR* Warfarin 4 MG TABLET PO SCH (16:59)
[2017-02-25] MEDS: *HR* Enoxaparin 80 MG/0.8 ML SYRINGE SQ SCH (16:59)
--- NOTE | 2017-02-25 17:07 | Electrocardiograph Report ---
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
[2017-02-25] MEDS ORDERED: Warfarin perPT PO PRN (18:00)
[2017-02-26 04:28] LABS: INR 2.1; Prothrombin Time 23.1 Seconds (9.4-12.1)
[2017-02-26] MEDS: *HR* Enoxaparin 80 MG/0.8 ML SYRINGE SQ SCH (05:30)
[2017-02-26 07:13] VITALS: BP 126/93
[2017-02-26] MEDS: Folic Acid 1 MG TABLET PO SCH (07:41)
[2017-02-26] MEDS: Cholecalciferol (D-3) 1,000 UNIT TABLET PO SCH (07:43)
[2017-02-26] MEDS: predniSONE 5 MG TABLET PO SCH (07:43)
[2017-02-26] MEDS: Primidone 50 MG TABLET PO SCH (07:43)
[2017-02-26] MEDS: (Leflunomide [Arava] 20 MG) PO SCH (07:44)
--- NOTE | 2017-02-26 07:54 | Discharge Summary ---
Date of Encounter: 02/26/17 Time of Encounter: 07:45 - Discharge Diagnosis (1) Transient ischemic attack Priority: Primary Status: Acute Qualifiers: Transient cerebral ischemia type: unspecified Qualified Code(s): G45.9 - Transient cerebral ischemic attack, unspecified (2) Subtherapeutic anticoagulation Priority: Secondary Status: Acute (3) Atrial thrombus Priority: Secondary Status: Chronic (4) Elevated troponin I measurement Priority: Secondary Status: Acute (5) Atrial fibrillation Priority: Secondary Status: Chronic Qualifiers: Atrial fibrillation type: chronic Qualified Code(s): I48.2 - Chronic atrial fibrillation (6) Hypertension Priority: Secondary Status: Chronic Qualifiers: Hypertension type: essential hypertension Qualified Code(s): I10 - Essential (primary) hypertension (7) Rheumatoid arthritis Priority: Secondary Status: Chronic Qualifiers: Rheumatoid arthritis location: multiple sites Rheumatoid factor presence: unspecified presence Qualified Code(s): M06.9 - Rheumatoid arthritis, unspecified (8) Hyperlipidemia Priority: Secondary Status: Chronic Qualifiers: Hyperlipidemia type: mixed hyperlipidemia Qualified Code(s): E78.2 - Mixed hyperlipidemia (9) DVT prophylaxis Priority: Secondary Status: Acute - Discharge Medications Prescriptions: Warfarin [Coumadin] 5 mg PO 1800 #30 tablet Home Medications: Folic Acid 3 mg PO DAILY 02/20/16 [History] Leflunomide [Arava] 20 mg PO DAILY 02/20/16 [History] Metoprolol [Lopressor] 100 mg PO BID 02/20/16 [History] Polyethylene Glycol 3350 [MiraLAX] 17 gm PO DAILY PRN 02/20/16 [History] Pravastatin Sodium [Pravachol] 80 mg PO HS 02/20/16 [History] Primidone [Mysoline] 200 mg PO TID 02/20/16 [History] predniSONE [PredniSONE] 5 mg PO DAILY 02/20/16 [History] Vit A/C/E AC/Znox/Cupric Oxide [Eye Vitamin-Minerals Tablet] 1 tab PO DAILY 02/24 [History] [place]-3/Dha/Epa/Fish Oil [[place]-3 Fish Oil 1,000 mg Sfgl] 1,000 mg PO BID [History] Sucralfate [Carafate] 1 gm PO QIDAC tablet 09/25/16 [Rx] Calcium Carbonate/Vitamin D3 [Calcium 600-Vit D3 200 Tablet] 1 each PO BID 02/24 [History] Diltiazem HCl [Diltiazem ER] 240 mg PO DAILY 02/24/17 [History] L. Acidophilus/Pectin, [place] [Acidophilus Probiotic Capsule] 1 each PO DAILY [History] Methotrexate [Otrexup] 10 mg PO MO 02/24/17 [History] Pantoprazole Sodium [Protonix] 20 mg PO DAILY 02/24/17 [History] Psyllium Husk [Daily Fiber] 0.52 gm PO DAILY 02/24/17 [History] Warfarin [Coumadin] 5 mg PO 1800 #30 tablet 02/26/17 [Rx] Allergies/Adverse Reactions: 3 Allergy/AdvReac Type Severity Reaction Status Date / Time No Known Allergies Allergy Verified 09/08/16 11:42 Procedures/tests Complete & Pending: Procedures Performed prior 72 hours Category Date Time Status MR angio head wo con [MR] Routine MRI 02/24/17 19:02 Completed MR angio neck wo/w con [MR] Routine MRI 02/24/17 19:02 Completed MR head/brain wo con [MR] Routine MRI 02/24/17 19:02 Completed EV echocardiogram Routine Y 02/25/17 22:37 Completed Date of admission: 02/24/17 18:13 Primary care physician: Tessa Brooks CNP Consults: 02/24/17 18:58 Consult to Neurology [CONS] Routine Consulting Provider: Neurology [facility] Reason for Consult: Pls assist in managing this pt with TIA, thanks Call Completed: No Discharging clinician: Bisi Russell Anticipated date of discharge: 02/26/17 - Patient Status Disposition: Home, Self-Care Condition: Fair Functional capacity at discharge: uses cane/walker Overall status at discharge: patient is progressing back to baseline - Discharge Instructions Follow Up With: Tessa Brooks CNP [Primary Care Provider] - Forms: ED Satisfaction Letter - Diet and Activity Activity: resume usual activities as tolerated Diet: advance to your usual diet (Continue to follow with you physical therapist and family doctor) Hospital course: Mr. Eid is a 76 year old male with PMH significant for intracardiac thrombus, HTN, Atrial fibrillation, CHF, PVD, right BKA who developed acute onset of right sided weakness This occurred two days ago. Patient developed acute onset of right leg weakness he woke up with the symptoms. He has right BKA but after waking up he found to he could not move his right leg stump. No pain involved. His was checking his tongue and found to facial droop or tongue deviation. He has no speech difficulty and no mental status changes reported. He felt that his right arm was heavy. These weakness all subsequently improved. MRI of brain showed small acute infarct the the left posterior frontal parietal cortex. There is ADC map correlate. Patient has atrial fibrillation and initial INR 1.7. Not sure adding on Aspirin would provide additional benefits. he does have history of GI bleed from an ulcer, in 09/2016. Currently no signs of active bleeding. MRA of brain and neck showed no critical ICA stenosis, although images were not of good quality. The current event does not appear to be related to carotid artery pathology. Patient's neurological status improved significantly. Neurological prognosis of current CVA appears good. Patient to follow up with PCP and monitor INT and adjust coumadin doseage for optimal result. Coumadin dose has been increased to 5 mg daily. He should continue to have PT/INR checked as outpatient 2 times a week for now and then upon discretion of his family doctor. - Time Spent with Patient Total time spent providing and/or coordinating discharge services: Greater than 30 minutes - Constitutional Vitals: Temp Pulse Resp BP Pulse Ox 98.7 F 81 15 126/93 97 02/26/17 07:08 02/26/17 07:08 02/26/17 07:08 02/26/17 07:08 02/26/17 05:18 - Head Head exam: Present: atraumatic, normocephalic - Eye Eye exam: Present: PERRL, conjuntiva pink, sclera anicteric Pupils: Present: PERRL - Neck Neck exam general surgery: Present: supple, trachea midline. Absent: lymphadenopathy - Respiratory Respiratory exam: Present: CTAB. Absent: accessory muscle use, rales, rhonchi, wheezes - Cardiovascular Cardiovascular exam: Present: RRR, +S1, +S2. Absent: diastolic murmur, gallop, rubs, systolic murmur - GI/Abdominal GI/Abdominal exam: Present: normal bowel sounds, soft, no peritoneal signs. Absent: distended, tenderness - Extremities Exam Extremities exam: Present: warm, radial pulses palpable and symmetrical. Absent : calf tenderness, cyanotic, pedal edema - Neurological Exam Neurological exam: Present: CN II-XII intact, oriented X3, no focal deficits. Absent: pronater drift, facial droop, speech deficit Additional comments: Right BKA - Skin Skin exam: Present: dry, intact
[2017-02-26] MEDS ORDERED: Magnesium Sulfate 2 GM in D5% in Water 100 ML IVPB ONE (08:43)
[2017-02-28] MEDS ORDERED: *HR* Warfarin 3 MG TABLET PO SCH (18:00)
[2017-02-28] MEDS ORDERED: *HR* Methotrexate 2.5 MG TABLET PO SCH (19:00)
== END 2017-02-26 13:51 | disposition home or self-care (01) ==
LOC: EMEROO 16:02 → 2NENU 16:02
PROVIDERS: ADMIT Family Medicine; ATTEND Internal Medicine

== ENCOUNTER 2018-02-15 13:58 | Inpatient (IN) ==
--- NOTE | 2018-02-15 14:42 | Emergency Department Note ---
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 3 weeks ago patient was treated for pneumonia require hospitalization and then discharge to senior living facility for rehab. Since then he has been at home with the . She reports that he appears to be "weak in the mind and weak in the voice". When I ask her to explain she states he is low to think an answer questions than usual. His voice sounds congested and denies any slurring of the speech. He is slow to move but does not have any weakness to his extremities. No recent fall or trauma to the head. He has completed his oral antibiotics and has been having his INR check on a weekly basis. 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 No fevers cough or congestion at home. Denies any pain such as chest pain and abdominal pain or shortness of breath. The states that he was displaying similar symptoms a week ago and was evaluated at outside facility where he was found to have fluid on the lungs as well as a high potassium of 6. They have seen a neurologist in the past and was not diagnosed with Parkinson's disease. Reports improved diarrhea, tested and negative C.diff. Pt Subjective Complaint: generalized weakness/fatigue Pain Scale: 0 - Related Data Home Medications Medication Instructions Recorded Confirmed Folic Acid 3 mg PO DAILY 02/20/16 02/15/18 Leflunomide [Arava] 20 mg PO DAILY 02/20/16 02/15/18 Pravastatin Sodium [Pravachol] 80 mg PO HS 02/20/16 02/15/18 Primidone [Mysoline] 250 mg PO TID 02/20/16 02/15/18 Vit A/C/E AC/Znox/Cupric Oxide 1 tab PO DAILY 08/18/16 02/15/18 [Eye Vitamin-Minerals Tablet] [place]-3/Dha/Epa/Fish Oil [[place]-3 1,000 mg PO BID 09/08/16 02/15/18 Fish Oil 1,000 mg Sfgl] Calcium Carbonate/Vitamin D3 1 each PO BID 02/24/17 02/15/18 [Calcium 600-Vit D3 200 Tablet] L. Acidophilus/Pectin, [place] 1 each PO DAILY 02/24/17 02/15/18 [Acidophilus Probiotic Capsule] Methotrexate [Otrexup] 10 mg PO MO 02/24/17 02/15/18 Pantoprazole Sodium [Protonix] 20 mg PO DAILY 02/24/17 02/15/18 Metoprolol Tartrate 50 mg PO BID 01/24/18 02/15/18 Verapamil HCl [Verapamil ER] 240 mg PO DAILY 01/24/18 02/15/18 Warfarin [Coumadin] 4 mg PO DAILY 01/24/18 02/15/18 Acetaminophen [Tylenol] 1,000 mg PO Q6HR PRN 02/15/18 02/15/18 Aspirin Enteric Coated [Aspirin EC] 81 mg PO DAILY 02/15/18 02/15/18 Furosemide [Lasix] 20 mg PO DAILY 02/15/18 02/15/18 PredniSONE [Yanet] 5 mg PO DAILY 02/15/18 02/15/18 Previous Rx's Medication Instructions Recorded Dicyclomine [Bentyl] 10 mg PO QID capsule 01/28/18 Allergies Allergy/AdvReac Type Severity Reaction Status Date / Time No Known Allergies Allergy Verified 01/24/18 19:13 All systems ED: reviewed and negative except as stated. Review of Systems: As Per HPI Constitutional: Reports: weakness. Denies: fever, chills ENT ED: Denies: congestion Cardiovascular: Denies: chest pain Respiratory: Denies: cough, dyspnea Gastrointestinal: Denies: abdominal pain, nausea, vomiting Musculoskeletal: Denies: back pain, neck pain Neurological: Reports: weakness. Denies: headache, numbness Past Medical History - Past Medical History Attestation: Yes The following information was validated with the patient. Source: patient Medical history: Reports: arthritis, atrial fibrillation, CHF, GI bleed, hyperlipidemia, hypertension, kidney stones, peripheral artery disease, other Surgical history: Reports: herniorrhaphy, other Psychiatric history: Reports: no psych history - Social History Smoking Status: Former smoker Smokeless Tobacco Status: No Alcohol use: Reports: none Drug use: Reports: none Physical Exam - General Limitations: no limitations General appearance: alert, in no apparent distress - Head Head exam: atraumatic, normocephalic, normal inspection - Eye Eye exam: Present: normal appearance, PERRL, EOMI. Absent: nystagmus - ENT ENT exam: normal exam, normal oropharynx, mucous membranes moist, other ( edentulous) - Neck Neck exam: Present: normal inspection, full ROM, trachea midline - Chest Chest inspection: Present: normal inspection, symmetric chest wall rise. Absent : tenderness - Respiratory Respiratory exam: Present: normal lung sounds bilaterally. Absent: respiratory distress, wheezes, stridor - Cardiovascular Cardiovascular exam: Present: normal rhythm, irregular rhythm, normal heart sounds - Expanded Cardiovascular Exam Peripheral pulses: 2+: radial (R), radial (L) - Abdominal Exam Abdominal exam: Present: soft, Non-Tender, normal bowel sounds. Absent: tenderness, distention, guarding, rebound, rigidity - Extremities Exam Extremities exam: Present: other (RIGHT BKA, NO BRADYKINESIA OR COGWHEEL RIGIDITY). Absent: tenderness, pedal edema, calf tenderness - Back Exam Back exam: Present: normal inspection, full ROM. Absent: tenderness - Neurological Exam Neurological exam: Present: alert, oriented X3, CN II-XII intact - Expanded Neurological Exam Patient oriented to: Present: person, place, time Speech: Present: fluid speech Cranial nerves: EOM function (II, III, IV, ): Normal, facial sensation (V): Normal, facial palsy (VII): Normal, gag reflex (IX): Normal, spinal accessory function (XI): Normal, tongue deviation (XII): Normal Cerebellar function: finger to nose: Normal Motor strength - LUE: 5/5 Motor strength - RUE: 5/5 Motor strength - LLE: 5/5 Motor strength - RLE: 5/5 Upper motor neuron exam: cecelia neglect: Absent bilaterally, pronator drift: Absent bilaterally Sensory exam upper extremity: light touch: Normal Sensory exam lower extremity: light touch: Normal Coma Scale Eye Opening: Spontaneous Coma Scale Motor Response: Obeys Commands Coma Scale Verbal Response: Oriented Coma Scale Total: 15 - Psychiatric Psychiatric exam: Present: normal affect, normal mood - Skin Skin exam: Present: warm, dry, intact, normal color. Absent: rash, cyanosis, diaphoresis Course Course Narrative: Patient presents with generalized weakness. This is been ongoing for several days. No recent falls or injuries. History of a fib on Coumadin. He denies any complaints at this time other than no recent cough and treatment for pneumonia. Patient has a right below knee and reputation and admits to be quite immobile. At this time will check basic labs, troponin, TSH as well as CT imaging of his chest to evaluate for possible pulmonary embolism and to better evaluate pneumonia. Patient is in agreement with this plan. - Reevaluation(s) Reevaluation #1: Patient denies any chest pain. EKG did not reveal any acute ischemic changes. His troponin is elevated 0.23 this is significantly elevated from his baseline of .05 labs or otherwise unremarkable. No renal insufficiency. Will administer aspirin pending CT of the head chest and abdomen and pelvis. Time: 15:37 Reevaluation #2: CT of the head is unremarkable. 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 So a stable defect in the atrium that is old. At this time will admit the patient for his generalized weakness and elevated troponin. He is currently anticoagulated with Coumadin for his atrial fibrillation, INR is therapeutic 2.3. Impression is elevated troponin, generalized weakness and aneurysm. Chest X-Ray 02/15/18 14:07 IMPRESSION: No acute cardiopulmonary disease. D/ / Ger White MD / Ger White MD Interpreting Provider: Ger White MD Abdomen/Pelvis CTA 02/15/18 14:47 IMPRESSION: 1. No acute aortic pathology. Moderate atherosclerotic changes throughout the thoracic and abdominal aorta as well as the iliac circulation. No aneurysm or dissection. 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 Moderate right external iliac artery stenosis proximally. 50-70% stenosis of the proximal SFA bilaterally. 2. No evidence of pulmonary embolic disease. 3. No acute pulmonary infiltrate. Mild interlobular septal thickening at the lung bases suggesting early interstitial edema. 4. Cardiomegaly with atherosclerotic changes in the coronary circulation. Stable filling defect in the right atrium inferiorly, likely thrombus. 5. Cholelithiasis and probable choledocholithiasis with no acute features. 6. Mild prostatomegaly. D/ / 02/15/2018 17:58:19 Bakari Gupta MD / iain Interpreting Provider: Bakari Gupta MD Chest CTA 02/15/18 14:47 IMPRESSION: 1. No acute aortic pathology. Moderate atherosclerotic changes throughout the thoracic and abdominal aorta as well as the iliac circulation. No aneurysm or dissection. 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 Moderate right external iliac artery stenosis proximally. 50-70% stenosis of the proximal SFA bilaterally. 2. No evidence of pulmonary embolic disease. 3. No acute pulmonary infiltrate. Mild interlobular septal thickening at the lung bases suggesting early interstitial edema. 4. Cardiomegaly with atherosclerotic changes in the coronary circulation. Stable filling defect in the right atrium inferiorly, likely thrombus. 5. Cholelithiasis and probable choledocholithiasis with no acute features. 6. Mild prostatomegaly. D/ / 02/15/2018 17:58:19 Bakari Gupta MD / iain Interpreting Provider: Bakari Gupta MD Head CT 02/15/18 14:47 IMPRESSION: No acute intracranial abnormality. Diffuse atrophic changes with findings suggesting chronic microvascular ischemia D/ / Julio Arcos MD / Julio Arcos MD Interpreting Provider: Julio Arcos MD Time: 18:10 - Consultations Consultation #1: Spoke with on-call hospitalist nevin Rachel to admit for generalized weakness and elevated troponin. No further orders at this time Time: 18:17 Vital Signs Temperature 98.4 F 02/15/18 13:58 Pulse Rate 100 02/15/18 13:58 Respiratory Rate 18 02/15/18 13:58 Blood Pressure 108/73 02/15/18 13:58 O2 Sat by Pulse Oximetry 92 02/15/18 13:58 Temperature 98.4 F 08/08/18 13:58 Pulse Rate 111 02/15/18 17:25 Respiratory Rate 18 02/15/18 17:25 Blood Pressure 127/104 02/15/18 17:25 O2 Sat by Pulse Oximetry 95 02/15/18 17:25 Oxygen Delivery Oxygen Delivery Room Air Weakness - MDM Narrative Medical decision making narrative: Patient was discussed with my attending physician who agrees with ED management and final disposition. They independently evaluated the patient. Please refer to their attestation to this encounter for additional information. This note was generated by [employer] voice recognition software and as a result grammatical or spelling errors may occur using this program. - Medical Records Medical records reviewed: Yes I reviewed the patient's medical records. - Lab Data Lab results reviewed: Yes I reviewed the patient's lab results. Result diagrams: 02/15/18 14:44 02/15/18 14:44 Lab Results 02/15/18 02/15/18 02/15/18 Range/Units 14:09 14:44 14:44 WBC 13.0 H (4.3-11.1) K/mcL RBC 4.17 L (4.19-5.50) M/mcL Hgb 13.7 (12.9-16.9) g/dL Hct 41.7 (37.5-50.1) % MCV 100.0 (83.0-100.0) fL MCH 32.9 (28.0-33.3) pg MCHC 32.9 (31.6-35.5) g/dL RDW 19.3 H (11.5-14.5) % Plt Count 201 (140-400) K/mcL MPV 10.6 (9.4-12.4) fL Immature Gran % 0.7 (0-4) % Seg Neutrophils % 82.9 % Lymphocytes % 9.7 % Monocytes % 4.6 % Eosinophils % 1.6 % Basophils % 0.5 % Neutrophils # 10.8 H (1.6-8.9) K/mcL Lymphocytes # 1.3 (0.6-4.6) K/mcL Monocytes # 0.6 (0.0-1.3) K/mcL Eosinophils # 0.2 (0.0-0.6) K/mcL Basophils # 0.1 (0.0-0.2) K/mcL PT (9.4-12.1) Seconds INR Sodium 138 (136-145) mEq/L Potassium 4.1 (3.5-5.1) mEq/L Chloride 103 (98-107) mEq/L Carbon Dioxide 27 (23-29) mEq/L BUN 27 H (8-23) mg/dL Creatinine 0.87 (0.70-1.30) mg/dL Est GFR ( Amer) > 60 (> 60) Est GFR (Non-Af Amer) > 60 (> 60) BUN/Creatinine Ratio 31 H (6-26) Glucose 131 H (70-105) mg/dL POC Glucose 172 H (70-99) mg/dL Calculated Osmolality 293 (280-300) Calcium 9.5 (8.6-10.3) mg/dL Total Bilirubin 0.8 (0.3-1.0) mg/dL AST 20 (13-39) Units/L ALT 25 (7-52) Units/L Alkaline Phosphatase 74 (34-104) Units/L Troponin I 0.23 H* (< 0.04) ng/mL Serum Total Protein 6.6 (6.4-8.9) g/dL Albumin 3.6 (3.5-5.7) g/dL Globulin 3.0 (2.4-3.5) g/dL Albumin/Globulin Ratio 1.2 (1.1-2.2) TSH 0.375 (0.340-5.600) mcIU/mL Urine Color (Yellow) Urine Clarity (Clear) Urine pH (5.0-8.0) pH Units Ur Specific [place] (1.010-1.025) Urine Protein (Neg-Trace) mg/dL Urine Glucose (UA) (Normal) mg/dL Urine Ketones (Negative) mg/dL Urine Blood (Negative) Urine Nitrite (Negative) Urine Bilirubin (Negative) Urine Urobilinogen (Normal) mg/dL Ur Leukocyte Esterase (Negative) Ur Culture Indicated? (NO) 02/15/18 02/15/18 Range/Units 14:44 16:40 WBC (4.3-11.1) K/mcL RBC (4.19-5.50) M/mcL Hgb (12.9-16.9) g/dL Hct (37.5-50.1) % MCV (83.0-100.0) fL MCH (28.0-33.3) pg MCHC (31.6-35.5) g/dL RDW (11.5-14.5) % Plt Count (140-400) K/mcL MPV (9.4-12.4) fL Immature Gran % (0-4) % Seg Neutrophils % % Lymphocytes % % Monocytes % % Eosinophils % % Basophils % % Neutrophils # (1.6-8.9) K/mcL Lymphocytes # (0.6-4.6) K/mcL Monocytes # (0.0-1.3) K/mcL Eosinophils # (0.0-0.6) K/mcL Basophils # (0.0-0.2) K/mcL PT 25.9 H (9.4-12.1) Seconds INR 2.3 Sodium (136-145) mEq/L Potassium (3.5-5.1) mEq/L Chloride (98-107) mEq/L Carbon Dioxide (23-29) mEq/L BUN (8-23) mg/dL Creatinine (0.70-1.30) mg/dL Est GFR ( Amer) (> 60) Est GFR (Non-Af Amer) (> 60) BUN/Creatinine Ratio (6-26) Glucose (70-105) mg/dL POC Glucose (70-99) mg/dL Calculated Osmolality (280-300) Calcium (8.6-10.3) mg/dL Total Bilirubin (0.3-1.0) mg/dL AST (13-39) Units/L ALT (7-52) Units/L Alkaline Phosphatase (34-104) Units/L Troponin I (< 0.04) ng/mL Serum Total Protein (6.4-8.9) g/dL Albumin (3.5-5.7) g/dL Globulin (2.4-3.5) g/dL Albumin/Globulin Ratio (1.1-2.2) TSH (0.340-5.600) mcIU/mL Urine Color Yellow (Yellow) Urine Clarity Clear (Clear) Urine pH 6.0 (5.0-8.0) pH Units Ur Specific [place] 1.018 (1.010-1.025) Urine Protein Negative (Neg-Trace) mg/dL Urine Glucose (UA) Normal (Normal) mg/dL Urine Ketones Negative (Negative) mg/dL Urine Blood Negative (Negative) Urine Nitrite Negative (Negative) Urine Bilirubin Negative (Negative) Urine Urobilinogen Normal (Normal) mg/dL Ur Leukocyte Esterase Negative (Negative) Ur Culture Indicated? NO (NO) - Radiology Data Radiology results reviewed: Yes I reviewed the patient's radiology results. Chest X-Ray 02/15/18 14:07 IMPRESSION: No acute cardiopulmonary disease. D/ / Ger White MD / Ger White MD Interpreting Provider: Ger White MD Abdomen/Pelvis CTA 02/15/18 14:47 IMPRESSION: 1. No acute aortic pathology. Moderate atherosclerotic changes throughout the thoracic and abdominal aorta as well as the iliac circulation. No aneurysm or dissection. 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 Moderate right external iliac artery stenosis proximally. 50-70% stenosis of the proximal SFA bilaterally. 2. No evidence of pulmonary embolic disease. 3. No acute pulmonary infiltrate. Mild interlobular septal thickening at the lung bases suggesting early interstitial edema. 4. Cardiomegaly with atherosclerotic changes in the coronary circulation. Stable filling defect in the right atrium inferiorly, likely thrombus. 5. Cholelithiasis and probable choledocholithiasis with no acute features. 6. Mild prostatomegaly. D/ / 02/15/2018 17:58:19 Bakari Gupta MD / iain Interpreting Provider: Bakari Gupta MD Chest CTA 02/15/18 14:47 IMPRESSION: 1. No acute aortic pathology. Moderate atherosclerotic changes throughout the thoracic and abdominal aorta as well as the iliac circulation. No aneurysm or dissection. 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 Moderate right external iliac artery stenosis proximally. 50-70% stenosis of the proximal SFA bilaterally. 2. No evidence of pulmonary embolic disease. 3. No acute pulmonary infiltrate. Mild interlobular septal thickening at the lung bases suggesting early interstitial edema. 4. Cardiomegaly with atherosclerotic changes in the coronary circulation. Stable filling defect in the right atrium inferiorly, likely thrombus. 5. Cholelithiasis and probable choledocholithiasis with no acute features. 6. Mild prostatomegaly. D/ / 02/15/2018 17:58:19 Bakari Gupta MD / iain Interpreting Provider: Bakari Gupta MD Head CT 02/15/18 14:47 IMPRESSION: No acute intracranial abnormality. Diffuse atrophic changes with findings suggesting chronic microvascular ischemia D/ / Julio Arcos MD / Julio Arcos MD Interpreting Provider: Julio Arcos MD - EKG Data EKG attestation: Yes I reviewed and interpreted this EKG. EKG results narrative: EKG performed 1410 atrial fibrillation 97 beats per minute, left bundle branch block, no Sgarbossa criteria. Compared to prior EKG performed 01/24/2018 shows similar consistent findings of a fib with left bundle branch block. No acute ischemic changes.
[2018-02-15 14:53] LABS: Basophils # 0.1 K/mcL (0.0-0.2); Basophils % 0.5 %; Eosinophils # 0.2 K/mcL (0.0-0.6); Eosinophils % 1.6 %; Hematocrit 41.7 % (37.5-50.1); Hemoglobin 13.7 g/dL (12.9-16.9); Immature Granulocytes % 0.7 % (0-4); Lymphocytes # 1.3 K/mcL (0.6-4.6); Lymphocytes % 9.7 %; Mean Corpuscular HGB Conc 32.9 g/dL (31.6-35.5); Mean Corpuscular Hemoglobin 32.9 pg (28.0-33.3); Mean Platelet Volume 10.6 fL (9.4-12.4); Monocytes # 0.6 K/mcL (0.0-1.3); Monocytes % 4.6 %; Neutrophils # 10.8 K/mcL (1.6-8.9); Platelet Count 201 K/mcL (140-400); Red Blood Count 4.17 M/mcL (4.19-5.50); Red Cell Distribution Width 19.3 % (11.5-14.5); Segmented Neutrophils % 82.9 %
[2018-02-15 14:57] LABS: INR 2.3; Prothrombin Time 25.9 Seconds (9.4-12.1)
[2018-02-15 15:19] LABS: Alanine Aminotransferase 25 Units/L (7-52); Albumin 3.6 g/dL (3.5-5.7); Albumin/Globulin Ratio 1.2 (1.1-2.2); Alkaline Phosphatase 74 Units/L (34-104); Aspartate Amino Transferase 20 Units/L (13-39); BUN/Creatinine Ratio 31 (6-26); Bilirubin,Total 0.8 mg/dL (0.3-1.0); Blood Urea Nitrogen 27 mg/dL (8-23); Calcium 9.5 mg/dL (8.6-10.3); Carbon Dioxide 27 mEq/L (23-29); Chloride 103 mEq/L (98-107); Glucose 131 mg/dL (70-105); Osmolality,Calculated 293 (280-300); Potassium 4.1 mEq/L (3.5-5.1); Sodium 138 mEq/L (136-145); Total Protein 6.6 g/dL (6.4-8.9); eGFR For Non-African Americans > 60 (> 60)
[2018-02-15 15:32] LABS: Thyroid Stimulating Hormone 0.375 mcIU/mL (0.340-5.600)
[2018-02-15 15:33] LABS: Troponin I 0.23 ng/mL (< 0.04)
[2018-02-15] MEDS ORDERED: Isovue-370 500 ML INFUS..BTL IV ONE (15:37)
[2018-02-15 16:49] LABS: Bilirubin,Urine Negative (Negative); Blood,Urine Negative (Negative); Clarity,Urine Clear (Clear); Color,Urine Yellow (Yellow); Glucose,Urine (UA) Normal (Normal); Ketones,Urine Negative (Negative); Leukocyte Esterase,Urine Negative (Negative); Nitrite,Urine Negative (Negative); Protein,Urine Negative (Neg-Trace); Specific Gravity,Urine 1.018 (1.010-1.025); Urobilinogen,Urine Normal (Normal)
[2018-02-15] MEDS: Isovue-370 500 ML INFUS..BTL IV ONE ×2 (17:07→17:10)
[2018-02-15] MEDS ORDERED: Aspirin 81 MG TAB.CHEW PO STA (17:08)
--- NOTE | 2018-02-15 17:34 | Emergency Department Note ---
Disposition Clinical Impression: Elevated troponin, Generalized weakness Disposition: Admitted As Inpatient Referrals: Tessa Brooks CNP [Primary Care Provider] - Forms: ED Satisfaction Letter General Adult HPI - General Chief complaint: ED Weakness Stated complaint: weakness Time Seen by Provider: 02/15/18 14:00 Source: patient, family () Mode of arrival: ambulatory Limitations: no limitations - History of Present Illness Pain Scale: 0 - Related Data Home Medications Medication Instructions Recorded Confirmed Folic Acid 3 mg PO DAILY 02/20/16 02/15/18 Leflunomide [Arava] 20 mg PO DAILY 02/20/16 02/15/18 Pravastatin Sodium [Pravachol] 80 mg PO HS 02/20/16 02/15/18 Primidone [Mysoline] 250 mg PO TID 02/20/16 02/15/18 Vit A/C/E AC/Znox/Cupric Oxide 1 tab PO DAILY 08/18/16 02/15/18 [Eye Vitamin-Minerals Tablet] [place]-3/Dha/Epa/Fish Oil [[place]-3 1,000 mg PO BID 09/08/16 02/15/18 Fish Oil 1,000 mg Sfgl] Calcium Carbonate/Vitamin D3 1 each PO BID 02/24/17 02/15/18 [Calcium 600-Vit D3 200 Tablet] L. Acidophilus/Pectin, [place] 1 each PO DAILY 02/24/17 02/15/18 [Acidophilus Probiotic Capsule] Methotrexate [Otrexup] 10 mg PO MO 02/24/17 02/15/18 Pantoprazole Sodium [Protonix] 20 mg PO DAILY 02/24/17 02/15/18 Metoprolol Tartrate 50 mg PO BID 01/24/18 02/15/18 Verapamil HCl [Verapamil ER] 240 mg PO DAILY 01/24/18 02/15/18 Warfarin [Coumadin] 4 mg PO DAILY 01/24/18 02/15/18 Acetaminophen [Tylenol] 1,000 mg PO Q6HR PRN 02/15/18 02/15/18 Aspirin Enteric Coated [Aspirin EC] 81 mg PO DAILY 02/15/18 02/15/18 Furosemide [Lasix] 20 mg PO DAILY 02/15/18 02/15/18 PredniSONE [Yanet] 5 mg PO DAILY 02/15/18 02/15/18 Previous Rx's Medication Instructions Recorded Dicyclomine [Bentyl] 10 mg PO QID capsule 01/28/18 Allergies Allergy/AdvReac Type Severity Reaction Status Date / Time No Known Allergies Allergy Verified 01/24/18 19:13 Constitutional: Reports: weakness. Denies: fever, chills ENT ED: Denies: congestion Cardiovascular: Denies: chest pain Respiratory: Denies: cough, dyspnea Gastrointestinal: Denies: abdominal pain, nausea, vomiting Musculoskeletal: Denies: back pain, neck pain Neurological: Reports: weakness. Denies: headache, numbness Past Medical History - Past Medical History Medical history: Reports: arthritis, atrial fibrillation, CHF, GI bleed, hyperlipidemia, hypertension, kidney stones, peripheral artery disease, other Surgical history: Reports: herniorrhaphy, other Psychiatric history: Reports: no psych history - Social History Smoking Status: Former smoker Smokeless Tobacco Status: No Alcohol use: Reports: none Drug use: Reports: none Physical Exam - General Limitations: no limitations General appearance: alert, in no apparent distress Course Vital Signs Temperature 98.4 F 02/15/18 13:58 Pulse Rate 100 02/15/18 13:58 Respiratory Rate 18 02/15/18 13:58 Blood Pressure 108/73 02/15/18 13:58 O2 Sat by Pulse Oximetry 92 02/15/18 13:58 Temperature 98.4 F 02/15/18 13:58 Pulse Rate 111 02/15/18 17:25 Respiratory Rate 18 02/15/18 17:25 Blood Pressure 127/104 02/15/18 17:25 O2 Sat by Pulse Oximetry 95 02/15/18 17:25 Oxygen Delivery Oxygen Delivery Room Air Medical Decision Making - Lab Data Result diagrams: 02/15/18 14:44 02/15/18 14:44 Lab Results 02/15/18 02/15/18 02/15/18 Range/Units 14:44 14:44 14:44 WBC 13.0 H (4.3-11.1) K/mcL RBC 4.17 L (4.19-5.50) M/mcL Hgb 13.7 (12.9-16.9) g/dL Hct 41.7 (37.5-50.1) % MCV 100.0 (83.0-100.0) fL MCH 32.9 (28.0-33.3) pg MCHC 32.9 (31.6-35.5) g/dL RDW 19.3 H (11.5-14.5) % Plt Count 201 (140-400) K/mcL MPV 10.6 (9.4-12.4) fL Immature Gran % 0.7 (0-4) % Seg Neutrophils % 82.9 % Lymphocytes % 9.7 % Monocytes % 4.6 % Eosinophils % 1.6 % Basophils % 0.5 % Neutrophils # 10.8 H (1.6-8.9) K/mcL Lymphocytes # 1.3 (0.6-4.6) K/mcL Monocytes # 0.6 (0.0-1.3) K/mcL Eosinophils # 0.2 (0.0-0.6) K/mcL Basophils # 0.1 (0.0-0.2) K/mcL PT 25.9 H (9.4-12.1) Seconds INR 2.3 Sodium 138 (136-145) mEq/L Potassium 4.1 (3.5-5.1) mEq/L Chloride 103 (98-107) mEq/L Carbon Dioxide 27 (23-29) mEq/L BUN 27 H (8-23) mg/dL Creatinine 0.87 (0.70-1.30) mg/dL Est GFR ( Amer) > 60 (> 60) Est GFR (Non-Af Amer) > 60 (> 60) BUN/Creatinine Ratio 31 H (6-26) Glucose 131 H (70-105) mg/dL Calculated Osmolality 293 (280-300) Calcium 9.5 (8.6-10.3) mg/dL Total Bilirubin 0.8 (0.3-1.0) mg/dL AST 20 (13-39) Units/L ALT 25 (7-52) Units/L Alkaline Phosphatase 74 (34-104) Units/L Troponin I 0.23 H* (< 0.04) ng/mL Serum Total Protein 6.6 (6.4-8.9) g/dL Albumin 3.6 (3.5-5.7) g/dL Globulin 3.0 (2.4-3.5) g/dL Albumin/Globulin Ratio 1.2 (1.1-2.2) TSH 0.375 (0.340-5.600) mcIU/mL Urine Color (Yellow) Urine Clarity (Clear) Urine pH (5.0-8.0) pH Units Ur Specific [place] (1.010-1.025) Urine Protein (Neg-Trace) mg/dL Urine Glucose (UA) (Normal) mg/dL Urine Ketones (Negative) mg/dL Urine Blood (Negative) Urine Nitrite (Negative) Urine Bilirubin (Negative) Urine Urobilinogen (Normal) mg/dL Ur Leukocyte Esterase (Negative) Ur Culture Indicated? (NO) 02/15/18 Range/Units 16:40 WBC (4.3-11.1) K/mcL RBC (4.19-5.50) M/mcL Hgb (12.9-16.9) g/dL Hct (37.5-50.1) % MCV (83.0-100.0) fL MCH (28.0-33.3) pg MCHC (31.6-35.5) g/dL RDW (11.5-14.5) % Plt Count (140-400) K/mcL MPV (9.4-12.4) fL Immature Gran % (0-4) % Seg Neutrophils % % Lymphocytes % % Monocytes % % Eosinophils % % Basophils % % Neutrophils # (1.6-8.9) K/mcL Lymphocytes # (0.6-4.6) K/mcL Monocytes # (0.0-1.3) K/mcL Eosinophils # (0.0-0.6) K/mcL Basophils # (0.0-0.2) K/mcL PT (9.4-12.1) Seconds INR Sodium (136-145) mEq/L Potassium (3.5-5.1) mEq/L Chloride (98-107) mEq/L Carbon Dioxide (23-29) mEq/L BUN (8-23) mg/dL Creatinine (0.70-1.30) mg/dL Est GFR ( Amer) (> 60) Est GFR (Non-Af Amer) (> 60) BUN/Creatinine Ratio (6-26) Glucose (70-105) mg/dL Calculated Osmolality (280-300) Calcium (8.6-10.3) mg/dL Total Bilirubin (0.3-1.0) mg/dL AST (13-39) Units/L ALT (7-52) Units/L Alkaline Phosphatase (34-104) Units/L Troponin I (< 0.04) ng/mL Serum Total Protein (6.4-8.9) g/dL Albumin (3.5-5.7) g/dL Globulin (2.4-3.5) g/dL Albumin/Globulin Ratio (1.1-2.2) TSH (0.340-5.600) mcIU/mL Urine Color Yellow (Yellow) Urine Clarity Clear (Clear) Urine pH 6.0 (5.0-8.0) pH Units Ur Specific [place] 1.018 (1.010-1.025) Urine Protein Negative (Neg-Trace) mg/dL Urine Glucose (UA) Normal (Normal) mg/dL Urine Ketones Negative (Negative) mg/dL Urine Blood Negative (Negative) Urine Nitrite Negative (Negative) Urine Bilirubin Negative (Negative) Urine Urobilinogen Normal (Normal) mg/dL Ur Leukocyte Esterase Negative (Negative) Ur Culture Indicated? NO (NO) Attestation Statement - Attestation Attestation: I examined this patient and my medical decision-making was reviewed with the Resident Physician. I agree with the documented findings, disposition and treatment plan as described except to the extent set forth below. 77 year old male presents to the ED with complaints of weakness without head injury or altered mental status and states that he is more fatigue than normal. Tiffanie has a cardiac histroy that consists of cardiac cath in 2005 with a 40% vessel blockage and although he is not coplaing of chest pain he is have exertinoal fatigue. Tiffanie troponin is elevated to 0.23 and we will obtain CT scan of his chest and abdomen to rule out dissection and then start heparin thearpy as this may be causation for increase [facility], currently on pravastatin for therapy
--- NOTE | 2018-02-15 20:26 | Internal Med History&Physical ---
<Emil Pryor - Last Filed: 02/15/18 21:14> Date of Encounter: 02/15/18 Time of Encounter: 20:25 Internal Medicine - H&P: HPI Chief complaint: weakness Admitted From: Emergency Dept Plans for Post Hospital Care: Home History of present illness: Mr. 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 He states symptoms have been gradual onset for the past 2 days. He was notably seen in the [facility] emergency department on Tuesday and was diagnosed with mild CHF exacerbation and discharged home. He was unsure if there are any new medications. He states his weakness is generalized with no focal deficits. 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 He does admit that his oral intake has been decreased over the past couple days but denies that he has been urinating more frequently. He denies any symptoms of chest pain, shortness of breath, nausea, vomiting, diarrhea, change in stool caliber, lower extremity swelling, numbness, tingling. He does state that he feels intermittently lightheaded but this is not exacerbated with frequent position changes as he does not move very quickly. In the emergency department, he was mildly tachycardic in the 100s, remainder of vital signs within normal limits. He was saturating high 90s on 2 L, no home oxygen dependency. Laboratory results were significant for a mild WBC elevation of 13, BUN/creatinine of 27/0.87 with a creatinine ratio of approximately 30. Troponin of 0.23. Urinalysis was negative for infection. CT head, CTA of the chest and abdomen were obtained in the emergency department and grossly negative for acute pathology. Past medical history as above Past surgical history significant for BKA on the right Social history, former smoker quitting approximately 20 years ago, denies alcohol or drug use Most recent echocardiogram on 02/25/17 showed an ejection fraction of 30% with indeterminate diastolic dysfunction. Past Med Surg Social Fam HX - Past Medical History Medical history: arthritis, atrial fibrillation, CHF, GI bleed, hyperlipidemia, hypertension, kidney stones, peripheral artery disease, other Additional medical history: LUCRECIA. Reports having a "blood clot behind the heart". Psychiatric history: no psych history - Past Surgical History Surgical History: herniorrhaphy, other Additional surgical history: Spinal fusion, lithotripsy, right BKA - Social History Smoking Status: Former smoker Smokeless Tobacco Status: No Alcohol use: none Drug use: none - Family History Mother Hx Family Cardiac Disorders: No Hx Family Respiratory Disorders: No Hx Family Cancer: Yes Father Hx Family Cancer: Yes (pancreatic) Internal Medicine - H&P: Meds Folic Acid 3 mg PO DAILY 02/20/16 [History] Leflunomide [Arava] 20 mg PO DAILY 02/20/16 [History] Pravastatin Sodium [Pravachol] 80 mg PO HS 02/20/16 [History] Primidone [Mysoline] 250 mg PO TID 02/20/16 [History] Vit A/C/E AC/Znox/Cupric Oxide [Eye Vitamin-Minerals Tablet] 1 tab PO DAILY 02/24 [History] [place]-3/Dha/Epa/Fish Oil [[place]-3 Fish Oil 1,000 mg Sfgl] 1,000 mg PO BID [History] Calcium Carbonate/Vitamin D3 [Calcium 600-Vit D3 200 Tablet] 1 each PO BID 02/24 [History] L. Acidophilus/Pectin, [place] [Acidophilus Probiotic Capsule] 1 each PO DAILY [History] Methotrexate [Otrexup] 10 mg PO MO 02/24/17 [History] Pantoprazole Sodium [Protonix] 20 mg PO DAILY 02/24/17 [History] Metoprolol Tartrate 50 mg PO BID 01/24/18 [History] Verapamil HCl [Verapamil ER] 240 mg PO DAILY 01/24/18 [History] Warfarin [Coumadin] 4 mg PO DAILY 01/24/18 [History] Dicyclomine [Bentyl] 10 mg PO QID capsule 01/28/18 [Rx] Acetaminophen [Tylenol] 1,000 mg PO Q6HR PRN 02/15/18 [History] Aspirin Enteric Coated [Aspirin EC] 81 mg PO DAILY 02/15/18 [History] Furosemide [Lasix] 20 mg PO DAILY 02/15/18 [History] PredniSONE [Yanet] 5 mg PO DAILY 02/15/18 [History] 3 Allergy/AdvReac Type Severity Reaction Status Date / Time No Known Allergies Allergy Verified 01/24/18 19:13 All Systems PM: A 10-system review of systems was performed and is negative for pertinent findings except as documented above in the HPI. - Constitutional Constitutional: weakness, no chills, no fever(s), no lethargy - Cardiovascular Cardiovascular ROS IM: lightheadedness, no chest pain, no diaphoresis, no dyspnea, no dyspnea on exertion, no edema, no orthopnea, no syncope - Respiratory Respiratory: no cough, no dyspnea, no hemoptysis, no dyspnea on exertion, no wheezing - Gastrointestinal Gastrointestinal: no abdominal pain, no constipation, no diarrhea, no hematemesis, no loose stools, no melena, no nausea, no vomiting - Genitourinary Genitourinary ROS male: no dysuria, no urinary frequency - Musculoskeletal Musculoskeletal ROS IM: no muscle weakness, no numbness, no tingling - Integumentary Integumentary IM: no rash - Neurological Neurological ROS: weakness, no dizziness, no numbness, no paresthesias, no tingling - Constitutional Vitals: Temp Pulse Resp BP Pulse Ox 98.4 F 118 18 126/85 94 02/15/18 13:58 02/15/18 19:55 02/15/18 20:08 02/15/18 20:08 02/15/18 19:55 Exam: Gen.: Vitals noted. No acute distress. AAOx3 HEENT: PERRL/EOMI, oropharynx clear, Normocephalic, atraumatic, mildly dry mucous membranes Cardiac: Irregularly irregular rhythm, mildly tachycardic, no murmur, +S1/S2 Pulmonary: CTA bilaterally, no wheezes, rales or rhonchi, equal chest expansion Abdomen: soft, nontender, BS noted, no guarding, no rebound. MSK: ROM intact, no joint swelling noted. Muscle strength grossly intact. Status post BKA on right Extremities: no BLE edema, nontender calf, no cyanosis or clubbing Neuro: A&Ox3, moves all extremities, no focal deficits Psych: Appropriate mood and behavior Internal Med - H&P Results - Labs CBC & Chem 7: 02/15/18 14:44 02/15/18 14:44 - Assessment and plan (1) Generalized weakness Current Visit: Yes Status: Acute Assessment and plan: - Generalized weakness of uncertain etiology - Most likely a result of dehydration. Patient reports recently presenting to emergency room at [facility] for CHF exacerbation and is unsure if he was given diuretics. BUNs/creatinine ratio of approximately 30 suggesting prerenal depletion. - Does appear mildly hemoconcentrated given mildly elevated white count, H/H of 13.7/41 which is mildly above his baseline. He does appear clinically dry on exam. - Most recent echocardiogram on 02/25/17 shows ejection fraction 30% with indeterminate diastolic dysfunction. - CT scans in emergency Department included CT head, CTA chest and abdomen which were grossly negative. Possibly early interstitial edema or this is questionable. - He is mildly tachycardic on presentation in the 110s Plan - We will give gentle fluid hydration at 75 mL per hour given history of CHF - PT/OT consult - Trend troponins - Obtain repeat echocardiogram - We will closely monitor and reassess fluid status (2) Dehydration Current Visit: Yes Status: Acute Assessment and plan: As above for generalized weakness (3) Leukocytosis Current Visit: Yes Status: Acute Assessment and plan: - WBC of 13 on presentation - Patient does tend to clinic sirs criteria however this is unlikely sepsis at this time. He has no source of infection and the leukocytosis and tachycardia are likely related to dehydration. - Leukocytosis likely secondary to hemoconcentration versus stress reaction - We will continue monitor and not start antibiotics at this time Qualifiers: Leukocytosis type: unspecified Qualified Code(s): D72.829 - Elevated white blood cell count, unspecified (4) Elevated troponin Current Visit: Yes Status: Acute Assessment and plan: Troponin 0.23 on presentation - Does have a cardiac history status post left heart catheterization remotely in 2006 - No complaints of chest pain, does take at home aspirin - Anticoagulated on Coumadin for atrial fibrillation, therapeutic INR - This is likely a type II demand ischemia secondary to volume depletion versus tachycardia - We will continue to trend. We will not start anticoagulation as he is on a therapeutic on his Coumadin - We will obtain a repeat echocardiogram as the previous is nearly a year old (5) Atrial fibrillation with rapid ventricular response Current Visit: Yes Status: Acute Assessment and plan: - Atrial fibrillation with rapid ventricular response presentation - RVR likely secondary to dehydration as above - He is anticoagulated with Coumadin at home and INR is therapeutic at 2.3 - We will treat underlying fluid deficit and continue to monitor. Continue home beta annelise once meds are reconciled (6) Hypertension Current Visit: Yes Status: Chronic Assessment and plan: Well-controlled at this time at 111/84 We will continue home medications Qualifiers: Hypertension type: essential hypertension Qualified Code(s): I10 - Essential (primary) hypertension (7) DVT prophylaxis Current Visit: Yes Status: Acute Assessment and plan: INR therapeutic at 2.3 for atrial fibrillation as above (8) Heart failure with reduced ejection fraction Current Visit: Yes Status: Chronic Assessment and plan: - Chronic heart failure without acute exacerbation - Most recent ejection fraction in February 2017 is 30% - We will be conservative with fluid administration at 75 per hour and reassess fluid status after 1 L - Repeat echo pending Qualifiers: Heart failure chronicity: chronic Qualified Code(s): I50.22 - Chronic systolic (congestive) heart failure - Time Spent With Patient Total time spent is greater than 50% in coordination of care (as documented) at patient's floor/unit and/or counseling patient: <Armando Munoz - Last Filed: 02/15/18 22:40> Date of Encounter: 02/15/18 Internal Medicine - H&P: HPI History of present illness: Mr. Eid is a 77 year old male All Systems PM: A 10-system review of systems was performed and is negative for pertinent findings except as documented above in the HPI. - Constitutional Vitals: Temp Pulse Resp BP Pulse Ox 98.0 F 112 18 111/84 95 02/15/18 20:41 02/15/18 20:41 02/15/18 20:41 02/15/18 20:41 02/15/18 21:52 Internal Med - H&P Results - Labs CBC & Chem 7: 02/15/18 14:44 02/15/18 14:44 Labs: Cardiac Enzymes 02/15/18 Range/Units 21:20 Troponin I 0.40 H* (< 0.04) ng/mL - Attending Attestation I have seen and examined the patient with Dr. Pryor and agree with his/ her assessment and plan. 77-year-old male with history of rheumatoid arthritis on immunosuppressants, HFrEF, AFib, presented to the ED with generalized weakness and dizziness on standing. He was recently treated for CHF exacerbation at [facility] presumably with diuretics. He had dry oral mucosa and clear lung sound on exam. Slightly tachycardic at 110-120s with normal BP. Troponin was mildly elevated at 0.023 and had leukocytosis of 13. BUN/ creatinine ratio slightly elevated. No infectious etiology identified on CT thorax/abdo/pelvis. No PE or aortic dissection. He was given ASA 324mg in the ED. We will give him a low rate of IV fluids today and assess the response of his HR. Elevated troponin could be due to demand ischemia from RVR episodes, will continue to trend as the distinction from type I vs II event will not change the mx (patient is anticoagulated with therapeutic INR). Will repeat Echocardiogram however since it is about a year old. Armando Munoz MD - Assessment and plan (1) Hypertension Current Visit: Yes Status: Chronic Qualifiers: Hypertension type: essential hypertension Qualified Code(s): I10 - Essential (primary) hypertension (2) DVT prophylaxis Current Visit: Yes Status: Acute (3) Atrial fibrillation with rapid ventricular response Current Visit: Yes Status: Acute (4) Elevated troponin Current Visit: Yes Status: Acute (5) Generalized weakness Current Visit: Yes Status: Acute (6) Dehydration Current Visit: Yes Status: Acute (7) Leukocytosis Current Visit: Yes Status: Acute Qualifiers: Leukocytosis type: unspecified Qualified Code(s): D72.829 - Elevated white blood cell count, unspecified (8) Heart failure with reduced ejection fraction Current Visit: Yes Status: Chronic Qualifiers: Heart failure chronicity: chronic Qualified Code(s): I50.22 - Chronic systolic (congestive) heart failure - Time Spent With Patient Total time spent is greater than 50% in coordination of care (as documented) at patient's floor/unit and/or counseling patient:
[2018-02-15] MEDS ORDERED: Acetaminophen 325 MG TABLET PO PRN (20:59)
[2018-02-15] MEDS ORDERED: Naloxone 0.4 MG/ML INJ IVP PRN (20:59)
[2018-02-15] MEDS ORDERED: *HR* HYDROcodone/Acet 5/325 mg TABLET PO PRN (20:59)
[2018-02-15] MEDS ORDERED: 0.9 % Sodium Chloride 1,000 ML IVC SCH (21:00)
[2018-02-15] MEDS ORDERED: *HR* Warfarin 4 MG TABLET PO ONE (22:45)
[2018-02-16 03:26] LABS: INR 2.3; Prothrombin Time 25.9 Seconds (9.4-12.1)
[2018-02-16 03:43] LABS: Troponin I 0.74 ng/mL (< 0.04)
[2018-02-16 06:18] LABS: Basophils # 0.1 K/mcL (0.0-0.2); Basophils % 0.9 %; Eosinophils # 0.3 K/mcL (0.0-0.6); Eosinophils % 2.7 %; Hematocrit 37.8 % (37.5-50.1); Hemoglobin 12.3 g/dL (12.9-16.9); Immature Granulocytes % 0.7 % (0-4); Lymphocytes # 1.4 K/mcL (0.6-4.6); Lymphocytes % 14.9 %; Mean Corpuscular HGB Conc 32.5 g/dL (31.6-35.5); Mean Corpuscular Hemoglobin 33.1 pg (28.0-33.3); Mean Corpuscular Volume 101.6 fL (83.0-100.0); Mean Platelet Volume 11.4 fL (9.4-12.4); Monocytes # 0.8 K/mcL (0.0-1.3); Monocytes % 8.9 %; Neutrophils # 6.6 K/mcL (1.6-8.9); Platelet Count 185 K/mcL (140-400); Red Blood Count 3.72 M/mcL (4.19-5.50); Red Cell Distribution Width 19.4 % (11.5-14.5); Segmented Neutrophils % 71.9 %
[2018-02-16 06:22] LABS: BUN/Creatinine Ratio 32 (6-26); Blood Urea Nitrogen 23 mg/dL (8-23); Calcium 8.5 mg/dL (8.6-10.3); Carbon Dioxide 24 mEq/L (23-29); Chloride 106 mEq/L (98-107); Glucose 99 mg/dL (70-105); Osmolality,Calculated 292 (280-300); Potassium 4.1 mEq/L (3.5-5.1); Sodium 139 mEq/L (136-145); eGFR For Non-African Americans > 60 (> 60)
--- NOTE | 2018-02-16 08:02 | Electrocardiograph Report ---
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
[2018-02-16] MEDS ORDERED: *HR* Warfarin 4 MG TABLET PO SCH (09:00)
[2018-02-16] MEDS ORDERED: predniSONE 5 MG TABLET PO SCH (09:00)
--- NOTE | 2018-02-16 10:01 | Internal Med Progress Note ---
<Pascale Juárez - Last Filed: 02/16/18 15:00> Hospitalist Progress Note - Encounter Date of Encounter: 02/16/18 Time of Encounter: 09:58 - Subjective Interval History: Pt examined in bed this morning. He states he is in no pain and feels much better than he did yesterday. He was able to sleep last night with the CPAP machine on and had no problems overnight. He says he feels less dehydrated than yesterday and wants to be able to drink water again. He denies any coughing, abdominal/chest pain, and headaches. 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 He has no acute changes or complaints. 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 Abd: non-tender, normal BSx4 - Assessment and Plan (1) Generalized weakness Current Visit: Yes Status: Acute Assessment and Plan: - Pt states he is feeling stronger since yesterday after receiving IV fluids - BUN/Cr of 32 suggestive of prerenal depletion - clinically dryness has improved mildly - continue IV fluid hydration at 75ml/hr given history of CHF - PT/OT consult - troponins trending - repeat echo today (2) Dehydration Current Visit: Yes Status: Acute Assessment and Plan: - as above for generalized weakness (3) Leukocytosis Current Visit: Yes Status: Acute Assessment and Plan: - WBC of 13, pt does not meet SIRS criteria and has no source of infection - likely secondary to hemoconcentration/dehydration vs stress reaction - monitor and do not start antibiotics (4) Elevated troponin Current Visit: Yes Status: Acute Assessment and Plan: - troponin 0.23 on presentation, trending, at 0.74 currently - cardiac history of left heart catheterization in 2005 - no c/o angina, pt does take aspirin at home - anticoagulated on coumadin for a. fib, therapuetic INR - likely a type II demand ischemia secondary to volume depletion vs. tachycardia - continue to trend troponin - repeat echo (5) Atrial fibrillation with rapid ventricular response Current Visit: Yes Status: Acute Assessment and Plan: - RVR likely secondary to dehydration as above - He is anticoagulated with Coumadin at home and INR is therapeutic at 2.3 - tx fluid deficit and continue to monitor - Continue home beta annelise once meds are reconciled (6) Hypertension Current Visit: Yes Status: Chronic Assessment and Plan: continue at home meds (7) DVT prophylaxis Current Visit: Yes Status: Acute Assessment and Plan: INR therapeutic at 2.3 for atrial fibrillation as above (8) Heart failure with reduced ejection fraction Current Visit: Yes Status: Chronic Assessment and Plan: - Chronic heart failure without acute exacerbation - Most recent ejection fraction in February 2017 is 30% - We will be conservative with fluid administration at 75 per hour and reassess fluid status after 1 L - Repeat echo pending - Summary of Assessment and Plan Summary of Assessment and Plan: Pt weakness is improving clinically after receiving IV fluids. Continue to monitor troponin levels and fluid replacement at 75ml/hr. Echo pending. Cardiology consulted. Removed patient from NPO diet since cardio will not do procedure today. - Time Spent with Patient Total time spent is greater than 50% in coordination of care (as documented) at patient's floor/unit and/or counseling patient: Internal Medicine: Result - Labs CBC & Chem 7: 02/16/18 03:00 02/16/18 03:00 Labs: Short CBC 02/16/18 Range/Units 03:00 WBC 9.2 (4.3-11.1) K/mcL Hgb 12.3 L (12.9-16.9) g/dL Hct 37.8 (37.5-50.1) % Plt Count 185 (140-400) K/mcL Neutrophils # 6.6 (1.6-8.9) K/mcL BMP 02/16/18 03:00 Sodium 139 Potassium 4.1 Chloride 106 Carbon Dioxide 24 BUN 23 Creatinine 0.72 Glucose 99 Calcium 8.5 L Cardiac Enzymes 02/16/18 Range/Units 03:00 Troponin I 0.74 H* (< 0.04) ng/mL - ABG Interpretation ABG results: PT/INR, D-dimer PT 25.9 Seconds (9.4-12.1) H 02/16/18 03:00 - VTE Documentation of Mechanical Device: Intermittent pneumatic compression device Consult Discharge Plan - Plan Referrals: Tessa Brooks, MARCELO [Primary Care Provider] - <Noah Cyr - Last Filed: 02/16/18 18:49> Hospitalist Progress Note - Encounter Date of Encounter: 02/16/18 - Exam Vitals: Temp Pulse Resp BP Pulse Ox 97.7 F 93 16 98/75 96 02/16/18 15:11 02/16/18 15:11 02/16/18 15:11 02/16/18 15:11 02/16/18 15:11 - Assessment and Plan (1) Hypotension Current Visit: Yes Status: Acute Assessment and Plan: Add Solucortef. May need to adjust meds for heart. (2) Heart failure with reduced ejection fraction Current Visit: Yes Status: Chronic (3) Hypertension Current Visit: Yes Status: Chronic (4) DVT prophylaxis Current Visit: Yes Status: Acute (5) Atrial fibrillation with rapid ventricular response Current Visit: Yes Status: Acute (6) Elevated troponin Current Visit: Yes Status: Acute (7) Generalized weakness Current Visit: Yes Status: Acute (8) Dehydration Current Visit: Yes Status: Acute (9) Leukocytosis Current Visit: Yes Status: Acute (10) Atrial fibrillation Current Visit: Yes Status: Chronic Assessment and Plan: Continue rate control meds. 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 (12) Rheumatoid arthritis Current Visit: No Status: Chronic Assessment and Plan: Continue home meds. - Time Spent with Patient Total time spent is greater than 50% in coordination of care (as documented) at patient's floor/unit and/or counseling patient: Internal Medicine: Result - Labs CBC & Chem 7: 02/16/18 03:00 02/16/18 03:00 Labs: Short CBC 02/16/18 Range/Units 03:00 WBC 9.2 (4.3-11.1) K/mcL Hgb 12.3 L (12.9-16.9) g/dL Hct 37.8 (37.5-50.1) % Plt Count 185 (140-400) K/mcL Neutrophils # 6.6 (1.6-8.9) K/mcL BMP 02/16/18 03:00 Sodium 139 Potassium 4.1 Chloride 106 Carbon Dioxide 24 BUN 23 Creatinine 0.72 Glucose 99 Calcium 8.5 L Cardiac Enzymes 02/16/18 02/16/18 Range/Units 03:00 08:40 Troponin I 0.74 H* 0.72 H* (< 0.04) ng/mL - ABG Interpretation ABG results: PT/INR, D-dimer PT 25.9 Seconds (9.4-12.1) H 02/16/18 03:00 - Attending Attestation The history, physical exam, and medical decision making was performed by the medical student either while I was physically present and actively involved or I personally re-performed the exam and medical decision making. I have verified the accuracy of the medical student's documentation with regards to the history, physical exam findings, and medical decision making on 02/16/18. Mr Eid is currently admitted for weakness and dyspnea with concern for cardiac disease. He remains moderate to high risk due to potential for worsening clinical status. Mr Eid is resting at this time. No fever or chills. BP has been lower. No GI issues. Echo pending. Appreciate cardiology input. Exam alert Comfortable Mucus membranes dry Heart irreg - not tachy No wheeze now Abd soft No edema I/P 1. Hypotension -? meds versus other. Pt chronically on Prednisone. Will give IV solucortef now. 2. A fib 3. Weakness Coumadin on hold at this time. Anticipate need heparin bridge tomorrow. <Pascale Juárez L - Last Filed: 02/16/18 15:00> (3) Leukocytosis Qualifiers: Leukocytosis type: unspecified Qualified Code(s): D72.829 - Elevated white blood cell count, unspecified (6) Hypertension Qualifiers: Hypertension type: essential hypertension Qualified Code(s): I10 - Essential (primary) hypertension (8) Heart failure with reduced ejection fraction Qualifiers: Heart failure chronicity: chronic Qualified Code(s): I50.22 - Chronic systolic (congestive) heart failure <Noah Cyr - Last Filed: 02/16/18 18:49> (1) Hypotension Qualifiers: Hypotension type: other hypotension type Qualified Code(s): I95.89 - Other hypotension (2) Heart failure with reduced ejection fraction Qualifiers: Heart failure chronicity: chronic Qualified Code(s): I50.22 - Chronic systolic (congestive) heart failure (3) Hypertension Qualifiers: Hypertension type: essential hypertension Qualified Code(s): I10 - Essential (primary) hypertension (9) Leukocytosis Qualifiers: Leukocytosis type: unspecified Qualified Code(s): D72.829 - Elevated white blood cell count, unspecified (10) Atrial fibrillation Qualifiers: Atrial fibrillation type: chronic Qualified Code(s): I48.2 - Chronic atrial fibrillation (12) Rheumatoid arthritis Qualifiers: Rheumatoid arthritis location: multiple sites Rheumatoid factor presence: unspecified presence Qualified Code(s): M06.9 - Rheumatoid arthritis, unspecified
[2018-02-16] MEDS: Omega-3 Fish Oil 1,000 Mg PO SCH ×2 (10:09→23:01)
[2018-02-16] MEDS: Multivit/Ca/Min/Fe/FA 1 TAB TABLET PO SCH (10:09)
[2018-02-16] MEDS: Calcium 600-Vit D3 PO SCH ×2 (10:09→23:00)
[2018-02-16] MEDS: Lactobacillus 1 EACH CAP.SPRINK PO SCH (10:11)
[2018-02-16] MEDS: Verapamil ER (24 HR) 240 MG TABLET.ER PO SCH (10:11)
[2018-02-16] MEDS: Folic Acid 1 MG TABLET PO SCH (10:11)
[2018-02-16] MEDS: Aspirin Enteric Coated 81 MG Tablet PO SCH (10:11)
--- NOTE | 2018-02-16 11:45 | Cardiology Consult Note ---
Date of Encounter: 02/16/18 Time of Encounter: 11:39 Assessment and Plan (1) Acute CHF Current Visit: Yes Status: Acute Suspect acute on chronic systolic CHF. EF was estimated to be 30% 02/2017 (new diagnosis). Repeat echo with definity. Presented with worsening dyspnea, per ongoing for months that worsened over recent days. Seen at [facility] ED , diagnosed with CHF and started on PO Lasix. PCP decreased dose and symptoms returned. CXR negative. CTA suggestive of edema. Start IV Lasix for diuresis. Will discuss with Dr. Keller on dosing. Renal function normal. Recommend strict I/Os, Na and fluid restriction, daily weights. Qualifiers: Heart failure type: systolic Qualified Code(s): I50.21 - Acute systolic ( congestive) heart failure (2) Cardiomyopathy Current Visit: Yes Status: Acute EF previously preserved--50% 09/2017, then reduced to 30% 02/2018. ICMP vs NICMP. No recent ischemic evaluation. Per , LHC >10 years ago with a 40% blockage. Pt with PAD s/p R BKA--equivalent for CAD. Given CMP, peak troponin 0.74, anticipate LHC during stay to further evaluate. Recheck TTE. INR 2.3 on Coumadin. Plan to hold Coumadin in anticipation of LHC. Will need bridged with Heparin gtt when INR <2 given apical thrombus still noted on CTA. Continue BB. BP currently marginal and will not tolerate ACEi. 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 Stable filling defect in the right atrium inferiorly, likely thrombus. Atrial thrombus likely secondary to A-Fib. Anticoagulated on Coumadin, INR 2.3. Will need bridged with heparin when INR is <2, hold Coumadin for LHC. (4) Atrial fibrillation Current Visit: Yes Status: Chronic Known A-Fib. HR 80s-low 100s at bedside. 12 hr tele AVG HR 99. On BB and CCB. Anticoagulated on Coumadin. BP marginal, unable to uptitrate current meds. Qualifiers: Atrial fibrillation type: chronic Qualified Code(s): I48.2 - Chronic atrial fibrillation (5) Elevated troponin I measurement Current Visit: Yes Status: Acute Troponins 0.23, 0.40, 0.74, 0.72 in setting of CHF exacerbation. Demand ischemia vs NSTEMI. Anticipate LHC inpt as above. Discussion w patient/family: The assessment and plan as outlined above was discussed with the patient and/or family members who expressed understanding and agreement. All questions were answered. Thank you for involving us in the care of your patient. Please call with any questions. I will discuss and review all the above with Dr. Keller and make changes as necessary. History of Present Illness Consult date: 02/16/18 Consult reason: Elevated troponin, CHF Chief complaint: dyspnea, weakness History of present illness: Mr. Eid is a 77 year old male PMH of atrial fibrillation, hyperlipidemia, hypertension, PVD-- hx R BKA, Parkinson's disease, obstructive sleep apnea, history of atrial thrombus and history of CVA February 2017. Per , she has noticed the pt has been more short of breath for months, unable to walk from his recliner to the car without taking a break to catch his breath. He denies chest pain. Dyspnea worsened over the past week associated with generalized weakness. Pt presented to [facility] ED night, was reportedly diagnosed with CHF exacerbation and sent home with PO Lasix 40mg daily. He took that for a couple days, felt better, then PCP reduced dose to 20mg daily and symptoms started worsening again, prompting ED evaluation. CXR no acute process. 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 Mild interlobular septal thickening at the lung bases suggesting early interstitial edema. Stable filling defect in the right atrium inferiorly, likely thrombus. Troponins 0.23, 0.40, 0.74, 0.72. TTE 09/2016 EF was 50%. Repeat TTE 02/2018 EF reduced 30%. Cardiology consulted for further recs. Per , pt had LHC >10 years ago with 40% lesion at that time. No recent ischemic evaluation. Past Med Surg Social Fam HX - Past Medical History Medical history: arthritis, atrial fibrillation, CHF, GI bleed, hyperlipidemia, hypertension, kidney stones, peripheral artery disease, other Additional medical history: LUCRECIA. Reports having a "blood clot behind the heart". Psychiatric history: no psych history - Past Surgical History Surgical History: herniorrhaphy, other Additional surgical history: Spinal fusion, lithotripsy, right BKA - Social History Smoking Status: Former smoker Smokeless Tobacco Status: No Alcohol use: none Drug use: none - Family History Mother Hx Family Cardiac Disorders: No Hx Family Respiratory Disorders: No Hx Family Cancer: Yes Father Hx Family Cancer: Yes (pancreatic) Medications and Allergies Folic Acid 3 mg PO DAILY 02/20/16 [History] Leflunomide [Arava] 20 mg PO DAILY 02/20/16 [History] Pravastatin Sodium [Pravachol] 80 mg PO HS 02/20/16 [History] Primidone [Mysoline] 250 mg PO TID 02/20/16 [History] Vit A/C/E AC/Znox/Cupric Oxide [Eye Vitamin-Minerals Tablet] 1 tab PO DAILY 02/24 [History] Lamar-3/Dha/Epa/Fish Oil [Lamar-3 Fish Oil 1,000 mg Sfgl] 1,000 mg PO BID [History] Calcium Carbonate/Vitamin D3 [Calcium 600-Vit D3 200 Tablet] 1 each PO BID 02/24 [History] L. Acidophilus/Pectin, [place] [Acidophilus Probiotic Capsule] 1 each PO DAILY [History] Methotrexate [Otrexup] 10 mg PO MO 02/24/17 [History] Pantoprazole Sodium [Protonix] 20 mg PO DAILY 02/24/17 [History] Metoprolol Tartrate 50 mg PO BID 01/24/18 [History] Verapamil HCl [Verapamil ER] 240 mg PO DAILY 01/24/18 [History] Warfarin [Coumadin] 4 mg PO DAILY 01/24/18 [History] Dicyclomine [Bentyl] 10 mg PO QID capsule 01/28/18 [Rx] Acetaminophen [Tylenol] 1,000 mg PO Q6HR PRN 02/15/18 [History] Aspirin Enteric Coated [Aspirin EC] 81 mg PO DAILY 02/15/18 [History] Furosemide [Lasix] 20 mg PO DAILY 02/15/18 [History] PredniSONE [Yanet] 5 mg PO DAILY 02/15/18 [History] 3 Allergy/AdvReac Type Severity Reaction Status Date / Time No Known Allergies Allergy Verified 01/24/18 19:13 All Systems Review: The remainder of the systems were reviewed and are negative - Constitutional Constitutional: weakness - Cardiovascular Cardiovascular: as per HPI, dyspnea at rest, dyspnea on exertion - Respiratory Respiratory: dyspnea Physical Examination Vital Signs, Last 4 Hours Temp Pulse Resp BP Pulse Ox 02/16/18 11:25 97.7 F 87 16 103/85 98 Vital Signs Temp Pulse Resp BP Pulse Ox 02/16/18 11:25 97.7 F 87 16 103/85 98 02/16/18 07:13 97.5 F L 94 17 101/74 96 02/16/18 04:24 97.5 F L 91 20 155/87 97 02/16/18 03:58 18 131/79 97 02/16/18 00:05 22 131/79 95 02/15/18 23:36 98.1 F 94 19 131/79 94 02/15/18 21:52 95 02/15/18 20:41 98.0 F 112 18 111/84 92 02/15/18 20:08 18 126/85 02/15/18 19:55 118 22 129/78 94 02/15/18 18:52 116 107/69 94 02/15/18 17:25 111 18 127/104 95 02/15/18 15:55 99 20 102/71 95 02/15/18 14:36 95 18 111/88 96 02/15/18 14:06 99 23 128/105 94 02/15/18 13:58 98.4 F 100 18 108/73 92 Intake and Output 02/15/18 02/16/18 02/16/18 23:59 07:59 15:59 Intake Total 0 / 0 0 / 0 Output Total 0 / 0 0 / 0 Balance 0 / 0 0 / 0 Intake: Oral 0 / 0 0 / 0 Output: Urine 0 / 0 0 / 0 Other: Weight 71.668 kg 69.2 kg Blood Glucose* 97 Patient Weight 02/16/18 23:59 Weight 69.2 kg General: Conversant, Other (on CPAP) HEENT: Atraumatic, Normocephaly, Mucus Membranes Moist Neck: Normal carotid pulses Cardiac: Other (irregularly irregular) Lungs: Normal Breath Sounds, No Wheeze, Rales, Rhonchi Neuro: Alert and responsive, No focal deficits noted Abdomen: Soft, Non-Tender Skin: No rashes noted on visualized skin Musculoskeletal: No Chest Wall Tenderness Extremities: Other (R BKA) Results 02/16/18 03:00 02/16/18 03:00 Lab Results 02/16/18 02/16/18 02/16/18 03:00 03:00 03:00 WBC 9.2 Hgb 12.3 L Hct 37.8 Plt Count 185 INR 2.3 Sodium 139 Potassium 4.1 Chloride 106 Carbon Dioxide 24 BUN 23 Creatinine 0.72 Glucose 99 Calcium 8.5 L Troponin I 0.74 H* 02/16/18 08:40 WBC Hgb Hct Plt Count INR Sodium Potassium Chloride Carbon Dioxide BUN Creatinine Glucose Calcium Troponin I 0.72 H* Short CBC 02/16/18 02/15/18 Range/Units 03:00 14:44 WBC 9.2 13.0 H (4.3-11.1) K/mcL Hgb 12.3 L 13.7 (12.9-16.9) g/dL Hct 37.8 41.7 (37.5-50.1) % Plt Count 185 201 (140-400) K/mcL Neutrophils # 6.6 10.8 H (1.6-8.9) K/mcL BMP 02/16/18 02/15/18 Range/Units 03:00 14:44 Sodium 139 138 (136-145) mEq/L Potassium 4.1 4.1 (3.5-5.1) mEq/L Chloride 106 103 (98-107) mEq/L Carbon Dioxide 24 27 (23-29) mEq/L BUN 23 27 H (8-23) mg/dL Creatinine 0.72 0.87 (0.70-1.30) mg/dL Glucose 99 131 H (70-105) mg/dL Calcium 8.5 L 9.5 (8.6-10.3) mg/dL Cardiac Enzymes 02/16/18 02/16/18 02/15/18 Range/Units 08:40 03:00 21:20 Troponin I 0.72 H* 0.74 H* 0.40 H* (< 0.04) ng/mL 02/15/18 Range/Units 14:44 Troponin I 0.23 H* (< 0.04) ng/mL Liver Function 02/15/18 Range/Units 14:44 Total Bilirubin 0.8 (0.3-1.0) mg/dL AST 20 (13-39) Units/L ALT 25 (7-52) Units/L Alkaline Phosphatase 74 (34-104) Units/L Albumin 3.6 (3.5-5.7) g/dL Urine 02/15/18 Range/Units 16:40 Urine Color Yellow (Yellow) Urine Clarity Clear (Clear) Urine pH 6.0 (5.0-8.0) pH Units Ur Specific [place] 1.018 (1.010-1.025) Urine Protein Negative (Neg-Trace) mg/dL Urine Glucose (UA) Normal (Normal) mg/dL Impressions Chest X-Ray 02/15/18 14:07 IMPRESSION: No acute cardiopulmonary disease. D/ / Ger White MD / Ger White MD Interpreting Provider: Ger White MD Abdomen/Pelvis CTA 02/15/18 14:47 IMPRESSION: 1. No acute aortic pathology. Moderate atherosclerotic changes throughout the thoracic and abdominal aorta as well as the iliac circulation. No aneurysm or dissection. 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 Moderate right external iliac artery stenosis proximally. 50-70% stenosis of the proximal SFA bilaterally. 2. No evidence of pulmonary embolic disease. 3. No acute pulmonary infiltrate. Mild interlobular septal thickening at the lung bases suggesting early interstitial edema. 4. Cardiomegaly with atherosclerotic changes in the coronary circulation. Stable filling defect in the right atrium inferiorly, likely thrombus. 5. Cholelithiasis and probable choledocholithiasis with no acute features. 6. Mild prostatomegaly. D/ / 02/15/2018 17:58:19 Bakari Gupta MD / iain Interpreting Provider: Bakari Gupta MD Chest CTA 02/15/18 14:47 IMPRESSION: 1. No acute aortic pathology. Moderate atherosclerotic changes throughout the thoracic and abdominal aorta as well as the iliac circulation. No aneurysm or dissection. 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 Moderate right external iliac artery stenosis proximally. 50-70% stenosis of the proximal SFA bilaterally. 2. No evidence of pulmonary embolic disease. 3. No acute pulmonary infiltrate. Mild interlobular septal thickening at the lung bases suggesting early interstitial edema. 4. Cardiomegaly with atherosclerotic changes in the coronary circulation. Stable filling defect in the right atrium inferiorly, likely thrombus. 5. Cholelithiasis and probable choledocholithiasis with no acute features. 6. Mild prostatomegaly. D/ / 02/15/2018 17:58:19 Bakari Gupta MD / iain Interpreting Provider: Bakari Gupta MD Head CT 02/15/18 14:47 IMPRESSION: No acute intracranial abnormality. Diffuse atrophic changes with findings suggesting chronic microvascular ischemia D/ / Julio Arcos MD / Julio Arcos MD Interpreting Provider: Julio Arcos MD Active Medications Acetaminophen (Tylenol) 650 mg PO Q6HR PRN PRN Reason: Mild Pain/Fever Stop: 08/17/18 21:00 Acetaminophen (Tylenol) 1,000 mg PO Q6HR PRN PRN Reason: Pain Stop: 08/17/18 22:28 Hydrocodone Bitart/Acetaminophen ([place] 5-325 Mg) 1 tab PO Q6HR PRN PRN Reason: Moderate Pain Stop: 08/17/18 21:00 Aspirin (Aspirin Ec) 81 mg PO DAILY WILFREDO Stop: 08/18/18 09:01 Last Admin: 02/16/18 10:11 Dose: 81 mg Atorvastatin Calcium (Lipitor) 20 mg PO HS WILFREDO Stop: 08/18/18 21:01 Dicyclomine HCl (Bentyl) 10 mg PO QID WILFREDO Stop: 08/18/18 09:01 Last Admin: 02/16/18 10:11 Dose: 10 mg Folic Acid (Folic Acid) 3 mg PO DAILY WILFREDO Stop: 08/18/18 09:01 Last Admin: 02/16/18 10:11 Dose: 3 mg Lactobacillus Acidophilus/Rhamnosus (Culturelle) 1 each PO DAILY WILFREDO Stop: 08/18/18 09:01 Last Admin: 02/16/18 10:11 Dose: 1 each Metoprolol Tartrate (Lopressor) 50 mg PO BID WILFREDO Stop: 08/18/18 09:01 Last Admin: 02/16/18 10:11 Dose: 50 mg Multivitamins/Calcium (Thera M Plus) 1 tab PO DAILY WILFREDO Stop: 08/18/18 09:01 Last Admin: 02/16/18 10:09 Dose: Not Given Naloxone HCl (Narcan) 0.4 mg IVP Q2MIN PRN PRN Reason: SEE COMMENTS Stop: 08/17/18 21:00 Omeprazole (Prilosec) 20 mg PO 0630 WILFREDO Stop: 08/18/18 06:31 Last Admin: 02/16/18 05:54 Dose: 20 mg Pharmacy Profile Note (Patient Taking Own Medication) 1 each PO BID WILFREDO Stop: 08/18/18 09:01 Last Admin: 02/16/18 10:09 Dose: Not Given Pharmacy Profile Note (Patient Taking Own Medication) 1 each PO BID WILFREDO Stop: 08/18/18 09:01 Last Admin: 02/16/18 10:09 Dose: Not Given Prednisone (Prednisone) 5 mg PO DAILY WILFREDO Stop: 08/18/18 09:01 Last Admin: 02/16/18 10:11 Dose: 5 mg Primidone (Mysoline) 250 mg PO TID WILFREDO Stop: 08/18/18 09:01 Last Admin: 02/16/18 10:11 Dose: 250 mg Verapamil HCl (Calan Sr) 240 mg PO DAILY WILFREDO Stop: 08/18/18 09:01 Last Admin: 02/16/18 10:11 Dose: 240 mg Warfarin Sodium (Coumadin Perpt) 1 each PO DAILY@1800 PRN PRN Reason: SEE COMMENTS Stop: 08/18/18 18:01 - Imaging and Cardiology Echo: report reviewed - EKG Interpretation EKG results cardiology: personally reviewed (A-Fib, LBBB), other (12 hr tele AVG HR 99, A-Fib) Consult Discharge Plan - Plan Referrals: Tessa Brooks, [employer] OPERATOR [Primary Care Provider] -
--- NOTE | 2018-02-16 17:57 | Event Note ---
Date of Encounter: 02/16/18 Time of Encounter: 17:55 Patient seen and examined earlier today. Case discussed with nurse practitioner. Consultation was cosigned. [facility] would not allow me to admit consultation and provide attestation. Please consider this to be attestation. Patient a 77-year-old presents with increasing lethargy, intermittent dyspnea, and generalized weakness. TTE performed last year suggested reduced LV function, possibly 30%. Agree with repeat TTE to evaluate LV function. CT demonstrated evidence of edema, agree with IV diuresis. If cardiomyopathy remains, recommend an ischemic evaluation given heart failure symptoms and lethargy. Atrial thrombus described per CT report. Agree with Coumadin therapy. If Coumadin interrupted, will need to bridge with heparin. Further recommendations to follow. Thanks, Jose Keller DO, FACC
[2018-02-16] MEDS ORDERED: Warfarin perPT PO PRN (18:00)
[2018-02-17] MEDS: Hydrocortisone Sodium Succ 100 MG/2 ML VIAL IVP SCH ×3 (00:17→14:53)
[2018-02-17 04:38] LABS: Hematocrit 34.4 % (37.5-50.1); Mean Corpuscular Hemoglobin 31.9 pg (28.0-33.3); Mean Corpuscular Volume 99.7 fL (83.0-100.0); Mean Platelet Volume 10.6 fL (9.4-12.4); Platelet Count 163 K/mcL (140-400); Red Blood Count 3.45 M/mcL (4.19-5.50); Red Cell Distribution Width 18.9 % (11.5-14.5)
[2018-02-17 04:54] LABS: BUN/Creatinine Ratio 29 (6-26); Blood Urea Nitrogen 22 mg/dL (8-23); Calcium 8.1 mg/dL (8.6-10.3); Carbon Dioxide 24 mEq/L (23-29); Chloride 106 mEq/L (98-107); Glucose 99 mg/dL (70-105); Magnesium 1.8 mg/dL (1.6-2.6); Osmolality,Calculated 285 (280-300); Potassium 4.1 mEq/L (3.5-5.1); Sodium 136 mEq/L (136-145); eGFR For Non-African Americans > 60 (> 60)
[2018-02-17 05:03] LABS: INR 2.4; Prothrombin Time 26.7 Seconds (9.4-12.1)
--- NOTE | 2018-02-17 08:17 | Cardiology Progress Note ---
Date of Encounter: 02/17/18 Time of Encounter: 08:15 Assessment and Plan (1) Acute CHF Current Visit: Yes Status: Acute Per Cardiology: Suspect acute on chronic systolic CHF. EF was estimated to be 30% 02/2017 (new diagnosis). CXR negative. CTA suggestive of edema. Strict I/Os, Na and fluid restriction, daily weights. Net I&O -100ml. Repeat echo pending. DNR/CCA/DNI. Clinically he appears euvolemic on exam. Will add PO lasix. Qualifiers: Heart failure type: systolic Qualified Code(s): I50.21 - Acute systolic ( congestive) heart failure (2) Cardiomyopathy Current Visit: Yes Status: Acute Per Cardiology: EF previously preserved--50% 09/2017, then reduced to 30% 02/2018 (not mentioned on impressions of report). ICMP vs NICMP. No recent ischemic evaluation. Per , LHC >10 years ago with a 40% blockage. Pt with PAD s/p R BKA--equivalent for CAD. Given CMP, peak troponin 0.74, anticipate LHC during stay to further evaluate. On asa, statin, BB. Qualifiers: Cardiomyopathy type: unspecified Qualified Code(s): I42.9 - Cardiomyopathy , unspecified (3) Elevated troponin I measurement Current Visit: Yes Status: Acute Per Cardiology: Troponins 0.23, 0.40, 0.74, 0.72 in setting of CHF exacerbation. Demand ischemia vs NSTEMI. Anticipate LHC inpt as above. CP free. (4) Atrial fibrillation Current Visit: Yes Status: Chronic Per Cardiology: Known A-Fib. HR 80s-low 100s at bedside. 12 hr tele AVG HR 90. On BB and CCB. Will switch to Toprol-XL 50 mg by mouth twice a day-- may need titrated based on heart rate and blood pressure response Anticoagulated on Coumadin-- now on hold for possible LHC. INR 2.4. Will need bridged with Heparin gtt when INR <2 given apical thrombus still noted on CTA. We will repeat INR this afternoon to assess for potential catheterization and initiation of heparin drip. 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 Stable filling defect in the right atrium inferiorly, likely thrombus. Atrial thrombus likely secondary to A-Fib. Will need bridged with heparin when INR is <2, hold Coumadin for LHC. Discussion w patient/family: The assessment and plan as outlined above was discussed with the patient and/or family members who expressed understanding and agreement. All questions were answered. Thank you for involving us in the care of your patient. Please call with any questions. Subjective Principal diagnosis: CHF Interval history: Patient seen with at bedside. He reports clinically short of breath has improved. He denies any chest pain or palpitations. Denies any active bleeding or blood loss. Objective Vital Signs, Last 4 Hours Temp Pulse Resp BP Pulse Ox 02/17/18 07:22 98.5 F 121 16 120/93 97 02/17/18 04:52 97.9 F 104 19 116/88 97 General: Conversant, No Apparent Distress HEENT: Atraumatic, Normocephaly, Mucus Membranes Moist Neck: No JVD, Normal carotid pulses Cardiac: No Murmur, Other (Irregular irregular) Lungs: Normal Breath Sounds, No Wheeze, Rales, Rhonchi Neuro: Alert and responsive, No focal deficits noted Abdomen: Soft, Non-Tender Skin: No rashes noted on visualized skin Musculoskeletal: No Chest Wall Tenderness, Other (R BKA) Extremities: No Clubbing, No Cyanosis, No Edema, Normal Pulses Results 02/17/18 04:16 02/17/18 04:16 Lab Results Laboratory Tests 02/15/18 02/15/18 02/16/18 14:44 21:20 03:00 Hgb Hct INR Creatinine Est GFR (Non-Af Amer) Magnesium AST 20 ALT 25 Troponin I 0.23 H* 0.40 H* 0.74 H* TSH 0.375 02/16/18 02/17/18 02/17/18 08:40 04:16 04:16 Hgb 11.0 L Hct 34.4 L INR 2.4 Creatinine Est GFR (Non-Af Amer) Magnesium AST ALT Troponin I 0.72 H* TSH 02/17/18 04:16 Hgb Hct INR Creatinine 0.77 Est GFR (Non-Af Amer) > 60 Magnesium 1.8 AST ALT Troponin I TSH ITS Impressions Chest X-Ray 02/15/18 14:07 IMPRESSION: No acute cardiopulmonary disease. D/ / Ger White MD / Ger White MD Interpreting Provider: Ger White MD Abdomen/Pelvis CTA 02/15/18 14:47 IMPRESSION: 1. No acute aortic pathology. Moderate atherosclerotic changes throughout the thoracic and abdominal aorta as well as the iliac circulation. No aneurysm or dissection. 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 Moderate right external iliac artery stenosis proximally. 50-70% stenosis of the proximal SFA bilaterally. 2. No evidence of pulmonary embolic disease. 3. No acute pulmonary infiltrate. Mild interlobular septal thickening at the lung bases suggesting early interstitial edema. 4. Cardiomegaly with atherosclerotic changes in the coronary circulation. Stable filling defect in the right atrium inferiorly, likely thrombus. 5. Cholelithiasis and probable choledocholithiasis with no acute features. 6. Mild prostatomegaly. D/ / 02/15/2018 17:58:19 Bakari Gupta MD / iain Interpreting Provider: Bakari Gupta MD Chest CTA 02/15/18 14:47 IMPRESSION: 1. No acute aortic pathology. Moderate atherosclerotic changes throughout the thoracic and abdominal aorta as well as the iliac circulation. No aneurysm or dissection. 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 Moderate right external iliac artery stenosis proximally. 50-70% stenosis of the proximal SFA bilaterally. 2. No evidence of pulmonary embolic disease. 3. No acute pulmonary infiltrate. Mild interlobular septal thickening at the lung bases suggesting early interstitial edema. 4. Cardiomegaly with atherosclerotic changes in the coronary circulation. Stable filling defect in the right atrium inferiorly, likely thrombus. 5. Cholelithiasis and probable choledocholithiasis with no acute features. 6. Mild prostatomegaly. D/ / 02/15/2018 17:58:19 Bakari Gupta MD / iain Interpreting Provider: Bakari Gupta MD Head CT 02/15/18 14:47 IMPRESSION: No acute intracranial abnormality. Diffuse atrophic changes with findings suggesting chronic microvascular ischemia D/ / Julio Arcos MD / Julio Arcos MD Interpreting Provider: Julio Arcos MD Intake & Output 02/14/18 02/15/18 02/16/18 02/17/18 23:59 23:59 23:59 23:59 Intake Total 200 / 200 Output Total 300 / 300 Balance -100 / -100 Weight 71.668 kg 69.2 kg 70.3 kg Active Medications Acetaminophen (Tylenol) 650 mg PO Q6HR PRN PRN Reason: Mild Pain/Fever Stop: 08/17/18 21:00 Hydrocodone Bitart/Acetaminophen (Dille 5-325 Mg) 1 tab PO Q6HR PRN PRN Reason: Moderate Pain Stop: 08/17/18 21:00 Aspirin (Aspirin Ec) 81 mg PO DAILY WILFREDO Stop: 08/18/18 09:01 Last Admin: 02/16/18 10:11 Dose: 81 mg Atorvastatin Calcium (Lipitor) 20 mg PO HS WILFREDO Stop: 08/18/18 21:01 Last Admin: 02/16/18 22:02 Dose: 20 mg Dicyclomine HCl (Bentyl) 10 mg PO QID WILFREDO Stop: 08/18/18 09:01 Last Admin: 02/16/18 22:04 Dose: Not Given Docusate Sodium (Colace) 100 mg PO BID PRN; Protocol PRN Reason: Constipation Stop: 08/18/18 18:22 Last Admin: 02/16/18 22:04 Dose: 100 mg Folic Acid (Folic Acid) 3 mg PO DAILY WILFREDO Stop: 08/18/18 09:01 Last Admin: 02/16/18 10:11 Dose: 3 mg Hydrocortisone Sodium Succinate (Solu-Cortef) 50 mg IVP Q8HR WILFREDO Stop: 08/19/18 00:01 Last Admin: 02/17/18 00:17 Dose: 50 mg Lactobacillus Acidophilus/Rhamnosus (Culturelle) 1 each PO DAILY WILFREDO Stop: 08/18/18 09:01 Last Admin: 02/16/18 10:11 Dose: 1 each Metoprolol Tartrate (Lopressor) 50 mg PO BID WILFREDO Stop: 08/18/18 09:01 Last Admin: 02/16/18 22:03 Dose: 50 mg Multivitamins/Calcium (Thera M Plus) 1 tab PO DAILY WILFREDO Stop: 08/18/18 09:01 Last Admin: 02/16/18 10:09 Dose: Not Given Naloxone HCl (Narcan) 0.4 mg IVP Q2MIN PRN PRN Reason: SEE COMMENTS Stop: 08/17/18 21:00 Omeprazole (Prilosec) 20 mg PO 0630 WILFREDO Stop: 08/18/18 06:31 Last Admin: 02/17/18 05:55 Dose: 20 mg Pharmacy Profile Note (Patient Taking Own Medication) 1 each PO BID WILFREDO Stop: 08/18/18 09:01 Last Admin: 02/16/18 23:00 Dose: Not Given Pharmacy Profile Note (Patient Taking Own Medication) 1 each PO BID WILFREDO Stop: 08/18/18 09:01 Last Admin: 02/16/18 23:01 Dose: Not Given Primidone (Mysoline) 250 mg PO TID WILFREDO Stop: 08/18/18 09:01 Last Admin: 02/16/18 22:04 Dose: 250 mg Verapamil HCl (Calan Sr) 240 mg PO DAILY WILFREDO Stop: 08/18/18 09:01 Last Admin: 02/16/18 10:11 Dose: 240 mg - Imaging and Cardiology Echo: pending (Telemetry reviewed with average heart rate is 12 hours 90, A. fib 2 episodes of NSVT longest being 15 beats.) - EKG Interpretation EKG results cardiology: other (A. fib on telemetry in the 100s to 110s) - VTE Documentation of Mechanical Device: Intermittent pneumatic compression device Consult Discharge Plan - Plan Referrals: Tessa Brooks, [employer] [Primary Care Provider] -
[2018-02-17] MEDS: Calcium 600-Vit D3 PO SCH ×2 (08:52→20:51)
[2018-02-17] MEDS: Omega-3 Fish Oil 1,000 Mg PO SCH (08:52)
[2018-02-17] MEDS: Lactobacillus 1 EACH CAP.SPRINK PO SCH (08:56)
[2018-02-17] MEDS: Verapamil ER (24 HR) 240 MG TABLET.ER PO SCH (08:56)
[2018-02-17] MEDS: Aspirin Enteric Coated 81 MG Tablet PO SCH (08:57)
[2018-02-17] MEDS: Multivit/Ca/Min/Fe/FA 1 TAB TABLET PO SCH (08:57)
[2018-02-17] MEDS: Folic Acid 1 MG TABLET PO SCH (08:57)
--- NOTE | 2018-02-17 10:21 | Internal Med Progress Note ---
<Pascale Juárez Anup - Last Filed: 02/17/18 13:51> Hospitalist Progress Note - Encounter Date of Encounter: 02/17/18 Time of Encounter: 10:18 - Subjective Interval History: Pt examined in bed this morning. He states he is in no pain and feels better than he did on admission. He was able to sleep well last night with the CPAP machine on and had no problems overnight. He does admit to some left arm swelling and has had his arm propped up on a pillow since he noticed it this morning, he denies any pain or tenderness associated with the swelling. He denies any coughing, abdominal/chest pain, and headaches. He was told he would need a heart cath and he and his are still discussing the risks and making a definite decision. He said he is willing to lift his DNR for the surgery time period. He has no acute changes or complaints. - Exam Vitals: Temp Pulse Resp BP Pulse Ox 98.5 F 121 16 120/93 97 02/17/18 07:22 02/17/18 07:22 02/17/18 07:22 02/17/18 07:22 02/17/18 07:22 Exam: General: AAOx3, NAD Heart: RRR, no murmurs Lungs: CTA b/l, normal effort on nasal can air Ext: edema in left upper ext, no lower ext edema, R BKA Abd: soft, non-tender - Assessment and Plan (1) Heart failure with reduced ejection fraction Current Visit: Yes Status: Chronic Assessment and Plan: - as per cardio: acute on chronic systolic heart failure, 2016 EF 30%; CXR negative, CTA showed edema, atrial thromus per CT report - Echo results: LVEF 15-20%, severly dilated LA, mild-mod mitral regurg, mild tricuspid regurg, no Pulm HTN - Cardio took patient to heart cath this afternoon (2) Elevated troponin Current Visit: Yes Status: Acute Assessment and Plan: - troponin 0.4. 0.74, 0.72 - echo results as above - patient went to heart cath as above (3) Generalized weakness Current Visit: Yes Status: Acute Assessment and Plan: - fluids continued and pt went to heart cath after INR stabilized at 2.0 (4) Dehydration Current Visit: Yes Status: Acute Assessment and Plan: - fluids given IV (5) Leukocytosis Current Visit: Yes Status: Acute Assessment and Plan: - WBC count back to normal , likely stress reaction (6) Atrial fibrillation with rapid ventricular response Current Visit: Yes Status: Acute Assessment and Plan: Per Cardiology: Known A-Fib. HR 80s-low 100s at bedside. 12 hr tele AVG HR 90. On BB and CCB. - Will switch to Toprol-XL 50 mg by mouth twice a day-- may need titrated based on heart rate and blood pressure response - Anticoagulated on Coumadin-- now on hold for possible LHC. INR 2.4. Will need bridged with Heparin gtt when INR <2 given apical thrombus still noted on CTA. - INR re-evaluated this afternoon and was at 2.0 so cardio took pt to heart cath (7) Atrial thrombus Current Visit: Yes Status: Chronic Assessment and Plan: Per Cardiology: Initially suspected on CT 01/2017. 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 Stable filling defect in the right atrium inferiorly, likely thrombus. Atrial thrombus likely secondary to A-Fib. Will need bridged with heparin when INR is <2, hold Coumadin for LHC. (8) Hypertension Current Visit: Yes Status: Chronic Assessment and Plan: - continue medications, adjust per cardio post heart cath (9) DVT prophylaxis Current Visit: Yes Status: Acute Assessment and Plan: Anticoagulated on Coumadin - hold for heart cath - Summary of Assessment and Plan Summary of Assessment and Plan: Pt weakness is improving clinically after receiving IV fluids. Echo showed EF of 15-20%, Cardiology took patient to heart catherization this afternoon. Will re-evaluate post procedure. - Time Spent with Patient Total time spent is greater than 50% in coordination of care (as documented) at patient's floor/unit and/or counseling patient: Internal Medicine: Result - Labs CBC & Chem 7: 02/17/18 04:16 02/17/18 04:16 Labs: Short CBC 02/17/18 Range/Units 04:16 WBC 9.3 (4.3-11.1) K/mcL Hgb 11.0 L (12.9-16.9) g/dL Hct 34.4 L (37.5-50.1) % Plt Count 163 (140-400) K/mcL BMP 02/17/18 04:16 Sodium 136 Potassium 4.1 Chloride 106 Carbon Dioxide 24 BUN 22 Creatinine 0.77 Glucose 99 Calcium 8.1 L - ABG Interpretation ABG results: PT/INR, D-dimer PT 26.7 Seconds (9.4-12.1) H 02/17/18 04:16 - VTE Documentation of Mechanical Device: Intermittent pneumatic compression device Consult Discharge Plan - Plan Referrals: Tessa Brooks, [employer] [Primary Care Provider] - <Noah Cyr - Last Filed: 02/17/18 18:46> Hospitalist Progress Note - Encounter Date of Encounter: 02/17/18 - Exam Vitals: Temp Pulse Resp BP Pulse Ox 97.8 F 108 16 93/77 91 02/17/18 15:11 02/17/18 17:21 02/17/18 17:21 02/17/18 17:21 02/17/18 17:21 - Assessment and Plan (1) Hypotension Current Visit: Yes Status: Acute Assessment and Plan: Steroids increased yesterday. Most likely related to cardiac disease and meds (2) Heart failure with reduced ejection fraction Current Visit: Yes Status: Chronic (3) Hypertension Current Visit: Yes Status: Chronic (4) DVT prophylaxis Current Visit: Yes Status: Acute (5) Atrial fibrillation with rapid ventricular response Current Visit: Yes Status: Acute (6) Elevated troponin Current Visit: Yes Status: Acute (7) Generalized weakness Current Visit: Yes Status: Chronic (8) Dehydration Current Visit: Yes Status: Resolved (9) Leukocytosis Current Visit: Yes Status: Acute (10) Atrial fibrillation Current Visit: Yes Status: Chronic Assessment and Plan: Rate controlled at this time. (11) Atrial thrombus Current Visit: Yes Status: Chronic (12) Rheumatoid arthritis Current Visit: No Status: Chronic (13) CAD (coronary artery disease) Current Visit: Yes Status: Chronic Assessment and Plan: Chronic issue. To have [facility] today. - Time Spent with Patient Total time spent is greater than 50% in coordination of care (as documented) at patient's floor/unit and/or counseling patient: Internal Medicine: Result - Labs CBC & Chem 7: 02/17/18 04:16 02/17/18 04:16 Labs: Short CBC 02/17/18 Range/Units 04:16 WBC 9.3 (4.3-11.1) K/mcL Hgb 11.0 L (12.9-16.9) g/dL Hct 34.4 L (37.5-50.1) % Plt Count 163 (140-400) K/mcL BMP 02/17/18 04:16 Sodium 136 Potassium 4.1 Chloride 106 Carbon Dioxide 24 BUN 22 Creatinine 0.77 Glucose 99 Calcium 8.1 L - ABG Interpretation ABG results: PT/INR, D-dimer PT 22.7 Seconds (9.4-12.1) H 02/17/18 12:55 - Impressions Impressions Echocardiogram 02/16/18 22:28 Impressions: LVEF 15-20%. Severely reduced global LV systolic function. Indeterminate diastolic function. Normal right ventricular size with severe reduction in function. Severely dilated left atrium. Mild-moderate mitral regurgitation. Mild tricuspid regurgitation. No pulmonary hypertension by TR signal that may not be optimally obtained. IVC is not dilated. Left Ventricular Wall Motion: Rest Echo Findings The apex, apical inferior, mid inferior, basal inferior, apical anterior, mid anterior, basal anterior, apical septal, mid inferior septal, basal inferior septal, apical lateral, mid anterior lateral, basal anterior lateral, mid anterior septal, mid inferior lateral, basal anterior septal and basal inferior lateral negron were hypokinetic. Findings: Study Quality * Technically challenging exam. ECG Findings * Atrial fibrillation. Left Ventricle * LVEF 15-20%. * Normal LV chamber size. * Wall thickness visually appears normal. * Indeterminate diastolic function. Right Ventricle * Normal right ventricular size with severe reduction in function. Left Atrium * Severely dilated left atrium. Right Atrium * Normal right atrial size. Mitral Valve * Normal mitral valve structure. * No mitral stenosis. * Mild mitral annular calcification * Mild-moderate mitral regurgitation. Aortic Valve * Trace aortic regurgitation. * Trileaflet aortic valve. * Grossly there is no aortic stenosis. Doppler evlauation suboptimal. * Mildly thickened aortic valve leaflets. Tricuspid Valve * Tricuspid valve not well visualized. * Mild tricuspid regurgitation. * Estimated RA pressure is 3 mmHg. * Estimated RVSP is 20 mmHg. * No pulmonary hypertension. Pulmonic Valve * Pulmonic valve is not well visualized. * Suboptimal Doppler evaluation. Pulmonary Artery * Pulmonary artery not well visualized. Aorta * Not well visualized. Pericardium * There is no pericardial effusion present. Interatrial Septum * No evidence of PFO by color Doppler. IVC * The IVC is not dilated. Normal collapse. - Attending Attestation The history, physical exam, and medical decision making was performed by the medical student either while I was physically present and actively involved or I personally re-performed the exam and medical decision making. I have verified the accuracy of the medical student's documentation with regards to the history, physical exam findings, and medical decision making on 02/17/18. Mr Eid is currently admitted for weakness and dyspnea. He remains moderate to high risk due to potential for worsening clinical status. Mr Eid is to have LHC today. Echo shows EF of 15-20%. No fever or chills. LUE somewhat edematous. No GI issues. Exam alert Comfortable Mucus membranes dry Heart irreg No wheeze abd soft LUE with some edema No rash I/P 1. CAD - for LHC today 2. RA - steroids increased 3. A fib Further diagnoses and plan as above. <Pascale Juárez - Last Filed: 02/17/18 13:51> (1) Heart failure with reduced ejection fraction Qualifiers: Heart failure chronicity: chronic Qualified Code(s): I50.22 - Chronic systolic (congestive) heart failure (5) Leukocytosis Qualifiers: Leukocytosis type: unspecified Qualified Code(s): D72.829 - Elevated white blood cell count, unspecified (8) Hypertension Qualifiers: Hypertension type: essential hypertension Qualified Code(s): I10 - Essential (primary) hypertension <Noah Cyr - Last Filed: 02/17/18 18:46> (1) Hypotension Qualifiers: Hypotension type: other hypotension type Qualified Code(s): I95.89 - Other hypotension (2) Heart failure with reduced ejection fraction Qualifiers: Heart failure chronicity: chronic Qualified Code(s): I50.22 - Chronic systolic (congestive) heart failure (3) Hypertension Qualifiers: Hypertension type: essential hypertension Qualified Code(s): I10 - Essential (primary) hypertension (9) Leukocytosis Qualifiers: Leukocytosis type: unspecified Qualified Code(s): D72.829 - Elevated white blood cell count, unspecified (10) Atrial fibrillation Qualifiers: Atrial fibrillation type: chronic Qualified Code(s): I48.2 - Chronic atrial fibrillation (12) Rheumatoid arthritis Qualifiers: Rheumatoid arthritis location: multiple sites Rheumatoid factor presence: unspecified presence Qualified Code(s): M06.9 - Rheumatoid arthritis, unspecified (13) CAD (coronary artery disease) Qualifiers: Coronary Disease-Associated Artery/Lesion type: [place] artery [place] vs. transplanted heart: [place] heart Associated angina: without angina Qualified Code(s): I25.10 - Atherosclerotic heart disease of [place] coronary artery without angina pectoris
[2018-02-17] MEDS ORDERED: Verapamil 5 MG/2 ML VIAL ONE (12:53)
[2018-02-17] MEDS ORDERED: *HR* Heparin 10,000 UNIT/10 ML VIAL ONE (12:53)
[2018-02-17] MEDS ORDERED: Heparin 1,000 UNITS/500 mL 500 ML ONE (12:53)
[2018-02-17] MEDS ORDERED: Nitroglycerin 1,000 MCG/10 ML VIAL IV ONE (12:54)
[2018-02-17] MEDS ORDERED: ISOVUE-370 200 ML INFUS..BTL IV ONE (12:54)
[2018-02-17] MEDS ORDERED: 0.9 % Sodium Chloride 2,000 ML ONE (12:55)
[2018-02-17 13:13] LABS: Prothrombin Time 22.7 Seconds (9.4-12.1)
[2018-02-17] MEDS ORDERED: *HR* FentaNYL (PF) 100 MCG/2 ML VIAL ONE (13:44)
[2018-02-17] MEDS ORDERED: *HR* Midazolam HCl 2 MG/2 ML VIAL ONE (13:44)
--- NOTE | 2018-02-17 13:59 | Pre-Sedation Evaluation ---
Pre-sedation evaluation - Pre-sedation checklist Date of procedure: 02/17/18 Procedure: heart cath Recent Vitals: Last Vital Signs Temp 97.8 F 02/17/18 10:56 Pulse 99 02/17/18 10:56 Resp 16 02/17/18 10:56 BP 117/89 02/17/18 10:56 Pulse Ox 95 02/17/18 10:56 H&P (including ROS) documented in medical record: Yes Previous reaction to sedatives/anesthetics: No Dietary Status: NPO after Midnight Dentition: dentures removed ASA Classification *see protocol: CLASS II-Mild systemic disease Plan of Care: Pt appropriate candidate for procedure/moderate/conscious sedation , Risks/benefits of procedure/sedation discussed w/ patient/family Cardiac Registry (Cardio Only) - Functional Capacity Functional Capacity: >=4 METS with symptoms - Clincal Frailty Scale Clinical Frailty Scale: Managing Well
--- NOTE | 2018-02-17 14:34 | Event Note ---
Date of Encounter: 02/17/18 Time of Encounter: 14:35 - Cardiology Event Note Per discussion with Dr. Castro. no lesions warranting intervention. Current INR 2.0. Coumadin held last night. Will resume pharmacy dosing of Coumadin with target INR 2.0-3.0. Need to consider IV heparin drip bridging if drops less than 2.0.
--- NOTE | 2018-02-17 14:34 | Invasive Diagnostic Lab Proc ---
Name: Tommy Eid Date of Study: 02/17/2018 Date: 1940 Ht: 66.1in Medical Record#: [id number] Age: 77 Wt: 154.32lb Gender: Male BSA: 1.79 Order #: [id number] BMI: 24.8 Physicians Procedure Physician: Artemio Castro MD, [facility] Referring MD: Referring MD: Staff Name Position Time In Bernard Diop RT (R) Monitor 12:57 PM Laila Jernigan RN Ash Kier Boiler 12:58 PM Manuel Ayala RT (R) Scrub 12:58 PM Indications Indication Unstable Angina Procedures Performed Procedure CORONARY ARTERY ANGIO S&I Pre-Procedure Checklist Informed consent is complete signed and on chart. H&P is on chart. ID band is on and ID verified with patient. Patient NPO for procedure The procedure was described for the patient and questions were answered. Blood Pressure: 135/96 ECG is on chart. Rhythm: Atrial Fibrillation Plan of Care Patient will tolerate the procedure without complications. Adequate level of comfort will be maintained. Hemodynamics will remain stable Patient will recover from procedure without complications. Respiratory function will be maintained. Cardiac rhythm will remain stable. Patient temperature will be maintained. Patient and/or family have verbalized understanding of the procedure. Patient Education Chief Complaint/Reason for Test: Cardiac Cath Developmental Category: Geriatric (65+ years) Developmentally Appropriate for Age: Yes Learning Barriers: None Education Needs: Procedure Education Method: Verbal Information Taught: Cardiac Cath Educational Evaluation: Able to repeat information Intravenous Access Time IV Size Location DC'd Fluid/Drip Rate Units RN 01:40 PM 20g 1 1/" Patent On Arrival Rt Antecubital 0.9NaCl 25 ml/hr Allergies No Known Allergies Vital Signs Time BP (mmHg) HR (bpm) O2 Sat. RR (bpm) LOC 01:52 PM 135 / 96 115 92 % 16 5 = Fully awake and oriented or at pre-proc level 01:42 PM / % 5 = Fully awake and oriented or at pre-proc level 01:57 PM / % 4 = Oriented but drowsy 01:54 PM 135 / 96 126 92 % 20 01:59 PM 135 / 125 124 91 % 38 02:00 PM 140 / 90 107 91 % 19 02:05 PM 132 / 102 105 93 % 26 02:10 PM 108 / 74 97 95 % 16 02:15 PM 131 / 67 108 94 % 13 Procedural Medications Time Medication Dose Units Method Given By 01:50 PM Oxygen 2 L/min nasal cannula Laila Jernigan RN 01:59 PM Versed 2 mg Intravenous Laila Jernigan RN 02:00 PM Fentanyl 50 mcg Intravenous Laila Jernigan RN 02:05 PM Lidocaine 2% 0.5 ml Subcutaneous Artemio Castro MD, FACC 02:07 PM Heparin 4000 units Nitroglycerin 200 mcg Verapamil 2.5 mg Intraarterial Artemio Castro MD, [facility] ASA Classification: CLASS III- Severe systemic disease (i.e. prior AMI, diabetes with vascular complications, morbid obesity) Emmanuel Score Preprocedure Postprocedure Activity 2- Moves 4 extremities sustained head lift Activity 2- Moves 4 extremities sustained head lift Circulation 2- SBP +/= 20 points of pre-anesthetic level Circulation 2- SBP +/= 20 points of pre-anesthetic level Consciousness 2- Awake and alert oriented x 3 Consciousness 2- Awake and alert oriented x 3 O2 Saturation 2- Able to maintain O2 satruation of 92% on room air O2 Saturation 2- Able to maintain O2 satruation of 92% on room air Respiratory 2- Able to deep breathe and cough well Respiratory 2- Able to deep breathe and cough well Total Score 10 Total Score 10 Contrast Agent: Isovue Diagnostic Contrast: 35 ml Total Contrast: 35 ml Fluoro Dose: 20 mGy Procedure Log Time Note Enter By 12:57 PM Patient charges- Angio tray pack, Navilyst 3mm J, Pulse Oximetry and ACIST tubing and transducer [email or web address] 12:58 PM Bernard Diop RT (R) Position: Monitor Time in: 12:57 2 12:58 PM Laila Jernigan RN Position: Ash Kier Boiler Time in: 12:58 [email or web address] 12:58 PM Ayala Jackson RT (R) Position: Scrub Time in: 12:58 [email or web address] 01:40 PM CathStat 01:41 PM Case Delayed No 2 01:42 PM Pt arrived to laboratory sampler 1 at 13:42 [email or web address] 01:42 PM Time: 13:42 Patient comfortable and pain free: Yes 2 01:42 PM Time: 13:42LOC: 5 = Fully awake and oriented or at pre-proc level [email or web address] 01:42 PM Clinical Presentation: Unstable angina [email or web address] 01:46 PM Physician arrived 13:46 [email or web address] 01:46 PM Meet and greraman completed :46 PM Sign in performed according to hospital policy. :46 PM Procedure start 13:46 :49 PM ASA Class CLASS III- Severe systemic disease (i.e. prior AMI, diabetes with vascular complications, morbid obesity) [email or web address] 01:50 PM Hair removed from procedure site in procedure lab using clippers. Right wrist prepped with Chloraprep by [facility], Ayala RT (R), then patient was draped. Skin intact. [email or web address] :50 PM Hair removed from procedure site in procedure lab using clippers. Right groin prepped with Chloraprep by [facility], Ayala RT (R), then patient was draped. Skin intact. :50 PM Time: 13:50 Oxygen on at 2 L/min per nasal cannula by Laila Jernigan RN :53 PM Vitals capture started with the following parameters, Patient=Adult, Interval=5 min, Initial Rzjpxbdz=997 mmHg, Deflation Rate=3 mmHg, Cuff placed on Right Arm :53 PM Recorded ECG: CI=754 Condition=Condition 1 01:54 PM AF=365 bpm, SDYT=757/96 mmhg, SpO2=92.0 %, Resp=20 B/min 01:54 PM IV removed from rt wrist to be able to access rt radial for procedure. :57 PM Time: 13:42LOC: 5 = Fully awake and oriented or at pre-proc level :57 PM Time: 13:42 Patient comfortable and pain free: Yes :59 PM MN=818 bpm, FFNP=038/125 mmhg, SpO2=91.0 %, Resp=38 B/min :59 PM Vitals capture stopped. :59 PM Vitals capture started with the following parameters, Patient=Adult, Interval=5 min, Initial Hxplxktn=536 mmHg, Deflation Rate=3 mmHg, Cuff placed on Right Arm :59 PM Time: 13:59 Versed 2 mg Intravenous Given by Laila Jernigan RN deann 02:00 PM TE=856 bpm, SZUI=595/90 mmhg, SpO2=91.0 %, Resp=19 B/min 02:00 PM Time: 14:00 Fentanyl 50 mcg Intravenous Given by Laila Jernigan RN [email or web address] 02:05 PM LT=026 bpm, SYMJ=394/102 mmhg, SpO2=93.0 %, Resp=26 B/min 02:05 PM Pressure channel 1 zeroed. 02:05 PM Time out performed according to hospital policy [email or web address] 02:05 PM Time: 14:05 0.5 ml Lidocaine 2% to right radial Subcutaneous Given by Artemio Castro MD, [facility] [email or web address] 02:05 PM 0.035 260cm Navilyst 3mmJ wire [id number] [email or web address] 02:06 PM Access obtained by percutaneous puncture. 6Fr 10cm Terumo Glidesheath sheath placed in right Radial artery. [id number] [email or web address] 02:07 PM Time: 14:07 Patient given 4,000 units Heparin, 200 mcg Nitroglycerin, and 2.5 mg Verapamil Intraarterial by Artemio Castro MD, [facility]. This is given to reduce risk of vessel spasm and thrombosis. [email or web address] 02:07 PM 5Fr TIG catheter inserted over the wire [facility] [email or web address] 02:09 PM RCA angiography performed in multiple views. [email or web address] 02:10 PM Coronary Dominance: right [email or web address] 02:10 PM Recorded Pressure: Ao, KF=546, Condition=Condition 1 (Aorta) Ao 86/69/77 02:10 PM HR=97 bpm, RFZI=407/74 mmhg, SpO2=95.0 %, Resp=16 B/min 02:10 PM Lesion found in Proximal RCA. Pre Stenosis: 40 Pre BRAD Flow: 2 02:10 PM Right Coronary, Right Posterior Descending Arteries with Right Posterolateral and Acute Marginal branches with 40 % stenosis. If graft is supplying this area, 0 % stenosis [email or web address] 02:11 PM Catheter removed [email or web address] 02:11 PM 5Fr FL 3.5 catheter inserted over the wire [id number] [email or web address] 02:12 PM LCA angiography performed in multiple views. [email or web address] 02:12 PM Recorded Pressure: Ao, DD=951, Condition=Condition 1 (Aorta) Ao 94/59/76 02:12 PM Time: 13:57 Patient comfortable and pain free: Yes [email or web address] 02:12 PM Time: 13:57LOC: 4 = Oriented but drowsy [email or web address] 02:14 PM Catheter removed [email or web address] 02:14 PM Lesion found in Mid LAD. Pre Stenosis: 30 Pre BRAD Flow: [email or web address] 02:14 PM Mid/Distal Left Anterior Descending Coronary Artery and diagonal branches with 30% stenosis. If graft is supplying this area, 0 % stenosis [email or web address] 02:14 PM Lesion found in Proximal Circumflex. Pre Stenosis: 60 Pre BRAD Flow: [email or web address] 02:14 PM Circumflex, Obtuse Marginal, Left Posterior Descending, and Left Posterolateral Coronary Arteries with 60 % stenosis. If graft is supplying this area, 0 % stenosis [email or web address] 02:15 PM Arterial sheath pulled, Vasc Band closure device used and was Successful S/N. [email or web address] 02:15 PM 10 ml air in Vasc Band. [email or web address] 02:15 PM Procedure completed at 14:15 02/17/2018 [email or web address] 02:15 PM TT=942 bpm, YHXG=681/67 mmhg, SpO2=94.0 %, Resp=13 B/min, EtCO2=26 mmHg 02:16 PM Sign out completed: Radiation Dose 189.06 mGy, 19.5244 Gy/cm2 Fluoro Time: 1.3 Isovue 370 - 200ml contrast 35 ml given by Artemio Castro MD, [facility]. Complications: NoneCardiac Rehab Consult needed: NoConfirmed administered medications: Yes [email or web address] 02:16 PM Isovue 370 - 200ml,1 Bottle(s) used. [email or web address] 02:16 PM Estimated Blood Loss: less than 20cc [email or web address] 02:17 PM Post ECG Atrial Fibrillation [email or web address] 02:17 PM Post Blood Pressure 131/67 [email or web address] 02:17 PM Information taught Cardiac Cath [email or web address] 02:17 PM Education needs Procedure, Plan of Care, and Disease Process [email or web address] 02:17 PM Learning barriers :Sedated [email or web address] 02:17 PM Education Methods Verbal [email or web address] 02:17 PM Education evaluation Needs further instruction [email or web address] 02:17 PM Site status No bleeding/hematoma - Rt Wrist as reported by Sites, Ayala RT (R) at 14:17 [email or web address] 02:18 PM Delay to floor No [email or web address] 02:18 PM Family placed in consult room. [email or web address] 02:18 PM Complications: None [email or web address] 02:19 PM Vitals capture stopped. 02:21 PM Report given to lauro DE LEON Pt taken to E Room #19. 14:20 [email or web address] 02:24 PM Patient out of room: 14:24 [email or web address] Complications Complication None None Hemodynamics Pressures Site Systolic/A Wave Diastolic/V Wave Mean AO 86 69 77 AO 94 59 76 Post Procedure Information Blood Pressure: 131/67 mmHg Rhythm: Atrial Fibrillation Post procedural instructions were given Closure Device Time Device Success/Fail 02/17/2018 2:16:00 PM Mechanical Compression Successful Site Checks Time Location Status Staff Sheath In? Note 02:17 PM Rt Wrist No bleeding/hematoma Sites, Ayala RT (R) Pulses Time Site Pre-Procedure Post-Procedure Note 02/17/2018 1:52:00 PM Lt DP/PT Doppler Updated by Bernard Diop RT (R) on 02/17/2018 2:25:03 PM Bernard Diop RT electronically signed on 02/17/2018 2:25:29 PM with status of Final
[2018-02-17] MEDS: Furosemide 20 MG TABLET PO SCH (14:54)
[2018-02-17] MEDS: *HR* Warfarin 4 MG TABLET PO SCH (17:25)
[2018-02-17] MEDS ORDERED: Warfarin perPT PO PRN (18:00)
[2018-02-17] MEDS ORDERED: Metoprolol XL (24 HR) Succ 50 MG TAB.ER.24H PO SCH (21:00)
--- NOTE | 2018-02-18 00:05 | Event Note ---
Date of Encounter: 02/18/18 Time of Encounter: 00:02 Patient had asymptomatic bradycardia with a ventricular rate as low as 29. BP stable otherwise. Was just given Toprol XL 50mg 4 hours ago. Will hold off on further doses of bb and place the pacer pads just in case transcutaneous pacing becomes necessary.
[2018-02-18] MEDS: Hydrocortisone Sodium Succ 100 MG/2 ML VIAL IVP SCH ×4 (02:05→23:53)
[2018-02-18 03:24] LABS: INR 2.1; Prothrombin Time 23.7 Seconds (9.4-12.1)
[2018-02-18] MEDS: Omega-3 Fish Oil 1,000 Mg PO SCH ×2 (06:37→09:18)
[2018-02-18] MEDS: Lactobacillus 1 EACH CAP.SPRINK PO SCH (09:16)
[2018-02-18] MEDS: Furosemide 20 MG TABLET PO SCH (09:16)
[2018-02-18] MEDS: Verapamil ER (24 HR) 240 MG TABLET.ER PO SCH (09:16)
[2018-02-18] MEDS: Multivit/Ca/Min/Fe/FA 1 TAB TABLET PO SCH (09:17)
[2018-02-18] MEDS: Aspirin Enteric Coated 81 MG Tablet PO SCH (09:17)
[2018-02-18] MEDS: Calcium 600-Vit D3 PO SCH (09:18)
[2018-02-18] MEDS: Folic Acid 1 MG TABLET PO SCH (09:19)
--- NOTE | 2018-02-18 09:54 | Cardiology Progress Note ---
Date of Encounter: 02/18/18 Time of Encounter: 09:51 Assessment and Plan (1) Acute CHF Current Visit: Yes Status: Acute Suspect acute on chronic systolic CHF. EF was estimated to be 30% 02/2017 (new diagnosis at that time). TTE repeated. EF further decreased to 15-20%. [facility] moderate CAD no intervention. CXR negative. CTA suggestive of edema. Appears euvolemic on exam. Strict I/Os, Na and fluid restriction, daily weights. Continue PO lasix. Cardiology signing off. Reconsult PRN. Will coordinate outpt follow-up in 1 week. Qualifiers: Heart failure type: systolic Qualified Code(s): I50.21 - Acute systolic ( congestive) heart failure (2) Cardiomyopathy Current Visit: Yes Status: Acute EF previously preserved--50% 09/2017, then reduced to 30% 02/2018 (not mentioned on impressions of report). Current TTE EF 15-20%. [facility] yesterday moderate CAD, no intervention warranted. Continue BB. Will add low dose ACEi. Will need repeat outpt TTE in 3 months to re-evaluate EF and if remains <35% will need to discuss ICD. 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 Stable filling defect in the right atrium inferiorly, likely thrombus. Atrial thrombus likely secondary to A-Fib. Will need bridged with heparin if INR is <2. INR 2.0 today. Coumadin was resumed yesterday evening. (4) Atrial fibrillation Current Visit: Yes Status: Chronic Per Cardiology: Known A-Fib. 12 hr tele AVG HR 82. On BB and CCB. On Toprol-XL 50 BID and Verapamil 240mg daily. Will stop Verapamil given his CMP. Increase Toprol XL to 100mg BID. Event note states HR dropped to 29 last night. Reviewed telemetry with Dr. Keller, appears to have been low voltage which underestimated HR. No true bradycardic events. Continue/increase BB since we are stopping CCB. Anticoagulated on Coumadin-INR 2.0 today. Qualifiers: Atrial fibrillation type: chronic Qualified Code(s): I48.2 - Chronic atrial fibrillation (5) Elevated troponin I measurement Current Visit: Yes Status: Acute Troponins 0.23, 0.40, 0.74, 0.72 in setting of CHF exacerbation. Demand ischemia , nondiagnostic for ACS. [facility] moderate CAD. Discussion w patient/family: The assessment and plan as outlined above was discussed with the patient and/or family members who expressed understanding and agreement. All questions were answered. Thank you for involving us in the care of your patient. Please call with any questions. I will discuss and review all the above with Dr. Keller and make changes as necessary. Subjective Principal diagnosis: CHF Interval history: No acute cardiac complaints this AM. [facility] yesterday moderate CAD, no intervention warranted. Reported episode of bradycardia last night HR 29-- however, on telemetry review appeared to be low voltage, which was falsely estimating HR as being low. No true bradycardic events. INR 2.0 today. Objective Vital Signs, Last 4 Hours Temp Pulse Resp BP Pulse Ox 02/18/18 09:18 97 02/18/18 06:48 97.2 F L 73 14 104/79 98 Vital Signs Temp Pulse Resp BP Pulse Ox 02/18/18 09:18 97 02/18/18 06:48 97.2 F L 73 14 104/79 98 02/18/18 04:52 14 97 02/18/18 04:33 96.5 F L 76 16 115/65 98 02/18/18 00:45 97.3 F L 56 20 130/78 98 02/18/18 00:24 22 98 02/17/18 20:19 97.9 F 91 18 114/85 95 02/17/18 17:21 108 16 93/77 91 02/17/18 16:01 84 16 112/81 91 02/17/18 15:31 79 16 112/84 91 02/17/18 15:11 97.8 F 106 15 127/93 94 02/17/18 15:00 99 16 127/93 92 02/17/18 14:45 113 16 115/94 92 02/17/18 14:30 104 92 124/89 02/17/18 10:56 97.8 F 99 16 117/89 95 Intake and Output 02/17/18 02/18/18 02/18/18 23:59 07:59 15:59 Intake Total 940 / 940 0 / 0 Output Total 275 / 275 Balance 940 / 940 -275 / -275 Intake: Oral 940 / 940 0 / 0 Output: Urine 275 / 275 Other: Meal Dinner Percent of Meal Consumed 90% # Voids 0 0 Weight 71.5 kg Patient Weight 02/18/18 23:59 Weight 71.5 kg General: Conversant, No Apparent Distress HEENT: Atraumatic, Normocephaly, Mucus Membranes Moist Neck: No JVD, Normal carotid pulses Cardiac: Other (irregularly irregular) Lungs: Normal Breath Sounds, No Wheeze, Rales, Rhonchi Neuro: Alert and responsive, No focal deficits noted Abdomen: Soft, Non-Tender Skin: No rashes noted on visualized skin Musculoskeletal: No Chest Wall Tenderness Extremities: No Clubbing, No Cyanosis, No Edema, Other (R BKA) Results 02/17/18 04:16 02/17/18 04:16 Lab Results 02/17/18 02/18/18 12:55 02:59 INR 2.0 2.1 Impressions Echocardiogram 02/16/18 22:28 Impressions: LVEF 15-20%. Severely reduced global LV systolic function. Indeterminate diastolic function. Normal right ventricular size with severe reduction in function. Severely dilated left atrium. Mild-moderate mitral regurgitation. Mild tricuspid regurgitation. No pulmonary hypertension by TR signal that may not be optimally obtained. IVC is not dilated. Left Ventricular Wall Motion: Rest Echo Findings The apex, apical inferior, mid inferior, basal inferior, apical anterior, mid anterior, basal anterior, apical septal, mid inferior septal, basal inferior septal, apical lateral, mid anterior lateral, basal anterior lateral, mid anterior septal, mid inferior lateral, basal anterior septal and basal inferior lateral negron were hypokinetic. Findings: Study Quality * Technically challenging exam. ECG Findings * Atrial fibrillation. Left Ventricle * LVEF 15-20%. * Normal LV chamber size. * Wall thickness visually appears normal. * Indeterminate diastolic function. Right Ventricle * Normal right ventricular size with severe reduction in function. Left Atrium * Severely dilated left atrium. Right Atrium * Normal right atrial size. Mitral Valve * Normal mitral valve structure. * No mitral stenosis. * Mild mitral annular calcification * Mild-moderate mitral regurgitation. Aortic Valve * Trace aortic regurgitation. * Trileaflet aortic valve. * Grossly there is no aortic stenosis. Doppler evlauation suboptimal. * Mildly thickened aortic valve leaflets. Tricuspid Valve * Tricuspid valve not well visualized. * Mild tricuspid regurgitation. * Estimated RA pressure is 3 mmHg. * Estimated RVSP is 20 mmHg. * No pulmonary hypertension. Pulmonic Valve * Pulmonic valve is not well visualized. * Suboptimal Doppler evaluation. Pulmonary Artery * Pulmonary artery not well visualized. Aorta * Not well visualized. Pericardium * There is no pericardial effusion present. Interatrial Septum * No evidence of PFO by color Doppler. IVC * The IVC is not dilated. Normal collapse. Active Medications Acetaminophen (Tylenol) 650 mg PO Q6HR PRN PRN Reason: Mild Pain/Fever Stop: 08/17/18 21:00 Hydrocodone Bitart/Acetaminophen (Sadorus 5-325 Mg) 1 tab PO Q6HR PRN PRN Reason: Moderate Pain Stop: 08/17/18 21:00 Aspirin (Aspirin Ec) 81 mg PO DAILY WILFREDO Stop: 08/18/18 09:01 Last Admin: 02/18/18 09:17 Dose: 81 mg Atorvastatin Calcium (Lipitor) 20 mg PO HS WILFREDO Stop: 08/18/18 21:01 Last Admin: 02/17/18 20:51 Dose: 20 mg Dicyclomine HCl (Bentyl) 10 mg PO QID WILFREDO Stop: 08/18/18 09:01 Last Admin: 02/18/18 09:16 Dose: 10 mg Docusate Sodium (Colace) 100 mg PO BID PRN; Protocol PRN Reason: Constipation Stop: 08/18/18 18:22 Last Admin: 02/17/18 20:58 Dose: 100 mg Folic Acid (Folic Acid) 3 mg PO DAILY WILFREDO Stop: 08/18/18 09:01 Last Admin: 02/18/18 09:19 Dose: 3 mg Furosemide (Lasix) 20 mg PO DAILY WILFREDO Stop: 08/19/18 11:31 Last Admin: 02/18/18 09:16 Dose: 20 mg Hydrocortisone Sodium Succinate (Solu-Cortef) 50 mg IVP Q8HR WILFREDO Stop: 08/19/18 00:01 Last Admin: 02/18/18 09:18 Dose: 50 mg Lactobacillus Acidophilus/Rhamnosus (Culturelle) 1 each PO DAILY WILFREDO Stop: 08/18/18 09:01 Last Admin: 02/18/18 09:16 Dose: 1 each Multivitamins/Calcium (Thera M Plus) 1 tab PO DAILY [facility] Stop: 08/18/18 09:01 Last Admin: 02/18/18 09:17 Dose: 1 tab Naloxone HCl (Narcan) 0.4 mg IVP Q2MIN PRN PRN Reason: SEE COMMENTS Stop: 08/17/18 21:00 Omeprazole (Prilosec) 20 mg PO 0630 [facility] Stop: 08/18/18 06:31 Last Admin: 02/18/18 06:42 Dose: Not Given Pharmacy Profile Note (Patient Taking Own Medication) 1 each PO BID [facility] Stop: 08/18/18 09:01 Last Admin: 02/18/18 09:18 Dose: Not Given Pharmacy Profile Note (Patient Taking Own Medication) 1 each PO BID [facility] Stop: 08/18/18 09:01 Last Admin: 02/18/18 09:18 Dose: Not Given Primidone (Mysoline) 250 mg PO TID [facility] Stop: 08/18/18 09:01 Last Admin: 02/18/18 09:16 Dose: 250 mg Verapamil HCl (Calan Sr) 240 mg PO DAILY [facility] Stop: 08/18/18 09:01 Last Admin: 02/18/18 09:16 Dose: 240 mg Warfarin Sodium (Coumadin Perpt) 0 each PO DAILY@1800 PRN PRN Reason: SEE COMMENTS Stop: 08/19/18 18:01 Warfarin Sodium (Coumadin) 4 mg PO DAILY@1800 [facility] Stop: 08/19/18 18:01 Last Admin: 02/17/18 17:25 Dose: 4 mg - Imaging and Cardiology Echo: report reviewed Cardiac cath: report reviewed - EKG Interpretation EKG results cardiology: other (12 hr tele AVG HR 82, A-Fib) - VTE Documentation of Mechanical Device: Intermittent pneumatic compression device Consult Discharge Plan - Plan Referrals: Tessa Brooks, [employer]INE[employer] [Primary Care Provider] -
[2018-02-18] MEDS: Cholecalciferol (D-3) 1,000 UNIT TABLET PO SCH (10:33)
[2018-02-18] MEDS: *HR* Warfarin 4 MG TABLET PO SCH (17:40)
--- NOTE | 2018-02-18 19:20 | Internal Med Progress Note ---
Hospitalist Progress Note - Encounter Date of Encounter: 02/18/18 Time of Encounter: 15:00 - Subjective Interval History: Mr Eid is currently admitted for weakness and concern for CAD. He remains moderate to high risk due to potential for worsening clinical status. Mr Edi is resting in bed. No fever or chills. Heart rate appeared to drop again but seems that it was a longer space between beats in his a fib. No CP. No SOB at this time. No GI issues. - Exam Vitals: Temp Pulse Resp BP Pulse Ox 97.7 F 80 15 131/72 97 02/18/18 14:00 02/18/18 14:00 02/18/18 14:00 02/18/18 14:00 02/18/18 14:00 Exam: General: Alert and oriented. Resting comfortably in bed at this time. Skin: Normal color, no rash, no lesions. Head: NC, atraumatic Eyes: EOM, pupils equal, round and reactive. ENT: Mucus membranes moist. No lesion. Cardiovascular: Normal S1 & S2, no rubs, murmurs or gallops. No JVD. Irregular rhythm. Not tachy. Lungs: Normal breath sounds, no wheezes or crackles. Good inspiratory effort Abdomen: Soft, non-tender, no rigidity. Normal bowel sounds Extremities: No deformity, no edema or tenderness, no joint swelling or clubbing. R BKA. Neurological: Normal cognition and motor skills. No focal deficit noted. Has tremor Pulses: Carotid and radial pulses normal +2. - Assessment and Plan (1) Hypotension Current Visit: Yes Status: Acute Assessment and Plan: On increased dose of steroids. Will transition back to PO tomorrow. Hypotension most likely related to cardiac disease. (2) Heart failure with reduced ejection fraction Current Visit: Yes Status: Chronic Assessment and Plan: - EF now 15-20%. Meds adjusted by cardiology. To have repeat echo in 3 months. (3) Hypertension Current Visit: Yes Status: Chronic Assessment and Plan: Continue meds as ordered for now. (4) DVT prophylaxis Current Visit: Yes Status: Acute (5) Elevated troponin Current Visit: Yes Status: Acute (6) Generalized weakness Current Visit: Yes Status: Chronic Assessment and Plan: - Pt has weakness with exertion. He has no stamina. Will have PT/OT eval for planning. Continue supportive care. (7) Dehydration Current Visit: Yes Status: Resolved (8) Leukocytosis Current Visit: Yes Status: Acute (9) Atrial fibrillation Current Visit: Yes Status: Chronic Assessment and Plan: Rate controlled at this time. Having times that appear to be bradycardia but are not. 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 (12) CAD (coronary artery disease) Current Visit: Yes Status: Chronic Assessment and Plan: Chronic issue. - Time Spent with Patient Total time spent is greater than 50% in coordination of care (as documented) at patient's floor/unit and/or counseling patient: Internal Medicine: Result - Labs CBC & Chem 7: 02/17/18 04:16 02/17/18 04:16 - ABG Interpretation ABG results: PT/INR, D-dimer PT 23.7 Seconds (9.4-12.1) H 02/18/18 02:59 - VTE Documentation of Mechanical Device: Intermittent pneumatic compression device Consult Discharge Plan - Plan Referrals: Tessa Brooks, [employer] TECHNICIAN [Primary Care Provider] - (1) Hypotension Qualifiers: Hypotension type: other hypotension type Qualified Code(s): I95.89 - Other hypotension (2) Heart failure with reduced ejection fraction Qualifiers: Heart failure chronicity: chronic Qualified Code(s): I50.22 - Chronic systolic (congestive) heart failure (3) Hypertension Qualifiers: Hypertension type: essential hypertension Qualified Code(s): I10 - Essential (primary) hypertension (8) Leukocytosis Qualifiers: Leukocytosis type: unspecified Qualified Code(s): D72.829 - Elevated white blood cell count, unspecified (9) Atrial fibrillation Qualifiers: Atrial fibrillation type: chronic Qualified Code(s): I48.2 - Chronic atrial fibrillation (11) Rheumatoid arthritis Qualifiers: Rheumatoid arthritis location: multiple sites Rheumatoid factor presence: unspecified presence Qualified Code(s): M06.9 - Rheumatoid arthritis, unspecified (12) CAD (coronary artery disease) Qualifiers: Coronary Disease-Associated Artery/Lesion type: [place] artery [place] vs. transplanted heart: [place] heart Associated angina: without angina Qualified Code(s): I25.10 - Atherosclerotic heart disease of [place] coronary artery without angina pectoris
[2018-02-18] MEDS: Metoprolol XL (24 HR) Succ 50 MG TAB.ER.24H PO SCH (22:39)
[2018-02-19 04:46] LABS: Hematocrit 33.5 % (37.5-50.1); Hemoglobin 10.9 g/dL (12.9-16.9); Mean Corpuscular HGB Conc 32.5 g/dL (31.6-35.5); Mean Corpuscular Hemoglobin 32.2 pg (28.0-33.3); Mean Corpuscular Volume 98.8 fL (83.0-100.0); Mean Platelet Volume 10.8 fL (9.4-12.4); Platelet Count 177 K/mcL (140-400); Red Blood Count 3.39 M/mcL (4.19-5.50); Red Cell Distribution Width 19.1 % (11.5-14.5)
[2018-02-19 04:52] LABS: INR 2.3; Prothrombin Time 25.8 Seconds (9.4-12.1)
[2018-02-19 05:05] LABS: BUN/Creatinine Ratio 32 (6-26); Blood Urea Nitrogen 21 mg/dL (8-23); Calcium 8.1 mg/dL (8.6-10.3); Carbon Dioxide 24 mEq/L (23-29); Chloride 108 mEq/L (98-107); Glucose 125 mg/dL (70-105); Magnesium 1.7 mg/dL (1.6-2.6); Osmolality,Calculated 290 (280-300); Potassium 3.8 mEq/L (3.5-5.1); Sodium 138 mEq/L (136-145); eGFR For Non-African Americans > 60 (> 60)
[2018-02-19] MEDS: Hydrocortisone Sodium Succ 100 MG/2 ML VIAL IVP SCH ×2 (10:25→15:33)
[2018-02-19] MEDS: Multivit/Ca/Min/Fe/FA 1 TAB TABLET PO SCH (10:27)
[2018-02-19] MEDS: Metoprolol XL (24 HR) Succ 50 MG TAB.ER.24H PO SCH ×2 (10:27→21:14)
[2018-02-19] MEDS: Lactobacillus 1 EACH CAP.SPRINK PO SCH (10:27)
[2018-02-19] MEDS: Cholecalciferol (D-3) 1,000 UNIT TABLET PO SCH (10:27)
[2018-02-19] MEDS: Aspirin Enteric Coated 81 MG Tablet PO SCH (10:27)
[2018-02-19] MEDS: Folic Acid 1 MG TABLET PO SCH (10:27)
[2018-02-19] MEDS: Furosemide 20 MG TABLET PO SCH (10:28)
[2018-02-19] MEDS: *HR* Warfarin 4 MG TABLET PO SCH (17:31)
--- NOTE | 2018-02-19 17:44 | Internal Med Progress Note ---
Hospitalist Progress Note - Encounter Date of Encounter: 02/19/18 Time of Encounter: 15:30 - Subjective Interval History: Mr Eid is currently admitted for weakness and concern for CAD. He remains moderate to high risk due to potential for worsening clinical status. Mr Eid feels OK at this time. His sisters are visiting. No fever or chills. Feels stronger. To have PT eval tomorrow. No CP or SOB now. Steroids have been higher. - Exam Vitals: Temp Pulse Resp BP Pulse Ox 97.7 F 79 15 130/82 97 02/19/18 15:17 02/19/18 15:17 02/19/18 15:17 02/19/18 15:17 02/19/18 15:17 Exam: General: Alert and oriented. Resting comfortably in bed at this time. Skin: Normal color, no rash, no lesions. Head: NC, atraumatic Eyes: EOM, pupils equal, round and reactive. ENT: Mucus membranes moist. No lesion. Pulse irregular. Lungs: Normal breath sounds, no wheezes or crackles. Good inspiratory effort Abdomen: Soft, non-tender, no rigidity. Normal bowel sounds Extremities: No deformity, no edema or tenderness, no joint swelling or clubbing. R BKA Neurological: Normal cognition and motor skills. No focal deficit noted. Pulses: Carotid and radial pulses normal +2. - Assessment and Plan (1) Hypotension Current Visit: Yes Status: Resolved Assessment and Plan: Decrease steroids. Change to PO at discharge. (2) Heart failure with reduced ejection fraction Current Visit: Yes Status: Chronic Assessment and Plan: - EF now 15-20%. Meds adjusted by cardiology. To have repeat echo in 3 months. (3) Hypertension Current Visit: Yes Status: Chronic Assessment and Plan: Continue meds as ordered for now. (4) DVT prophylaxis Current Visit: Yes Status: Acute (5) Generalized weakness Current Visit: Yes Status: Chronic Assessment and Plan: - Pt has weakness with exertion. He has no stamina. Will have PT/OT eval for planning. Continue supportive care. (6) Dehydration Current Visit: Yes Status: Resolved (7) Atrial fibrillation Current Visit: Yes Status: Chronic Assessment and Plan: Rate controlled at this time. Not bradycardic (8) Atrial thrombus Current Visit: Yes Status: Chronic Assessment and Plan: On coumadin (9) Rheumatoid arthritis Current Visit: No Status: Chronic Assessment and Plan: Continue home meds. (10) CAD (coronary artery disease) Current Visit: Yes Status: Chronic Assessment and Plan: Chronic issue. - Time Spent with Patient Total time spent is greater than 50% in coordination of care (as documented) at patient's floor/unit and/or counseling patient: Internal Medicine: Result - Labs CBC & Chem 7: 02/19/18 04:01 02/19/18 04:01 Labs: Short CBC 02/19/18 Range/Units 04:01 WBC 7.4 (4.3-11.1) K/mcL Hgb 10.9 L (12.9-16.9) g/dL Hct 33.5 L (37.5-50.1) % Plt Count 177 (140-400) K/mcL BMP 02/19/18 04:01 Sodium 138 Potassium 3.8 Chloride 108 H Carbon Dioxide 24 BUN 21 Creatinine 0.65 L Glucose 125 H Calcium 8.1 L - ABG Interpretation ABG results: PT/INR, D-dimer PT 25.8 Seconds (9.4-12.1) H 02/19/18 04:01 - VTE Documentation of Mechanical Device: Intermittent pneumatic compression device Consult Discharge Plan - Plan Referrals: Tessa Brooks, [employer] [Primary Care Provider] - (1) Hypotension Qualifiers: Hypotension type: other hypotension type Qualified Code(s): I95.89 - Other hypotension (2) Heart failure with reduced ejection fraction Qualifiers: Heart failure chronicity: chronic Qualified Code(s): I50.22 - Chronic systolic (congestive) heart failure (3) Hypertension Qualifiers: Hypertension type: essential hypertension Qualified Code(s): I10 - Essential (primary) hypertension (7) Atrial fibrillation Qualifiers: Atrial fibrillation type: chronic Qualified Code(s): I48.2 - Chronic atrial fibrillation (9) Rheumatoid arthritis Qualifiers: Rheumatoid arthritis location: multiple sites Rheumatoid factor presence: unspecified presence Qualified Code(s): M06.9 - Rheumatoid arthritis, unspecified (10) CAD (coronary artery disease) Qualifiers: Coronary Disease-Associated Artery/Lesion type: [place] artery [place] vs. transplanted heart: [place] heart Associated angina: without angina Qualified Code(s): I25.10 - Atherosclerotic heart disease of [place] coronary artery without angina pectoris
[2018-02-20 04:00] LABS: INR 2.3; Prothrombin Time 26.3 Seconds (9.4-12.1)
[2018-02-20] MEDS ORDERED: Hydrocortisone Sodium Succ 100 MG/2 ML VIAL IVP SCH (04:00)
[2018-02-20] MEDS: Furosemide 20 MG TABLET PO SCH (10:17)
[2018-02-20] MEDS: Multivit/Ca/Min/Fe/FA 1 TAB TABLET PO SCH (10:17)
[2018-02-20] MEDS: Lactobacillus 1 EACH CAP.SPRINK PO SCH (10:17)
[2018-02-20] MEDS: Folic Acid 1 MG TABLET PO SCH (10:17)
[2018-02-20] MEDS: Aspirin Enteric Coated 81 MG Tablet PO SCH (10:17)
[2018-02-20] MEDS: Metoprolol XL (24 HR) Succ 50 MG TAB.ER.24H PO SCH (10:18)
[2018-02-20] MEDS: Cholecalciferol (D-3) 1,000 UNIT TABLET PO SCH (10:18)
--- NOTE | 2018-02-20 14:32 | Discharge Summary ---
<Thanh Brunner - Last Filed: 02/20/18 16:36> Orders not resulted at time of discharge: Pending orders 02/18/18 15:12 EKG [ECG 12 lead ECG] [ECG] Stat 02/21/18 04:00 INR/PT [Prothrombin Time INR] [COAG] AM 0400 02/22/18 04:00 INR/PT [Prothrombin Time INR] [COAG] AM 0400 Date of Encounter: 02/20/18 - Discharge Diagnosis (1) Atrial thrombus Status: Chronic (2) Hypertension Status: Chronic Qualifiers: Hypertension type: essential hypertension Qualified Code(s): I10 - Essential (primary) hypertension (3) Rheumatoid arthritis Status: Chronic Qualifiers: Rheumatoid arthritis location: multiple sites Rheumatoid factor presence: unspecified presence Qualified Code(s): M06.9 - Rheumatoid arthritis, unspecified (4) DVT prophylaxis Status: Acute (5) Atrial fibrillation Status: Chronic Qualifiers: Atrial fibrillation type: chronic Qualified Code(s): I48.2 - Chronic atrial fibrillation (6) Generalized weakness Status: Chronic (7) Dehydration Status: Resolved (8) Heart failure with reduced ejection fraction Status: Chronic Qualifiers: Heart failure chronicity: chronic Qualified Code(s): I50.22 - Chronic systolic (congestive) heart failure (9) Hypotension Status: Resolved Qualifiers: Hypotension type: other hypotension type Qualified Code(s): I95.89 - Other hypotension (10) CAD (coronary artery disease) Status: Chronic Qualifiers: Coronary Disease-Associated Artery/Lesion type: [place] artery [place] vs. transplanted heart: [place] heart Associated angina: without angina Qualified Code(s): I25.10 - Atherosclerotic heart disease of [place] coronary artery without angina pectoris Hospital course: Mr. Eid is a 77 year old male - Time Spent with Patient Total time spent providing and/or coordinating discharge services: - Discharge Medications Prescriptions: Furosemide [Lasix] 20 mg PO DAILY #30 tablet Lisinopril 2.5 mg PO DAILY #30 tablet Lisinopril [Zestril] 2.5 mg PO DAILY #30 tablet Metoprolol Succinate [Toprol Xl] 100 mg PO BID #60 tab.er.24h PredniSONE [Yanet] 7.5 mg PO DAILY #30 tablet.dr Home Medications: Folic Acid 3 mg PO DAILY 02/20/16 [History] Leflunomide [Arava] 20 mg PO DAILY 02/20/16 [History] Pravastatin Sodium [Pravachol] 80 mg PO HS 02/20/16 [History] Primidone [Mysoline] 250 mg PO TID 02/20/16 [History] Vit A/C/E AC/Znox/Cupric Oxide [Eye Vitamin-Minerals Tablet] 1 tab PO DAILY 02/24 [History] [place]-3/Dha/Epa/Fish Oil [[place]-3 Fish Oil 1,000 mg Sfgl] 1,000 mg PO BID [History] Calcium Carbonate/Vitamin D3 [Calcium 600-Vit D3 200 Tablet] 1 each PO BID 02/24 [History] L. Acidophilus/Pectin, [place] [Acidophilus Probiotic Capsule] 1 each PO DAILY [History] Methotrexate [Otrexup] 10 mg PO MO 02/24/17 [History] Pantoprazole Sodium [Protonix] 20 mg PO DAILY 02/24/17 [History] Verapamil HCl [Verapamil ER] 240 mg PO DAILY 01/24/18 [History] Warfarin [Coumadin] 4 mg PO DAILY 01/24/18 [History] Dicyclomine [Bentyl] 10 mg PO QID capsule 01/28/18 [Rx] Acetaminophen [Tylenol] 1,000 mg PO Q6HR PRN 02/15/18 [History] Aspirin Enteric Coated [Aspirin EC] 81 mg PO DAILY 02/15/18 [History] Furosemide [Lasix] 20 mg PO DAILY 02/15/18 [History] Cholecalciferol (D-3) [Vitamin D] 1,000 unit PO DAILY tablet 02/20/18 [Rx] Docusate [Colace] 100 mg PO BID PRN capsule 02/20/18 [Rx] Furosemide [Lasix] 20 mg PO DAILY #30 tablet 02/20/18 [Rx] Lisinopril 2.5 mg PO DAILY #30 tablet 02/20/18 [Rx] Lisinopril [Zestril] 2.5 mg PO DAILY #30 tablet 02/20/18 [Rx] Metoprolol Succinate [Toprol Xl] 100 mg PO BID #60 tab.er.24h 02/20/18 [Rx] Metoprolol XL (24 HR) Succ [Toprol Xl] 100 mg PO BID tab.er.24h 02/20/18 [Rx] PredniSONE [Yanet] 7.5 mg PO DAILY #30 tablet. 02/20/18 [Rx] Allergies/Adverse Reactions: 3 Allergy/AdvReac Type Severity Reaction Status Date / Time No Known Allergies Allergy Verified 01/24/18 19:13 Date of admission: 02/15/18 22:26 Primary care physician: Tessa Brooks CNP Consults: 02/16/18 10:51 Consult to Cardiology [CONS] Routine Comment: Consulting Provider: Cardiology Evi Reason for Consult: Elevated troponin, known CAD Call Completed: Yes 02/18/18 09:55 PT [Consult to Physical Therapy] [CONS] Routine Comment: Evaluate, develop and implement POC Reason for Consult: Weakness. Does patient have active BEDREST order?: No Is patient medically & hemodynamically stable?: Yes Patient assessed for mobility or mobilized this visit?: Yes - Constitutional Vitals: Temp Pulse Resp BP Pulse Ox 98.0 F 92 16 142/86 93 02/20/18 12:25 02/20/18 12:25 02/20/18 12:25 02/20/18 12:25 02/20/18 12:25 - Patient Status Disposition: Home Health Service Condition: Fair - Discharge Instructions Instructions: Heart Failure (DC), Atrial Fibrillation (DC), Left Heart Catheterization (DC), Pacemaker (DC), Constipation (DC), Peripheral Vascular Disorders (DC) Follow Up With: Tessa Brooks CNP [Primary Care Provider] - 02/23/18 1:00 pm <Pascale Juárez - Last Filed: 02/20/18 16:38> - NOTES TO OUTPATIENT PROVIDER Notes to Outpatient Provider: F/U with Cardiology in 1 week, repeat echo in 3 months Orders not resulted at time of discharge: Pending orders 02/18/18 15:12 EKG [ECG 12 lead ECG] [ECG] Stat 02/21/18 04:00 INR/PT [Prothrombin Time INR] [COAG] AM 0400 02/22/18 04:00 INR/PT [Prothrombin Time INR] [COAG] AM 0400 Date of Encounter: 02/20/18 Time of Encounter: 14:30 - Discharge Diagnosis (1) Heart failure with reduced ejection fraction Priority: Primary Status: Chronic Assessment and Plan: - EF now 15-20%. [facility] performed. No intervention needed - Meds adjusted by cardiology, verapamil d/c, beta annelise increased and ACEi added. - To have repeat echo in 3 months - continue Lasix PO - increase prednisone dose to 7.5mg PO daily for d/c - outpt f/u in 1 week w/ cardio Qualifiers: Heart failure chronicity: chronic Qualified Code(s): I50.22 - Chronic systolic (congestive) heart failure (2) Generalized weakness Priority: Secondary Status: Chronic Assessment and Plan: - Pt has weakness with exertion. He has no stamina. - PT rec home health visits once a day mon-frid for 10 days total to help patient regain strength. - is able to assist patient a home. OT signed off. Continue supportive care. (3) Elevated troponin Priority: Secondary Status: Acute Assessment and Plan: Troponins 0.23, 0.40, 0.74, 0.72 in setting of CHF exacerbation. Demand ischemia , nondiagnostic for ACS. [facility] moderate CAD. (4) Atrial fibrillation with rapid ventricular response Priority: Primary Status: Acute Assessment and Plan: Rate controlled, verapamil stopped and Toprol/beta annelise dosage increased, coumadin to be continued (5) Atrial thrombus Priority: Primary Status: Chronic Assessment and Plan: Initially suspected on CT 01/2017. 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 Stable filling defect in the right atrium inferiorly, likely thrombus. Atrial thrombus likely secondary to A-Fib. Coumadin restarted and to be continued (6) Dehydration Priority: Secondary Status: Resolved Assessment and Plan: resolved (7) Hypertension Priority: Primary Status: Chronic Assessment and Plan: continue meds as ordered Qualifiers: Hypertension type: essential hypertension Qualified Code(s): I10 - Essential (primary) hypertension (8) DVT prophylaxis Priority: Secondary Status: Acute Assessment and Plan: coumadin to be continued (9) Rheumatoid arthritis Priority: Primary Status: Chronic Assessment and Plan: chronic issue, continue at home meds and follow up with commercial announcer Qualifiers: Rheumatoid arthritis location: multiple sites Rheumatoid factor presence: unspecified presence Qualified Code(s): M06.9 - Rheumatoid arthritis, unspecified (10) Leukocytosis Priority: Secondary Status: Acute Assessment and Plan: resolved Qualifiers: Leukocytosis type: unspecified Qualified Code(s): D72.829 - Elevated white blood cell count, unspecified Hospital course: Mr Eid is a 77-year-old male history of CVA 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 He also has a history of rheumatoid arthritis, heart failure with reduced ejection fraction, HTN, LUCRECIA and hyperlipidemia. He stated his symptoms had a gradual onset over the past 2 days. He was seen in the ED a [place] on 02/10/18 and was diagnosed with mild CHF exacerbation and discharged. He stated his oral intake had been decreased over the past couple days and denied any chest pain, shortness of breath, nausea, vomiting, diarrhea, or neurologic symptoms. He was mildly tachycardic on presentation to the ER with all other vitals within normal limits. His troponin was elevated at 0.23,, CT of the head and chest/abd were grossly negative. Laboratory results were significant for a mild WBC elevation of 13, BUN/ creatinine of 27/0.87 with a creatinine ratio of approximately 30. He was determined to be dehydrated and was started on IV fluids at a rate of 75ml/hr given his history of CHF. His troponins were trended and cardiology was consulted. An echo was performed and showed a EF of 15-20% which was decreased from his previous echo a year ago that showed a EF of 30%. He was taken for a left heart catheterization which showed moderate CAD and no intervention was warranted. 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 Stable filling defect in the right atrium inferiorly, likely atrial thrombus secondary to A-Fib. He is currently anticoagulated on Coumadin so that was just continued. Cardiology added a low dose ACEi and suggested a repeat outpatient TTE in 3 months to re-evaluate EF and if it remains <35% ICD will be discussed. His Lasix was continued, his verapamil was discontinued and his beta annelise dosage was increased. He is anticoagulated on Coumadin. As per PT, home health recommended daily for 10 days to help increase stamina. OT signed off. Patient to follow up with cardiology in 1 week out patient. Medications adjusted for patient discharge. - Time Spent with Patient Total time spent providing and/or coordinating discharge services: Date of admission: 02/15/18 22:26 Primary care physician: Tessa Brooks CNP Consults: 02/16/18 10:51 Consult to Cardiology [CONS] Routine Comment: Consulting Provider: Bradly Steve Reason for Consult: Elevated troponin, known CAD Call Completed: Yes 02/18/18 09:55 PT [Consult to Physical Therapy] [CONS] Routine Comment: Evaluate, develop and implement POC Reason for Consult: Weakness. Does patient have active BEDREST order?: No Is patient medically & hemodynamically stable?: Yes Patient assessed for mobility or mobilized this visit?: Yes - Constitutional Vitals: Temp Pulse Resp BP Pulse Ox 98.0 F 92 16 142/86 93 02/20/18 12:25 02/20/18 12:25 02/20/18 12:25 02/20/18 12:25 02/20/18 12:25 General appearance: Present: A&O X 3, no acute distress, answers questions appropriately Exam: Gen: AAOx3, NAD, pleasant disposition HEart: RRR, no rubs, no murmurs Lungs: CTA b/l, no wheeze, normal effort Ext: R BKA, no edema - Head Head exam: Present: atraumatic, normocephalic - Eye Eye exam: Present: PERRL, conjuntiva pink, sclera anicteric Pupils: Present: PERRL - Neck Neck exam general surgery: Present: supple, trachea midline. Absent: lymphadenopathy - Respiratory Respiratory exam: Present: CTAB. Absent: rales, wheezes - Cardiovascular Cardiovascular exam: Present: +S1, +S2. Absent: JVD, systolic murmur - GI/Abdominal GI/Abdominal exam: Present: normal bowel sounds, soft. Absent: rebound, tenderness - Extremities Exam Extremities exam: Present: warm, radial pulses palpable and symmetrical. Absent : calf tenderness, cyanotic, pedal edema - Neurological Exam Neurological exam: Present: CN II-XII intact, oriented X3, no focal deficits. Absent: pronater drift, facial droop, speech deficit - Skin Skin exam: Present: dry, intact - Patient Status Functional capacity at discharge: uses cane/walker Overall status at discharge: patient is progressing back to baseline - Diet and Activity Activity: as per physical therapy - VTE Documentation of Mechanical Device: Intermittent pneumatic compression device <Noah Cyr - Last Filed: 02/20/18 17:49> - NOTES TO OUTPATIENT PROVIDER Notes to Outpatient Provider: His prednisone was increased slighty with improvement in his weakness. Cardiac meds adjusted by cardiology. Orders not resulted at time of discharge: Pending orders 02/18/18 15:12 EKG [ECG 12 lead ECG] [ECG] Stat 02/21/18 04:00 INR/PT [Prothrombin Time INR] [COAG] AM 0400 02/22/18 04:00 INR/PT [Prothrombin Time INR] [COAG] AM 0400 Date of Encounter: 02/20/18 - Discharge Diagnosis (1) Atrial thrombus Priority: Secondary Status: Chronic (2) Hypertension Priority: Secondary Status: Chronic Qualifiers: Hypertension type: essential hypertension Qualified Code(s): I10 - Essential (primary) hypertension (3) Rheumatoid arthritis Priority: Secondary Status: Chronic Qualifiers: Rheumatoid arthritis location: multiple sites Rheumatoid factor presence: unspecified presence Qualified Code(s): M06.9 - Rheumatoid arthritis, unspecified (4) Atrial fibrillation Priority: Secondary Status: Chronic Qualifiers: Atrial fibrillation type: chronic Qualified Code(s): I48.2 - Chronic atrial fibrillation (5) Generalized weakness Status: Chronic (6) Dehydration Priority: Secondary Status: Resolved (7) Heart failure with reduced ejection fraction Priority: Secondary Status: Chronic Qualifiers: Heart failure chronicity: chronic Qualified Code(s): I50.22 - Chronic systolic (congestive) heart failure (8) Hypotension Priority: Primary Status: Resolved Qualifiers: Hypotension type: other hypotension type Qualified Code(s): I95.89 - Other hypotension (9) CAD (coronary artery disease) Priority: Secondary Status: Chronic Qualifiers: Coronary Disease-Associated Artery/Lesion type: [place] artery [place] vs. transplanted heart: [place] heart Associated angina: without angina Qualified Code(s): I25.10 - Atherosclerotic heart disease of [place] coronary artery without angina pectoris Hospital course: Mr. Eid is a 77 year old male - Time Spent with Patient Total time spent providing and/or coordinating discharge services: 41min Date of admission: 02/15/18 22:26 Primary care physician: Tessa Brooks CNP Consults: 02/16/18 10:51 Consult to Cardiology [CONS] Routine Comment: Consulting Provider: Cardiology Evi Reason for Consult: Elevated troponin, known CAD Call Completed: Yes 02/18/18 09:55 PT [Consult to Physical Therapy] [CONS] Routine Comment: Evaluate, develop and implement POC Reason for Consult: Weakness. Does patient have active BEDREST order?: No Is patient medically & hemodynamically stable?: Yes Patient assessed for mobility or mobilized this visit?: Yes - Constitutional Vitals: Temp Pulse Resp BP Pulse Ox 97.7 F 94 16 136/99 93 02/20/18 16:25 02/20/18 16:25 02/20/18 16:25 02/20/18 16:25 02/20/18 16:25 - Attending Attestation The history, physical exam, and medical decision making was performed by the medical student either while I was physically present and actively involved or I personally re-performed the exam and medical decision making. I have verified the accuracy of the medical student's documentation with regards to the history, physical exam findings, and medical decision making on 02/20/18. Mr Eid has been admitted for weakness and dyspnea. He has been found to have worsened EF. His steroids were increased with improvement in his symptoms. His cardiac meds have been adjusted as well. At this time he is afebrile and able to ambulate in [place]. He is ready to discharge home with [facility]. Exam alert Comfortable Mucus membranes dry Heart irreg and not tachy Lungs clear at this time Abd soft and nontender No edema. RLE BKA. No rash. Plan D/C home today with [facility] Meds adjusted - prednisone increased slightly Follow up with PCP and cardiology
[2018-02-20 16:27] VITALS: BP 136/99
--- NOTE | 2018-02-20 17:51 | Physician Discharge Referral ---
Home Health/Hosp Referral Info Transfer to: Home Health Provider in Charge Post Discharge: PCP - Diagnosis (1) Atrial thrombus Priority: Secondary Status: Chronic (2) Hypertension Priority: Secondary Status: Chronic (3) Rheumatoid arthritis Priority: Secondary Status: Chronic (4) Atrial fibrillation Priority: Secondary Status: Chronic (5) Generalized weakness Priority: Secondary Status: Chronic (6) Dehydration Priority: Secondary Status: Resolved (7) Heart failure with reduced ejection fraction Priority: Secondary Status: Chronic (8) Hypotension Priority: Primary Status: Resolved (9) CAD (coronary artery disease) Priority: Secondary Status: Chronic - Respiratory Orders None Smoking Cessation: Smoking cessation has been advised. For more information, call the [place] Tobacco Quit Line at 5-616-TWIS-NOW. - Diet/Nutrition Diet/Nutrition Orders: No Added Salt (NIRAV), Cardiac - Activity Activity Orders: Up ad inés - Services Needed Following services are medically necessary services: Nursing, Physical Therapy, Occupational Therapy - Transfer Medications Prescriptions: Furosemide [Lasix] 20 mg PO DAILY #30 tablet Lisinopril 2.5 mg PO DAILY #30 tablet Lisinopril [Zestril] 2.5 mg PO DAILY #30 tablet Metoprolol Succinate [Toprol Xl] 100 mg PO BID #60 tab.er.24h PredniSONE [Yanet] 7.5 mg PO DAILY #30 tablet.dr Home Medications: Folic Acid 3 mg PO DAILY 02/20/16 [History] Leflunomide [Arava] 20 mg PO DAILY 02/20/16 [History] Pravastatin Sodium [Pravachol] 80 mg PO HS 02/20/16 [History] Primidone [Mysoline] 250 mg PO TID 02/20/16 [History] Vit A/C/E AC/Znox/Cupric Oxide [Eye Vitamin-Minerals Tablet] 1 tab PO DAILY 02/24 [History] [place]-3/Dha/Epa/Fish Oil [[place]-3 Fish Oil 1,000 mg Sfgl] 1,000 mg PO BID [History] Calcium Carbonate/Vitamin D3 [Calcium 600-Vit D3 200 Tablet] 1 each PO BID 02/24 [History] L. Acidophilus/Pectin, [place] [Acidophilus Probiotic Capsule] 1 each PO DAILY [History] Methotrexate [Otrexup] 10 mg PO MO 02/24/17 [History] Pantoprazole Sodium [Protonix] 20 mg PO DAILY 02/24/17 [History] Verapamil HCl [Verapamil ER] 240 mg PO DAILY 01/24/18 [History] Warfarin [Coumadin] 4 mg PO DAILY 01/24/18 [History] Dicyclomine [Bentyl] 10 mg PO QID capsule 01/28/18 [Rx] Acetaminophen [Tylenol] 1,000 mg PO Q6HR PRN 02/15/18 [History] Aspirin Enteric Coated [Aspirin EC] 81 mg PO DAILY 02/15/18 [History] Furosemide [Lasix] 20 mg PO DAILY 02/15/18 [History] Cholecalciferol (D-3) [Vitamin D] 1,000 unit PO DAILY tablet 02/20/18 [Rx] Docusate [Colace] 100 mg PO BID PRN capsule 02/20/18 [Rx] Furosemide [Lasix] 20 mg PO DAILY #30 tablet 02/20/18 [Rx] Lisinopril 2.5 mg PO DAILY #30 tablet 02/20/18 [Rx] Lisinopril [Zestril] 2.5 mg PO DAILY #30 tablet 02/20/18 [Rx] Metoprolol Succinate [Toprol Xl] 100 mg PO BID #60 tab.er.24h 02/20/18 [Rx] Metoprolol XL (24 HR) Succ [Toprol Xl] 100 mg PO BID tab.er.24h 02/20/18 [Rx] PredniSONE [Yanet] 7.5 mg PO DAILY #30 tablet. 02/20/18 [Rx] Allergies/Adverse Reactions: 3 Allergy/AdvReac Type Severity Reaction Status Date / Time No Known Allergies Allergy Verified 01/24/18 19:13 Certification: Further, I certify that my clinical findings support that this patient is homebound (i.e. absences from home require considerable and taxing effort and are for medical reasons or judaism services or infrequently or short duration when for other reasons) because: Homebound Reason: Patient requires assistance of a person or device to safely leave home, Severity of cardiac or pulmonary status limits activity tolerance Attestation: My signature below is to certify that this patient is under my care and that I, or nurse practitioner, or a physician's assistant food service director working with me, has a face-to -face encounter with this patient.
== END 2018-02-20 18:35 | disposition home health service (06) | DRG 287 ==
LOC: EMEROO 13:58 → 2NENU 13:58 → SUATTDRO 22:26
PROVIDERS: ADMIT Internal Medicine; ATTEND Internal Medicine

== ENCOUNTER 2018-04-29 15:38 | Observation (INO) ==
--- NOTE | 2018-04-29 15:53 | Emergency Department Note ---
Disposition Clinical Impression: Fatigue Qualifiers: Fatigue type: unspecified Qualified Code(s): R53.83 - Other fatigue Disposition: Admitted As Inpatient Condition: Good Time of Disposition: 18:28 General Adult HPI - General Chief complaint: ED General Medical Stated complaint: FAtigue Time Seen by Provider: 04/29/18 15:49 Nursing Notes Reviewed: Yes Vital Signs Reviewed: Yes - History of Present Illness HPI Narrative: 77-year-old male presents emergency department with concern for generalized weakness. Patient denies any chest pain, pressure, tightness. States he can barely get up out of the wheelchair. Denies any shortness of breath on exertion, but has not been able to really exert himself lately. Is not short of breath at rest either. Pain Scale: 5 - Related Data Home Medications Medication Instructions Recorded Confirmed Folic Acid 3 mg PO DAILY 02/20/16 02/15/18 Leflunomide [Arava] 20 mg PO DAILY 02/20/16 02/15/18 Pravastatin Sodium [Pravachol] 80 mg PO HS 02/20/16 02/15/18 Primidone [Mysoline] 250 mg PO TID 02/20/16 02/15/18 Vit A/C/E AC/Znox/Cupric Oxide 1 tab PO DAILY 08/18/16 02/15/18 [Eye Vitamin-Minerals Tablet] [place]-3/Dha/Epa/Fish Oil [[place]-3 1,000 mg PO BID 09/08/16 02/15/18 Fish Oil 1,000 mg Sfgl] Calcium Carbonate/Vitamin D3 1 each PO BID 02/24/17 02/15/18 [Calcium 600-Vit D3 200 Tablet] L. Acidophilus/Pectin, [place] 1 each PO DAILY 02/24/17 02/15/18 [Acidophilus Probiotic Capsule] Methotrexate [Otrexup] 10 mg PO MO 02/24/17 02/15/18 Pantoprazole Sodium [Protonix] 20 mg PO DAILY 02/24/17 02/15/18 Warfarin [Coumadin] 4 mg PO DAILY 01/24/18 02/15/18 Acetaminophen [Tylenol] 1,000 mg PO Q6HR PRN 02/15/18 02/15/18 Aspirin Enteric Coated [Aspirin EC] 81 mg PO DAILY 02/15/18 02/15/18 Furosemide [Lasix] 20 mg PO DAILY 02/15/18 02/15/18 Previous Rx's Medication Instructions Recorded Dicyclomine [Bentyl] 10 mg PO QID capsule 01/28/18 Cholecalciferol (D-3) [Vitamin D] 1,000 unit PO DAILY tablet 02/20/18 Docusate [Colace] 100 mg PO BID PRN capsule 02/20/18 Furosemide [Lasix] 20 mg PO DAILY #30 tablet 02/20/18 Lisinopril 2.5 mg PO DAILY #30 tablet 02/20/18 Lisinopril [Zestril] 2.5 mg PO DAILY #30 tablet 02/20/18 Metoprolol Succinate [Toprol Xl] 100 mg PO BID #60 tab.er.24h 02/20/18 Metoprolol XL (24 HR) Succ [Toprol 100 mg PO BID tab.er.24h 02/20/18 Xl] PredniSONE [Yanet] 7.5 mg PO DAILY #30 tablet. 02/20/18 Allergies Allergy/AdvReac Type Severity Reaction Status Date / Time No Known Allergies Allergy Verified 04/29/18 16:13 All systems ED: reviewed and negative except as stated. Review of Systems: As Per HPI Constitutional: Denies: fever Cardiovascular: Denies: chest pain Respiratory: Denies: cough, dyspnea Gastrointestinal: Denies: abdominal pain, nausea, vomiting Neurological: Denies: headache Endocrine: Reports: fatigue Past Medical History - Past Medical History Medical history: Reports: arthritis, atrial fibrillation, CHF, GI bleed, hyperlipidemia, hypertension, kidney stones, peripheral artery disease, other Surgical history: Reports: herniorrhaphy, other Psychiatric history: Reports: no psych history - Social History Smoking Status: Former smoker Smokeless Tobacco Status: No Alcohol use: Reports: none Drug use: Reports: none Physical Exam - General Limitations: no limitations General appearance: alert, in no apparent distress - Head Head exam: normocephalic - Eye Eye exam: Present: EOMI - ENT ENT exam: mucous membranes moist - Neck Neck exam: Present: trachea midline - Respiratory Respiratory exam: Present: normal lung sounds bilaterally. Absent: respiratory distress - Cardiovascular Cardiovascular exam: Present: regular rate, normal rhythm, normal heart sounds - Abdominal Exam Abdominal exam: Present: soft, Non-Tender. Absent: distention, guarding, rebound, rigidity - Extremities Exam Extremities exam: Present: normal capillary refill, other (Right extremity absent. Left lower extremity has no purulent edema. Pulses 2+.) Course Vital Signs Temperature 97.5 F L 04/29/18 15:45 Pulse Rate 88 04/29/18 15:45 Respiratory Rate 16 04/29/18 15:45 Blood Pressure 120/84 04/29/18 15:45 O2 Sat by Pulse Oximetry 96 04/29/18 15:45 Temperature 97.5 F L 04/29/18 16:08 Pulse Rate 88 04/29/18 16:08 Respiratory Rate 16 04/29/18 16:08 Blood Pressure 120/84 04/29/18 16:08 O2 Sat by Pulse Oximetry 96 04/29/18 16:08 Oxygen Delivery Oxygen Delivery Room Air Medical Decision Making - MDM Narrative Medical decision making narrative: 77-year-old male presents emergency department with fatigue, weakness, not being able to get out of his bed. Patient has history of CHF with ejection fraction 11%. Patient does not appear to be in acute failure at this time. EKG did not reveal any new changes. Troponin within normal limits. Chest x-ray was stable appearance of the chest and cardiomegaly with atherosclerotic aorta. TSH within normal limits. Patient stable here in the emergency department not in acute distress at any robby e. I spoke with Dr. Guzman, the irrigation supervisor regarding the patient and if there is any further recommendations as I think his generalized weakness is most likely secondary to his known congestive heart failure. He said he would follow the patient on the floor and had no specific recommendations at this time. Patient admitted to the hospitalist. Family agrees and discussed the findings at bedside with him. Chest X-Ray 04/29/18 15:54 IMPRESSION: 1. No radiographic evidence of acute pulmonary disease. Stable appearance of the chest. 2. Cardiomegaly. 3. Calcific atherosclerosis aorta. D/ / Gurinder Gaspar / Gurinder Gaspar Interpreting Provider: Gurinder Gaspar - Lab Data Result diagrams: 04/29/18 16:14 04/29/18 16:14 Lab Results 04/29/18 04/29/18 04/29/18 Range/Units 16:14 16:14 16:14 WBC 10.4 (4.3-11.1) K/mcL RBC 4.35 (4.19-5.50) M/mcL Hgb 13.9 (12.9-16.9) g/dL Hct 41.8 (37.5-50.1) % MCV 96.1 (83.0-100.0) fL MCH 32.0 (28.0-33.3) pg MCHC 33.3 (31.6-35.5) g/dL RDW 18.2 H (11.5-14.5) % Plt Count 176 (140-400) K/mcL MPV 11.4 (9.4-12.4) fL Immature Gran % 0.6 (0-4) % Seg Neutrophils % 65.3 % Lymphocytes % 17.7 % Monocytes % 14.7 % Eosinophils % 1.1 % Basophils % 0.6 % Neutrophils # 6.8 (1.6-8.9) K/mcL Lymphocytes # 1.8 (0.6-4.6) K/mcL Monocytes # 1.5 H (0.0-1.3) K/mcL Eosinophils # 0.1 (0.0-0.6) K/mcL Basophils # 0.1 (0.0-0.2) K/mcL Nucleated RBCs/100 WBC 0.2 H (0) /100 WBC Sodium 137 (136-145) mEq/L Potassium 3.9 (3.5-5.1) mEq/L Chloride 101 (98-107) mEq/L Carbon Dioxide 26 (23-29) mEq/L BUN 26 H (8-23) mg/dL Creatinine 0.97 (0.70-1.30) mg/dL Est GFR ( Amer) > 60 (> 60) Est GFR (Non-Af Amer) > 60 (> 60) BUN/Creatinine Ratio 27 H (6-26) Glucose 99 (70-105) mg/dL Calculated Osmolality 289 (280-300) Calcium 9.0 (8.6-10.3) mg/dL Troponin I 0.03 (< 0.04) ng/mL B-Natriuretic Peptide (Less than 100) pg/mL TSH 0.794 (0.340-5.600) mcIU/mL 04/29/18 Range/Units 16:14 WBC (4.3-11.1) K/mcL RBC (4.19-5.50) M/mcL Hgb (12.9-16.9) g/dL Hct (37.5-50.1) % MCV (83.0-100.0) fL MCH (28.0-33.3) pg MCHC (31.6-35.5) g/dL RDW (11.5-14.5) % Plt Count (140-400) K/mcL MPV (9.4-12.4) fL Immature Gran % (0-4) % Seg Neutrophils % % Lymphocytes % % Monocytes % % Eosinophils % % Basophils % % Neutrophils # (1.6-8.9) K/mcL Lymphocytes # (0.6-4.6) K/mcL Monocytes # (0.0-1.3) K/mcL Eosinophils # (0.0-0.6) K/mcL Basophils # (0.0-0.2) K/mcL Nucleated RBCs/100 WBC (0) /100 WBC Sodium (136-145) mEq/L Potassium (3.5-5.1) mEq/L Chloride (98-107) mEq/L Carbon Dioxide (23-29) mEq/L BUN (8-23) mg/dL Creatinine (0.70-1.30) mg/dL Est GFR ( Amer) (> 60) Est GFR (Non-Af Amer) (> 60) BUN/Creatinine Ratio (6-26) Glucose (70-105) mg/dL Calculated Osmolality (280-300) Calcium (8.6-10.3) mg/dL Troponin I (< 0.04) ng/mL B-Natriuretic Peptide 385 H (Less than 100) pg/mL TSH (0.340-5.600) mcIU/mL - Radiology Data Radiology results reviewed: Yes I reviewed the patient's radiology results. - EKG Data EKG #1 EKG attestation: Yes I reviewed and interpreted this EKG. EKG results narrative: 16:42 Heart rate 92 bpm, no P waves, QRS duration 157 ms, QT 422 ms, QTC 456 ms, left bundle branch block, but axis deviation. atrial fibrillation with PVCs. No ischemic ST changes.
[2018-04-29 16:29] LABS: Basophils # 0.1 K/mcL (0.0-0.2); Basophils % 0.6 %; Eosinophils # 0.1 K/mcL (0.0-0.6); Eosinophils % 1.1 %; Hematocrit 41.8 % (37.5-50.1); Hemoglobin 13.9 g/dL (12.9-16.9); Immature Granulocytes % 0.6 % (0-4); Lymphocytes # 1.8 K/mcL (0.6-4.6); Lymphocytes % 17.7 %; Mean Corpuscular HGB Conc 33.3 g/dL (31.6-35.5); Mean Corpuscular Volume 96.1 fL (83.0-100.0); Mean Platelet Volume 11.4 fL (9.4-12.4); Monocytes # 1.5 K/mcL (0.0-1.3); Monocytes % 14.7 %; Neutrophils # 6.8 K/mcL (1.6-8.9); Nucleated Red Blood Cells 0.2 /100 WBC (0); Platelet Count 176 K/mcL (140-400); Red Blood Count 4.35 M/mcL (4.19-5.50); Red Cell Distribution Width 18.2 % (11.5-14.5); Segmented Neutrophils % 65.3 %
[2018-04-29 16:45] LABS: Troponin I 0.03 ng/mL (< 0.04)
[2018-04-29 16:58] LABS: Thyroid Stimulating Hormone 0.794 mcIU/mL (0.340-5.600)
--- NOTE | 2018-04-29 17:25 | Emergency Department Note ---
Disposition Clinical Impression: Fatigue Qualifiers: Fatigue type: unspecified Qualified Code(s): R53.83 - Other fatigue Disposition: Still a Patient Referrals: Tessa Brooks CNP [Primary Care Provider] - Forms: ED Satisfaction Letter, Work/School Release General Adult HPI - General Chief complaint: ED General Medical Stated complaint: Fatigue Time Seen by Provider: 04/29/18 15:49 Source: patient Limitations: no limitations - History of Present Illness Pain Scale: 5 - Related Data Home Medications Medication Instructions Recorded Confirmed Folic Acid 3 mg PO DAILY 02/20/16 02/15/18 Leflunomide [Arava] 20 mg PO DAILY 02/20/16 02/15/18 Pravastatin Sodium [Pravachol] 80 mg PO HS 02/20/16 02/15/18 Primidone [Mysoline] 250 mg PO TID 02/20/16 02/15/18 Vit A/C/E AC/Znox/Cupric Oxide 1 tab PO DAILY 08/18/16 02/15/18 [Eye Vitamin-Minerals Tablet] [place]-3/Dha/Epa/Fish Oil [[place]-3 1,000 mg PO BID 09/08/16 02/15/18 Fish Oil 1,000 mg Sfgl] Calcium Carbonate/Vitamin D3 1 each PO BID 02/24/17 02/15/18 [Calcium 600-Vit D3 200 Tablet] L. Acidophilus/Pectin, [place] 1 each PO DAILY 02/24/17 02/15/18 [Acidophilus Probiotic Capsule] Methotrexate [Otrexup] 10 mg PO MO 02/24/17 02/15/18 Pantoprazole Sodium [Protonix] 20 mg PO DAILY 02/24/17 02/15/18 Warfarin [Coumadin] 4 mg PO DAILY 01/24/18 02/15/18 Acetaminophen [Tylenol] 1,000 mg PO Q6HR PRN 02/15/18 02/15/18 Aspirin Enteric Coated [Aspirin EC] 81 mg PO DAILY 02/15/18 02/15/18 Furosemide [Lasix] 20 mg PO DAILY 02/15/18 02/15/18 Previous Rx's Medication Instructions Recorded Dicyclomine [Bentyl] 10 mg PO QID capsule 01/28/18 Cholecalciferol (D-3) [Vitamin D] 1,000 unit PO DAILY tablet 02/20/18 Docusate [Colace] 100 mg PO BID PRN capsule 02/20/18 Furosemide [Lasix] 20 mg PO DAILY #30 tablet 02/20/18 Lisinopril 2.5 mg PO DAILY #30 tablet 02/20/18 Lisinopril [Zestril] 2.5 mg PO DAILY #30 tablet 02/20/18 Metoprolol Succinate [Toprol Xl] 100 mg PO BID #60 tab.er.24h 02/20/18 Metoprolol XL (24 HR) Succ [Toprol 100 mg PO BID tab.er.24h 02/20/18 Xl] PredniSONE [Yanet] 7.5 mg PO DAILY #30 tablet. 02/20/18 Allergies Allergy/AdvReac Type Severity Reaction Status Date / Time No Known Allergies Allergy Verified 04/29/18 16:13 Constitutional: Denies: fever Cardiovascular: Denies: chest pain Respiratory: Denies: cough, dyspnea Gastrointestinal: Denies: abdominal pain, nausea, vomiting Neurological: Denies: headache Endocrine: Reports: fatigue Past Medical History - Past Medical History Medical history: Reports: arthritis, atrial fibrillation, CHF, GI bleed, hyperlipidemia, hypertension, kidney stones, peripheral artery disease, other Surgical history: Reports: herniorrhaphy, other Psychiatric history: Reports: no psych history - Social History Smoking Status: Former smoker Smokeless Tobacco Status: No Alcohol use: Reports: none Drug use: Reports: none Physical Exam - General Limitations: no limitations General appearance: alert, in no apparent distress Course Vital Signs Temperature 97.5 F L 04/29/18 15:45 Pulse Rate 88 04/29/18 15:45 Respiratory Rate 16 04/29/18 15:45 Blood Pressure 120/84 04/29/18 15:45 O2 Sat by Pulse Oximetry 96 04/29/18 15:45 Temperature 97.5 F L 04/29/18 16:08 Pulse Rate 88 04/29/18 16:08 Respiratory Rate 16 04/29/18 16:08 Blood Pressure 120/84 04/29/18 16:08 O2 Sat by Pulse Oximetry 96 04/29/18 16:08 Oxygen Delivery Oxygen Delivery Room Air Medical Decision Making - Lab Data Result diagrams: 04/29/18 16:14 Lab Results 04/29/18 04/29/18 04/29/18 Range/Units 16:14 16:14 16:14 WBC 10.4 (4.3-11.1) K/mcL RBC 4.35 (4.19-5.50) M/mcL Hgb 13.9 (12.9-16.9) g/dL Hct 41.8 (37.5-50.1) % MCV 96.1 (83.0-100.0) fL MCH 32.0 (28.0-33.3) pg MCHC 33.3 (31.6-35.5) g/dL RDW 18.2 H (11.5-14.5) % Plt Count 176 (140-400) K/mcL MPV 11.4 (9.4-12.4) fL Immature Gran % 0.6 (0-4) % Seg Neutrophils % 65.3 % Lymphocytes % 17.7 % Monocytes % 14.7 % Eosinophils % 1.1 % Basophils % 0.6 % Neutrophils # 6.8 (1.6-8.9) K/mcL Lymphocytes # 1.8 (0.6-4.6) K/mcL Monocytes # 1.5 H (0.0-1.3) K/mcL Eosinophils # 0.1 (0.0-0.6) K/mcL Basophils # 0.1 (0.0-0.2) K/mcL Nucleated RBCs/100 WBC 0.2 H (0) /100 WBC Troponin I 0.03 (< 0.04) ng/mL B-Natriuretic Peptide 385 H (Less than 100) pg/mL TSH 0.794 (0.340-5.600) mcIU/mL Attestation Statement - Attestation Attestation: I examined this patient and my medical decision-making was reviewed with the Resident Physician. I agree with the documented findings, disposition and treatment plan as described except to the extent set forth below. 77 year old male presents to the ED with complaints of fatigue and most recently had a cardiac catherization a few months ago and had a followup with echo on 04/13 which showed an ejection fraction of 11%. He is having increased exertional dyspnea and states that he doesnt have a hard time sitting up but does moving arond and it carney been getting worse. WE will do a cardiopulmonary workup in addition to likely consutl to cards and admission to medicine
[2018-04-29 17:29] LABS: BUN/Creatinine Ratio 27 (6-26); Blood Urea Nitrogen 26 mg/dL (8-23); Carbon Dioxide 26 mEq/L (23-29); Chloride 101 mEq/L (98-107); Glucose 99 mg/dL (70-105); Osmolality,Calculated 289 (280-300); Potassium 3.9 mEq/L (3.5-5.1); Sodium 137 mEq/L (136-145); eGFR For Non-African Americans > 60 (> 60)
[2018-04-29] MEDS ORDERED: Warfarin perPT PO PRN (18:00)
[2018-04-29] MEDS ORDERED: Naloxone 0.4 MG/ML INJ IVP PRN (18:11)
--- NOTE | 2018-04-29 18:41 | Internal Med History&Physical ---
Date of Encounter: 04/29/18 Time of Encounter: 18:35 Internal Medicine - H&P: HPI Chief complaint: Generalized weakness Admitted From: Home Plans for Post Hospital Care: Home History of present illness: Mr. Eid is a 77 year old male with a PMH of arthritis, A. fib, CHF, GI bleed, HLD, HTN, renal stones, PAD. Presents to [facility] with progressive generalized weakness since Tuesday as well as difficulty with ambulation, and fatigability. He and his are reporting that he is normally able to ambulate around the house with his walker from room to room without being excessively fatigued however, since Tuesday he is only able to ambulate a few feet before he becomes so fatigued he has to sit and rest. He denies any fevers, chills, URI s/sx, N/V/D, vision changes, dizziness, loss of balance, numbness or tingling, chest pain, abdominal pain, urinary symptoms, unilateral extremity swelling or pain. He was recently admitted for generalized weakness and during this admission pound reduced ejection fraction of 11-15%. This was compared to prior echo on 09/25 which exhibited an EF of 50%. He is being admit elis to the hospital as he is a safety risk at home due to easy fatigability. Also, due to severely reduced EF and his further evaluation for cause of progressive weakness. Past Med Surg Social Fam HX - Past Medical History Medical history: arthritis, atrial fibrillation, CHF, GI bleed, hyperlipidemia, hypertension, kidney stones, peripheral artery disease, other Additional medical history: LUCRECIA. Reports having a "blood clot behind the heart". Psychiatric history: no psych history - Past Surgical History Surgical History: herniorrhaphy, other Additional surgical history: Spinal fusion, lithotripsy, right BKA - Social History Smoking Status: Former smoker Smokeless Tobacco Status: No Alcohol use: none Drug use: none - Family History Mother Hx Family Cardiac Disorders: No Hx Family Respiratory Disorders: No Hx Family Cancer: Yes Father Hx Family Cancer: Yes (pancreatic) Internal Medicine - H&P: Meds Folic Acid 3 mg PO DAILY 02/20/16 [History] Leflunomide [Arava] 20 mg PO DAILY 02/20/16 [History] Pravastatin Sodium [Pravachol] 80 mg PO HS 02/20/16 [History] Primidone [Mysoline] 250 mg PO TID 02/20/16 [History] Vit A/C/E AC/Znox/Cupric Oxide [Eye Vitamin-Minerals Tablet] 1 tab PO DAILY 08/18/16 [History] [place]-3/Dha/Epa/Fish Oil [[place]-3 Fish Oil 1,000 mg Sfgl] 1,000 mg PO BID 09/08/16 [History] Calcium Carbonate/Vitamin D3 [Calcium 600-Vit D3 200 Tablet] 1 each PO BID 02/24/17 [History] L. Acidophilus/Pectin, [place] [Acidophilus Probiotic Capsule] 1 each PO DAILY 02/24/17 [History] Methotrexate [Otrexup] 10 mg PO MO 02/24/17 [History] Pantoprazole Sodium [Protonix] 20 mg PO DAILY 02/24/17 [History] Warfarin [Coumadin] 4 mg PO DAILY 01/24/18 [History] Dicyclomine [Bentyl] 10 mg PO QID capsule 01/28/18 [Rx] Acetaminophen [Tylenol] 1,000 mg PO Q6HR PRN 02/15/18 [History] Aspirin Enteric Coated [Aspirin EC] 81 mg PO DAILY 02/15/18 [History] Furosemide [Lasix] 20 mg PO DAILY 02/15/18 [History] Cholecalciferol (D-3) [Vitamin D] 1,000 unit PO DAILY tablet 02/20/18 [Rx] Docusate [Colace] 100 mg PO BID PRN capsule 02/20/18 [Rx] Furosemide [Lasix] 20 mg PO DAILY #30 tablet 02/20/18 [Rx] Lisinopril 2.5 mg PO DAILY #30 tablet 02/20/18 [Rx] Lisinopril [Zestril] 2.5 mg PO DAILY #30 tablet 02/20/18 [Rx] Metoprolol Succinate [Toprol Xl] 100 mg PO BID #60 tab.er.24h 02/20/18 [Rx] Metoprolol XL (24 HR) Succ [Toprol Xl] 100 mg PO BID tab.er.24h 02/20/18 [Rx] PredniSONE [Yanet] 7.5 mg PO DAILY #30 tablet. 02/20/18 [Rx] Allergy/AdvReac Type Severity Reaction Status Date / Time No Known Allergies Allergy Verified 04/29/18 16:13 All Systems PM: A 10-system review of systems was performed and is negative for pertinent findings except as documented above in the HPI. - Constitutional Constitutional: as per HPI - Cardiovascular Cardiovascular ROS IM: as per HPI - Respiratory Respiratory: as per HPI - Gastrointestinal Gastrointestinal: as per HPI - Genitourinary Genitourinary ROS male: as per HPI - Musculoskeletal Musculoskeletal ROS IM: as per HPI - Integumentary Integumentary IM: as per HPI - Neurological Neurological ROS: as per HPI, no dizziness, no focal weakness, no headache(s), no numbness, no tingling - Constitutional Vitals: Temp Pulse Resp BP Pulse Ox 97.5 F L 93 16 104/83 95 04/29/18 16:08 04/29/18 18:30 04/29/18 18:30 04/29/18 18:30 04/29/18 18:30 General appearance: Present: cooperative, A&O X 2 (self and place, somewhat disoriented and confused to situation but reorients easily), pleasant, no acute distress, answers questions appropriately Exam: . - Head Head exam: Present: atraumatic, normocephalic - Eye Eye exam: Present: PERRL - Neck Neck exam general surgery: Present: normal inspection. Absent: tenderness, thyromegaly - Respiratory Respiratory exam: Present: decreased breath sounds, CTAB - Cardiovascular Cardiovascular exam: Present: irregular rhythm, tachycardia. Absent: diastolic murmur, JVD, RRR, systolic murmur - GI/Abdominal GI/Abdominal exam: Present: normal bowel sounds, soft, no peritoneal signs. Absent: distended, tenderness - Extremities Exam Extremities exam: Present: normal capillary refill. Absent: pedal edema, tenderness Additional comments: RLE prosthetic BKA - Neurological Exam Neurological exam: Present: alert, CN II-XII intact, no focal deficits, strengths equal and symetr throughout. Absent: altered, motor sensory deficit, pronater drift, facial droop, speech deficit - Skin Skin exam: Present: dry, intact Internal Med - H&P Results - Labs CBC & Chem 7: 04/29/18 16:14 04/29/18 16:14 Labs: Short CBC 04/29/18 Range/Units 16:14 WBC 10.4 (4.3-11.1) K/mcL Hgb 13.9 (12.9-16.9) g/dL Hct 41.8 (37.5-50.1) % Plt Count 176 (140-400) K/mcL Neutrophils # 6.8 (1.6-8.9) K/mcL BMP 04/29/18 16:14 Sodium 137 Potassium 3.9 Chloride 101 Carbon Dioxide 26 BUN 26 H Creatinine 0.97 Glucose 99 Calcium 9.0 Cardiac Enzymes 04/29/18 Range/Units 16:14 Troponin I 0.03 (< 0.04) ng/mL - EKG Data -: EKG Interpreted by Myself Rate: normal - EKG Data Interpretation IM: other EKG comments: Atrial fibrillation with PVCs, rate of 92, no ischemic ST-T wave changes 04/29/18 18:51 - Impressions ITS Impressions Chest X-Ray 04/29/18 15:54 IMPRESSION: 1. No radiographic evidence of acute pulmonary disease. Stable appearance of the chest. 2. Cardiomegaly. 3. Calcific atherosclerosis aorta. D/ / Gurinder Gaspar / Gurinder Gaspar Interpreting Provider: Gurinder Gaspar - Assessment and plan (1) Generalized weakness Current Visit: Yes Status: Acute Assessment and plan: Generalized weakness and fatigue 1 week in the setting of severely reduced ejection fraction Patient unable to ambulate without pronounced fatigability PT/OT while inpatient Consult cardio for further recommendations, consider ICD placement If not a candidate for ICD consider hospice consult TSH WNL, obtain B12 and folate (2) Fatigue Current Visit: Yes Status: Acute Assessment and plan: as above Qualifiers: Fatigue type: unspecified Qualified Code(s): R53.83 - Other fatigue (3) Heart failure with reduced ejection fraction Current Visit: No Status: Chronic Assessment and plan: History of congestive heart failure, new diagnosis CHF 02/2017 with EF 30%, repeat TTE reveals further decreased EF 15-20%, additional repeat her details EF 11-15%, recently admitted for acute CHF, cardiology following during that admission and recommended repeat TTE in 3 months and potential need for ICD placement. However, he is known to have a atrial thrombus. We will discuss with cardiology regarding repeat CT imaging and ICD placement. Consult cardiology. Call in the Morning, resume cardiac medications, resume warfarin, continue Lasix, strict I's and O's, daily weight, 1.[address] patient on telemetry. 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 transplanted heart: jackson heart Associated angina: without angina Qualified Code(s): I25.10 - Atherosclerotic heart disease of jackson coronary artery without angina pectoris (7) Hyperlipidemia Current Visit: No Status: Chronic Assessment and plan: Continue statin Qualifiers: Hyperlipidemia type: mixed hyperlipidemia Qualified Code(s): E78.2 - Mixed hyperlipidemia (8) Hypertension Current Visit: No Status: Chronic Assessment and plan: Per history, BP stable, continue anti-HTN medications Qualifiers: Hypertension type: essential hypertension Qualified Code(s): I10 - Essential (primary) hypertension (9) Rheumatoid arthritis Current Visit: No Status: Chronic Assessment and plan: Resume rheumatic agents, resume oral prednisone Qualifiers: Rheumatoid arthritis location: multiple sites Rheumatoid factor presence: unspecified presence Qualified Code(s): M06.9 - Rheumatoid arthritis, unspecified (10) Atrial fibrillation with RVR Current Visit: No Status: Resolved Assessment and plan: continue Coumadin with pharmacy dosing Continue on telemetry (11) DVT prophylaxis Current Visit: Yes Status: Acute Assessment and plan: Coumadin, pharmacy to dose INR pending - Time Spent With Patient Total time spent is greater than 50% in coordination of care (as documented) at patient's floor/unit and/or counseling patient: less than 15 minutes
[2018-04-29 18:51] LABS: INR 2.2; Prothrombin Time 25.3 Seconds (9.4-12.1)
[2018-04-29] MEDS ORDERED: *HR* Warfarin 4 MG TABLET PO ONE (19:05)
[2018-04-29 21:55] LABS: Bilirubin,Urine Negative (Negative); Blood,Urine Negative (Negative); Clarity,Urine Clear (Clear); Color,Urine Yellow (Yellow); Glucose,Urine (UA) Normal (Normal); Ketones,Urine Negative (Negative); Leukocyte Esterase,Urine Negative (Negative); Nitrite,Urine Negative (Negative); PH,Urine 5.5 pH Units (5.0-8.0); Protein,Urine Negative (Neg-Trace); Urobilinogen,Urine Normal (Normal)
[2018-04-29 23:38] LABS: Vitamin B12 434 pg/mL (250-1100)
[2018-04-29 23:40] LABS: Folate > 22.3 ng/mL (3.0-16.0)
[2018-04-30 08:08] LABS: Hematocrit 39.8 % (37.5-50.1); Hemoglobin 13.1 g/dL (12.9-16.9); Mean Corpuscular HGB Conc 32.9 g/dL (31.6-35.5); Mean Corpuscular Volume 97.3 fL (83.0-100.0); Mean Platelet Volume 11.5 fL (9.4-12.4); Platelet Count 132 K/mcL (140-400); Red Blood Count 4.09 M/mcL (4.19-5.50); Red Cell Distribution Width 18.6 % (11.5-14.5)
[2018-04-30 08:22] LABS: INR 2.1; Prothrombin Time 23.2 Seconds (9.4-12.1)
[2018-04-30 08:41] LABS: BUN/Creatinine Ratio 26 (6-26); Blood Urea Nitrogen 24 mg/dL (8-23); Calcium 8.7 mg/dL (8.6-10.3); Carbon Dioxide 27 mEq/L (23-29); Chloride 103 mEq/L (98-107); Glucose 86 mg/dL (70-105); Osmolality,Calculated 291 (280-300); Potassium 3.7 mEq/L (3.5-5.1); Sodium 139 mEq/L (136-145); eGFR For Non-African Americans > 60 (> 60)
[2018-04-30] MEDS ORDERED: Aspirin Enteric Coated 81 MG Tablet PO SCH (09:00)
[2018-04-30] MEDS ORDERED: Metoprolol XL (24 HR) Succ 50 MG TAB.ER.24H PO SCH (09:00)
[2018-04-30] MEDS ORDERED: predniSONE 5 MG TABLET PO SCH (09:00)
[2018-04-30] MEDS ORDERED: Furosemide 20 MG TABLET PO SCH (09:00)
[2018-04-30] MEDS ORDERED: Patient Taking Own Medication 1 EACH PO SCH ×3 (09:45→21:00)
--- NOTE | 2018-04-30 11:02 | Internal Med Progress Note ---
Hospitalist Progress Note - Encounter Date of Encounter: 04/30/18 Time of Encounter: 10:59 - Subjective Interval History: No acute changes overnight - Exam Vitals: Temp Pulse Resp BP Pulse Ox 97.4 F L 69 14 116/81 96 04/30/18 08:08 04/30/18 08:08 04/30/18 08:08 04/30/18 08:08 04/30/18 08:08 Exam: PHYSICAL EXAMINATION: GENERAL: The patient is an ill-appearing elderly male in no apparent distress. He is alert and oriented x3. HEENT: Head is normocephalic and atraumatic. Extraocular muscles are intact. Pupils are equal, round, and reactive to light and accommodation. NECK: Supple. No carotid bruits. No lymphadenopathy or thyromegaly. LUNGS: Clear to auscultation AP&L. HEART: Regularly irregular without murmur rubs or gallops. ABDOMEN: Soft, nontender, and nondistended. Positive bowel sounds. No hepatosplenomegaly was noted. EXTREMITIES: Without any cyanosis, clubbing, rash, lesions or edema. NEUROLOGIC: Cranial nerves II through XII are grossly intact. PSYCHIATRIC: Flat affect, but denies suicidal or homicidal ideations. SKIN: No ulceration or induration present. - Assessment and Plan (1) Generalized weakness Current Visit: Yes Status: Acute Assessment and Plan: Generalized weakness and fatigue 1 week in the setting of severely reduced ejection fraction Patient unable to ambulate without pronounced fatigability PT/OT while inpatient; SS consult to set-up in home rehab, may benefit from home health To have repeat ECHO in May. Will f/u with cardio regarding ICD placement If not a candidate for ICD consider hospice consult TSH WNL, obtain B12 and folate (2) Fatigue Current Visit: Yes Status: Acute Assessment and Plan: as above (3) Heart failure with reduced ejection fraction Current Visit: No Status: Chronic Assessment and Plan: History of congestive heart failure; 02/2017 with EF 30%, repeat TTE 02/25 reveals further decreased EF 15-20%, additional repeat in 04/13/18 reveals EF 11- 15%, recently admitted for acute CHF, cardiology following during that admission and recommended repeat TTE in 3 months and potential need for ICD placement. However, he is known to have an atrial thrombus. We will discuss with car diology regarding repeat CT imaging and ICD placement. Consult cardiology. Call in the Morning, resume cardiac medications, resume warfarin, continue Lasix, strict I's and O's, daily weight, 1.[address] patient on telemetry. 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 Assessment and Plan: continue coumadin with pharmacy dosing (6) CAD (coronary artery disease) Current Visit: No Status: Chronic Assessment and Plan: Continue cardiac medications chest pain free continue telemetry (7) Hyperlipidemia Current Visit: No Status: Chronic Assessment and Plan: Continue statin (8) Hypertension Current Visit: No Status: Chronic Assessment and Plan: Per history, BP stable, continue anti-HTN medications (9) Rheumatoid arthritis Current Visit: No Status: Chronic Assessment and Plan: Resume rheumatic agents, resume oral prednisone (10) Atrial fibrillation with RVR Current Visit: No Status: Resolved Assessment and Plan: continue Coumadin with pharmacy dosing Continue on telemetry (11) DVT prophylaxis Current Visit: Yes Status: Acute Assessment and Plan: Coumadin, pharmacy to dose INR 2.1 - Time Spent with Patient Total time spent is greater than 50% in coordination of care (as documented) at patient's floor/unit and/or counseling patient: less than 15 minutes Plan of Care Discussed with: patient Internal Medicine: Result - Labs CBC & Chem 7: 04/30/18 06:11 04/30/18 06:11 Labs: Short CBC 04/29/18 04/30/18 Range/Units 16:14 06:11 WBC 10.4 7.2 (4.3-11.1) K/mcL Hgb 13.9 13.1 (12.9-16.9) g/dL Hct 41.8 39.8 (37.5-50.1) % Plt Count 176 132 L (140-400) K/mcL Neutrophils # 6.8 (1.6-8.9) K/mcL BMP 04/29/18 04/30/18 16:14 06:11 Sodium 137 139 Potassium 3.9 3.7 Chloride 101 103 Carbon Dioxide 26 27 BUN 26 H 24 H Creatinine 0.97 0.94 Glucose 99 86 Calcium 9.0 8.7 Cardiac Enzymes 04/29/18 04/29/18 Range/Units 16:14 22:40 Troponin I 0.03 0.03 (< 0.04) ng/mL Urine 04/29/18 Range/Units 21:45 Urine Color Yellow (Yellow) Urine Clarity Clear (Clear) Urine pH 5.5 (5.0-8.0) pH Units Ur Specific [place] 1.020 (1.010-1.025) Urine Protein Negative (Neg-Trace) mg/dL Urine Glucose (UA) Normal (Normal) mg/dL - ABG Interpretation ABG results: PT/INR, D-dimer PT 23.2 Seconds (9.4-12.1) H 04/30/18 06:11 - Impressions Impressions Chest X-Ray 04/29/18 15:54 IMPRESSION: 1. No radiographic evidence of acute pulmonary disease. Stable appearance of the chest. 2. Cardiomegaly. 3. Calcific atherosclerosis aorta. D/ / Gurinder Gaspar / Gurinder Gaspar Interpreting Provider: Gurinder Gaspar Consult Discharge Plan - Plan Referrals: Tessa Brooks, FOOD ORDER EXPEDITER [Primary Care Provider] - (2) Fatigue Qualifiers: Fatigue type: unspecified Qualified Code(s): R53.83 - Other fatigue (3) Heart failure with reduced ejection fraction Qualifiers: Heart failure chronicity: chronic Qualified Code(s): I50.22 - Chronic systolic (congestive) heart failure (4) Cardiomyopathy Qualifiers: Cardiomyopathy type: unspecified Qualified Code(s): I42.9 - Cardiomyopathy, unspecified (6) CAD (coronary artery disease) Qualifiers: Coronary Disease-Associated Artery/Lesion type: [place] artery [place] vs. transplanted heart: [place] heart Associated angina: without angina Qualified Code(s): I25.10 - Atherosclerotic heart disease of [place] coronary artery without angina pectoris (7) Hyperlipidemia Qualifiers: Hyperlipidemia type: mixed hyperlipidemia Qualified Code(s): E78.2 - Mixed hyperlipidemia (8) Hypertension Qualifiers: Hypertension type: essential hypertension Qualified Code(s): I10 - Essential (primary) hypertension (9) Rheumatoid arthritis Qualifiers: Rheumatoid arthritis location: multiple sites Rheumatoid factor presence: unspecified presence Qualified Code(s): M06.9 - Rheumatoid arthritis, unspecified
--- NOTE | 2018-04-30 11:32 | Discharge Summary ---
- NOTES TO OUTPATIENT PROVIDER Notes to Outpatient Provider: Awaiting follow-up TTE in May to determine whether or not patient is a candidate for ICD Orders not resulted at time of discharge: Pending orders 04/29/18 15:54 ECG 12 lead ECG [ECG] Stat 04/29/18 21:45 Urinalysis Reflex Cult & Micro [URIN] Stat 05/01/18 04:00 Basic Metabolic Panel AM 0400 Complete Blood Count w/o Diff [HEME] AM 0400 PT/INR [Prothrombin Time INR] [COAG] AM 04005/02/18 04:00 PT/INR [Prothrombin Time INR] [COAG] AM 0400 05/03/18 04:00 PT/INR [Prothrombin Time INR] [COAG] AM 0400 Date of Encounter: 04/30/18 Time of Encounter: 11:30 - Discharge Diagnosis (1) Generalized weakness Priority: Primary Status: Acute Assessment and Plan: Generalized weakness and fatigue 1 week in the setting of severely reduced ejection fraction Patient unable to ambulate without pronounced fatigability PT/OT while inpatient; SS consult to set-up in home rehab, may benefit from home health To have repeat ECHO in May. Will f/u with cardio regarding ICD placement If not a candidate for ICD consider hospice consult TSH WNL, obtain B12 and folate (2) Fatigue Priority: Secondary Status: Acute Assessment and Plan: as above Qualifiers: Fatigue type: unspecified Qualified Code(s): R53.83 - Other fatigue (3) Heart failure with reduced ejection fraction Priority: Secondary Status: Chronic Assessment and Plan: History of congestive heart failure; 02/2017 with EF 30%, repeat TTE 02/25 reveals further decreased EF 15-20%, additional repeat in 04/13/18 reveals EF 11- 15%, recently admitted for acute CHF, cardiology following during that admission and recommended repeat TTE in 3 months and potential need for ICD placement. However, he is known to have an atrial thrombus. We will discuss with cardiology regarding repeat CT imaging and ICD placement. Consult cardiology. Call in the Morning, resume cardiac medications, resume warfarin, continue Lasix, strict I's and O's, daily weight, 1.[address] patient on telemetry. Initial troponin negative, f/u troponin negative Qualifiers: Heart failure chronicity: chronic Qualified Code(s): I50.22 - Chronic systolic (congestive) heart failure (4) Cardiomyopathy Priority: Secondary Status: Acute Assessment and Plan: as above Qualifiers: Cardiomyopathy type: unspecified Qualified Code(s): I42.9 - Cardiomyopathy, unspecified (5) Atrial thrombus Priority: Secondary Status: Chronic Assessment and Plan: continue coumadin with pharmacy dosing (6) CAD (coronary artery disease) Priority: Secondary Status: Chronic Assessment and Plan: Continue cardiac medications chest pain free continue telemetry Qualifiers: Coronary Disease-Associated Artery/Lesion type: [place] artery [place] vs. transplanted heart: [place] heart Associated angina: without angina Qualified Code(s): I25.10 - Atherosclerotic heart disease of [place] coronary artery without angina pectoris (7) Hyperlipidemia Priority: Secondary Status: Chronic Assessment and Plan: Continue statin Qualifiers: Hyperlipidemia type: mixed hyperlipidemia Qualified Code(s): E78.2 - Mixed hyperlipidemia (8) Hypertension Priority: Secondary Status: Chronic Assessment and Plan: Per history, BP stable, continue anti-HTN medications Qualifiers: Hypertension type: essential hypertension Qualified Code(s): I10 - Essential (primary) hypertension (9) Rheumatoid arthritis Priority: Secondary Status: Chronic Assessment and Plan: Resume rheumatic agents, resume oral prednisone Qualifiers: Rheumatoid arthritis location: multiple sites Rheumatoid factor presence: unspecified presence Qualified Code(s): M06.9 - Rheumatoid arthritis, unspecified (10) Atrial fibrillation with RVR Priority: Secondary Status: Resolved Assessment and Plan: continue Coumadin with pharmacy dosing Continue on telemetry (11) DVT prophylaxis Priority: Secondary Status: Acute Hospital course: Mr. Eid is a 77 year old male with a PMH of arthritis, A. fib, CHF with severely reduced EF 11-15%, GI bleed, HLD, HTN, renal stones, PAD. He presented to [facility] with increasing weakness and increasing fatigability in the setting of severe chronic heart failure without acute exacerbation. His reports that he just completed PT/OT on 04/27/18. She noticed that beginning Tuesday evening he appeared to have a functional decline and this extended into Tuesday evening. During the stay the patient was noted to have grossly normal metabolic panel and blood count, troponins within normal limits less than 0.03, TSH 0.794, BNP stable chronically elevated at 385 him a UA without infective process. He remained hemodynamically stable and without distress. He has had an uneventful hospital course. POC briefly D/W cardiology Alba Villareal who was initially consult. Per cardiology patient is to have outpatient follow-up mid May with repeat TTE and then ICD placement. Cardiology did not feel the need for consult at this time. Patient is back to baseline status and is able to ambulate around the unit with minimal assistance using a walker without excess fatigability. He is being discharged home. director of outpatient services team will set up PT/OT for continuation of therapy and set up home health for additional assistance. The patient and spouse have been instructed to keep follow-up TTE and to follow-up with cardiology regarding ICD placement. Additionally, they have been instructed to follow-up with PCP within 1 week of discharge. Also, they have been informed to return to the ED should the patient have chest pain, shortness of breath, abdominal swelling, weight gain, extremity swelling and/or experience a further functional decline. The patient and spouse verbalized understanding and denies further questions at this time. Discharge discussed with: patient, family, nurse, territory sales consultant - Time Spent with Patient Total time spent providing and/or coordinating discharge services: Less than 30 minutes - Discharge Medications Home Medications: Folic Acid 3 mg PO DAILY 02/20/16 [History] Leflunomide [Arava] 20 mg PO DAILY 02/20/16 [History] Pravastatin Sodium [Pravachol] 80 mg PO HS 02/20/16 [History] [place]-3/Dha/Epa/Fish Oil [[place]-3 Fish Oil 1,000 mg Sfgl] 1,200 mg PO DAILY 09/08/16 [History] Calcium Carbonate/Vitamin D3 [Calcium 600-Vit D3 200 Tablet] 1 tab PO BID 02/24/17 [History] L. Acidophilus/Pectin, [place] [Acidophilus Probiotic Capsule] 1 cap PO DAILY 02/24/17 [History] Methotrexate [Otrexup] 10 mg PO MO 02/24/17 [History] Pantoprazole Sodium [Protonix] 20 mg PO DAILY 02/24/17 [History] Warfarin [Coumadin] 4 mg PO DAILY 01/24/18 [History] Acetaminophen [Tylenol] 1,000 mg PO Q6HR PRN 02/15/18 [History] Aspirin Enteric Coated [Aspirin EC] 81 mg PO DAILY 02/15/18 [History] Furosemide [Lasix] 20 mg PO DAILY #30 tablet 02/20/18 [Rx] Metoprolol Succinate [Toprol Xl] 100 mg PO BID #60 tab.er.24h 02/20/18 [Rx] PredniSONE [Yanet] 7.5 mg PO DAILY #30 tablet. 02/20/18 [Rx] Ipratropium/Albuterol Neb [Duoneb] 3 ml IH Q8H PRN 04/30/18 [History] Lutein/Zeaxanthin [Lutein-Zeaxanthin 25-5 mg Sfgl] 1 cap PO DAILY 04/30/18 [History] Primidone [Mysoline] 250 mg PO TID 04/30/18 [History] Psyllium Husk [Fiber] 3 cap PO DAILY 04/30/18 [History] Allergies/Adverse Reactions: Allergy/AdvReac Type Severity Reaction Status Date / Time No Known Allergies Allergy Verified 04/30/18 10:49 Date of admission: 04/29/18 18:02 Primary care physician: Tessa Brooks CNP Consults: 04/29/18 18:13 Consult to Occupational Therapy [CONS] Routine Comment: Evaluate, develop and implement POC Reason for Consult: evaluate functional capacity Does patient have active BEDREST order?: No Is patient medically & hemodynamically stable?: Yes Patient assessed for mobility or mobilized this visit?: No Consult to Physical Therapy [CONS] Routine Comment: Evaluate, develop and implement POC Reason for Consult: evaluate functional capacity Does patient have active BEDREST order?: No Is patient medically & hemodynamically stable?: Yes Patient assessed for mobility or mobilized this visit?: No Consult to Housing Officer [CONS] Routine Reason for SW Consult: d/c planning Discharging clinician: Eber Wright Anticipated date of discharge: 04/30/18 - Constitutional Vitals: Temp Pulse Resp BP Pulse Ox 97.4 F L 69 14 116/81 96 04/30/18 08:08 04/30/18 08:08 04/30/18 08:08 04/30/18 08:08 04/30/18 08:08 General appearance: Present: cooperative, A&O X 2 (self and place, somewhat disoriented and confused to situation but reorients easily), pleasant, no acute distress, answers questions appropriately Exam: PHYSICAL EXAMINATION: GENERAL: The patient is an ill-appearing elderly male in no apparent distress. He is alert and oriented x3. HEENT: Head is normocephalic and atraumatic. Extraocular muscles are intact. Pupils are equal, round, and reactive to light and accommodation. NECK: Supple. No carotid bruits. No lymphadenopathy or thyromegaly. LUNGS: Clear to auscultation AP&L. HEART: Regularly irregular without murmur rubs or gallops. ABDOMEN: Soft, nontender, and nondistended. Positive bowel sounds. No hepatosplenomegaly was noted. EXTREMITIES: Without any cyanosis, clubbing, rash, lesions or edema. NEUROLOGIC: Cranial nerves II through XII are grossly intact. PSYCHIATRIC: Flat affect, but denies suicidal or homicidal ideations. SKIN: No ulceration or induration present. - Patient Status Disposition: Home Health Service Condition: Good Functional capacity at discharge: uses cane/walker Overall status at discharge: patient is progressing back to baseline - Discharge Instructions Follow Up With: Tessa Brooks CNP [Primary Care Provider] - - Diet and Activity Activity: ambulate only with your walker, resume usual activities as tolerated Diet: low fat, low cholesterol, low salt diet, other (Fluid restriction 1.5 L; patient made aware of dietary restrictions and fluid restriction)
--- NOTE | 2018-04-30 12:01 | Physician Discharge Referral ---
Home Health/Hosp Referral Info Transfer to: Home Health Attending Provider: [facility] Provider in Charge Post Discharge: PCP - Diagnosis (1) Generalized weakness Priority: Primary Status: Acute (2) Fatigue Priority: Secondary Status: Acute (3) Heart failure with reduced ejection fraction Priority: Secondary Status: Chronic (4) Cardiomyopathy Priority: Secondary Status: Acute (5) Atrial thrombus Priority: Secondary Status: Chronic (6) CAD (coronary artery disease) Priority: Secondary Status: Chronic (7) Hyperlipidemia Priority: Secondary Status: Chronic (8) Hypertension Priority: Secondary Status: Chronic (9) Rheumatoid arthritis Priority: Secondary Status: Chronic (10) Atrial fibrillation with RVR Priority: Secondary Status: Resolved (11) DVT prophylaxis Priority: Secondary Status: Acute - Respiratory Orders Smoking Cessation: Smoking cessation has been advised. For more information, call the [place] Tobacco Quit Line at 8-566-RHUO-NOW. - Services Needed Following services are medically necessary services: Home Health Aide, Physical Therapy, Occupational Therapy - Transfer Medications Home Medications: Folic Acid 3 mg PO DAILY 02/20/16 [History] Leflunomide [Arava] 20 mg PO DAILY 02/20/16 [History] Pravastatin Sodium [Pravachol] 80 mg PO HS 02/20/16 [History] [place]-3/Dha/Epa/Fish Oil [[place]-3 Fish Oil 1,000 mg Sfgl] 1,200 mg PO DAILY 09/08/16 [History] Calcium Carbonate/Vitamin D3 [Calcium 600-Vit D3 200 Tablet] 1 tab PO BID 02/24/17 [History] L. Acidophilus/Pectin, [place] [Acidophilus Probiotic Capsule] 1 cap PO DAILY 02/24/17 [History] Methotrexate [Otrexup] 10 mg PO MO 02/24/17 [History] Pantoprazole Sodium [Protonix] 20 mg PO DAILY 02/24/17 [History] Warfarin [Coumadin] 4 mg PO DAILY 01/24/18 [History] Acetaminophen [Tylenol] 1,000 mg PO Q6HR PRN 02/15/18 [History] Aspirin Enteric Coated [Aspirin EC] 81 mg PO DAILY 02/15/18 [History] Furosemide [Lasix] 20 mg PO DAILY #30 tablet 02/20/18 [Rx] Metoprolol Succinate [Toprol Xl] 100 mg PO BID #60 tab.er.24h 02/20/18 [Rx] PredniSONE [Yanet] 7.5 mg PO DAILY #30 tablet. 02/20/18 [Rx] Ipratropium/Albuterol Neb [Duoneb] 3 ml IH Q8H PRN 04/30/18 [History] Lutein/Zeaxanthin [Lutein-Zeaxanthin 25-5 mg Sfgl] 1 cap PO DAILY 04/30/18 [History] Primidone [Mysoline] 250 mg PO TID 04/30/18 [History] Psyllium Husk [Fiber] 3 cap PO DAILY 04/30/18 [History] Allergies/Adverse Reactions: Allergy/AdvReac Type Severity Reaction Status Date / Time No Known Allergies Allergy Verified 04/30/18 10:49 Certification: Further, I certify that my clinical findings support that this patient is homebound (i.e. absences from home require considerable and taxing effort and are for medical reasons or jain services or infrequently or short duration when for other reasons) because: Homebound Reason: Patient requires assistance of a person or device to safely leave home, Leaving home requires considerable and taxing effort due to condition, Severity of cardiac or pulmonary status limits activity tolerance Attestation: My signature below is to certify that this patient is under my care and that I, or nurse practitioner, or a physician's assistant cook working with me, has a [id number] encounter with this patient.
[2018-04-30 13:48] VITALS: BP 117/82
[2018-04-30] MEDS ORDERED: Primidone 50 MG TABLET PO SCH (15:00)
[2018-04-30] MEDS ORDERED: *HR* Warfarin 4 MG TABLET PO ONE (18:00)
[2018-05-01] MEDS ORDERED: Folic Acid 1 MG TABLET PO SCH (09:00)
[2018-05-01] MEDS ORDERED: Lactobacillus 1 EACH CAP.SPRINK PO SCH (09:00)
[2018-05-01] MEDS ORDERED: *HR* Methotrexate 2.5 MG TABLET PO SCH (09:33)
--- NOTE | 2018-05-02 17:17 | Electrocardiograph Report ---
[address] [place], [place] [address] Test Date: 2018-04-29 Pat Name: Tommy Eid Department: [id number] Room: [facility] Gender: M Testing Specialist: : [id number] Requested By: Guru Arnold Order Number: [id number] Reading MD: Ashwin Guzman Measurements Intervals [place] Rate: 93 P: OR: QRS: -72 QRSD: 157 T: 111 QT: 422 QTc: 456 Interpretive Statements Atrial fibrillation Ventricular premature complex Left bundle branch block Electronically Signed On 05-02-2018 17:15:46 EDT by Ashwin Guzman
== END 2018-04-30 13:51 | disposition home health service (06) ==
LOC: EMEROOARM 15:38 → 3BNU 15:38
PROVIDERS: ADMIT Internal Medicine; ATTEND Internal Medicine

== ENCOUNTER 2019-09-13 15:00 | Inpatient (IN) ==
[2019-09-13] MEDS ORDERED: 0.9 % Sodium Chloride 1,000 ML IVC ONE (15:26)
[2019-09-13] MEDS ORDERED: Isovue-370 500 ML BOTTLE IVP ONE (15:33)
[2019-09-13 16:09] LABS: Basophils # 0.1 K/mcL (0.0-0.2); Basophils % 0.5 %; Eosinophils % 0.3 %; Hematocrit 41.1 % (37.5-50.1); Hemoglobin 13.3 g/dL (12.9-16.9); Immature Granulocytes % 0.8 % (0-4); Lymphocytes # 0.6 K/mcL (0.6-4.6); Lymphocytes % 6.7 %; Mean Corpuscular HGB Conc 32.4 g/dL (31.6-35.5); Mean Corpuscular Hemoglobin 34.2 pg (28.0-33.3); Mean Corpuscular Volume 105.7 fL (83.0-100.0); Mean Platelet Volume 10.9 fL (9.4-12.4); Monocytes # 0.5 K/mcL (0.0-1.3); Monocytes % 5.2 %; Neutrophils # 8.3 K/mcL (1.6-8.9); Nucleated Red Blood Cells 0.2 /100 WBC (0); Platelet Count 228 K/mcL (140-400); Red Blood Count 3.89 M/mcL (4.19-5.50); Red Cell Distribution Width 17.3 % (11.5-14.5); Segmented Neutrophils % 86.5 %; White Blood Count 9.6 K/mcL (4.3-11.1)
[2019-09-13 16:28] LABS: Albumin 3.6 g/dL (3.5-5.7); Albumin/Globulin Ratio 1.1 (1.1-2.2); Bilirubin,Direct 0.3 mg/dL (0.0-0.2); Bilirubin,Indirect 0.5 mg/dL (0.0-1.0); Bilirubin,Total 0.8 mg/dL (0.3-1.0); Globulin 3.2 g/dL (2.4-3.5); Prothrombin Time 17.7 Seconds (9.4-12.1); Total Protein 6.8 g/dL (6.4-8.9)
[2019-09-13 16:29] LABS: BUN/Creatinine Ratio 31 (6-26); Blood Urea Nitrogen 26 mg/dL (8-23); Calcium 8.8 mg/dL (8.6-10.3); Carbon Dioxide 25 mEq/L (23-29); Chloride 107 mEq/L (98-107); Glucose 116 mg/dL (70-105); INR 1.6; Osmolality,Calculated 302 (280-300); Potassium 3.8 mEq/L (3.5-5.1); Sodium 143 mEq/L (136-145); eGFR For African Americans > 60 (> 60); eGFR For Non-African Americans > 60 (> 60)
[2019-09-13] MEDS ORDERED: Dexamethasone 4 MG/ML VIAL IVP ONE (17:23)
[2019-09-13] MEDS ORDERED: Ampicillin/Sulbactam 1,500 MG in 0.9 % Sodium Chloride Mini Bag 100 ML IVPB ONE (17:23)
[2019-09-13] MEDS ORDERED: 0.9 % Sodium Chloride 1,000 ML IVC SCH ×2 (17:30→20:58)
[2019-09-13 17:37] LABS: Bilirubin,Urine Negative (Negative); Blood,Urine Negative (Negative); Clarity,Urine Clear (Clear); Color,Urine Yellow (Yellow); Glucose,Urine (UA) Normal (Normal); Ketones,Urine 15 mg/dL (Negative); Leukocyte Esterase,Urine Negative (Negative); Nitrite,Urine Negative (Negative); PH,Urine 5.5 pH Units (5.0-8.0); Protein,Urine 30 mg/dL (Neg-Trace); Urobilinogen,Urine Normal (Normal)
[2019-09-13 17:41] LABS: Bacteria,Urine None Seen per hpf (None-Few); Hyaline Casts,Urine None Seen per lpf (None-Few); Squamous Epithelial Cell,Urine Many per lpf (None-Few); WBC,Urine 0-3 per hpf (0-3)
[2019-09-13 19:31] LABS: Adenovirus Not Detected (Not Detect); Coronavirus 229E Not Detected (Not Detect); Coronavirus HKU1 Not Detected (Not Detect); Coronavirus NL63 Not Detected (Not Detect); Coronavirus OC43 Not Detected (Not Detect); Human Metapneumovirus Not Detected (Not Detect); Human Rhinovirus/Enterovirus Not Detected (Not Detect); Influenza A Subtype 2009 H1 Not Detected (Not Detect); Influenza B Not Detected (Not Detect); Parainfluenza Virus 1 Not Detected (Not Detect); Parainfluenza Virus 2 Not Detected (Not Detect); Parainfluenza Virus 3 Not Detected (Not Detect); Parainfluenza Virus 4 Not Detected (Not Detect)
[2019-09-13 19:32] LABS: Bordetella Pertussis Not Detected (Not Detect); Chlamydophila pneumoniae Not Detected (Not Detect); Mycoplasma pneumoniae Not Detected (Not Detect); Respiratory Syncytial Virus Not Detected (Not Detect)
[2019-09-13] MEDS ORDERED: Naloxone 0.4 MG/ML INJ IVP PRN (20:53)
[2019-09-13] MEDS ORDERED: Vancomycin (wt based) 1,000 MG VIAL IVPB SCH (21:00)
[2019-09-13] MEDS: Ampicillin/Sulbactam 3,000 MG in 0.9 % Sodium Chloride Mini Bag 100 ML IVPB SCH (23:52)
[2019-09-14 03:20] LABS: Basophils % 0.2 %; Eosinophils % 0.1 %; Hematocrit 36.4 % (37.5-50.1); Immature Granulocytes % 0.9 % (0-4); Lymphocytes # 0.9 K/mcL (0.6-4.6); Lymphocytes % 10.4 %; Mean Corpuscular HGB Conc 31.9 g/dL (31.6-35.5); Mean Corpuscular Hemoglobin 33.9 pg (28.0-33.3); Mean Corpuscular Volume 106.4 fL (83.0-100.0); Mean Platelet Volume 10.9 fL (9.4-12.4); Monocytes # 0.5 K/mcL (0.0-1.3); Monocytes % 6.3 %; Neutrophils # 6.7 K/mcL (1.6-8.9); Platelet Count 215 K/mcL (140-400); Red Blood Count 3.42 M/mcL (4.19-5.50); Red Cell Distribution Width 17.5 % (11.5-14.5); Segmented Neutrophils % 82.1 %; White Blood Count 8.2 K/mcL (4.3-11.1)
[2019-09-14 03:23] LABS: Hemoglobin 11.6 g/dL (12.9-16.9)
[2019-09-14 03:40] LABS: % Iron Saturation 18 % (20-55); Alanine Aminotransferase 18 Units/L (7-52); Albumin 3.1 g/dL (3.5-5.7); Albumin/Globulin Ratio 1.1 (1.1-2.2); Alkaline Phosphatase 59 Units/L (34-104); Aspartate Amino Transferase 15 Units/L (13-39); BUN/Creatinine Ratio 31 (6-26); Bilirubin,Total 0.5 mg/dL (0.3-1.0); Blood Urea Nitrogen 20 mg/dL (8-23); Carbon Dioxide 21 mEq/L (23-29); Chloride 112 mEq/L (98-107); Globulin 2.7 g/dL (2.4-3.5); Glucose 89 mg/dL (70-105); Iron 30 mcg/dL (65-175); Magnesium 1.9 mg/dL (1.6-2.6); Osmolality,Calculated 300 (280-300); Phosphorous 2.5 mg/dL (2.7-4.5); Potassium 3.6 mEq/L (3.5-5.1); Sodium 144 mEq/L (136-145); Total Protein 5.8 g/dL (6.4-8.9); Transferrin 118 mg/dL (203-362); eGFR For African Americans > 60 (> 60); eGFR For Non-African Americans > 60 (> 60)
[2019-09-14 03:58] LABS: Ferritin 248 ng/mL (20-250)
[2019-09-14 04:03] LABS: Folate 21.8 ng/mL (3.0-16.0)
[2019-09-14] MEDS: Ampicillin/Sulbactam 3,000 MG in 0.9 % Sodium Chloride Mini Bag 100 ML IVPB SCH ×3 (05:47→18:08)
[2019-09-14 10:32] LABS: Estimated Average Glucose 123 mg/dl
[2019-09-14] MEDS ORDERED: E-Z-PAQUE (BARIUM SULF) SUSP 1 BOTTLE PO ONE (15:10)
[2019-09-14] MEDS ORDERED: E-Z-HD (BARIUM SULF) SUSPENSION PO ONE (15:10)
[2019-09-14] MEDS: Metoprolol XL (24 HR) Succ 50 MG TAB.ER.24H PO SCH (21:32)
[2019-09-15] MEDS: Ampicillin/Sulbactam 3,000 MG in 0.9 % Sodium Chloride Mini Bag 100 ML IVPB SCH ×5 (00:41→23:54)
[2019-09-15 03:55] LABS: Basophils # 0.1 K/mcL (0.0-0.2); Eosinophils # 0.2 K/mcL (0.0-0.6); Eosinophils % 2.2 %; Hematocrit 36.5 % (37.5-50.1); Hemoglobin 11.8 g/dL (12.9-16.9); Immature Granulocytes % 1.3 % (0-4); Lymphocytes # 0.8 K/mcL (0.6-4.6); Lymphocytes % 11.9 %; Mean Corpuscular HGB Conc 32.3 g/dL (31.6-35.5); Mean Corpuscular Hemoglobin 34.4 pg (28.0-33.3); Mean Corpuscular Volume 106.4 fL (83.0-100.0); Mean Platelet Volume 10.6 fL (9.4-12.4); Monocytes # 0.6 K/mcL (0.0-1.3); Monocytes % 8.5 %; Neutrophils # 5.2 K/mcL (1.6-8.9); Platelet Count 198 K/mcL (140-400); Red Blood Count 3.43 M/mcL (4.19-5.50); Red Cell Distribution Width 17.6 % (11.5-14.5); Segmented Neutrophils % 75.1 %
[2019-09-15 04:11] LABS: BUN/Creatinine Ratio 24 (6-26); Blood Urea Nitrogen 17 mg/dL (8-23); Calcium 8.3 mg/dL (8.6-10.3); Carbon Dioxide 23 mEq/L (23-29); Chloride 111 mEq/L (98-107); Glucose 75 mg/dL (70-105); Magnesium 1.9 mg/dL (1.6-2.6); Osmolality,Calculated 298 (280-300); Phosphorous 2.3 mg/dL (2.7-4.5); Potassium 3.7 mEq/L (3.5-5.1); Sodium 144 mEq/L (136-145); eGFR For African Americans > 60 (> 60); eGFR For Non-African Americans > 60 (> 60)
[2019-09-15] MEDS: Aspirin Enteric Coated 81 MG Tablet PO SCH (11:45)
[2019-09-15] MEDS: Multivit/Ca/Min/Fe/FA 1 TAB TABLET PO SCH (11:45)
[2019-09-15] MEDS: predniSONE 1 MG TABLET PO SCH (11:45)
[2019-09-15] MEDS: Fluticasone Propionate Nasal 50 MCG/SPRAY BOTTLE NS SCH (11:45)
[2019-09-15] MEDS: Folic Acid 1 MG TABLET PO SCH (11:45)
[2019-09-15] MEDS: Metoprolol XL (24 HR) Succ 50 MG TAB.ER.24H PO SCH ×2 (11:45→20:54)
[2019-09-15] MEDS: predniSONE 5 MG TABLET PO SCH (11:45)
[2019-09-16] MEDS: Ampicillin/Sulbactam 3,000 MG in 0.9 % Sodium Chloride Mini Bag 100 ML IVPB SCH (06:19)
[2019-09-16] MEDS: Multivit/Ca/Min/Fe/FA 1 TAB TABLET PO SCH (09:21)
[2019-09-16] MEDS: Aspirin Enteric Coated 81 MG Tablet PO SCH (09:21)
[2019-09-16] MEDS: predniSONE 1 MG TABLET PO SCH (09:22)
[2019-09-16] MEDS: Metoprolol XL (24 HR) Succ 50 MG TAB.ER.24H PO SCH ×2 (09:22→21:14)
[2019-09-16] MEDS: predniSONE 5 MG TABLET PO SCH (09:22)
[2019-09-16] MEDS: Folic Acid 1 MG TABLET PO SCH (09:22)
[2019-09-16] MEDS: Fluticasone Propionate Nasal 50 MCG/SPRAY BOTTLE NS SCH (09:23)
[2019-09-16] MEDS ORDERED: *HR* Promethazine 25 MG/ML VIAL IVP PRN (13:34)
[2019-09-16] MEDS ORDERED: Ondansetron 4 MG/2 ML VIAL IVP ONE ×2 (13:34→14:48)
[2019-09-16] MEDS ORDERED: Lidocaine -MPF 4% 5 ML AMPUL ONE ×2 (13:37→13:39)
[2019-09-16] MEDS ORDERED: Famotidine 20 MG/2 ML VIAL ONE (13:39)
[2019-09-16] MEDS ORDERED: Lidocaine OINT 35.44 GM TUBE TP ONE (13:53)
[2019-09-16] MEDS ORDERED: *HR* Propofol 200 MG/20 ML VIAL IVP ONE (14:07)
[2019-09-16] MEDS ORDERED: *HR* Labetalol 20 MG/4 ML SYRINGE IVP PRN (14:48)
[2019-09-16] MEDS ORDERED: Morphine Sulfate 2 MG/ML SYRINGE IVP PRN (14:48)
[2019-09-16] MEDS ORDERED: *HR* Metoprolol 5 MG/5 ML VIAL IVP ONE (14:59)
[2019-09-16] MEDS: Ampicillin/Sulbactam 3,000 MG in 0.9 % Sodium Chloride 100 ML IVPB SCH ×2 (15:49→19:01)
[2019-09-16] MEDS ORDERED: *HR* Metoprolol 5 MG/5 ML VIAL IVP STA (16:04)
[2019-09-17] MEDS: Ampicillin/Sulbactam 3,000 MG in 0.9 % Sodium Chloride 100 ML IVPB SCH ×4 (01:00→17:51)
[2019-09-17] MEDS: predniSONE 5 MG TABLET PO SCH (08:59)
[2019-09-17] MEDS: Folic Acid 1 MG TABLET PO SCH (08:59)
[2019-09-17] MEDS: Metoprolol XL (24 HR) Succ 50 MG TAB.ER.24H PO SCH ×2 (08:59→21:10)
[2019-09-17] MEDS: Multivit/Ca/Min/Fe/FA 1 TAB TABLET PO SCH (09:00)
[2019-09-17] MEDS: predniSONE 1 MG TABLET PO SCH (09:00)
[2019-09-17] MEDS: Fluconazole 200 MG/100 ML 200 MG/100 ML BAG IVPB SCH (09:00)
[2019-09-17] MEDS: Fluticasone Propionate Nasal 50 MCG/SPRAY BOTTLE NS SCH (09:00)
[2019-09-17] MEDS: Aspirin Enteric Coated 81 MG Tablet PO SCH (09:00)
[2019-09-17] MEDS ORDERED: *HR* Methotrexate 2.5 MG TABLET PO SCH ×2 (15:08→17:39)
[2019-09-17] MEDS: *HR* Heparin 5,000 UNIT/ML VIAL SQ SCH (17:51)
[2019-09-18] MEDS: Ampicillin/Sulbactam 3,000 MG in 0.9 % Sodium Chloride 100 ML IVPB SCH ×2 (00:36→05:16)
[2019-09-18 05:09] LABS: Hematocrit 36.5 % (37.5-50.1); Mean Corpuscular HGB Conc 32.9 g/dL (31.6-35.5); Mean Corpuscular Hemoglobin 34.2 pg (28.0-33.3); Mean Platelet Volume 10.9 fL (9.4-12.4); Platelet Count 217 K/mcL (140-400); Red Blood Count 3.51 M/mcL (4.19-5.50); Red Cell Distribution Width 17.2 % (11.5-14.5); White Blood Count 6.8 K/mcL (4.3-11.1)
[2019-09-18] MEDS: *HR* Heparin 5,000 UNIT/ML VIAL SQ SCH ×2 (05:16→17:44)
[2019-09-18 05:30] LABS: BUN/Creatinine Ratio 21 (6-26); Blood Urea Nitrogen 12 mg/dL (8-23); Calcium 7.9 mg/dL (8.6-10.3); Carbon Dioxide 28 mEq/L (23-29); Chloride 105 mEq/L (98-107); Glucose 115 mg/dL (70-105); Magnesium 1.8 mg/dL (1.6-2.6); Osmolality,Calculated 291 (280-300); Phosphorous 2.5 mg/dL (2.7-4.5); Potassium 3.2 mEq/L (3.5-5.1); Sodium 140 mEq/L (136-145); eGFR For African Americans > 60 (> 60); eGFR For Non-African Americans > 60 (> 60)
[2019-09-18] MEDS: Metoprolol XL (24 HR) Succ 50 MG TAB.ER.24H PO SCH ×2 (09:01→22:46)
[2019-09-18] MEDS: predniSONE 5 MG TABLET PO SCH (09:02)
[2019-09-18] MEDS: Aspirin Enteric Coated 81 MG Tablet PO SCH (09:02)
[2019-09-18] MEDS: Multivit/Ca/Min/Fe/FA 1 TAB TABLET PO SCH (09:02)
[2019-09-18] MEDS: Folic Acid 1 MG TABLET PO SCH (09:03)
[2019-09-18] MEDS: Fluticasone Propionate Nasal 50 MCG/SPRAY BOTTLE NS SCH (09:03)
[2019-09-18] MEDS: Fluconazole 200 MG/100 ML 200 MG/100 ML BAG IVPB SCH (09:03)
[2019-09-18] MEDS: predniSONE 1 MG TABLET PO SCH (09:07)
[2019-09-18] MEDS ORDERED: Potassium Chloride Elixir 20 MEQ/15 ML UDC PO ONE (09:50)
[2019-09-18] MEDS: Ampicillin/Sulbactam 3,000 MG in 0.9 % Sodium Chloride Mini Bag 100 ML IVPB SCH ×2 (12:58→17:43)
[2019-09-18] MEDS: Sennosides/Docusate Sodium TABLET PO SCH ×2 (15:07→22:46)
[2019-09-19] MEDS: Ampicillin/Sulbactam 3,000 MG in 0.9 % Sodium Chloride Mini Bag 100 ML IVPB SCH ×4 (00:38→17:58)
[2019-09-19 05:30] LABS: BUN/Creatinine Ratio 23 (6-26); Blood Urea Nitrogen 14 mg/dL (8-23); Carbon Dioxide 28 mEq/L (23-29); Chloride 108 mEq/L (98-107); Glucose 147 mg/dL (70-105); Magnesium 1.8 mg/dL (1.6-2.6); Osmolality,Calculated 299 (280-300); Phosphorous 2.5 mg/dL (2.7-4.5); Sodium 143 mEq/L (136-145); eGFR For African Americans > 60 (> 60); eGFR For Non-African Americans > 60 (> 60)
[2019-09-19] MEDS: *HR* Heparin 5,000 UNIT/ML VIAL SQ SCH ×2 (06:24→17:58)
[2019-09-19] MEDS: Aspirin Enteric Coated 81 MG Tablet PO SCH (09:53)
[2019-09-19] MEDS: Folic Acid 1 MG TABLET PO SCH (09:53)
[2019-09-19] MEDS: predniSONE 5 MG TABLET PO SCH (09:53)
[2019-09-19] MEDS: Multivit/Ca/Min/Fe/FA 1 TAB TABLET PO SCH (09:53)
[2019-09-19] MEDS: Sennosides/Docusate Sodium TABLET PO SCH ×2 (09:53→22:12)
[2019-09-19] MEDS: Fluconazole 200 MG/100 ML 200 MG/100 ML BAG IVPB SCH (09:54)
[2019-09-19] MEDS: Metoprolol XL (24 HR) Succ 50 MG TAB.ER.24H PO SCH ×2 (09:54→22:12)
[2019-09-19] MEDS: Fluticasone Propionate Nasal 50 MCG/SPRAY BOTTLE NS SCH (09:56)
[2019-09-19] MEDS: predniSONE 1 MG TABLET PO SCH (09:58)
[2019-09-20] MEDS: Ampicillin/Sulbactam 3,000 MG in 0.9 % Sodium Chloride Mini Bag 100 ML IVPB SCH ×4 (00:50→18:35)
[2019-09-20 04:51] LABS: Hematocrit 36.2 % (37.5-50.1); Hemoglobin 11.8 g/dL (12.9-16.9); Mean Corpuscular HGB Conc 32.6 g/dL (31.6-35.5); Mean Corpuscular Hemoglobin 33.4 pg (28.0-33.3); Mean Corpuscular Volume 102.5 fL (83.0-100.0); Mean Platelet Volume 10.8 fL (9.4-12.4); Platelet Count 261 K/mcL (140-400); Red Blood Count 3.53 M/mcL (4.19-5.50); Red Cell Distribution Width 17.8 % (11.5-14.5); White Blood Count 7.9 K/mcL (4.3-11.1)
[2019-09-20 05:04] LABS: BUN/Creatinine Ratio 23 (6-26); Blood Urea Nitrogen 13 mg/dL (8-23); Calcium 8.2 mg/dL (8.6-10.3); Carbon Dioxide 30 mEq/L (23-29); Chloride 105 mEq/L (98-107); Glucose 93 mg/dL (70-105); Osmolality,Calculated 292 (280-300); Sodium 141 mEq/L (136-145); eGFR For African Americans > 60 (> 60); eGFR For Non-African Americans > 60 (> 60)
[2019-09-20] MEDS: Fluconazole 200 MG/100 ML 200 MG/100 ML BAG IVPB SCH (08:22)
[2019-09-20] MEDS: Metoprolol XL (24 HR) Succ 50 MG TAB.ER.24H PO SCH (08:22)
[2019-09-20] MEDS: Fluticasone Propionate Nasal 50 MCG/SPRAY BOTTLE NS SCH (08:23)
[2019-09-20] MEDS ORDERED: Metoprolol 100 MG TABLET PO ONE (08:42)
[2019-09-20] MEDS ORDERED: Lidocaine -MPF 2% 2 ML VIAL ONE (13:52)
[2019-09-20] MEDS ORDERED: *HR* FentaNYL (PF) 100 MCG/2 ML VIAL ONE (13:54)
[2019-09-20] MEDS ORDERED: *HR* Propofol 200 MG/20 ML VIAL IVP ONE (13:55)
[2019-09-20] MEDS ORDERED: Dexamethasone 4 MG/ML VIAL ONE (13:58)
[2019-09-20] MEDS ORDERED: *HR* Succinylcholine 200 MG/10 ML VIAL IVP ONE (13:58)
[2019-09-20] MEDS ORDERED: *HR* Rocuronium Bromide 50 MG/5 ML VIAL ONE (13:58)
[2019-09-20] MEDS ORDERED: Lidocaine HCL 4 ML Topical Solution (Laryng-O-Jet Kit Sterile Pak) TP ONE ×2 (13:58→13:59)
[2019-09-20] MEDS ORDERED: Ondansetron 4 MG/2 ML VIAL ONE (13:58)
[2019-09-20] MEDS ORDERED: *HR* EPINEPHrine 30 MG/30 ML MDV ONE (14:30)
[2019-09-20] MEDS ORDERED: Ondansetron 4 MG/2 ML VIAL IVP PRN (14:40)
[2019-09-20] MEDS ORDERED: *HR* Labetalol 20 MG/4 ML SYRINGE IVP PRN (14:40)
[2019-09-20] MEDS ORDERED: *HR* Midazolam HCl 2 MG/2 ML VIAL ONE (14:44)
[2019-09-20] MEDS ORDERED: *HR* PHENYLEPHRINE 1,000 MCG/10 ML SYRINGE IVP ONE (15:16)
[2019-09-20] MEDS ORDERED: Ringers Solution, Lactated 1,000 ML ONE (17:26)
[2019-09-20] MEDS: predniSONE 5 MG TABLET PO SCH (18:17)
[2019-09-20] MEDS: predniSONE 1 MG TABLET PO SCH (18:17)
[2019-09-20] MEDS: Sennosides/Docusate Sodium TABLET PO SCH ×2 (18:17→22:46)
[2019-09-20] MEDS: Aspirin Enteric Coated 81 MG Tablet PO SCH (18:17)
[2019-09-20] MEDS: Folic Acid 1 MG TABLET PO SCH (18:17)
[2019-09-20] MEDS: Multivit/Ca/Min/Fe/FA 1 TAB TABLET PO SCH (18:19)
[2019-09-20] MEDS ORDERED: Metoprolol XL (24 HR) Succ 50 MG TAB.ER.24H PO SCH (21:00)
[2019-09-20] MEDS ORDERED: *HR* Metoprolol 5 MG/5 ML VIAL IVP ONE (22:48)
[2019-09-21] MEDS: Ampicillin/Sulbactam 3,000 MG in 0.9 % Sodium Chloride Mini Bag 100 ML IVPB SCH ×3 (01:04→12:30)
[2019-09-21] MEDS: Aspirin Enteric Coated 81 MG Tablet PO SCH (09:30)
[2019-09-21] MEDS: Fluconazole 200 MG/100 ML 200 MG/100 ML BAG IVPB SCH (09:35)
[2019-09-21] MEDS: Multivit/Ca/Min/Fe/FA 1 TAB TABLET PO SCH (09:36)
[2019-09-21] MEDS: predniSONE 5 MG TABLET PO SCH (09:36)
[2019-09-21] MEDS: Folic Acid 1 MG TABLET PO SCH (09:36)
[2019-09-21] MEDS: Sennosides/Docusate Sodium TABLET PO SCH (09:37)
[2019-09-21] MEDS: predniSONE 1 MG TABLET PO SCH (09:42)
[2019-09-21] MEDS ORDERED: Ferrous Sulfate Oral Soln 300 MG/5 ML UDC GTUBE SCH (10:00)
[2019-09-21] MEDS: Fluticasone Propionate Nasal 50 MCG/SPRAY BOTTLE NS SCH (10:48)
[2019-09-21 11:25] VITALS: BP 150/90
[2019-09-21] MEDS ORDERED: D5% in Water 1,000 ML IVC PRN (11:43)
[2019-09-21] MEDS ORDERED: Dextrose Gel 15 GM/37.5 ML TUBE PO PRN ×2 (11:43)
[2019-09-21] MEDS ORDERED: *HR* Dextrose 50 % in Water (Syg) 50 ML SYRINGE IVP PRN (11:43)
[2019-09-21] MEDS ORDERED: Aminoglycoside Consult 1 EACH MC ONE (18:29)
== END 2019-09-21 18:30 | DRG 872 ==
LOC: 3BNU 15:00 → EMEROOARM 15:00 → SUATTDRO 20:02 → 3BNU 20:48 → SUATTDRO 09-16 10:14
PROVIDERS: ADMIT Family Medicine; ATTEND Internal Medicine
PROC: ENDOEBX (2019-09-16 14:00)

== ENCOUNTER 2020-11-06 15:08 | Inpatient (IN) ==
[2020-11-06] MEDS ORDERED: Isovue-370 500 ML BOTTLE IVP ONE (15:24)
[2020-11-06 16:02] LABS: Basophils % 0.6 %; Eosinophils # 0.1 K/mcL (0.0-0.6); Eosinophils % 1.4 %; Hematocrit 37.5 % (37.5-50.1); Hemoglobin 12.2 g/dL (12.9-16.9); Immature Granulocytes % 0.4 % (0-4); Lymphocytes # 0.5 K/mcL (0.6-4.6); Lymphocytes % 6.7 %; Mean Corpuscular HGB Conc 32.5 g/dL (31.6-35.5); Mean Corpuscular Hemoglobin 35.9 pg (28.0-33.3); Mean Corpuscular Volume 110.3 fL (83.0-100.0); Mean Platelet Volume 10.7 fL (9.4-12.4); Monocytes # 0.4 K/mcL (0.0-1.3); Monocytes % 5.6 %; Neutrophils # 6.1 K/mcL (1.6-8.9); Platelet Count 158 K/mcL (140-400); Red Cell Distribution Width 16.4 % (11.5-14.5); Segmented Neutrophils % 85.3 %; White Blood Count 7.2 K/mcL (4.3-11.1)
[2020-11-06 16:09] LABS: INR 2.4
[2020-11-06 16:24] LABS: Alanine Aminotransferase 18 Units/L (7-52); Albumin 3.8 g/dL (3.5-5.7); Albumin/Globulin Ratio 1.2 (1.1-2.2); Alkaline Phosphatase 65 Units/L (34-104); Aspartate Amino Transferase 20 Units/L (13-39); BUN/Creatinine Ratio 38 (6-26); Bilirubin,Direct 0.2 mg/dL (0.0-0.2); Bilirubin,Indirect 0.4 mg/dL (0.0-1.0); Bilirubin,Total 0.6 mg/dL (0.3-1.0); Blood Urea Nitrogen 38 mg/dL (8-23); Calcium 8.7 mg/dL (8.6-10.3); Carbon Dioxide 31 mEq/L (23-29); Chloride 101 mEq/L (98-107); Globulin 3.1 g/dL (2.4-3.5); Glucose 101 mg/dL (70-105); Lipase 13 Units/L (11-82); Macrocytosis Present (Not Present); Osmolality,Calculated 301 (280-300); Platelet Estimate Normal (Normal); Potassium 3.8 mEq/L (3.5-5.1); Sodium 141 mEq/L (136-145); Total Protein 6.9 g/dL (6.4-8.9); Troponin I 0.03 ng/mL (< 0.04); eGFR For African Americans > 60 (> 60); eGFR For Non-African Americans > 60 (> 60)
[2020-11-06] MEDS ORDERED: Piperacillin/Tazobactam 3.375 GM in 0.9 % Sodium Chloride Mini Bag 100 ML IVPB ONE (18:05)
[2020-11-06 19:21] LABS: Bilirubin,Urine Negative (Negative); Blood,Urine Negative (Negative); Clarity,Urine Clear (Clear); Color,Urine Light-Yellow (Yellow); Glucose,Urine (UA) Normal (Normal); Ketones,Urine Negative (Negative); Leukocyte Esterase,Urine Negative (Negative); Nitrite,Urine Negative (Negative); PH,Urine 7.5 pH Units (5.0-8.0); Protein,Urine Trace mg/dL (Neg-Trace); Specific Gravity,Urine > 1.030 (1.010-1.025); Urobilinogen,Urine Normal (Normal)
[2020-11-06 20:03] LABS: Adenovirus Not Detected (Not Detect); Bordetella Pertussis Not Detected (Not Detect); Chlamydophila pneumoniae Not Detected (Not Detect); Coronavirus 229E Not Detected (Not Detect); Coronavirus HKU1 Not Detected (Not Detect); Coronavirus NL63 Not Detected (Not Detect); Coronavirus OC43 Not Detected (Not Detect); Human Metapneumovirus Not Detected (Not Detect); Human Rhinovirus/Enterovirus Not Detected (Not Detect); Influenza A Subtype 2009 H1 Not Detected (Not Detect); Influenza B Not Detected (Not Detect); Mycoplasma pneumoniae Not Detected (Not Detect); Parainfluenza Virus 1 Not Detected (Not Detect); Parainfluenza Virus 2 Not Detected (Not Detect); Parainfluenza Virus 3 Not Detected (Not Detect); Parainfluenza Virus 4 Not Detected (Not Detect); Respiratory Syncytial Virus Not Detected (Not Detect); SARS-CoV-2 Not Detected (Not Detect)
[2020-11-06] MEDS ORDERED: Naloxone 0.4 MG/ML INJ IVP PRN (21:03)
[2020-11-06 22:24] LABS: Folate > 22.3 ng/mL (3.0-16.0); Vitamin B12 409 pg/mL (250-1100)
[2020-11-06 22:28] LABS: Thyroid Stimulating Hormone 1.025 mcIU/mL (0.340-5.600)
[2020-11-07] MEDS ORDERED: Furosemide 20 MG/2 ML VIAL IVP ONE (02:00)
[2020-11-07 02:04] LABS: Basophils # 0.1 K/mcL (0.0-0.2); Basophils % 0.7 %; Eosinophils # 0.1 K/mcL (0.0-0.6); Eosinophils % 1.6 %; Hematocrit 39.9 % (37.5-50.1); Hemoglobin 12.9 g/dL (12.9-16.9); Immature Granulocytes % 0.3 % (0-4); Lymphocytes # 0.7 K/mcL (0.6-4.6); Lymphocytes % 10.4 %; Mean Corpuscular HGB Conc 32.3 g/dL (31.6-35.5); Mean Corpuscular Hemoglobin 36.8 pg (28.0-33.3); Mean Corpuscular Volume 113.7 fL (83.0-100.0); Mean Platelet Volume 10.6 fL (9.4-12.4); Monocytes # 0.4 K/mcL (0.0-1.3); Monocytes % 6.1 %; Neutrophils # 5.4 K/mcL (1.6-8.9); Platelet Count 162 K/mcL (140-400); Red Blood Count 3.51 M/mcL (4.19-5.50); Red Cell Distribution Width 16.7 % (11.5-14.5); Segmented Neutrophils % 80.9 %; White Blood Count 6.7 K/mcL (4.3-11.1)
[2020-11-07 02:12] LABS: INR 2.2; Prothrombin Time 25.1 Seconds (9.4-12.1)
[2020-11-07 02:26] LABS: Reactive Lymphocytes Present (Not Present)
[2020-11-07 02:27] LABS: Anisocytosis 1+ (Not Present); Platelet Estimate Normal (Normal); Poikilocytosis 1+ (Not Present)
[2020-11-07 02:28] LABS: BUN/Creatinine Ratio 31 (6-26); Blood Urea Nitrogen 30 mg/dL (8-23); Calcium 8.9 mg/dL (8.6-10.3); Carbon Dioxide 29 mEq/L (23-29); Chloride 103 mEq/L (98-107); Glucose 90 mg/dL (70-105); Osmolality,Calculated 300 (280-300); Potassium 4.4 mEq/L (3.5-5.1); Sodium 142 mEq/L (136-145); eGFR For African Americans > 60 (> 60); eGFR For Non-African Americans > 60 (> 60)
[2020-11-07] MEDS ORDERED: Perflutren Lipid Microsphere 1.3 ML in 0.9 % Sodium Chloride 8.7 ML IVP PRN (03:18)
[2020-11-07] MEDS: predniSONE 1 MG TABLET PO SCH (08:35)
[2020-11-07] MEDS: Folic Acid 1 MG TABLET PO SCH (08:35)
[2020-11-07] MEDS: predniSONE 5 MG TABLET PO SCH (08:35)
[2020-11-07] MEDS: Aspirin Enteric Coated 81 MG Tablet PO SCH (08:35)
[2020-11-07] MEDS: Metoprolol XL (24 HR) Succ 50 MG TAB.ER.24H PO SCH ×2 (08:35→21:09)
[2020-11-07] MEDS: Fluticasone Propionate Nasal 50 MCG/SPRAY BOTTLE NS SCH (08:36)
[2020-11-07] MEDS ORDERED: Calcium 600-Vit D3 PO SCH (09:00)
[2020-11-07] MEDS ORDERED: BUDESONIDE NS SCH (09:00)
[2020-11-07] MEDS: Cholecalciferol (D-3) 1,000 UNIT (25MCG) TABLET PO SCH (09:52)
[2020-11-07] MEDS: Furosemide 20 MG/2 ML VIAL IVP SCH ×2 (12:28→21:10)
[2020-11-07] MEDS: lisinopriL 5 MG TABLET PO SCH (17:36)
[2020-11-07] MEDS ORDERED: *HR* Warfarin 3 MG TABLET PO ONE (18:00)
[2020-11-07] MEDS ORDERED: Warfarin perPT PO PRN (18:00)
[2020-11-07] MEDS: Sennosides/Docusate Sodium TABLET PO SCH (21:08)
[2020-11-08 07:34] LABS: Basophils # 0.1 K/mcL (0.0-0.2); Basophils % 0.8 %; Eosinophils # 0.2 K/mcL (0.0-0.6); Eosinophils % 2.8 %; Hematocrit 39.5 % (37.5-50.1); Hemoglobin 12.9 g/dL (12.9-16.9); Immature Granulocytes % 0.8 % (0-4); Lymphocytes # 0.5 K/mcL (0.6-4.6); Lymphocytes % 8.4 %; Mean Corpuscular HGB Conc 32.7 g/dL (31.6-35.5); Mean Corpuscular Hemoglobin 36.8 pg (28.0-33.3); Mean Corpuscular Volume 112.5 fL (83.0-100.0); Monocytes # 0.8 K/mcL (0.0-1.3); Monocytes % 12.6 %; Neutrophils # 4.8 K/mcL (1.6-8.9); Nucleated Red Blood Cells 0.3 /100 WBC (0); Platelet Count 144 K/mcL (140-400); Red Blood Count 3.51 M/mcL (4.19-5.50); Red Cell Distribution Width 16.7 % (11.5-14.5); Segmented Neutrophils % 74.6 %; White Blood Count 6.4 K/mcL (4.3-11.1)
[2020-11-08 07:36] LABS: INR 2.3; Prothrombin Time 25.8 Seconds (9.4-12.1)
[2020-11-08] MEDS: Folic Acid 1 MG TABLET PO SCH (07:36)
[2020-11-08] MEDS: Sennosides/Docusate Sodium TABLET PO SCH ×2 (07:36→20:26)
[2020-11-08] MEDS: lisinopriL 5 MG TABLET PO SCH (07:36)
[2020-11-08] MEDS: predniSONE 1 MG TABLET PO SCH (07:37)
[2020-11-08] MEDS: Aspirin Enteric Coated 81 MG Tablet PO SCH (07:37)
[2020-11-08] MEDS: Cholecalciferol (D-3) 1,000 UNIT (25MCG) TABLET PO SCH (07:37)
[2020-11-08] MEDS: Fluticasone Propionate Nasal 50 MCG/SPRAY BOTTLE NS SCH (07:38)
[2020-11-08] MEDS: Metoprolol XL (24 HR) Succ 50 MG TAB.ER.24H PO SCH ×2 (07:38→20:26)
[2020-11-08] MEDS: predniSONE 5 MG TABLET PO SCH (07:38)
[2020-11-08] MEDS: Furosemide 20 MG/2 ML VIAL IVP SCH ×2 (07:38→20:26)
[2020-11-08 08:01] LABS: Macrocytosis Present (Not Present); Platelet Estimate Normal (Normal)
[2020-11-08 10:03] LABS: Alanine Aminotransferase 20 Units/L (7-52); Albumin 3.9 g/dL (3.5-5.7); Albumin/Globulin Ratio 1.3 (1.1-2.2); Alkaline Phosphatase 62 Units/L (34-104); Aspartate Amino Transferase 24 Units/L (13-39); BUN/Creatinine Ratio 28 (6-26); Bilirubin,Total 0.7 mg/dL (0.3-1.0); Blood Urea Nitrogen 29 mg/dL (8-23); Calcium 8.7 mg/dL (8.6-10.3); Carbon Dioxide 25 mEq/L (23-29); Chloride 101 mEq/L (98-107); Globulin 3.1 g/dL (2.4-3.5); Glucose 93 mg/dL (70-105); Osmolality,Calculated 292 (280-300); Phosphorous 2.6 mg/dL (2.7-4.5); Potassium 3.7 mEq/L (3.5-5.1); Sodium 138 mEq/L (136-145); eGFR For African Americans > 60 (> 60); eGFR For Non-African Americans > 60 (> 60)
[2020-11-08] MEDS: Bisacodyl 10 MG RECTAL SUPPOSITORY RC SCH (14:26)
[2020-11-08] MEDS ORDERED: *HR* Warfarin 3 MG TABLET PO ONE (18:00)
[2020-11-08] MEDS ORDERED: *HR* Phytonadione 10 MG/ML AMPUL SQ ONE (18:18)
[2020-11-08] MEDS ORDERED: Melatonin 3 MG TABLET PO PRN (18:30)
[2020-11-08] MEDS ORDERED: Ipratropium/Albuterol Neb 3 ML IH PRN (18:31)
[2020-11-08] MEDS: Ampicillin/Sulbactam 3,000 MG in 0.9 % Sodium Chloride Mini Bag 100 ML IVPB SCH (20:26)
[2020-11-08] MEDS: Budesonide/Formoterol 160/4.5 1 PUFF INH IH SCH (20:37)
[2020-11-09] MEDS: Ampicillin/Sulbactam 3,000 MG in 0.9 % Sodium Chloride Mini Bag 100 ML IVPB SCH ×4 (01:30→20:03)
[2020-11-09 03:38] LABS: Mean Corpuscular HGB Conc 32.5 g/dL (31.6-35.5); Mean Corpuscular Hemoglobin 36.3 pg (28.0-33.3); Mean Corpuscular Volume 111.7 fL (83.0-100.0); Mean Platelet Volume 10.6 fL (9.4-12.4); Platelet Count 124 K/mcL (140-400); Red Blood Count 3.58 M/mcL (4.19-5.50); Red Cell Distribution Width 16.7 % (11.5-14.5); White Blood Count 5.6 K/mcL (4.3-11.1)
[2020-11-09 03:59] LABS: INR 1.8; Prothrombin Time 20.1 Seconds (9.4-12.1)
[2020-11-09 04:08] LABS: % Iron Saturation 23 % (20-55); Alanine Aminotransferase 18 Units/L (7-52); Albumin 3.8 g/dL (3.5-5.7); Albumin/Globulin Ratio 1.2 (1.1-2.2); Alkaline Phosphatase 66 Units/L (34-104); Aspartate Amino Transferase 22 Units/L (13-39); BUN/Creatinine Ratio 28 (6-26); Bilirubin,Total 0.7 mg/dL (0.3-1.0); Blood Urea Nitrogen 27 mg/dL (8-23); Calcium 8.7 mg/dL (8.6-10.3); Carbon Dioxide 28 mEq/L (23-29); Chloride 100 mEq/L (98-107); Globulin 3.1 g/dL (2.4-3.5); Glucose 86 mg/dL (70-105); Iron 59 mcg/dL (65-175); Magnesium 1.9 mg/dL (1.6-2.6); Osmolality,Calculated 292 (280-300); Phosphorous 2.8 mg/dL (2.7-4.5); Sodium 139 mEq/L (136-145); Total Protein 6.9 g/dL (6.4-8.9); Transferrin 185 mg/dL (203-362); eGFR For African Americans > 60 (> 60); eGFR For Non-African Americans > 60 (> 60)
[2020-11-09 04:23] LABS: Ferritin 117 ng/mL (20-250)
[2020-11-09 04:28] LABS: Folate 21.3 ng/mL (3.0-16.0)
[2020-11-09] MEDS: Budesonide/Formoterol 160/4.5 1 PUFF INH IH SCH ×2 (07:36→20:37)
[2020-11-09] MEDS ORDERED: Iron Sucrose Complex 400 MG in 0.9 % Sodium Chloride 250 ML IVPB ONE ×2 (07:52→16:31)
[2020-11-09] MEDS ORDERED: Lidocaine HCL 4 ML Topical Solution (Laryng-O-Jet Kit Sterile Pak) TP ONE (08:45)
[2020-11-09] MEDS ORDERED: Ondansetron 4 MG/2 ML VIAL ONE (08:46)
[2020-11-09] MEDS ORDERED: Lidocaine -MPF 2% 2 ML VIAL ONE ×2 (08:46→13:56)
[2020-11-09] MEDS ORDERED: *HR* Rocuronium Bromide 50 MG/5 ML VIAL ONE ×2 (08:46→13:56)
[2020-11-09] MEDS ORDERED: *HR* Succinylcholine 200 MG/10 ML VIAL IVP ONE (08:46)
[2020-11-09] MEDS ORDERED: Multivit/Ca/Min/Fe/FA 1 TAB TABLET PO SCH (09:00)
[2020-11-09] MEDS ORDERED: *HR* FentaNYL (PF) 100 MCG/2 ML VIAL ONE ×2 (11:12→13:56)
[2020-11-09] MEDS ORDERED: *HR* Propofol 200 MG/20 ML VIAL IVP ONE (11:12)
[2020-11-09] MEDS ORDERED: *HR* Magnesium Sulfate 1 GM/2 ML VIAL ONE (12:05)
[2020-11-09] MEDS ORDERED: Sugammadex Sodium 200 MG/2 ML VIAL IV ONE (14:56)
[2020-11-09] MEDS ORDERED: Famotidine 20 MG/2 ML VIAL IVP ONE (15:12)
[2020-11-09] MEDS ORDERED: *HR* HYDROmorphone 2 MG TABLET PO PRN (15:12)
[2020-11-09] MEDS ORDERED: *HR* Labetalol 20 MG/4 ML SYRINGE IVP PRN (15:12)
[2020-11-09] MEDS ORDERED: Acetaminophen IV 1,000 MG/100 ML BAG IVPB ONE (15:12)
[2020-11-09] MEDS: *HR* HYDROmorphone PF 0.5 MG/0.5 ML SYRINGE IVP PRN ×2 (15:23→15:33)
[2020-11-09] MEDS ORDERED: Melatonin 3 MG TABLET PO PRN (16:31)
[2020-11-09] MEDS ORDERED: Ipratropium/Albuterol Neb 3 ML IH PRN (16:31)
[2020-11-09] MEDS ORDERED: Naloxone 0.4 MG/ML INJ IVP PRN (16:31)
[2020-11-09] MEDS: Bisacodyl 10 MG RECTAL SUPPOSITORY RC SCH (19:20)
[2020-11-09] MEDS: Aspirin Enteric Coated 81 MG Tablet PO SCH (19:20)
[2020-11-09] MEDS: Fluticasone Propionate Nasal 50 MCG/SPRAY BOTTLE NS SCH (19:20)
[2020-11-09] MEDS: Folic Acid 1 MG TABLET PO SCH (19:20)
[2020-11-09] MEDS: Furosemide 20 MG/2 ML VIAL IVP SCH (19:21)
[2020-11-09] MEDS: predniSONE 1 MG TABLET PO SCH (19:22)
[2020-11-09] MEDS: predniSONE 5 MG TABLET PO SCH (19:22)
[2020-11-09] MEDS: Sennosides/Docusate Sodium TABLET PO SCH ×2 (19:23→20:02)
[2020-11-09] MEDS: Metoprolol XL (24 HR) Succ 50 MG TAB.ER.24H PO SCH ×2 (19:23→20:03)
[2020-11-09] MEDS: Cholecalciferol (D-3) 1,000 UNIT (25MCG) TABLET PO SCH (19:24)
[2020-11-09] MEDS: lisinopriL 5 MG TABLET PO SCH (19:24)
[2020-11-09] MEDS ORDERED: Furosemide 20 MG/2 ML VIAL IVP SCH (21:00)
[2020-11-09] MEDS ORDERED: CefTRIAXone 1,000 MG VIAL IM ONE (22:44)
[2020-11-10] MEDS: Ampicillin/Sulbactam 3,000 MG in 0.9 % Sodium Chloride Mini Bag 100 ML IVPB SCH ×4 (03:23→21:26)
[2020-11-10 03:38] LABS: Basophils % 0.3 %; Eosinophils % 0.5 %; Hematocrit 33.7 % (37.5-50.1); Immature Granulocytes % 0.5 % (0-4); Lymphocytes # 0.5 K/mcL (0.6-4.6); Mean Corpuscular HGB Conc 32.6 g/dL (31.6-35.5); Mean Corpuscular Hemoglobin 35.8 pg (28.0-33.3); Mean Corpuscular Volume 109.8 fL (83.0-100.0); Mean Platelet Volume 11.2 fL (9.4-12.4); Monocytes # 0.8 K/mcL (0.0-1.3); Monocytes % 12.6 %; Neutrophils # 5.2 K/mcL (1.6-8.9); Platelet Count 134 K/mcL (140-400); Red Blood Count 3.07 M/mcL (4.19-5.50); Red Cell Distribution Width 16.5 % (11.5-14.5); Segmented Neutrophils % 79.1 %; White Blood Count 6.6 K/mcL (4.3-11.1)
[2020-11-10 03:43] LABS: INR 1.3; Prothrombin Time 14.7 Seconds (9.4-12.1)
[2020-11-10 03:56] LABS: Alanine Aminotransferase 29 Units/L (7-52); Albumin 3.5 g/dL (3.5-5.7); Albumin/Globulin Ratio 1.3 (1.1-2.2); Alkaline Phosphatase 65 Units/L (34-104); Aspartate Amino Transferase 43 Units/L (13-39); BUN/Creatinine Ratio 26 (6-26); Bilirubin,Total 0.6 mg/dL (0.3-1.0); Blood Urea Nitrogen 21 mg/dL (8-23); Calcium 8.1 mg/dL (8.6-10.3); Carbon Dioxide 25 mEq/L (23-29); Chloride 102 mEq/L (98-107); Globulin 2.8 g/dL (2.4-3.5); Glucose 127 mg/dL (70-105); Magnesium 2.2 mg/dL (1.6-2.6); Osmolality,Calculated 291 (280-300); Phosphorous 3.2 mg/dL (2.7-4.5); Potassium 3.9 mEq/L (3.5-5.1); Sodium 138 mEq/L (136-145); Total Protein 6.3 g/dL (6.4-8.9); eGFR For African Americans > 60 (> 60); eGFR For Non-African Americans > 60 (> 60)
[2020-11-10] MEDS: Budesonide/Formoterol 160/4.5 1 PUFF INH IH SCH ×2 (07:26→20:21)
[2020-11-10] MEDS: Aspirin Enteric Coated 81 MG Tablet PO SCH (09:24)
[2020-11-10] MEDS: Sennosides/Docusate Sodium TABLET PO SCH ×2 (09:24→21:25)
[2020-11-10] MEDS: Folic Acid 1 MG TABLET PO SCH (09:24)
[2020-11-10] MEDS: predniSONE 1 MG TABLET PO SCH (09:25)
[2020-11-10] MEDS: lisinopriL 5 MG TABLET PO SCH (09:25)
[2020-11-10] MEDS: Metoprolol XL (24 HR) Succ 50 MG TAB.ER.24H PO SCH ×2 (09:26→21:16)
[2020-11-10] MEDS: Multivit/Ca/Min/Fe/FA 1 TAB TABLET PO SCH (09:26)
[2020-11-10] MEDS: predniSONE 5 MG TABLET PO SCH (09:26)
[2020-11-10] MEDS: Cholecalciferol (D-3) 1,000 UNIT (25MCG) TABLET PO SCH (09:26)
[2020-11-10] MEDS: Fluticasone Propionate Nasal 50 MCG/SPRAY BOTTLE NS SCH (09:27)
[2020-11-10] MEDS: Patient Taking Own Medication 1 EACH PO SCH (09:28)
[2020-11-10] MEDS: Bisacodyl 10 MG RECTAL SUPPOSITORY RC SCH (09:45)
[2020-11-10] MEDS: Calcium Gluconate 1gm/50mL 1 GM/50 ML BAG IVPB SCH ×2 (09:51→09:52)
[2020-11-10 11:55] LABS: Hematocrit 36.9 % (37.5-50.1); Hemoglobin 11.9 g/dL (12.9-16.9)
[2020-11-10 12:11] LABS: INR 1.3; Prothrombin Time 14.9 Seconds (9.4-12.1)
[2020-11-10] MEDS: *HR* Heparin 5,000 UNIT/ML VIAL SQ SCH (17:10)
[2020-11-10] MEDS ORDERED: *HR* Warfarin 3 MG TABLET PO ONE (18:00)
[2020-11-10] MEDS ORDERED: Warfarin perPT PO PRN (18:00)
[2020-11-11] MEDS: Ampicillin/Sulbactam 3,000 MG in 0.9 % Sodium Chloride Mini Bag 100 ML IVPB SCH ×2 (04:36→08:34)
[2020-11-11] MEDS: *HR* Heparin 5,000 UNIT/ML VIAL SQ SCH (05:28)
[2020-11-11 05:58] LABS: Basophils % 0.3 %; Eosinophils # 0.2 K/mcL (0.0-0.6); Eosinophils % 2.9 %; Hematocrit 28.4 % (37.5-50.1); Hemoglobin 9.2 g/dL (12.9-16.9); Lymphocytes # 0.6 K/mcL (0.6-4.6); Lymphocytes % 9.4 %; Mean Corpuscular HGB Conc 32.4 g/dL (31.6-35.5); Mean Corpuscular Hemoglobin 35.5 pg (28.0-33.3); Mean Corpuscular Volume 109.7 fL (83.0-100.0); Mean Platelet Volume 10.5 fL (9.4-12.4); Monocytes # 0.9 K/mcL (0.0-1.3); Monocytes % 13.3 %; Nucleated Red Blood Cells 0.3 /100 WBC (0); Platelet Count 131 K/mcL (140-400); Red Blood Count 2.59 M/mcL (4.19-5.50); Red Cell Distribution Width 16.7 % (11.5-14.5); Segmented Neutrophils % 73.1 %; White Blood Count 6.8 K/mcL (4.3-11.1)
[2020-11-11 06:16] LABS: Alanine Aminotransferase 24 Units/L (7-52); Albumin 3.1 g/dL (3.5-5.7); Albumin/Globulin Ratio 1.3 (1.1-2.2); Alkaline Phosphatase 56 Units/L (34-104); Aspartate Amino Transferase 31 Units/L (13-39); BUN/Creatinine Ratio 23 (6-26); Bilirubin,Total 0.5 mg/dL (0.3-1.0); Blood Urea Nitrogen 22 mg/dL (8-23); Calcium 7.8 mg/dL (8.6-10.3); Carbon Dioxide 30 mEq/L (23-29); Chloride 104 mEq/L (98-107); Globulin 2.4 g/dL (2.4-3.5); Glucose 93 mg/dL (70-105); Osmolality,Calculated 291 (280-300); Phosphorous 1.8 mg/dL (2.7-4.5); Potassium 3.4 mEq/L (3.5-5.1); Sodium 139 mEq/L (136-145); Total Protein 5.5 g/dL (6.4-8.9); eGFR For African Americans > 60 (> 60); eGFR For Non-African Americans > 60 (> 60)
[2020-11-11] MEDS ORDERED: Potassium Phosphate 44 MEQ in 0.9 % Sodium Chloride 250 ML IVPB ONE (07:50)
[2020-11-11] MEDS: Budesonide/Formoterol 160/4.5 1 PUFF INH IH SCH (07:53)
[2020-11-11] MEDS: Metoprolol XL (24 HR) Succ 50 MG TAB.ER.24H PO SCH (08:14)
[2020-11-11] MEDS: Folic Acid 1 MG TABLET PO SCH (08:14)
[2020-11-11] MEDS: Cholecalciferol (D-3) 1,000 UNIT (25MCG) TABLET PO SCH (08:15)
[2020-11-11] MEDS: predniSONE 5 MG TABLET PO SCH (08:15)
[2020-11-11] MEDS: lisinopriL 5 MG TABLET PO SCH (08:15)
[2020-11-11] MEDS: predniSONE 1 MG TABLET PO SCH (08:15)
[2020-11-11] MEDS: Sennosides/Docusate Sodium TABLET PO SCH (08:15)
[2020-11-11] MEDS: Bisacodyl 10 MG RECTAL SUPPOSITORY RC SCH (08:16)
[2020-11-11] MEDS: Patient Taking Own Medication 1 EACH PO SCH (08:16)
[2020-11-11] MEDS: Aspirin Enteric Coated 81 MG Tablet PO SCH (08:16)
[2020-11-11] MEDS: Multivit/Ca/Min/Fe/FA 1 TAB TABLET PO SCH (08:19)
[2020-11-11] MEDS: Fluticasone Propionate Nasal 50 MCG/SPRAY BOTTLE NS SCH (08:20)
[2020-11-11 08:26] LABS: Hematocrit 28.8 % (37.5-50.1); Hemoglobin 9.5 g/dL (12.9-16.9)
[2020-11-11 08:34] LABS: INR 1.4; Prothrombin Time 16.2 Seconds (9.4-12.1)
[2020-11-11] MEDS: Calcium Gluconate 1gm/50mL 1 GM/50 ML BAG IVPB SCH ×2 (09:01→12:43)
[2020-11-11] MEDS ORDERED: Methotrexate PFS 25 MG/ML VIAL IM ONE ×2 (09:45→10:00)
[2020-11-11] MEDS ORDERED: Methotrexate PFS 25 MG/ML VIAL SQ ONE ×3 (10:30→11:00)
[2020-11-11 14:49] VITALS: BP 128/79
[2020-11-11 16:03] LABS: Adenovirus Not Detected (Not Detect); Coronavirus 229E Not Detected (Not Detect); Coronavirus HKU1 Not Detected (Not Detect); Coronavirus NL63 Not Detected (Not Detect); Coronavirus OC43 Not Detected (Not Detect); Human Metapneumovirus Not Detected (Not Detect); Human Rhinovirus/Enterovirus Not Detected (Not Detect); SARS-CoV-2 Not Detected (Not Detect)
[2020-11-11 16:04] LABS: Bordetella Pertussis Not Detected (Not Detect); Chlamydophila pneumoniae Not Detected (Not Detect); Influenza A Subtype 2009 H1 Not Detected (Not Detect); Influenza B Not Detected (Not Detect); Mycoplasma pneumoniae Not Detected (Not Detect); Parainfluenza Virus 1 Not Detected (Not Detect); Parainfluenza Virus 2 Not Detected (Not Detect); Parainfluenza Virus 3 Not Detected (Not Detect); Parainfluenza Virus 4 Not Detected (Not Detect); Respiratory Syncytial Virus Not Detected (Not Detect)
[2020-11-11] MEDS ORDERED: *HR* Warfarin 3 MG TABLET PO ONE (18:00)
[2020-11-11] MEDS ORDERED: *HR* Heparin 5,000 UNIT/ML VIAL SQ SCH (18:00)
== END 2020-11-11 17:30 | disposition other institution (70) | DRG 417 ==
LOC: 3BNU 15:08 → EMEROOARM 15:08 → SUATTDRO 19:52 → 3BNU 20:40 → SUATTDRO 11-07 15:16
PROVIDERS: ADMIT Family Medicine; ATTEND Internal Medicine

== ENCOUNTER 2020-12-20 19:39 | Inpatient (IN) ==
[2020-12-20 21:23] LABS: Basophils # 0.1 K/mcL (0.0-0.2); Basophils % 0.9 %; Eosinophils # 0.2 K/mcL (0.0-0.6); Eosinophils % 3.3 %; Hematocrit 34.2 % (37.5-50.1); Hemoglobin 10.8 g/dL (12.9-16.9); Immature Granulocytes % 0.5 % (0-4); Lymphocytes # 0.9 K/mcL (0.6-4.6); Lymphocytes % 13.4 %; Mean Corpuscular HGB Conc 31.6 g/dL (31.6-35.5); Mean Corpuscular Hemoglobin 34.1 pg (28.0-33.3); Mean Corpuscular Volume 107.9 fL (83.0-100.0); Monocytes # 0.8 K/mcL (0.0-1.3); Monocytes % 12.3 %; Neutrophils # 4.4 K/mcL (1.6-8.9); Platelet Count 226 K/mcL (140-400); Red Blood Count 3.17 M/mcL (4.19-5.50); Red Cell Distribution Width 17.1 % (11.5-14.5); Segmented Neutrophils % 69.6 %; White Blood Count 6.4 K/mcL (4.3-11.1)
[2020-12-20 21:49] LABS: Alanine Aminotransferase 65 Units/L (7-52); Albumin 3.4 g/dL (3.5-5.7); Albumin/Globulin Ratio 1.1 (1.1-2.2); Alkaline Phosphatase 161 Units/L (34-104); Aspartate Amino Transferase 60 Units/L (13-39); BUN/Creatinine Ratio 28 (6-26); Bilirubin,Total 0.5 mg/dL (0.3-1.0); Blood Urea Nitrogen 24 mg/dL (8-23); Carbon Dioxide 25 mEq/L (23-29); Chloride 104 mEq/L (98-107); Globulin 3.2 g/dL (2.4-3.5); Glucose 91 mg/dL (70-105); Osmolality,Calculated 292 (280-300); Potassium 4.5 mEq/L (3.5-5.1); Sodium 139 mEq/L (136-145); Total Protein 6.6 g/dL (6.4-8.9); eGFR For African Americans > 60 (> 60); eGFR For Non-African Americans > 60 (> 60)
[2020-12-20 21:55] LABS: Troponin I 0.04 ng/mL (< 0.04)
[2020-12-20 22:04] LABS: Thyroid Stimulating Hormone 1.383 mcIU/mL (0.340-5.600)
[2020-12-20] MEDS ORDERED: Isovue-370 500 ML BOTTLE IVP ONE (22:54)
[2020-12-20 23:32] LABS: Adenovirus Not Detected (Not Detect); Bordetella Pertussis Not Detected (Not Detect); Chlamydophila pneumoniae Not Detected (Not Detect); Coronavirus 229E Not Detected (Not Detect); Coronavirus HKU1 Not Detected (Not Detect); Coronavirus NL63 Not Detected (Not Detect); Coronavirus OC43 Not Detected (Not Detect); Human Metapneumovirus Not Detected (Not Detect); Human Rhinovirus/Enterovirus Not Detected (Not Detect); Influenza A Subtype 2009 H1 Not Detected (Not Detect); Influenza B Not Detected (Not Detect); Mycoplasma pneumoniae Not Detected (Not Detect); Parainfluenza Virus 1 Not Detected (Not Detect); Parainfluenza Virus 2 Not Detected (Not Detect); Parainfluenza Virus 3 Not Detected (Not Detect); Parainfluenza Virus 4 Not Detected (Not Detect); Respiratory Syncytial Virus Not Detected (Not Detect); SARS-CoV-2 Not Detected (Not Detect)
[2020-12-21] MEDS ORDERED: Furosemide 20 MG/2 ML VIAL IVP STA (02:00)
[2020-12-21] MEDS ORDERED: Naloxone 0.4 MG/ML INJ IVP PRN (02:40)
[2020-12-21] MEDS ORDERED: Acetaminophen 325 MG TABLET PO PRN (02:40)
[2020-12-21] MEDS ORDERED: Ondansetron 4 MG/2 ML VIAL IVP PRN (02:40)
[2020-12-21] MEDS ORDERED: Melatonin 3 MG TABLET PO PRN (02:40)
[2020-12-21 05:29] LABS: INR 1.6; Prothrombin Time 18.8 Seconds (9.4-12.1)
[2020-12-21] MEDS: Aspirin Enteric Coated 81 MG Tablet PO SCH (08:47)
[2020-12-21] MEDS ORDERED: Furosemide 20 MG/2 ML VIAL IVP ONE (09:00)
[2020-12-21] MEDS: Fluticasone Propionate Nasal 50 MCG/SPRAY BOTTLE NS SCH (10:36)
[2020-12-21] MEDS ORDERED: *HR* Warfarin 3 MG TABLET PO ONE (18:00)
[2020-12-21] MEDS ORDERED: Warfarin perPT PO PRN (18:00)
[2020-12-21] MEDS: Metoprolol 100 MG TABLET PO SCH (20:57)
[2020-12-21] MEDS ORDERED: QUEtiapine Fumarate 25 MG TABLET PO SCH (21:00)
[2020-12-22 00:56] LABS: INR 2.1; Prothrombin Time 24.1 Seconds (9.4-12.1)
[2020-12-22 00:58] LABS: Basophils # 0.1 K/mcL (0.0-0.2); Basophils % 0.7 %; Eosinophils # 0.4 K/mcL (0.0-0.6); Eosinophils % 5.2 %; Hematocrit 32.8 % (37.5-50.1); Hemoglobin 10.8 g/dL (12.9-16.9); Immature Granulocytes % 0.6 % (0-4); Lymphocytes # 0.6 K/mcL (0.6-4.6); Lymphocytes % 6.8 %; Mean Corpuscular HGB Conc 32.9 g/dL (31.6-35.5); Mean Corpuscular Hemoglobin 34.7 pg (28.0-33.3); Mean Corpuscular Volume 105.5 fL (83.0-100.0); Monocytes # 1.1 K/mcL (0.0-1.3); Monocytes % 13.8 %; Platelet Count 234 K/mcL (140-400); Red Blood Count 3.11 M/mcL (4.19-5.50); Red Cell Distribution Width 16.9 % (11.5-14.5); Segmented Neutrophils % 72.9 %; White Blood Count 8.2 K/mcL (4.3-11.1)
[2020-12-22 01:01] LABS: BUN/Creatinine Ratio 30 (6-26); Blood Urea Nitrogen 21 mg/dL (8-23); Calcium 8.4 mg/dL (8.6-10.3); Carbon Dioxide 27 mEq/L (23-29); Chloride 102 mEq/L (98-107); Glucose 96 mg/dL (70-105); Osmolality,Calculated 287 (280-300); Potassium 4.2 mEq/L (3.5-5.1); Sodium 137 mEq/L (136-145); eGFR For African Americans > 60 (> 60); eGFR For Non-African Americans > 60 (> 60)
[2020-12-22] MEDS: Aspirin Enteric Coated 81 MG Tablet PO SCH (10:05)
[2020-12-22] MEDS: Metoprolol 100 MG TABLET PO SCH ×2 (10:05→21:38)
[2020-12-22] MEDS: Furosemide 40 MG TABLET PO SCH (10:05)
[2020-12-22] MEDS: Fluticasone Propionate Nasal 50 MCG/SPRAY BOTTLE NS SCH (10:07)
[2020-12-22] MEDS ORDERED: Methotrexate PFS 25 MG/ML VIAL SQ SCH (16:00)
[2020-12-22] MEDS ORDERED: *HR* Warfarin 3 MG TABLET PO ONE (18:00)
[2020-12-23 02:00] LABS: Hematocrit 33.5 % (37.5-50.1); Mean Corpuscular HGB Conc 32.8 g/dL (31.6-35.5); Mean Corpuscular Hemoglobin 34.4 pg (28.0-33.3); Mean Corpuscular Volume 104.7 fL (83.0-100.0); Mean Platelet Volume 10.7 fL (9.4-12.4); Platelet Count 246 K/mcL (140-400); Red Cell Distribution Width 16.8 % (11.5-14.5); White Blood Count 7.7 K/mcL (4.3-11.1)
[2020-12-23 02:08] LABS: INR 2.8
[2020-12-23 02:18] LABS: BUN/Creatinine Ratio 26 (6-26); Blood Urea Nitrogen 19 mg/dL (8-23); Calcium 8.3 mg/dL (8.6-10.3); Carbon Dioxide 25 mEq/L (23-29); Chloride 103 mEq/L (98-107); Glucose 92 mg/dL (70-105); Magnesium 1.8 mg/dL (1.6-2.6); Osmolality,Calculated 284 (280-300); Potassium 3.8 mEq/L (3.5-5.1); Sodium 136 mEq/L (136-145); eGFR For African Americans > 60 (> 60); eGFR For Non-African Americans > 60 (> 60)
[2020-12-23] MEDS: Metoprolol 100 MG TABLET PO SCH ×2 (07:52→20:42)
[2020-12-23] MEDS: predniSONE 5 MG TABLET PO SCH (07:52)
[2020-12-23] MEDS: Lactobacillus 1 EACH CAP.SPRINK PO SCH (07:52)
[2020-12-23] MEDS: Folic Acid 1 MG TABLET PO SCH (07:52)
[2020-12-23] MEDS: Aspirin Enteric Coated 81 MG Tablet PO SCH (07:53)
[2020-12-23] MEDS: Furosemide 40 MG TABLET PO SCH (07:53)
[2020-12-23] MEDS: Cholecalciferol (D-3) 1,000 UNIT (25MCG) TABLET PO SCH (07:53)
[2020-12-23] MEDS: Loratadine 10 MG TABLET PO SCH (07:53)
[2020-12-23] MEDS: Fluticasone Propionate Nasal 50 MCG/SPRAY BOTTLE NS SCH (07:56)
[2020-12-24] MEDS: Lactobacillus 1 EACH CAP.SPRINK PO SCH (07:42)
[2020-12-24] MEDS: Aspirin Enteric Coated 81 MG Tablet PO SCH (07:42)
[2020-12-24] MEDS: Cholecalciferol (D-3) 1,000 UNIT (25MCG) TABLET PO SCH (07:43)
[2020-12-24] MEDS: Metoprolol 100 MG TABLET PO SCH ×2 (07:43→21:02)
[2020-12-24] MEDS: Furosemide 40 MG TABLET PO SCH (07:43)
[2020-12-24] MEDS: predniSONE 5 MG TABLET PO SCH (07:43)
[2020-12-24] MEDS: Loratadine 10 MG TABLET PO SCH (07:43)
[2020-12-24] MEDS: Folic Acid 1 MG TABLET PO SCH (07:44)
[2020-12-24] MEDS: Fluticasone Propionate Nasal 50 MCG/SPRAY BOTTLE NS SCH (07:44)
[2020-12-24 08:15] LABS: INR 2.3; Prothrombin Time 25.8 Seconds (9.4-12.1)
[2020-12-24] MEDS ORDERED: *HR* Warfarin 4 MG TABLET PO ONE (18:00)
[2020-12-25 05:20] LABS: INR 1.5; Prothrombin Time 17.6 Seconds (9.4-12.1)
[2020-12-25] MEDS: Lactobacillus 1 EACH CAP.SPRINK PO SCH (09:24)
[2020-12-25] MEDS: Furosemide 40 MG TABLET PO SCH (09:24)
[2020-12-25] MEDS: Loratadine 10 MG TABLET PO SCH (09:24)
[2020-12-25] MEDS: Metoprolol 100 MG TABLET PO SCH ×2 (09:24→20:30)
[2020-12-25] MEDS: predniSONE 5 MG TABLET PO SCH (09:25)
[2020-12-25] MEDS: Aspirin Enteric Coated 81 MG Tablet PO SCH (09:25)
[2020-12-25] MEDS: Cholecalciferol (D-3) 1,000 UNIT (25MCG) TABLET PO SCH (09:25)
[2020-12-25] MEDS: Folic Acid 1 MG TABLET PO SCH (09:26)
[2020-12-25] MEDS: Fluticasone Propionate Nasal 50 MCG/SPRAY BOTTLE NS SCH (09:26)
[2020-12-25 10:41] LABS: Bilirubin,Urine Negative (Negative); Blood,Urine Negative (Negative); Clarity,Urine Clear (Clear); Color,Urine Yellow (Yellow); Glucose,Urine (UA) Normal (Normal); Ketones,Urine Negative (Negative); Leukocyte Esterase,Urine Negative (Negative); Nitrite,Urine Negative (Negative); Protein,Urine Negative (Neg-Trace); Specific Gravity,Urine 1.018 (1.010-1.025); Urobilinogen,Urine Normal (Normal)
[2020-12-25] MEDS ORDERED: *HR* Warfarin 3 MG TABLET PO ONE (18:00)
[2020-12-25 18:09] LABS: Adenovirus Not Detected (Not Detect); Coronavirus 229E Not Detected (Not Detect); Coronavirus HKU1 Not Detected (Not Detect); Coronavirus NL63 Not Detected (Not Detect); Coronavirus OC43 Not Detected (Not Detect); Human Metapneumovirus Not Detected (Not Detect); Human Rhinovirus/Enterovirus Not Detected (Not Detect); SARS-CoV-2 Not Detected (Not Detect)
[2020-12-25 18:10] LABS: Bordetella Pertussis Not Detected (Not Detect); Chlamydophila pneumoniae Not Detected (Not Detect); Influenza A Subtype 2009 H1 Not Detected (Not Detect); Influenza B Not Detected (Not Detect); Mycoplasma pneumoniae Not Detected (Not Detect); Parainfluenza Virus 1 Not Detected (Not Detect); Parainfluenza Virus 2 Not Detected (Not Detect); Parainfluenza Virus 3 Not Detected (Not Detect); Parainfluenza Virus 4 Not Detected (Not Detect); Respiratory Syncytial Virus Not Detected (Not Detect)
[2020-12-26 02:55] LABS: INR 2.2; Prothrombin Time 24.7 Seconds (9.4-12.1)
[2020-12-26 07:31] VITALS: BP 132/85
[2020-12-26] MEDS: Fluticasone Propionate Nasal 50 MCG/SPRAY BOTTLE NS SCH (09:44)
[2020-12-26] MEDS: Metoprolol 100 MG TABLET PO SCH (09:45)
[2020-12-26] MEDS: Loratadine 10 MG TABLET PO SCH (09:46)
[2020-12-26] MEDS: predniSONE 5 MG TABLET PO SCH (09:46)
[2020-12-26] MEDS: Aspirin Enteric Coated 81 MG Tablet PO SCH (09:46)
[2020-12-26] MEDS: Folic Acid 1 MG TABLET PO SCH (09:46)
[2020-12-26] MEDS: Cholecalciferol (D-3) 1,000 UNIT (25MCG) TABLET PO SCH (09:46)
[2020-12-26] MEDS: Lactobacillus 1 EACH CAP.SPRINK PO SCH (09:47)
[2020-12-26] MEDS: Furosemide 40 MG TABLET PO SCH (09:47)
[2020-12-26] MEDS ORDERED: *HR* Warfarin 4 MG TABLET PO ONE (18:00)
== END 2020-12-26 13:00 | DRG 280 ==
LOC: 3BNU 19:39 → EMEROOARM 19:39 → SUATTDRO 12-21 02:28 → 3ANU 12-21 02:47
PROVIDERS: ADMIT Internal Medicine; ATTEND Internal Medicine

== ENCOUNTER 2021-09-21 18:31 | Inpatient (IN) ==
[2021-09-21 20:04] LABS: Basophils # 0.1 K/mcL (0.0-0.2); Basophils % 0.6 %; Eosinophils # 0.1 K/mcL (0.0-0.6); Eosinophils % 1.7 %; Hematocrit 38.3 % (37.5-50.1); Hemoglobin 12.8 g/dL (12.9-16.9); Immature Granulocytes % 0.5 % (0-4); Lymphocytes # 0.6 K/mcL (0.6-4.6); Lymphocytes % 7.4 %; Mean Corpuscular HGB Conc 33.4 g/dL (31.6-35.5); Mean Corpuscular Hemoglobin 33.3 pg (28.0-33.3); Mean Corpuscular Volume 99.7 fL (83.0-100.0); Mean Platelet Volume 10.5 fL (9.4-12.4); Monocytes # 1.4 K/mcL (0.0-1.3); Monocytes % 16.4 %; Neutrophils # 6.2 K/mcL (1.6-8.9); Platelet Count 236 K/mcL (140-400); Red Blood Count 3.84 M/mcL (4.19-5.50); Red Cell Distribution Width 23.7 % (11.5-14.5); Segmented Neutrophils % 73.4 %; White Blood Count 8.5 K/mcL (4.3-11.1)
[2021-09-21 20:15] LABS: Alanine Aminotransferase 32 Units/L (7-52); Albumin 3.6 g/dL (3.5-5.7); Alkaline Phosphatase 62 Units/L (34-104); Aspartate Amino Transferase 28 Units/L (13-39); BUN/Creatinine Ratio 27 (6-26); Bilirubin,Direct 0.1 mg/dL (0.0-0.2); Bilirubin,Indirect 0.4 mg/dL (0.0-1.0); Bilirubin,Total 0.5 mg/dL (0.3-1.0); Blood Urea Nitrogen 28 mg/dL (8-23); Calcium 8.8 mg/dL (8.6-10.3); Carbon Dioxide 31 mEq/L (23-29); Chloride 99 mEq/L (98-107); Globulin 3.5 g/dL (2.4-3.5); Glucose 93 mg/dL (70-105); Magnesium 2.1 mg/dL (1.6-2.6); Osmolality,Calculated 295 (280-300); Potassium 4.5 mEq/L (3.5-5.1); Sodium 140 mEq/L (136-145); Total Protein 7.1 g/dL (6.4-8.9); eGFR For African Americans > 60 (> 60); eGFR For Non-African Americans > 60 (> 60)
[2021-09-21 20:27] LABS: Anisocytosis 2+ (Not Present); Platelet Estimate Normal (Normal)
[2021-09-21] MEDS ORDERED: 0.9 % Sodium Chloride 1,000 ML IVC ONE (20:28)
[2021-09-21 20:33] LABS: Bilirubin,Urine Negative (Negative); Blood,Urine Negative (Negative); Clarity,Urine Clear (Clear); Color,Urine Light-Yellow (Yellow); Glucose,Urine (UA) Normal (Normal); Ketones,Urine Negative (Negative); Leukocyte Esterase,Urine Negative (Negative); Nitrite,Urine Negative (Negative); PH,Urine 6.5 pH Units (5.0-8.0); Protein,Urine Trace mg/dL (Neg-Trace); Specific Gravity,Urine 1.014 (1.010-1.025); Urobilinogen,Urine Normal (Normal)
[2021-09-21] MEDS ORDERED: Acetaminophen 325 MG TABLET PO ONE (20:38)
[2021-09-21] MEDS ORDERED: Ketorolac 30 MG/ML VIAL IVP ONE (20:39)
[2021-09-21] MEDS ORDERED: Piperacillin/Tazobactam 3.375 GM in 0.9 % Sodium Chloride Mini Bag 100 ML IVPB ONE (21:10)
[2021-09-21 21:21] LABS: Adenovirus Not Detected (Not Detect); Bordetella Pertussis Not Detected (Not Detect); Chlamydophila pneumoniae Not Detected (Not Detect); Coronavirus 229E Not Detected (Not Detect); Coronavirus HKU1 Not Detected (Not Detect); Coronavirus NL63 Not Detected (Not Detect); Coronavirus OC43 Not Detected (Not Detect); Human Metapneumovirus Not Detected (Not Detect); Human Rhinovirus/Enterovirus Not Detected (Not Detect); Influenza A Subtype 2009 H1 Not Detected (Not Detect); Influenza B Not Detected (Not Detect); Mycoplasma pneumoniae Not Detected (Not Detect); Parainfluenza Virus 1 Not Detected (Not Detect); Parainfluenza Virus 2 Not Detected (Not Detect); Parainfluenza Virus 3 Not Detected (Not Detect); Parainfluenza Virus 4 Not Detected (Not Detect); Respiratory Syncytial Virus Not Detected (Not Detect); SARS-CoV-2 Not Detected (Not Detect)
[2021-09-21] MEDS ORDERED: Isovue-370 500 ML BOTTLE IVP ONE (22:20)
[2021-09-21] MEDS ORDERED: Ondansetron ODT 4 MG TAB.RAPDIS SL PRN (23:24)
[2021-09-21] MEDS ORDERED: Naloxone 0.4 MG/ML INJ IVP PRN (23:24)
[2021-09-21] MEDS ORDERED: Melatonin 3 MG TABLET PO PRN (23:24)
[2021-09-22 00:42] LABS: INR 2.3; Prothrombin Time 25.2 Seconds (9.4-12.1)
[2021-09-22] MEDS ORDERED: Azithromycin 500 MG in 0.9 % Sodium Chloride 250 ML IVPB ONE (01:16)
[2021-09-22] MEDS: 0.9 % Sodium Chloride 500 ML IVC SCH ×2 (03:06→09:14)
[2021-09-22] MEDS: Azithromycin 250 MG TABLET PO SCH (09:14)
[2021-09-22] MEDS: cefTRIAXone 1,000 MG in 0.9 % Sodium Chloride Mini Bag 100 ML IVPB SCH (09:14)
[2021-09-22 13:45] LABS: INR 1.8; Prothrombin Time 19.5 Seconds (9.4-12.1)
[2021-09-22] MEDS ORDERED: Warfarin perPT PO PRN (18:00)
[2021-09-22] MEDS ORDERED: *HR* Warfarin 3 MG TABLET PO ONE (18:00)
[2021-09-22] MEDS: Metoprolol 100 MG TABLET PO SCH (20:02)
[2021-09-22] MEDS ORDERED: Acetaminophen 325 MG TABLET PO ONE (20:43)
[2021-09-23 05:15] LABS: Basophils # 0.1 K/mcL (0.0-0.2); Basophils % 0.8 %; Eosinophils # 0.1 K/mcL (0.0-0.6); Hematocrit 33.1 % (37.5-50.1); Immature Granulocytes % 0.7 % (0-4); Lymphocytes # 0.6 K/mcL (0.6-4.6); Lymphocytes % 9.6 %; Mean Corpuscular HGB Conc 32.6 g/dL (31.6-35.5); Mean Corpuscular Hemoglobin 32.1 pg (28.0-33.3); Mean Corpuscular Volume 98.5 fL (83.0-100.0); Mean Platelet Volume 10.6 fL (9.4-12.4); Monocytes # 0.7 K/mcL (0.0-1.3); Monocytes % 11.6 %; Neutrophils # 4.6 K/mcL (1.6-8.9); Platelet Count 213 K/mcL (140-400); Red Blood Count 3.36 M/mcL (4.19-5.50); Red Cell Distribution Width 23.4 % (11.5-14.5); Segmented Neutrophils % 76.3 %
[2021-09-23 05:25] LABS: INR 2.1
[2021-09-23 05:28] LABS: Hemoglobin 10.8 g/dL (12.9-16.9)
[2021-09-23 05:51] LABS: Anisocytosis 1+ (Not Present); Macrocytosis Present (Not Present)
[2021-09-23 05:56] LABS: Platelet Estimate Normal (Normal); Polychromasia 1+ (Not Present)
[2021-09-23 05:57] LABS: Alanine Aminotransferase 26 Units/L (7-52); Albumin 3.1 g/dL (3.5-5.7); Albumin/Globulin Ratio 1.1 (1.1-2.2); Alkaline Phosphatase 53 Units/L (34-104); Aspartate Amino Transferase 27 Units/L (13-39); BUN/Creatinine Ratio 28 (6-26); Bilirubin,Total 0.4 mg/dL (0.3-1.0); Blood Urea Nitrogen 27 mg/dL (8-23); Calcium 7.8 mg/dL (8.6-10.3); Carbon Dioxide 25 mEq/L (23-29); Chloride 107 mEq/L (98-107); Globulin 2.8 g/dL (2.4-3.5); Glucose 106 mg/dL (70-105); Osmolality,Calculated 294 (280-300); Potassium 3.7 mEq/L (3.5-5.1); Sodium 139 mEq/L (136-145); Total Protein 5.9 g/dL (6.4-8.9); eGFR For African Americans > 60 (> 60); eGFR For Non-African Americans > 60 (> 60)
[2021-09-23] MEDS: Metoprolol 100 MG TABLET PO SCH ×2 (08:50→19:34)
[2021-09-23] MEDS: Azithromycin 250 MG TABLET PO SCH (08:50)
[2021-09-23] MEDS: Aspirin Enteric Coated 81 MG Tablet PO SCH (08:50)
[2021-09-23] MEDS: cefTRIAXone 1,000 MG in 0.9 % Sodium Chloride Mini Bag 100 ML IVPB SCH (08:50)
[2021-09-23] MEDS ORDERED: Perflutren Lipid Microsphere 1.3 ML in 0.9 % Sodium Chloride 8.7 ML IVP PRN (15:48)
[2021-09-23] MEDS ORDERED: *HR* Warfarin 3 MG TABLET PO ONE (18:00)
[2021-09-23] MEDS ORDERED: Acetaminophen 325 MG TABLET PO PRN (18:52)
[2021-09-23] MEDS ORDERED: 0.9 % Sodium Chloride 1,000 ML IV ONE (19:20)
[2021-09-24 02:00] LABS: Basophils % 0.6 %; Eosinophils # 0.1 K/mcL (0.0-0.6); Hematocrit 34.3 % (37.5-50.1); Hemoglobin 11.1 g/dL (12.9-16.9); Immature Granulocytes % 0.6 % (0-4); Lymphocytes # 0.5 K/mcL (0.6-4.6); Lymphocytes % 7.6 %; Mean Corpuscular HGB Conc 32.4 g/dL (31.6-35.5); Mean Corpuscular Hemoglobin 32.6 pg (28.0-33.3); Mean Corpuscular Volume 100.6 fL (83.0-100.0); Mean Platelet Volume 11.1 fL (9.4-12.4); Monocytes # 0.6 K/mcL (0.0-1.3); Monocytes % 8.8 %; Neutrophils # 5.6 K/mcL (1.6-8.9); Platelet Count 208 K/mcL (140-400); Red Blood Count 3.41 M/mcL (4.19-5.50); Red Cell Distribution Width 23.2 % (11.5-14.5); Segmented Neutrophils % 81.4 %; White Blood Count 6.9 K/mcL (4.3-11.1)
[2021-09-24 02:13] LABS: INR 2.8
[2021-09-24 02:22] LABS: Alanine Aminotransferase 29 Units/L (7-52); Albumin 2.9 g/dL (3.5-5.7); Albumin/Globulin Ratio 1.1 (1.1-2.2); Alkaline Phosphatase 53 Units/L (34-104); Aspartate Amino Transferase 33 Units/L (13-39); BUN/Creatinine Ratio 27 (6-26); Bilirubin,Total 0.4 mg/dL (0.3-1.0); Blood Urea Nitrogen 23 mg/dL (8-23); Calcium 8.1 mg/dL (8.6-10.3); Carbon Dioxide 23 mEq/L (23-29); Chloride 110 mEq/L (98-107); Globulin 2.7 g/dL (2.4-3.5); Glucose 122 mg/dL (70-105); Osmolality,Calculated 295 (280-300); Potassium 3.9 mEq/L (3.5-5.1); Sodium 140 mEq/L (136-145); Total Protein 5.6 g/dL (6.4-8.9); eGFR For African Americans > 60 (> 60); eGFR For Non-African Americans > 60 (> 60)
[2021-09-24 02:23] LABS: Anisocytosis 2+ (Not Present); Macrocytosis Present (Not Present); Platelet Estimate Normal (Normal)
[2021-09-24] MEDS: Metoprolol 100 MG TABLET PO SCH ×2 (10:18→20:52)
[2021-09-24] MEDS: Azithromycin 250 MG TABLET PO SCH (10:18)
[2021-09-24] MEDS: Aspirin Enteric Coated 81 MG Tablet PO SCH (10:18)
[2021-09-24] MEDS: cefTRIAXone 1,000 MG in 0.9 % Sodium Chloride Mini Bag 100 ML IVPB SCH (10:19)
[2021-09-24] MEDS ORDERED: Furosemide 20 MG/2 ML VIAL IVP ONE (11:57)
[2021-09-24] MEDS: predniSONE 10 MG TABLET PO SCH (12:20)
[2021-09-24] MEDS ORDERED: *HR* Warfarin 3 MG TABLET PO ONE (18:00)
[2021-09-25 01:12] LABS: Basophils # 0.1 K/mcL (0.0-0.2); Basophils % 0.6 %; Eosinophils # 0.1 K/mcL (0.0-0.6); Eosinophils % 1.1 %; Hematocrit 31.9 % (37.5-50.1); Hemoglobin 10.8 g/dL (12.9-16.9); Immature Granulocytes % 0.7 % (0-4); Lymphocytes # 0.6 K/mcL (0.6-4.6); Lymphocytes % 6.8 %; Mean Corpuscular HGB Conc 33.9 g/dL (31.6-35.5); Mean Corpuscular Hemoglobin 33.2 pg (28.0-33.3); Mean Corpuscular Volume 98.2 fL (83.0-100.0); Mean Platelet Volume 10.6 fL (9.4-12.4); Monocytes # 0.8 K/mcL (0.0-1.3); Monocytes % 9.9 %; Neutrophils # 6.8 K/mcL (1.6-8.9); Platelet Count 221 K/mcL (140-400); Red Blood Count 3.25 M/mcL (4.19-5.50); Red Cell Distribution Width 22.9 % (11.5-14.5); Segmented Neutrophils % 80.9 %; White Blood Count 8.4 K/mcL (4.3-11.1)
[2021-09-25 01:24] LABS: INR 2.8; Prothrombin Time 30.7 Seconds (9.4-12.1)
[2021-09-25 01:32] LABS: Alanine Aminotransferase 36 Units/L (7-52); Albumin/Globulin Ratio 0.9 (1.1-2.2); Alkaline Phosphatase 53 Units/L (34-104); Aspartate Amino Transferase 37 Units/L (13-39); BUN/Creatinine Ratio 28 (6-26); Bilirubin,Total 0.5 mg/dL (0.3-1.0); Blood Urea Nitrogen 20 mg/dL (8-23); Calcium 8.2 mg/dL (8.6-10.3); Carbon Dioxide 24 mEq/L (23-29); Chloride 105 mEq/L (98-107); Globulin 3.2 g/dL (2.4-3.5); Glucose 115 mg/dL (70-105); Osmolality,Calculated 288 (280-300); Sodium 137 mEq/L (136-145); Total Protein 6.2 g/dL (6.4-8.9); eGFR For African Americans > 60 (> 60); eGFR For Non-African Americans > 60 (> 60)
[2021-09-25] MEDS: Aspirin Enteric Coated 81 MG Tablet PO SCH (08:09)
[2021-09-25] MEDS: predniSONE 10 MG TABLET PO SCH (08:09)
[2021-09-25] MEDS: Azithromycin 250 MG TABLET PO SCH (08:09)
[2021-09-25] MEDS: cefTRIAXone 1,000 MG in 0.9 % Sodium Chloride Mini Bag 100 ML IVPB SCH (08:09)
[2021-09-25] MEDS: Metoprolol 100 MG TABLET PO SCH (08:09)
[2021-09-25] MEDS ORDERED: Furosemide 40 MG TABLET PO SCH (09:00)
[2021-09-25] MEDS ORDERED: Furosemide 20 MG/2 ML VIAL IVP ONE (12:14)
[2021-09-25] MEDS: Spironolactone 25 MG TABLET PO SCH (14:56)
[2021-09-25] MEDS ORDERED: *HR* Warfarin 3 MG TABLET PO ONE (18:00)
[2021-09-25] MEDS: Furosemide 40 MG TABLET PO SCH (21:02)
[2021-09-26 00:52] LABS: Prothrombin Time 22.4 Seconds (9.4-12.1)
[2021-09-26] MEDS: Aspirin Enteric Coated 81 MG Tablet PO SCH (09:21)
[2021-09-26] MEDS: lisinopriL 10 MG TABLET PO SCH (09:21)
[2021-09-26] MEDS: Azithromycin 250 MG TABLET PO SCH (09:21)
[2021-09-26] MEDS: Furosemide 40 MG TABLET PO SCH (09:21)
[2021-09-26] MEDS: Spironolactone 25 MG TABLET PO SCH (09:21)
[2021-09-26] MEDS: predniSONE 10 MG TABLET PO SCH (09:22)
[2021-09-26] MEDS: cefTRIAXone 1,000 MG in 0.9 % Sodium Chloride Mini Bag 100 ML IVPB SCH (10:19)
[2021-09-26] MEDS ORDERED: Furosemide 40 MG/4 ML VIAL IVP ONE (15:26)
[2021-09-26] MEDS ORDERED: *HR* Warfarin 3 MG TABLET PO ONE (18:00)
[2021-09-26] MEDS: cefTRIAXone 1,000 MG in 0.9 % Sodium Chloride 10 ML IVP SCH (18:42)
[2021-09-27 02:54] LABS: INR 1.8; Prothrombin Time 19.9 Seconds (9.4-12.1)
[2021-09-27] MEDS ORDERED: 0.9 % Sodium Chloride 500 ML IV ONE (03:15)
[2021-09-27 09:27] LABS: BUN/Creatinine Ratio 30 (6-26); Blood Urea Nitrogen 28 mg/dL (8-23); Calcium 7.8 mg/dL (8.6-10.3); Carbon Dioxide 29 mEq/L (23-29); Chloride 101 mEq/L (98-107); Glucose 89 mg/dL (70-105); Osmolality,Calculated 291 (280-300); Potassium 3.6 mEq/L (3.5-5.1); Sodium 138 mEq/L (136-145); eGFR For African Americans > 60 (> 60); eGFR For Non-African Americans > 60 (> 60)
[2021-09-27] MEDS: Aspirin Enteric Coated 81 MG Tablet PO SCH (10:07)
[2021-09-27] MEDS: Azithromycin 250 MG TABLET PO SCH (10:07)
[2021-09-27] MEDS: Spironolactone 25 MG TABLET PO SCH (10:08)
[2021-09-27] MEDS: lisinopriL 10 MG TABLET PO SCH (10:08)
[2021-09-27] MEDS: predniSONE 10 MG TABLET PO SCH (10:08)
[2021-09-27] MEDS: Furosemide 40 MG/4 ML VIAL IVP SCH (10:10)
[2021-09-27] MEDS: cefTRIAXone 1,000 MG in 0.9 % Sodium Chloride 10 ML IVP SCH (17:32)
[2021-09-27] MEDS ORDERED: *HR* Warfarin 3 MG TABLET PO ONE (18:00)
[2021-09-28 03:50] LABS: Prothrombin Time 22.3 Seconds (9.4-12.1)
[2021-09-28 03:58] LABS: BUN/Creatinine Ratio 34 (6-26); Blood Urea Nitrogen 35 mg/dL (8-23); Calcium 7.8 mg/dL (8.6-10.3); Carbon Dioxide 26 mEq/L (23-29); Chloride 100 mEq/L (98-107); Glucose 81 mg/dL (70-105); Osmolality,Calculated 287 (280-300); Potassium 3.9 mEq/L (3.5-5.1); Sodium 135 mEq/L (136-145); eGFR For African Americans > 60 (> 60); eGFR For Non-African Americans > 60 (> 60)
[2021-09-28 06:40] VITALS: PULSE 88; TEMP 98.3; O2SAT 96
[2021-09-28] MEDS ORDERED: lisinopriL 5 MG TABLET PO SCH (09:45)
[2021-09-28] MEDS: predniSONE 10 MG TABLET PO SCH (09:55)
[2021-09-28] MEDS: Azithromycin 250 MG TABLET PO SCH (09:55)
[2021-09-28] MEDS: Aspirin Enteric Coated 81 MG Tablet PO SCH (09:55)
[2021-09-28] MEDS: Furosemide 40 MG/4 ML VIAL IVP SCH (09:55)
[2021-09-28 10:53] VITALS: BP 102/66
[2021-09-28] MEDS ORDERED: Methotrexate PFS 25 MG/ML VIAL SQ SCH (12:00)
[2021-09-28] MEDS ORDERED: *HR* Warfarin 3 MG TABLET PO ONE (18:00)
[2021-09-28] MEDS ORDERED: Metoprolol XL (24 HR) Succ 25 MG TAB.ER.24H PO SCH (21:00)
[2021-09-29] MEDS ORDERED: Furosemide 40 MG TABLET PO SCH (09:00)
== END 2021-09-28 16:12 | disposition home health service (06) | DRG 871 ==
LOC: 3BNU 18:31 → EMEROOARM 18:31 → 3BNU 23:07 → SUATTDRO 09-22 14:05
PROVIDERS: ADMIT Internal Medicine; ATTEND Registered Nurse

== ENCOUNTER 2021-12-09 11:25 | Inpatient (IN) ==
[2021-12-09 12:58] LABS: Basophils % 0.5 %; Eosinophils # 0.1 K/mcL (0.0-0.6); Eosinophils % 1.2 %; Hematocrit 24.4 % (37.5-50.1); Hemoglobin 7.3 g/dL (12.9-16.9); Immature Granulocytes % 0.5 % (0-4); Lymphocytes # 0.8 K/mcL (0.6-4.6); Lymphocytes % 10.7 %; Mean Corpuscular HGB Conc 29.9 g/dL (31.6-35.5); Mean Corpuscular Hemoglobin 27.1 pg (28.0-33.3); Mean Corpuscular Volume 90.7 fL (83.0-100.0); Mean Platelet Volume 10.8 fL (9.4-12.4); Monocytes # 0.6 K/mcL (0.0-1.3); Monocytes % 7.8 %; Neutrophils # 6.1 K/mcL (1.6-8.9); Platelet Count 253 K/mcL (140-400); Red Blood Count 2.69 M/mcL (4.19-5.50); Red Cell Distribution Width 23.1 % (11.5-14.5); Segmented Neutrophils % 79.3 %; White Blood Count 7.7 K/mcL (4.3-11.1)
[2021-12-09 13:04] LABS: INR 2.3; Prothrombin Time 25.6 Seconds (9.4-12.1)
[2021-12-09 13:07] LABS: Activated Partial Thrombo Time 33.7 Seconds (26.0-36.0)
[2021-12-09 13:40] LABS: BUN/Creatinine Ratio 29 (6-26); Blood Urea Nitrogen 30 mg/dL (8-23); Calcium 8.7 mg/dL (8.6-10.3); Carbon Dioxide 26 mEq/L (23-29); Chloride 102 mEq/L (98-107); Glucose 82 mg/dL (70-105); Osmolality,Calculated 291 (280-300); Potassium 3.7 mEq/L (3.5-5.1); Sodium 138 mEq/L (136-145); Troponin I 0.03 ng/mL (< 0.04); eGFR For African Americans > 60 (> 60); eGFR For Non-African Americans > 60 (> 60)
[2021-12-09 13:46] LABS: Anisocytosis 2+ (Not Present); Hypochromasia Present (Not Present); Platelet Estimate Normal (Normal)
[2021-12-09] MEDS ORDERED: Pantoprazole 40 MG VIAL IVP ONE (14:19)
[2021-12-09] MEDS ORDERED: 0.9 % Sodium Chloride 500 ML IVC ONE (14:24)
[2021-12-09] MEDS ORDERED: *HR* Phytonadione 5 MG TABLET PO STA (14:25)
[2021-12-09] MEDS ORDERED: Acetaminophen 325 MG TABLET PO PRN (14:52)
[2021-12-09] MEDS ORDERED: Naloxone 0.4 MG/ML INJ IVP PRN (14:52)
[2021-12-09] MEDS ORDERED: Ondansetron 4 MG/2 ML VIAL IVP PRN (14:52)
[2021-12-09] MEDS ORDERED: Nitroglycerin 0.4 MG TAB.SUBL SL SCH (15:00)
[2021-12-09] MEDS ORDERED: Nitroglycerin 0.4 MG TAB.SUBL SL PRN (16:00)
[2021-12-09 16:49] LABS: % Iron Saturation 3 % (20-55); Iron 12 mcg/dL (65-175); Transferrin 330 mg/dL (203-362)
[2021-12-09 17:42] LABS: Folate > 22.3 ng/mL (3.0-16.0); Vitamin B12 664 pg/mL (250-1100)
[2021-12-09] MEDS: Iron Sucrose Complex 200 MG in 0.9 % Sodium Chloride 100 ML IVPB SCH (23:47)
[2021-12-10] MEDS ORDERED: NON-FORMULARY MEDICATION 1 EACH EACH (Fish Oil/Dha/Epa [Fish Oil 1,200 Mg Fish Oil] 1 EACH PO SCH (09:00)
[2021-12-10] MEDS ORDERED: NON-FORMULARY MEDICATION 1 EACH EACH (Vit A/Vit C/Vit E/Zinc/Copper [Preservision Areds Ta PO SCH (09:00)
[2021-12-10] MEDS: Iron Sucrose Complex 200 MG in 0.9 % Sodium Chloride 100 ML IVPB SCH (09:23)
[2021-12-10] MEDS: Metoprolol XL (24 HR) Succ 25 MG TAB.ER.24H PO SCH (09:24)
[2021-12-10] MEDS: Loratadine 10 MG TABLET PO SCH (09:24)
[2021-12-10] MEDS: Aspirin Enteric Coated 81 MG Tablet PO SCH (09:24)
[2021-12-10] MEDS: Multivit/Ca/Min/Fe/FA 1 TAB TABLET PO SCH (09:24)
[2021-12-10] MEDS: Folic Acid 1 MG TABLET PO SCH (09:24)
[2021-12-10] MEDS: Cholecalciferol (D-3) 1,000 UNIT (25MCG) TABLET PO SCH (09:24)
[2021-12-10] MEDS: predniSONE 5 MG TABLET PO SCH (09:24)
[2021-12-10] MEDS: Lactobacillus 1 EACH CAP.SPRINK PO SCH (09:24)
[2021-12-10] MEDS: Furosemide 40 MG TABLET PO SCH (09:25)
[2021-12-10] MEDS: Pantoprazole 40 MG VIAL IVP SCH ×2 (09:38→16:35)
[2021-12-10] MEDS ORDERED: Cyanocobalamin (B-12) 1,000 MCG/ML VIAL SQ ONE ×2 (09:46→15:48)
[2021-12-10] MEDS ORDERED: *HR* Phytonadione 10 MG/ML AMPUL SQ ONE ×2 (13:17→13:30)
[2021-12-10] MEDS ORDERED: Ondansetron 4 MG/2 ML VIAL IVP PRN (16:09)
[2021-12-10 16:27] LABS: Red Blood Count 2.55 M/mcL (4.19-5.50)
[2021-12-10 16:28] LABS: Hematocrit 23.8 % (37.5-50.1); Hemoglobin 6.8 g/dL (12.9-16.9); Mean Corpuscular HGB Conc 28.6 g/dL (31.6-35.5); Mean Corpuscular Hemoglobin 26.7 pg (28.0-33.3); Mean Corpuscular Volume 93.3 fL (83.0-100.0); Platelet Count 218 K/mcL (140-400); Red Cell Distribution Width 23.6 % (11.5-14.5); White Blood Count 7.9 K/mcL (4.3-11.1)
[2021-12-10 16:49] LABS: INR 1.9; Prothrombin Time 20.7 Seconds (9.4-12.1)
[2021-12-10] MEDS ORDERED: SODIUM CHLORIDE/NAHCO3/KCL/PEG 4,000 ML SOLN.RECON PO ONE (17:00)
[2021-12-10 17:05] LABS: Alanine Aminotransferase 8 Units/L (7-52); Albumin 3.7 g/dL (3.5-5.7); Albumin/Globulin Ratio 1.2 (1.1-2.2); Alkaline Phosphatase 68 Units/L (34-104); Aspartate Amino Transferase 17 Units/L (13-39); BUN/Creatinine Ratio 23 (6-26); Bilirubin,Direct 0.1 mg/dL (0.0-0.2); Bilirubin,Indirect 0.4 mg/dL (0.0-1.0); Bilirubin,Total 0.5 mg/dL (0.3-1.0); Blood Urea Nitrogen 22 mg/dL (8-23); Calcium 8.4 mg/dL (8.6-10.3); Carbon Dioxide 22 mEq/L (23-29); Chloride 102 mEq/L (98-107); Glucose 109 mg/dL (70-105); Osmolality,Calculated 286 (280-300); Potassium 3.8 mEq/L (3.5-5.1); Sodium 136 mEq/L (136-145); Total Protein 6.7 g/dL (6.4-8.9); eGFR For African Americans > 60 (> 60); eGFR For Non-African Americans > 60 (> 60)
[2021-12-11 04:51] LABS: Hematocrit 21.8 % (37.5-50.1); Hemoglobin 6.4 g/dL (12.9-16.9); Mean Corpuscular HGB Conc 29.4 g/dL (31.6-35.5); Mean Corpuscular Hemoglobin 26.4 pg (28.0-33.3); Mean Corpuscular Volume 90.1 fL (83.0-100.0); Mean Platelet Volume 11.2 fL (9.4-12.4); Nucleated Red Blood Cells 0.4 /100 WBC (0); Platelet Count 250 K/mcL (140-400); Red Blood Count 2.42 M/mcL (4.19-5.50); Red Cell Distribution Width 22.8 % (11.5-14.5)
[2021-12-11 05:12] LABS: Blood Urea Nitrogen 16 mg/dL (8-23); Calcium 8.4 mg/dL (8.6-10.3); Carbon Dioxide 25 mEq/L (23-29); Chloride 99 mEq/L (98-107); Glucose 118 mg/dL (70-105); Magnesium 1.9 mg/dL (1.6-2.6); Osmolality,Calculated 282 (280-300); Potassium 3.4 mEq/L (3.5-5.1); Sodium 135 mEq/L (136-145)
[2021-12-11 05:26] LABS: Eosinophils # 0.3 K/mcL (0.0-0.6); Lymphocytes # 0.4 K/mcL (0.6-4.6); Monocytes # 0.3 K/mcL (0.0-1.3); Platelet Estimate Normal (Normal)
[2021-12-11 05:28] LABS: Ferritin 194 ng/mL (20-250)
[2021-12-11] MEDS ORDERED: Calcium Gluconate 1gm/50mL 1 GM/50 ML BAG IVPB ONE (05:36)
[2021-12-11 05:54] LABS: BUN/Creatinine Ratio 18 (6-26); eGFR For African Americans > 60 (> 60); eGFR For Non-African Americans > 60 (> 60)
[2021-12-11] MEDS: Pantoprazole 40 MG VIAL IVP SCH ×2 (06:45→18:04)
[2021-12-11] MEDS ORDERED: Iron Sucrose Complex 250 MG in 0.9 % Sodium Chloride 250 ML IVPB ONE (07:44)
[2021-12-11] MEDS: Metoprolol XL (24 HR) Succ 25 MG TAB.ER.24H PO SCH (09:23)
[2021-12-11] MEDS ORDERED: 0.9 % Sodium Chloride 250 ML ONE (10:17)
[2021-12-11] MEDS ORDERED: Lidocaine -MPF 4% 5 ML AMPUL ONE (12:26)
[2021-12-11] MEDS: predniSONE 5 MG TABLET PO SCH (14:30)
[2021-12-11] MEDS: Multivit/Ca/Min/Fe/FA 1 TAB TABLET PO SCH (14:30)
[2021-12-11] MEDS: Lactobacillus 1 EACH CAP.SPRINK PO SCH (14:30)
[2021-12-11] MEDS: Aspirin Enteric Coated 81 MG Tablet PO SCH (14:30)
[2021-12-11] MEDS: Folic Acid 1 MG TABLET PO SCH (14:31)
[2021-12-11] MEDS: Loratadine 10 MG TABLET PO SCH (14:31)
[2021-12-11] MEDS: Furosemide 40 MG TABLET PO SCH (14:31)
[2021-12-11] MEDS: Cholecalciferol (D-3) 1,000 UNIT (25MCG) TABLET PO SCH (14:31)
[2021-12-12 02:36] LABS: Basophils # 0.1 K/mcL (0.0-0.2); Basophils % 0.7 %; Eosinophils # 0.1 K/mcL (0.0-0.6); Eosinophils % 1.6 %; Hematocrit 22.8 % (37.5-50.1); Immature Granulocytes % 0.6 % (0-4); Lymphocytes # 0.7 K/mcL (0.6-4.6); Lymphocytes % 10.6 %; Mean Corpuscular HGB Conc 30.7 g/dL (31.6-35.5); Mean Corpuscular Hemoglobin 27.1 pg (28.0-33.3); Mean Corpuscular Volume 88.4 fL (83.0-100.0); Mean Platelet Volume 10.8 fL (9.4-12.4); Monocytes # 0.7 K/mcL (0.0-1.3); Monocytes % 10.5 %; Neutrophils # 5.2 K/mcL (1.6-8.9); Nucleated Red Blood Cells 1.2 /100 WBC (0); Platelet Count 202 K/mcL (140-400); Red Blood Count 2.58 M/mcL (4.19-5.50); Red Cell Distribution Width 21.6 % (11.5-14.5); White Blood Count 6.8 K/mcL (4.3-11.1)
[2021-12-12 02:53] LABS: BUN/Creatinine Ratio 17 (6-26); Blood Urea Nitrogen 16 mg/dL (8-23); Calcium 8.2 mg/dL (8.6-10.3); Carbon Dioxide 27 mEq/L (23-29); Chloride 105 mEq/L (98-107); Glucose 103 mg/dL (70-105); Magnesium 1.7 mg/dL (1.6-2.6); Osmolality,Calculated 289 (280-300); Potassium 3.5 mEq/L (3.5-5.1); Sodium 139 mEq/L (136-145); eGFR For African Americans > 60 (> 60); eGFR For Non-African Americans > 60 (> 60)
[2021-12-12] MEDS: Pantoprazole 40 MG VIAL IVP SCH (06:34)
[2021-12-12] MEDS ORDERED: Cyanocobalamin (B-12) 1,000 MCG/ML VIAL SQ ONE (07:13)
[2021-12-12] MEDS ORDERED: Iron Sucrose Complex 200 MG in 0.9 % Sodium Chloride 100 ML IVPB ONE (07:13)
[2021-12-12] MEDS: Loratadine 10 MG TABLET PO SCH (07:37)
[2021-12-12] MEDS: Folic Acid 1 MG TABLET PO SCH (07:37)
[2021-12-12] MEDS: Lactobacillus 1 EACH CAP.SPRINK PO SCH (07:37)
[2021-12-12] MEDS: Furosemide 40 MG TABLET PO SCH (07:37)
[2021-12-12] MEDS: Cholecalciferol (D-3) 1,000 UNIT (25MCG) TABLET PO SCH (07:37)
[2021-12-12] MEDS: Aspirin Enteric Coated 81 MG Tablet PO SCH (07:37)
[2021-12-12] MEDS: predniSONE 5 MG TABLET PO SCH (07:37)
[2021-12-12] MEDS: Metoprolol XL (24 HR) Succ 25 MG TAB.ER.24H PO SCH (07:37)
[2021-12-12] MEDS: Multivit/Ca/Min/Fe/FA 1 TAB TABLET PO SCH (07:37)
[2021-12-12] MEDS ORDERED: polyethylene glycoL 3350 17 GM POWD.PACK PO SCH (09:00)
[2021-12-12 11:36] VITALS: BP 138/67; PULSE 93; TEMP 98.1; O2SAT 90
[2021-12-14] MEDS ORDERED: Methotrexate PFS 25 MG/ML VIAL SQ SCH (09:00)
== END 2021-12-12 14:00 | disposition home health service (06) | DRG 394 ==
LOC: EMEROOARM 11:25 → 2ANU 11:25 → SUATTDRO 14:32 → 2ANU 15:09
PROVIDERS: ADMIT Internal Medicine; ATTEND Pharmacist

== ENCOUNTER 2022-01-07 15:45 | Observation (INO) ==
[2022-01-07 18:09] LABS: Basophils # 0.1 K/mcL (0.0-0.2); Basophils % 0.8 %; Eosinophils # 0.1 K/mcL (0.0-0.6); Eosinophils % 1.1 %; Hematocrit 32.6 % (37.5-50.1); Hemoglobin 10.2 g/dL (12.9-16.9); Immature Granulocytes % 0.5 % (0-4); Lymphocytes # 0.6 K/mcL (0.6-4.6); Lymphocytes % 9.8 %; Mean Corpuscular HGB Conc 31.3 g/dL (31.6-35.5); Mean Corpuscular Hemoglobin 29.6 pg (28.0-33.3); Mean Corpuscular Volume 94.5 fL (83.0-100.0); Mean Platelet Volume 10.9 fL (9.4-12.4); Monocytes # 0.4 K/mcL (0.0-1.3); Monocytes % 6.5 %; Platelet Count 238 K/mcL (140-400); Red Blood Count 3.45 M/mcL (4.19-5.50); Red Cell Distribution Width 26.7 % (11.5-14.5); Segmented Neutrophils % 81.3 %; White Blood Count 6.3 K/mcL (4.3-11.1)
[2022-01-07 18:11] LABS: Neutrophils # 5.1 K/mcL (1.6-8.9)
[2022-01-07 18:15] LABS: INR 1.8; Prothrombin Time 20.1 Seconds (9.4-12.1)
[2022-01-07 18:18] LABS: Activated Partial Thrombo Time 36.2 Seconds (26.0-36.0)
[2022-01-07 18:36] LABS: Anisocytosis 2+ (Not Present); Large Platelets Present (Not Present); Ovalocytes 1+ (Not Present)
[2022-01-07 18:53] LABS: Influenza A PCR Negative (Negative); Influenza B PCR Negative (Negative); Resp. Syncytial Virus PCR Negative (Negative)
[2022-01-07 18:58] LABS: SARS-CoV-2 by PCR (In House) Negative (Negative)
[2022-01-07 19:54] LABS: Alanine Aminotransferase 22 Units/L (7-52); Albumin 3.4 g/dL (3.5-5.7); Alkaline Phosphatase 62 Units/L (34-104); Aspartate Amino Transferase 23 Units/L (13-39); BUN/Creatinine Ratio 30 (6-26); Bilirubin,Direct 0.1 mg/dL (0.0-0.2); Bilirubin,Indirect 0.2 mg/dL (0.0-1.0); Bilirubin,Total 0.3 mg/dL (0.3-1.0); Blood Urea Nitrogen 27 mg/dL (8-23); Calcium 8.7 mg/dL (8.6-10.3); Carbon Dioxide 30 mEq/L (23-29); Chloride 98 mEq/L (98-107); Globulin 3.5 g/dL (2.4-3.5); Glucose 144 mg/dL (70-105); Magnesium 1.8 mg/dL (1.6-2.6); Osmolality,Calculated 296 (280-300); Potassium 3.8 mEq/L (3.5-5.1); Sodium 139 mEq/L (136-145); Total Protein 6.9 g/dL (6.4-8.9); eGFR For African Americans > 60 (> 60); eGFR For Non-African Americans > 60 (> 60)
[2022-01-07 20:05] LABS: Troponin I 0.03 ng/mL (< 0.04)
[2022-01-07] MEDS ORDERED: Furosemide 40 MG/4 ML VIAL IVP ONE (20:26)
[2022-01-08] MEDS ORDERED: Perflutren Lipid Microsphere 1.3 ML in 0.9 % Sodium Chloride 8.7 ML IVP PRN (01:39)
[2022-01-08] MEDS ORDERED: Naloxone 0.4 MG/ML INJ IVP PRN (01:41)
[2022-01-08] MEDS ORDERED: Ondansetron 4 MG/2 ML VIAL IVP PRN (01:47)
[2022-01-08] MEDS ORDERED: Acetaminophen 325 MG TABLET PO PRN (01:47)
[2022-01-08 06:56] LABS: Hematocrit 32.2 % (37.5-50.1); Mean Corpuscular HGB Conc 31.1 g/dL (31.6-35.5); Mean Corpuscular Hemoglobin 29.4 pg (28.0-33.3); Mean Corpuscular Volume 94.7 fL (83.0-100.0); Mean Platelet Volume 10.8 fL (9.4-12.4); Platelet Count 229 K/mcL (140-400); Red Cell Distribution Width 26.6 % (11.5-14.5); White Blood Count 7.7 K/mcL (4.3-11.1)
[2022-01-08 07:04] LABS: INR 1.9; Prothrombin Time 20.9 Seconds (9.4-12.1)
[2022-01-08 07:07] LABS: Activated Partial Thrombo Time 33.6 Seconds (26.0-36.0)
[2022-01-08 07:25] LABS: BUN/Creatinine Ratio 27 (6-26); Blood Urea Nitrogen 24 mg/dL (8-23); Calcium 7.6 mg/dL (8.6-10.3); Carbon Dioxide 30 mEq/L (23-29); Chloride 99 mEq/L (98-107); Chol/HDL Ratio 2.6 (0-4.9); Cholesterol 151 mg/dL (< 200); Glucose 85 mg/dL (70-105); HDL Cholesterol 59 mg/dL (40-59); LDL Cholesterol,Calculated 77 mg/dL (< 100); Osmolality,Calculated 291 (280-300); Potassium 3.5 mEq/L (3.5-5.1); Sodium 139 mEq/L (136-145); Triglycerides 77 mg/dL (< 150); eGFR For African Americans > 60 (> 60); eGFR For Non-African Americans > 60 (> 60)
[2022-01-08 07:32] LABS: Troponin I 0.06 ng/mL (< 0.04)
[2022-01-08 08:09] LABS: Folate > 22.3 ng/mL (3.0-16.0); Vitamin B12 936 pg/mL (250-1100)
[2022-01-08] MEDS ORDERED: polyethylene glycoL 3350 17 GM POWD.PACK PO SCH (09:00)
[2022-01-08] MEDS ORDERED: Furosemide 40 MG TABLET PO SCH (09:00)
[2022-01-08] MEDS ORDERED: Famotidine 20 MG TABLET PO SCH (09:00)
[2022-01-08] MEDS ORDERED: Lactobacillus 1 EACH CAP.SPRINK PO SCH (09:00)
[2022-01-08] MEDS ORDERED: Cholecalciferol (D-3) 1,000 UNIT (25MCG) TABLET PO SCH (09:00)
[2022-01-08] MEDS ORDERED: Aspirin Enteric Coated 81 MG Tablet PO SCH (09:00)
[2022-01-08] MEDS ORDERED: predniSONE 5 MG TABLET PO SCH (09:00)
[2022-01-08] MEDS ORDERED: Metoprolol XL (24 HR) Succ 25 MG TAB.ER.24H PO SCH (09:00)
[2022-01-08] MEDS ORDERED: Folic Acid 1 MG TABLET PO SCH (09:00)
[2022-01-08] MEDS ORDERED: Loratadine 10 MG TABLET PO SCH (09:00)
[2022-01-08 11:49] VITALS: BP 123/70; PULSE 88; TEMP 97.7; O2SAT 99
[2022-01-08 12:33] LABS: Estimated Average Glucose 85 mg/dl; Hemoglobin A1C 4.6 %
[2022-01-08] MEDS ORDERED: Nitroglycerin 0.4 MG TAB.SUBL SL PRN (12:39)
[2022-01-08] MEDS ORDERED: Warfarin perPT PO PRN (18:00)
[2022-01-08] MEDS ORDERED: *HR* Warfarin 3 MG TABLET PO ONE (18:00)
[2022-01-09] MEDS ORDERED: Famotidine 20 MG TABLET PO SCH (09:00)
[2022-01-11] MEDS ORDERED: Methotrexate PFS 25 MG/ML VIAL SQ SCH (01:42)
[2022-01-11] MEDS ORDERED: NON-FORMULARY MEDICATION 1 EACH EACH (Alendronate Sodium [Fosamax] 70 MG Tablet) PO SCH (01:42)
== END 2022-01-08 17:16 | disposition hospice, home (50) ==
LOC: 2ANU 15:45 → EMEROOARM 15:45 → SUATTDRO 20:32 → 2ANU 21:49
PROVIDERS: ADMIT Student in an Organized Health Care Education/Training Program; ATTEND Family Medicine